=== PATIENT | female | born 1970 | race Caucasian/White ===

== ENCOUNTER 2017-01-10 15:36 | Inpatient (IN) ==
--- NOTE | 2017-01-10 18:48 | Internal Med History&Physical ---
Date of Encounter: 01/10/17 Time of Encounter: 18:46 Assessment and Plan (1) NSTEMI (non-ST elevated myocardial infarction) Current visit: Yes Status: Acute Her troponin was elevated. She had chest pain for 4 days. She has a history of CAD. Altogether pointing to a diagnosis of acute myocardial infarction. Will admit the patient to telemetry. Trend troponin. I will not start anticoagulation was heparin due to current therapy with Eliquis. I will hold Eliquis and reassess for need of parenteral anticoagulation based on troponin profile and further clinical picture. We will consult cardiology. We will obtain echocardiogram. I will continue on aspirin. Start Lipitor 80 mg. Continue with beta landon and lisinopril. Nothing by mouth after midnight for possible need for cardiac catheterization. (2) Tobacco abuse disorder Current visit: Yes Status: Acute I provided smoking cessation counseling. I will hold off on nicotine replacement therapy due to acute [place]. (3) Coronary artery disease Current visit: Yes Status: Acute Continue with aspirin and Coreg, nitroglycerin when necessary. Consult cardiology. Qualifiers: Coronary Disease-Associated Artery/Lesion type: bypass graft [place] vs. transplanted heart: [place] heart Associated angina: with unstable angina Qualified Code(s): I25.700 - Atherosclerosis of coronary artery bypass graft(s) , unspecified, with unstable angina pectoris (4) Paroxysmal atrial fibrillation Current visit: Yes Status: Acute Currently in sinus rhythm. Continue with beta landon. Hold Eliquis for now, consider starting heparin based on clinical picture. (5) Ischemic cardiomyopathy Current visit: Yes Status: Acute (6) Essential hypertension Current visit: Yes Status: Acute (7) Bronchial asthma Current visit: Yes Status: Acute Inhaled albuterol as needed. Qualifiers: Asthma severity: mild intermittent Asthma complication type: uncomplicated Qualified Code(s): J45.20 - Mild intermittent asthma, uncomplicated (8) DVT prophylaxis Current visit: Yes Status: Acute She is currently fully anticoagulated with eliquis. Internal Medicine - H&P: HPI Chief complaint: chest pain Admitted From: Intrahospital Transfer Plans for Post Hospital Care: Home History of present illness: Ms. Rivera is a 46 year old female with past medical history significant for coronary artery disease, ischemic cardiomyopathy and bronchial asthma who presented to the hospital for chest pain. She has been having chest pain for 4 days on and off located in the left side of her chest described as sharp stabbing severe in intensity. Denies any associated cough nausea or diaphoresis. Today it has been more persistent and therefore she went to the hospital. Her troponin was elevated and she was referred for transfer to our facility. She is currently chest pain-free. A 10 point review of systems was negative except per the history of present illness. Past Med Surg Social Fam HX - Past Medical History Medical history: asthma, COPD, coronary artery disease, hyperlipidemia, hypertension, syncope Psychiatric history: anxiety - Past Surgical History Surgical History: coronary bypass (CABG), heart valve replacement, pacemaker - Social History Smoking Status: Current every day smoker Packs per day: 0.5 Smokeless Tobacco Status: No Alcohol use: none Drug use: marijuana - Family History Mother Living Status: Still Living Hx Family Cardiac Disorders: Yes Hx Family Respiratory Disorders: Yes Hx Family Cancer: No Hx Family GI Disorders: Yes Hx Family Endocrine Disorder: Yes Hx Family Neuromuscular Disorders: No Hx Family Neurologic Disorders: No Hx Family HEENT Disorders: No Hx Family Autoimmune Disorders: No Internal Medicine - H&P: Meds Aspirin 81 mg PO DAILY 09/20/16 [History] Atorvastatin [Lipitor] 10 mg PO HS 09/20/16 [History] Carvedilol [Coreg] 6.25 mg PO BIDWM 09/20/16 [History] Furosemide [Lasix] 20 mg PO DAILY 09/20/16 [History] Lisinopril [Zestril] 20 mg PO DAILY 09/20/16 [History] Nitroglycerin [Nitrostat] 0.4 mg SL Q5M PRN 09/20/16 [History] Ondansetron [Zofran] 8 mg PO Q8HR PRN 09/20/16 [History] Acetaminophen [Tylenol] 650 mg PO Q4HR PRN #0 tablet 09/21/16 [Rx] OxyCODONE/APAP 5/325 [Percocet 5/325 MG] 1 each PO Q6HR PRN #10 tablet 09/21/16 [Rx] Allergies No Known Allergies Allergy (Verified 09/20/16 07:58) All Systems PM: A 10-system review of systems was performed and is negative for pertinent findings except as documented above in the HPI. - Constitutional Vitals: Temp Pulse Resp BP Pulse Ox 98.6 F 73 16 110/76 97 01/10/17 18:14 01/10/17 18:14 01/10/17 18:14 01/10/17 18:14 01/10/17 18:14 General appearance: Present: A&O X 3 - Eye Eye exam: Present: PERRL, conjuntiva pink, sclera anicteric Pupils: Present: PERRL - Neck Neck exam general surgery: Present: supple, trachea midline. Absent: lymphadenopathy - Respiratory Respiratory exam: Present: CTAB. Absent: accessory muscle use, rales, rhonchi, wheezes - Cardiovascular Cardiovascular exam: Present: RRR, +S1, +S2. Absent: diastolic murmur, gallop, rubs, systolic murmur - GI/Abdominal GI/Abdominal exam: Present: normal bowel sounds, soft, no peritoneal signs. Absent: distended, tenderness - Extremities Exam Extremities exam: Present: warm, radial pulses palpable and symetrical. Absent : calf tenderness, cyanotic, pedal edema - Neurological Exam Neurological exam: Present: CN II-XII intact, oriented X3, no focal deficits. Absent: pronater drift, facial droop, speech deficit - Skin Skin exam: Present: dry, intact Internal Med - H&P Results - Labs Labs: Laboratory review from [facility] from 01/10/2017 BNP was 569 white blood cell count 14.0 hemoglobin 15.3 CK-MB 8.8 troponin 0.28 sodium 136 potassium 3.8 BUN 20 creatinine 1.3 glucose 114 EKG from [facility] was personally reviewed. Shows normal sinus rhythm 93 bpm diffuse T-wave inversions in leads 1 and 2 aVF and V2 to V6. Poor R-wave progressions. - Impressions Chest x-ray at [facility] from 01/10/2017 shows no acute cardiopulmonary disease. Left-sided pacemaker
[2017-01-10] MEDS ORDERED: Naloxone 0.4 MG/ML INJ IVP PRN (21:30)
[2017-01-10] MEDS ORDERED: *HR* Morphine 2 MG/ML SYRINGE IVP PRN (21:30)
[2017-01-10] MEDS ORDERED: Acetaminophen 325 MG TABLET PO PRN (21:30)
[2017-01-10] MEDS ORDERED: Nitroglycerin 0.4 MG TAB.SUBL SL PRN (21:37)
[2017-01-10] MEDS ORDERED: *HR* Heparin 5,000 UNIT/ML VIAL IVP PRN ×2 (22:31)
[2017-01-10] MEDS ORDERED: *HR* Heparin 5,000 UNIT/ML VIAL IVP ONE (22:31)
[2017-01-10] MEDS ORDERED: Heparin 25,000 UNIT/500 ML D5W 25,000 UNIT/500 ML MLS IVC SCH (22:45)
[2017-01-10 23:05] LABS: Hematocrit 44.3 % (35.3-44.9); Hemoglobin 14.7 g/dL (11.5-15.4); Immature Platelets 5.2 % (1.1-6.1); Mean Corpuscular HGB Conc 33.2 g/dL (31.6-35.5); Mean Corpuscular Volume 96.5 fL (83.0-100.0); Mean Platelet Volume 10.6 fL (9.4-12.4); Red Blood Count 4.59 M/mcL (3.82-4.97); Red Cell Distribution Width 12.6 % (11.5-14.5)
[2017-01-10 23:13] LABS: INR 1.4; Prothrombin Time 15.2 Seconds (9.4-12.1)
[2017-01-10 23:15] LABS: Activated Partial Thrombo Time 33.5 Seconds (26.0-36.0)
[2017-01-10] MEDS: 0.9 % Sodium Chloride 1,000 ML IVC SCH (23:37)
[2017-01-10] MEDS: *HR* OxyCODONE/APAP 5/325 TABLET PO PRN (23:56)
[2017-01-11 04:49] LABS: Basophils # 0.1 K/mcL (0.0-0.2); Basophils % 0.6 %; Eosinophils # 0.2 K/mcL (0.0-0.6); Eosinophils % 2.3 %; Hematocrit 43.3 % (35.3-44.9); Hemoglobin 14.5 g/dL (11.5-15.4); Immature Granulocytes % 0.3 % (0-4); Lymphocytes # 4.4 K/mcL (0.6-4.6); Lymphocytes % 43.1 %; Mean Corpuscular HGB Conc 33.5 g/dL (31.6-35.5); Mean Corpuscular Hemoglobin 32.8 pg (28.0-33.3); Mean Platelet Volume 10.8 fL (9.4-12.4); Monocytes # 0.7 K/mcL (0.0-1.3); Monocytes % 7.2 %; Neutrophils # 4.8 K/mcL (1.6-8.9); Platelet Count 240 K/mcL (140-400); Red Blood Count 4.42 M/mcL (3.82-4.97); Red Cell Distribution Width 12.8 % (11.5-14.5); Segmented Neutrophils % 46.5 %
[2017-01-11 04:56] LABS: INR 1.4; Prothrombin Time 14.9 Seconds (9.4-12.1)
[2017-01-11 04:59] LABS: Activated Partial Thrombo Time 96.2 Seconds (26.0-36.0)
[2017-01-11 05:12] LABS: Magnesium 1.8 mg/dL (1.6-2.6); Potassium 3.6 mEq/L (3.5-4.5)
[2017-01-11] MEDS: 0.9 % Sodium Chloride 1,000 ML IVC SCH (07:46)
[2017-01-11] MEDS: Aspirin 81 MG TAB.CHEW PO SCH (08:49)
[2017-01-11] MEDS: Lisinopril 20 MG TABLET PO SCH (08:49)
--- NOTE | 2017-01-11 09:54 | Internal Med Progress Note ---
<Travis Amin - Last Filed: 01/11/17 11:04> Date of Encounter: 01/11/17 Time of Encounter: 09:49 - Assessment and plan (1) NSTEMI (non-ST elevated myocardial infarction) Current Visit: Yes Status: Acute Assessment and plan: Patient is a 46 year old female with history of CAD, paroxysmal afib on Eliquis , ischemic cardiomyopathy, and tobacco use disorder who was transferred from [facility] with complaint of severe chest pain for 4-5 days prior to arrival and was found to have EKG changes and elevated troponin. Troponin 0.28, 0.58, 0.55 EKG revealed normal sinus rhythm, rate 93, and t wave inversions in lead 1, 2, avF, V2-V6. CXR revealed no acute cardiopulm process, pacemaker on Left. Continue heparin drip, hold eliquis. Echo ordered NPO Continue lipitor, carvedilol, lisinopril, and aspirin. Cardio note reviewed. Plan for left heart cath. (2) Paroxysmal atrial fibrillation Current Visit: Yes Status: Chronic Assessment and plan: EKG revealed normal sinus rhythm. Exam revealed an irregular rhythm. Continue with beta landon and hold eliquis. (3) Coronary artery disease Current Visit: Yes Status: Chronic Assessment and plan: History of CAD Continue aspirin and carvedilol. Cardio on board. Qualifiers: Coronary Disease-Associated Artery/Lesion type: bypass graft [place] vs. transplanted heart: [place] heart Associated angina: with stable angina Qualified Code(s): I25.708 - Atherosclerosis of coronary artery bypass graft(s) , unspecified, with other forms of angina pectoris (4) Ischemic cardiomyopathy Current Visit: Yes Status: Chronic Assessment and plan: Last echo complete 08/30/16 revealed LVEF 55%, moderate LV diastolic dysfunction , normal RV, moderately dilate Left atrium, and normal bioprosthetic mitral valve without stenosis and trace mitral regurg. (5) COPD (chronic obstructive pulmonary disease) Current Visit: Yes Status: Chronic Assessment and plan: No exacerbation. Continue with duoneb prn. Qualifiers: COPD type: unspecified COPD Qualified Code(s): J44.9 - Chronic obstructive pulmonary disease, unspecified (6) Tobacco use disorder, mild, abuse Current Visit: Yes Status: Chronic Assessment and plan: Counseled patient regarding importance of tobacco cessation. Patient understands, not willing to quit at this time. (7) Essential hypertension Current Visit: Yes Status: Chronic Assessment and plan: Bp 107/58. Continue home medications for chronic disease management. (8) DVT prophylaxis Current Visit: Yes Status: Acute Assessment and plan: On heparin drip. - Subjective Interval history: Ms. Rivera is a 46 year old female with history of CAD, ischemic cardiomyopathy, prosthetic mitral valve, afib, asthma, COPD, htn, and hld who was transferred from [facility] to the ED with complaint of sharp severe left sided chest pain intermittent for the past 4 days prior to arrival that persisted on day of admission. EKG revealed normal sinus rhythm with rate 93 and t wvae inversions noted in lead 1, 2, avf, V2-V6. CXR revealed no acute cardiopulm processes and pacemaker on Left. Troponin was elevated at 0.28, Cr 1.3, and BNP of 569. Troponin on arrival was 0.58. Patient reports continued but lessened chest pain overnight and shortness of breath improving. Patient denies radiation of pain to arm or back. Patient denies nausea or vomiting. Patient denies fevers, chills, sweats, changes in vision or hearing, abdominal pain, changes in bowels or bladder, weakness, or loss of sensation. - Constitutional Vitals: Temp Pulse Resp BP Pulse Ox 97.5 F L 74 16 119/50 98 01/11/17 06:59 01/11/17 06:59 01/11/17 06:59 01/11/17 06:59 01/11/17 06:59 General appearance: Present: mild distress, A&O X 3, pleasant, answers questions appropriately - Head Head exam: Present: atraumatic, normal inspection, normocephalic - Eye Eye exam: Present: normal appearance - ENT ENT exam: Present: mucous membranes moist, normal exam, normal external ear exam , normal oropharynx - Neck Neck exam general surgery: Present: full ROM, normal inspection, supple, trachea midline - Respiratory Respiratory exam: Present: CTAB. Absent: rales, rhonchi, wheezes Additional comments: erythema noted over chest, reported to be chronic. - Cardiovascular Cardiovascular exam: Present: irregular rhythm, +S1, +S2. Absent: JVD, tachycardia - GI/Abdominal GI/Abdominal exam: Present: normal bowel sounds, soft. Absent: distended, guarding, tenderness - Extremities Exam Extremities exam: Present: normal inspection, warm. Absent: pedal edema, tenderness - Neurological Exam Neurological exam: Present: alert, oriented X3, no focal deficits, strengths equal and symetr throughout. Absent: facial droop, speech deficit - Psychiatric Psychiatric exam: Present: normal affect, normal mood - Skin Skin exam: Present: dry, erythema (over chest, reported as chronic), intact, normal color, warm. Absent: pallor, rash Internal Medicine: Result - Labs CBC & Chem 7: 01/11/17 04:15 01/11/17 04:15 Labs: Short CBC 01/10/17 01/11/17 Range/Units 22:45 04:15 WBC 11.7 H 10.3 (4.3-11.1) K/mcL Hgb 14.7 14.5 (11.5-15.4) g/dL Hct 44.3 43.3 (35.3-44.9) % Plt Count 264 240 (140-400) K/mcL Neutrophils # 4.8 (1.6-8.9) K/mcL BMP 01/11/17 04:15 Sodium 139 Potassium 3.6 Chloride 108 Carbon Dioxide 20 BUN 19 Creatinine 1.23 H Glucose 92 Calcium 9.0 Cardiac Enzymes 01/10/17 01/11/17 Range/Units 22:45 04:15 Troponin I 0.58 H* 0.55 H* (0-0.03) ng/mL - ABG Interpretation ABG results: PT/INR, D-dimer PT 14.9 Seconds (9.4-12.1) H 01/11/17 04:15 Consult Discharge Plan - Plan Referrals: Candace Gomez, [facility] LOCATION MANAGER [Primary Care Provider] - <Dilip Allen P - Last Filed: 01/11/17 17:49> Date of Encounter: 01/11/17 - Constitutional Vitals: Temp Pulse Resp BP Pulse Ox 97.8 F 60 16 127/61 96 01/11/17 15:37 01/11/17 16:19 01/11/17 16:19 01/11/17 16:19 01/11/17 16:19 Internal Medicine: Result - Labs CBC & Chem 7: 01/11/17 04:15 01/11/17 04:15 Labs: Short CBC 01/10/17 01/11/17 Range/Units 22:45 04:15 WBC 11.7 H 10.3 (4.3-11.1) K/mcL Hgb 14.7 14.5 (11.5-15.4) g/dL Hct 44.3 43.3 (35.3-44.9) % Plt Count 264 240 (140-400) K/mcL Neutrophils # 4.8 (1.6-8.9) K/mcL BMP 01/11/17 04:15 Sodium 139 Potassium 3.6 Chloride 108 Carbon Dioxide 20 BUN 19 Creatinine 1.23 H Glucose 92 Calcium 9.0 Cardiac Enzymes 01/10/17 01/11/17 01/11/17 Range/Units 22:45 04:15 10:10 Troponin I 0.58 H* 0.55 H* 0.51 H* (0-0.03) ng/mL - ABG Interpretation ABG results: PT/INR, D-dimer PT 14.9 Seconds (9.4-12.1) H 01/11/17 04:15 - Attending Attestation I examined this patient and my medical decision-making was reviewed with the SUBSTITUTE TEACHER/PA/Advanced Practice Nurse/Resident Physician. I agree with the documented findings, disposition and treatment plan as described except to the extent set forth below. Patient was evaluated by cardiology. We will follow the recommendations from cardiology.
--- NOTE | 2017-01-11 10:13 | Cardiology Consult Note ---
Date of Encounter: 01/11/17 Time of Encounter: 10:00 Assessment and Plan (1) NSTEMI (non-ST elevated myocardial infarction) Current Visit: Yes Status: Acute Patient came in with typical anginal chest pain that started four days ago in her left chest, left lower chest, and in her back. Pain got better with rest and nitroglycerin. CXR at [facility] showed no acute process. Troponins were .28, .32, .58, .55, .51 EKG showed diffuse T wave inversions that are changed from prior EKG on 09/20/16 Lipid panel was abnormal and showed elevated Triglycerides, LDL. last echo on 08/30/16 showed normal LV chamber size, wall thickness, and systolic function, LVEF 55%, moderate LV diastolic dysfunction, normal RV structure and function, moderately dilated left atrium, normal function of bioprosthetic mitral valave, no evidence of stenosis, trace mitral regurgitation , no evidence of pulmonary hypertension. Plan: Hold Eliquis Heparin gtt. Pain control- Morphine PRN. limited Echo pending. Continue ASA 81, Atorvastatin 80, Coreg 6.25 BID, Lisinopril 20 patient counseled on risk factor modifications. LHC later today (2) Paroxysmal atrial fibrillation Current Visit: Yes Status: Acute She has a history of Afib with sinus pause. s/p dual chamber pacemaker by Dr. Rene Martinez on 09/20/16. Her last device check was 12/27/16, and she continues to follow up. (3) Coronary artery disease Current Visit: Yes Status: Acute She had CABG in 2010 at [facility] (SVG to distal RCA). LHC 12/03/14 at [facility] showed normal LVEDP, mild to moderate non obstructive plaque in the left coronary, RCA was occluded in the proximal segment, SVG to distal RCA was widely patent at that time. Plan: continue ASA, atorvastatin Qualifiers: Coronary Disease-Associated Artery/Lesion type: bypass graft [place] vs. transplanted heart: [place] heart Associated angina: with stable angina Qualified Code(s): I25.708 - Atherosclerosis of coronary artery bypass graft(s) , unspecified, with other forms of angina pectoris (4) History of mitral valve replacement with bioprosthetic valve Current Visit: Yes Status: Acute She had a mitral valve replacement with bioprosthetic valve in 2010, same time as CABG. she had this done at [facility]. TTE at [facility] on 12/02/14 showe LVEDF 40-45%, bioprosthetic MV was well seated and functioning normally at that time. (5) Tobacco abuse disorder Current Visit: Yes Status: Acute Patient has a history of smoking for about 33 years, 1/2 PPD. She continues to smoke. She was counseled extensively on the benefits of quitting, and the cardiac risk factors if she continues to smoke. Discussion w patient/family: The assessment and plan as outlined above was discussed with the patient and/or family members who expressed understanding and agreement. All questions were answered. Thank you for involving us in the care of your patient. Please call with any questions. History of Present Illness Consult date: 01/11/17 Requesting physician: Gildardo Casanova Consult reason: NSTEMI Chief complaint: chest pain History of present illness: Ms. Rivera is a 46 year old female with significant cardiac PMHx. she had CABG in 2010 at [facility] (SVG to distal RCA) with bioprosthetic mitral valve replacement at the same time, Afib (recent placement of dual chamber pacemaker by Dr. Martinez on 09/20/16, last device check was 12/27), cardiomyopathy (last TTE at [facility] on 12/02/14 showed LVEF 40-45%, normal RV size with mildly RV dysfunciton, bioprosthetic MV was well seated, and functioning normally. LV function was improved compared to prior study). Patient also had LHC in 12/03/14 at [facility] that showed normal LVEDP, mild to moderate non obstructive plaque in the left coronary, RCA was occluded in proximal segment, SVG to Distal RCA was patent. She had carotid Ultrasound on 08/30/16 that showed LICA 60-79% stenosis, BUD had minimal plaque. Patient came in with CP x4 days, she said she finally came to the hospital after four days because her daughter told her to. She came as a transfer from [facility]. Her chest pain is located on the left side of her chest, and under her left breast. She describes the pain as sometimes sharp , stabbing, and sometimes it is a dull ache. Sometimes the pain radiates down her left arm. The pain also goes to her back in between her shoulder blades. When she received nitroglycerin, it made the pain better. She also feels better when she lies down to rest. mild activity makes the pain worse. Her pain is also associated with shortness of breath. She currently admits to mild chest pain. She is currently NPO and on a heparin drip. She denies nausea, vomiting, diarrhea, fever, chills, dizziness. Past Med Surg Social Fam HX - Past Medical History Medical history: asthma, COPD, coronary artery disease, hyperlipidemia, hypertension, syncope Psychiatric history: anxiety - Past Surgical History Surgical History: coronary bypass (CABG), heart valve replacement, pacemaker - Social History Smoking Status: Current every day smoker Packs per day: 0.5 Smokeless Tobacco Status: No Alcohol use: none Drug use: marijuana - Family History Mother Living Status: Still Living Hx Family Cardiac Disorders: Yes Hx Family Respiratory Disorders: Yes Hx Family Cancer: No Hx Family GI Disorders: Yes Hx Family Endocrine Disorder: Yes Hx Family Neuromuscular Disorders: No Hx Family Neurologic Disorders: No Hx Family HEENT Disorders: No Hx Family Autoimmune Disorders: No Medications and Allergies Atorvastatin [Lipitor] 10 mg PO HS 09/20/16 [History] Carvedilol [Coreg] 6.25 mg PO BIDWM 09/20/16 [History] Furosemide [Lasix] 20 mg PO DAILY 09/20/16 [History] Lisinopril [Zestril] 20 mg PO DAILY 09/20/16 [History] Nitroglycerin [Nitrostat] 0.4 mg SL Q5M PRN 09/20/16 [History] Ondansetron [Zofran] 4 mg PO Q8HR PRN 09/20/16 [History] Acetaminophen [Tylenol] 650 mg PO Q4HR PRN #0 tablet 09/21/16 [Rx] Albuterol Sulfate [Albuterol Inhaler] 2 puff IH Q4-6H PRN 01/11/17 [History] Apixaban [Eliquis] 5 mg PO BID 01/11/17 [History] Allergies No Known Allergies Allergy (Verified 01/11/17 07:37) All Systems Review: A 10-system review of systems was performed and is negative for pertinent findings except as documented above in the HPI. - Constitutional Constitutional: fatigue, no anorexia, no chills, no fever(s), no headache(s) - EENT Eyes: no blurred vision - Cardiovascular Cardiovascular: chest pain with exertion, dyspnea on exertion, radiating jaw, neck or arm pain, no chest pain at rest, no dyspnea at rest, no syncope - Gastrointestinal Gastrointestinal: no abdominal pain, no diarrhea - Neurological Neurological: no dizziness Physical Examination Vital Signs, Last 4 Hours Temp Pulse Resp BP Pulse Ox 01/11/17 06:59 97.5 F L 74 16 119/50 98 General: Conversant, No Apparent Distress HEENT: Atraumatic, Normocephaly Neck: No JVD Cardiac: Normal S1 and S2, No Murmur Lungs: Normal Breath Sounds, No Wheeze, Rales, Rhonchi Neuro: Alert and responsive, No focal deficits noted Abdomen: Soft, Non-Tender Skin: No rashes noted on visualized skin Musculoskeletal: No Chest Wall Tenderness Extremities: No Clubbing, No Cyanosis Results 01/11/17 04:15 01/11/17 04:15 Lab Results 01/10/17 01/10/17 01/10/17 22:45 22:45 22:45 WBC 11.7 H Hgb 14.7 Hct 44.3 Plt Count 264 INR 1.4 APTT 33.5 Sodium Potassium Chloride Carbon Dioxide BUN Creatinine Glucose Calcium Magnesium Troponin I 0.58 H* 01/11/17 01/11/17 01/11/17 04:15 04:15 04:15 WBC 10.3 Hgb 14.5 Hct 43.3 Plt Count 240 INR 1.4 APTT 96.2 H D Sodium Potassium Chloride Carbon Dioxide BUN Creatinine Glucose Calcium Magnesium Troponin I 0.55 H* 01/11/17 01/11/17 04:15 06:32 WBC Hgb Hct Plt Count INR APTT 93.9 H Sodium 139 Potassium 3.6 Chloride 108 Carbon Dioxide 20 BUN 19 Creatinine 1.23 H Glucose 92 Calcium 9.0 Magnesium 1.8 Troponin I Consult Discharge Plan - Plan Referrals: Candace Gomez, CASH APPLICATION CLERK [Primary Care Provider] -
[2017-01-11] MEDS ORDERED: Ipratropium/Albuterol Neb 3 ML IH PRN (10:54)
[2017-01-11] MEDS: *HR* OxyCODONE/APAP 5/325 TABLET PO PRN ×2 (11:11→17:51)
--- NOTE | 2017-01-11 13:31 | ECHO - Doppler Report ---
Limited Echocardiogram Name: Bethany Rivera Date of Study: 01/11/2017 Date: 1970 Ht: 60.0 in Medical Record#: [id number] Age: 46 Wt: 182.0 lb Gender: Female BSA: 1.79 Order #: [id number] Location: [facility] Room #: [id number] Reading Physician: Leon Valadez MD, [facility] Concrete Spreader: YUSEF HirschT, [facility] Ordering Physician: Rafael Alonso DO Primary Physician: Candace Gomez CNP Indications: Myocardial infarction, History of mitral valve replacement Impressions: Technically sub-optimal due to poor echocardiographic windows. LVEF 50-55%. There are regional wall motion abnormalities, see diagram below. Normal right ventricular size and function. A device lead was visualized in the right atrium and right ventricle. Moderately dilated left atrium. Valvular function was not assessed on this limited study. Left Ventricular Wall Motion: Rest Echo Findings The apex, apical septal, mid inferior septal and mid anterior septal barnett were hypokinetic. All other wall segments showed normal motion. Findings: Study Quality * Technically sub-optimal due to poor echocardiographic windows. ECG Findings * Normal sinus rhythm. Left Ventricle * LVEF 50-55%. There are regional wall motion abnormalities, see diagram below. * Normal LV chamber size and wall thickness. Right Ventricle * Normal right ventricular size and function. Device lead * A device lead was visualized in the right atrium and right ventricle. Left Atrium * Moderately dilated left atrium. Right Atrium * Normal right atrial size. Aorta * Aortic root was not well visualized. Pericardium * There is no pericardial effusion present. IVC * The IVC is not well evaluated. History Hypertension Hypercholesteremia Pacer/ICD Implant Valvular Disease 08-30-2016 a Previous Echo was performed. Measurements: BP: 107/ 58 2D Normal Values RVIDd: 3.30 cm IVSd: 1.00 cm 0.6 - 1.0 cm LVIDd: 5.10 cm 3.7 - 5.6 cm LVPWd: 1.00 cm 0.6 - 1.1 cm LVIDs: 3.80 cm 1.5 - 3.6 cm LA volume: 70 Updated by Leon Valadez MD, [facility] on 01/11/2017 1:26:26 PM electronically signed on 01/11/2017 1:26:54 PM with status of Final Wall Motion Valerio: 1=Normal, 2=Hypokinesis, 3=Akinesis, 4=Dyskinesis, 5=Aneurysmal, 6=Hyperkinetic, X=Not Visualized (Blank)=Missing
[2017-01-11] MEDS ORDERED: *HR* Heparin 10,000 UNIT/10 ML VIAL ONE (13:49)
[2017-01-11] MEDS ORDERED: Heparin 1,000 UNITS/500 mL NS 500 ML ONE (13:49)
[2017-01-11] MEDS ORDERED: *HR* Midazolam HCl 2 MG/2 ML VIAL ONE (13:49)
[2017-01-11] MEDS ORDERED: 0.9 % Sodium Chloride 1,000 ML ONE ×2 (13:49→14:33)
[2017-01-11] MEDS ORDERED: *HR* FentaNYL (PF) 100 MCG/2 ML VIAL ONE (13:49)
--- NOTE | 2017-01-11 13:52 | Pre-Sedation Evaluation ---
Pre-sedation evaluation - Pre-sedation checklist Date of procedure: 01/11/17 Procedure: Heart Cath Recent Vitals: Last Vital Signs Temp 97.6 F 01/11/17 10:43 Pulse 74 01/11/17 10:43 Resp 16 01/11/17 10:43 BP 107/58 01/11/17 10:43 Pulse Ox 97 01/11/17 10:43 H&P (including ROS) documented in medical record: Yes Previous reaction to sedatives/anesthetics: No Dietary Status: NPO after Midnight Airway Assessment: Patient can open mouth completely, TMJ function normal, Micrognathia (under-bite, receding chin) absent, Neck with adequate range of motion Dentition: poor dentition Possible difficult airway: No ASA Classification *see protocol: CLASS II-Mild systemic disease Plan of Care: Pt appropriate candidate for procedure/moderate/conscious sedation , Risks/benefits of procedure/sedation discussed w/ patient/family
[2017-01-11] MEDS ORDERED: Nitroglycerin 1,000 MCG/10 ML VIAL IV ONE (14:24)
--- NOTE | 2017-01-11 15:37 | Invasive Diagnostic Lab Proc ---
Name: Bethany Rivera Date of Study: 01/11/2017 Date: 1970 Ht: 59.8in Medical Record#: [id number] Age: 46 Wt: 182.98lb Gender: Female BSA: 1.79 Order #: [id number] BMI: 35.92 Physicians Procedure Physician: Mandy Martinez MD, [facility] Referring MD: Referring MD: Staff Name Position Time In Barbi Carrion RT (R) Scrub 02:30 PM Christofer Meehan RN Pen Tester 02:30 PM Latoya eLster RN Monitor 02:30 PM Indications Indication Non-Stemi Procedures Performed Procedure L HRT ART/GRFT ANGIO Pre-Procedure Checklist Informed consent is complete signed and on chart. H\\T\\P is on chart. ID band is on and ID verified with patient. Patient NPO for procedure The procedure was described for the patient and questions were answered. Blood Pressure: 119/50 ECG is on chart. Plan of Care Patient will tolerate the procedure without complications. Adequate level of comfort will be maintained. Hemodynamics will remain stable Patient will recover from procedure without complications. Respiratory function will be maintained. Cardiac rhythm will remain stable. Patient temperature will be maintained. Patient and/or family have verbalized understanding of the procedure. Patient Education Chief Complaint/Reason for Test: Cardiac Cath Developmental Category: Adult (18-64 years) Developmentally Appropriate for Age: Yes Learning Barriers: None Education Needs: Procedure Education Method: Verbal Information Taught: Cardiac Cath Educational Evaluation: Able to repeat information Intravenous Access Time IV Size Location DC'd Fluid/Drip Rate Units RN 20g 1 /" Patent On Arrival 0.9NaCl Allergies No Known Allergies Vital Signs Time BP (mmHg) HR (bpm) O2 Sat. RR (bpm) LOC 119 / 50 74 98 % 16 5 = Fully awake and oriented or at pre-proc level 02:44 PM / % 5 = Fully awake and oriented or at pre-proc level 02:44 PM / % 5 = Fully awake and oriented or at pre-proc level 03:00 PM / % 5 = Fully awake and oriented or at pre-proc level 02:33 PM 125 / 78 62 98 % 20 02:38 PM 131 / 68 59 100 % 14 02:42 PM 132 / 65 71 100 % 20 02:48 PM 143 / 72 64 100 % 17 02:52 PM 148 / 72 66 100 % 16 02:57 PM 135 / 68 77 100 % 13 03:02 PM 148 / 77 71 100 % 20 03:07 PM 143 / 52 71 100 % 21 Procedural Medications Time Medication Dose Units Method Given By 02:31 PM Oxygen 2 L/min nasal cannula Christofer Meehan RN 02:34 PM Versed 2 mg Intravenous Christofer Meehan RN 02:34 PM Fentanyl 50 mcg Intravenous Christofer Meehan RN 02:47 PM Lidocaine 2% 20 ml Subcutaneous Mandy Martinez MD, FACC 02:49 PM Benadryl 25 mg Intravenous Christofer Meehan RN ASA Classification: CLASS II- Mild systemic disease (i.e. well-controlled diabetes, hypertension, asthma, cigarette smoking) Aneta Score Preprocedure Postprocedure Activity 2- Moves 4 extremities sustained head lift Activity 2- Moves 4 extremities sustained head lift Circulation 2- SBP +/= 20 points of pre-anesthetic level Circulation 2- SBP +/= 20 points of pre-anesthetic level Consciousness 2- Awake and alert oriented x 3 Consciousness 2- Awake and alert oriented x 3 O2 Saturation 2- Able to maintain O2 satruation of 92% on room air O2 Saturation 2- Able to maintain O2 satruation of 92% on room air Respiratory 2- Able to deep breathe and cough well Respiratory 2- Able to deep breathe and cough well Total Score 10 Total Score 10 Contrast Agent: Isovue Diagnostic Contrast: 77 ml Total Contrast: 77 ml Fluoro Dose: 384 mGy Procedure Log Time Note Enter By 02:30 PM Pt arrived to greens laborer 2 at 14:30 ejohnson 02:30 PM Vitals capture started with the following parameters, Patient=Adult, Interval=5 min, Initial Nqqegjsc=297 mmHg, Deflation Rate=5 mmHg, Cuff placed on Left Arm 02:30 PM Barbi Carrion RT (R) Position: Scrub Time in: 14:30 ejohnson 02:30 PM Christofer Meehan RN Position: Pen Tester Time in: 14:30 ejohnson 02:31 PM Vitals capture stopped. 02:31 PM Latoya Lester RN Position: Monitor Time in: 14:30 ejohnson 02:31 PM Patient charges- Angio tray pack, Navilyst 3mm J, Pulse Oximetry and ACIST tubing and transducer ejohnson 02:31 PM Case Delayed No ejohnson 02: PM Physician arrived 14:31 ejohnson 02:31 PM ASA Class CLASS II- Mild systemic disease (i.e. well-controlled diabetes, hypertension, asthma, cigarette smoking) ejohnson 02:31 PM Meet and greet completed ejohnson 02: PM Sign in performed according to hospital policy. ejohnson 02:31 PM Procedure start 14:31 ejohnson : PM Time: 14:31 Oxygen on at 2 L/min per nasal cannula by Christofer Meehan RN ejohnson 02:32 PM Vitals capture started with the following parameters, Patient=Adult, Interval=5 min, Initial Wxplsvnh=734 mmHg, Deflation Rate=5 mmHg, Cuff placed on Left Arm 02:33 PM HR=62 bpm, KNPE=170/78 mmhg, SpO2=98 %, Resp=20 B/min 02:34 PM Time: 14:34 Versed 2 mg Intravenous Given by Christofer Meehan RN ejmonson 02:34 PM Time: 14:34 Fentanyl 50 mcg Intravenous Given by Christofer Meehan RN ejohnson 02:34 PM Recorded ECG: HR=61 Condition=Condition 1 02:38 PM HR=59 bpm, MMXV=083/68 mmhg, MbH4=590 %, Resp=14 B/min 02:38 PM Hair removed from procedure site in procedure lab using clippers. Bilateral groin prepped with Chloraprep by Barbi Carrion (R), safety strap applied then patient was draped. Skin intact. ejohnson 02:42 PM HR=71 bpm, IDCC=569/65 mmhg, QuO6=237 %, Resp=20 B/min 02:44 PM Time out performed according to hospital policy ejohnson :44 PM Time: 14:44 Patient comfortable and pain free: Yes ejohnson :44 PM Time: 14:44LOC: 5 = Fully awake and oriented or at pre-proc level ejohnson 02:47 PM Time: 14:47 20 ml Lidocaine 2% to right groin Subcutaneous Given by Mandy Martinez MD, [facility] ejohnson 02:48 PM HR=64 bpm, CHGU=674/72 mmhg, FjR4=076 %, Resp=17 B/min 02:49 PM Time: 14:49 Benadryl 25 mg Intravenous Given by Christofer Meehan RN ejohnson 02:49 PM Pressure channel 1 zeroed. 02:52 PM HR=66 bpm, HYCN=464/72 mmhg, YhT6=658.0 %, Resp=16 B/min, Comment=SR 02:53 PM Access obtained by percutaneous puncture. 5Fr 10cm [facility] sheath placed in right Femoral artery. [id number] ejohnson 02:53 PM 5Fr FL 4 catheter inserted over the wire DNC ejohnson 02:54 PM Recorded Pressure: Ao, HR=68, Condition=Condition 1 (Aorta) Ao 144/95/117 02:54 PM LCA angiography performed in multiple views. ejohnson 02:55 PM Catheter removed ejohnson 02:55 PM wire removed ejohnson 02:55 PM 5Fr FR 4 catheter inserted over the wire DNC ejohnson 02:55 PM wire removed ejohnson 02:56 PM Recorded Pressure: Ao, HR=73, Condition=Condition 1 (Aorta) Ao 141/99/119 02:57 PM RCA angiography performed in JORGE. ejohnson 02:57 PM SVG to the RPDA angio performed in multiple views. ejohnson 02:57 PM HR=77 bpm, YFST=183/68 mmhg, EcD7=373.0 %, Resp=13 B/min, Comment=SR 02:57 PM Catheter removed ejohnson 02:58 PM 5Fr Pigtail catheter inserted over the wire DN ejohnson 02:58 PM Catheter selectively placed in left ventricle ejohnson 02:58 PM Pressure channel 1 zeroed. 02:59 PM Recorded Pressure: LV, HR=82, Condition=Condition 1 (Left Ventricle) LV 145/43/49 02:59 PM Bolus angiogram of left Ventricle complete: 8 ml/sec for a total of 24 mls ejohnson 02:59 PM Recorded Pressure: LV, Ao, HR=63, Condition=Condition 1 (Left Ventricle) LV 145/52/78, (Aorta) Ao 139/74/103 03:00 PM Time: 14:44LOC: 5 = Fully awake and oriented or at pre-proc level ejohnson 03:00 PM Time: 14:44 Patient comfortable and pain free: Yes ejohnson 03:00 PM Catheter removed ejohnson 03:01 PM Bolus angiogram of right Femoral complete: 2 ml/sec for a total of 4 mls ejohnson 03:01 PM Procedure completed at 15:01 ejohnson 03:01 PM Time: 15:00LOC: 5 = Fully awake and oriented or at pre-proc level ejohnson 03:01 PM Time: 15:00 Patient comfortable and pain free: Yes ejohnson 03:01 PM Isovue 370 - 200ml,1 Bottle(s) used. ejohnson 03:02 PM Arterial sheath pulled, Mynx closure device used and was Successful S/N. ejohnson 03:02 PM Post ECG NSR ejohnson 03:02 PM Post Blood Pressure 135/68 ejohnson 03:02 PM 15:02 Post Pulses Bilateral DP \\T\\ PT 1+ ejohnson 03:02 PM Information taught Mynx ejohnson 03:02 PM HR=71 bpm, OJNU=445/77 mmhg, ZqI1=982.0 %, Resp=20 B/min, Comment=SR 03:02 PM Education needs Plan of Care and Responsibilities of Patient in Care ejohnson 03:03 PM Learning barriers :None ejohnson 03:03 PM Learning barriers :None ejohnson 03:03 PM Education Methods Verbal ejohnson 03:03 PM Education evaluation Able to repeat information ejohnson 03:04 PM Sign out completed: Radiation Dose 384.36 mGy Fluoro Time: 1.7 Isovue 370 - 200ml contrast 77 ml given by Mandy Martinez MD, FACC. Complications: NoneCardiac Rehab Consult needed: YesConfirmed administered medications: Yes ejohnson 03:05 PM Plavix, Effient or Brilinta given No ejohnson 03:06 PM Complications: None ejohnson 03:06 PM Fluoro Time: 1.7 ejohnson 03:07 PM HR=71 bpm, QECF=265/52 mmhg, AcA5=908.0 %, Resp=21 B/min, Comment=SR 03:11 PM Site status No bleeding/hematoma - Rt Groin as reported by Barbi Carrion RT (R) at 15:10 ejohnson 03:11 PM Opsite applied ejohnson 03:11 PM Plavix, Effient or Brilinta given No ejohnson 03:11 PM Family placed in none here at this time. ejohnson 03:12 PM Coronary Dominance: right ejohnson 03:12 PM Lesion found in Proximal RCA. Pre Stenosis: 100 Pre HUGO Flow: 0: No Flow/No perfusion ejohnson 03:12 PM Lesion found in Proximal LAD. Pre Stenosis: 40 Pre HUGO Flow: 3: Complete and Brisk Flow/Perfusion ejohnson 03:12 PM Lesion found in Mid LAD. Pre Stenosis: 40 Pre HUGO Flow: 3: Complete and Brisk Flow/Perfusion ejohnson 03:13 PM Lesion found in Proximal Circumflex. Pre Stenosis: 30 Pre HUGO Flow: 3: Complete and Brisk Flow/Perfusion ejohnson 03:13 PM Proximal Left Anterior Descending Coronary Artery with 40% stenosis. ejohnson 03:13 PM Mid/Distal Left Anterior Descending Coronary Artery and diagonal branches with 40% stenosis. ejohnson 03:14 PM Circumflex, Obtuse Marginal, Left Posterior Descending, and Left Posterolateral Coronary Arteries with 30 % stenosis. ejohnson 03:14 PM Right Coronary, Right Posterior Descending Arteries with Right Posterolateral and Acute Marginal branches with 100 % stenosis. ejohnson 03:31 PM Report given to Dasia GRIFFITH Pt taken to 2NE Room #26. 15:31 ejohnson 03:31 PM Delay to floor No ejohnson 03:31 PM Patient out of room: 15:31 ejohnson Complications Complication None Hemodynamics Pressures Site Systolic/A Wave Diastolic/V Wave Mean AO 144 95 117 AO 141 99 119 LV 145 43 49 LV 145 52 78 AO 139 74 103 Post Procedure Information Blood Pressure: 135/68 mmHg Rhythm: NSR Post procedural instructions were given Closure Device Time Device Success/Fail 01/11/2017 3:02:00 PM Mechanical Compression Successful Site Checks Time Location Status Staff Sheath In? Note 03:10 PM Rt Groin No bleeding/hematoma Barbi Carrion RT (R) Pulses Time Site Pre-Procedure Post-Procedure Note Bilateral PT 1+ Bilateral DP 2+ Bilateral radial 2+ 3:02:00 PM Bilateral DP \\T\\ PT 1+ Updated by Latoya Lester RN on 01/11/2017 3:32:05 PM Latoya Lester RN electronically signed on 01/11/2017 3:32:37 PM with status of Final
--- NOTE | 2017-01-11 16:21 | Invasive Diagnostic Lab ---
Name: Bethany Rivera Date of Study: 01/11/2017 Date: 1970 Ht: 152.0 cm /59.8 in Medical Record#: [id number] Age: 46 Wt: 83. kg / 182.98 lb Account/Order#: [id number] Gender: Female BSA: 1.79 Order #: [id number] Fluoro Dose: 384 mGy BMI: 35.92 Procedure Physician: Mandy Martinez MD, [facility] Referring MD: Referring MD: Procedures Performed: LEFT HEART CATH W/ GRAFTS Indications: Non-Stemi Impressions: Single vessel disease. 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 S/P CABG 1 of 1 patent bypass grafts. Moderate global/segmental LV dysfunction. Probable Takotsubo cardiomyopathy. Recommendations: Optimal medical therapy of patient's disease. Aggressive risk factor modification. History/Risk Factors: SYNCOPE CARDIOMYOPATHY CABG x 1 vessel CHEST PAIN Hypertension Dyslipidemia Previous Valvular Surgery Procedure Access obtained in the right Femoral artery by percutaneous puncture Complications: None Contrast: Isovue 77ml Hemodynamics: Pressures Site Systolic/ A Wave Diastolic/ V Wave End Diastolic/ Mean HR AO 144 95 117 68 AO 141 99 119 73 LV 145 43 49 82 LV 145 52 78 59 AO 139 74 103 68 LV Ventriculography Ejection Method: LV Gram Ejection Fraction: 40% Wall Motion: MIRELES Anterobasal Normal Anterolateral Severe Hypokinesis Apical: Severe Hypokinesis Inferoapical Severe Hypokinesis Inferobasal Normal Coronary Dominance: right Lesion Findings/Interventions * Left Main Coronary Artery The LMCA is angiographically free of disease. * Left Anterior Descending There is a 40% stenosis in the Proximal LAD. The lesion has a HUGO flow of 3. There is a 40% stenosis in the Mid LAD. The lesion has a HUGO flow of 3. * Circumflex There is a 30% stenosis in the Proximal Circumflex. The lesion has a HUGO flow of 3. * Right Coronary Artery There is a 100% stenosis in the Proximal RCA, CARBURIZING FURNACE OPERATOR. The lesion has a HUGO flow of 0. Additional Findings: Grafts * The saphenous vein graft to the Distal RCA is patent. HUGO flow is 3. Updated by Latoya Lester RN on 01/11/2017 3:30:03 PM Mandy Martinez MD, FACC electronically signed on 01/11/2017 4:15:42 PM with status of Final
--- NOTE | 2017-01-11 17:36 | Electrocardiograph Report ---
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
[2017-01-12] MEDS: *HR* OxyCODONE/APAP 5/325 TABLET PO PRN ×2 (04:08→12:38)
[2017-01-12 06:13] LABS: INR 1.2; Prothrombin Time 13.3 Seconds (9.4-12.1)
[2017-01-12 06:15] LABS: Basophils # 0.1 K/mcL (0.0-0.2); Basophils % 0.7 %; Eosinophils # 0.1 K/mcL (0.0-0.6); Eosinophils % 1.6 %; Hematocrit 40.4 % (35.3-44.9); Immature Granulocytes % 0.2 % (0-4); Lymphocytes # 2.5 K/mcL (0.6-4.6); Lymphocytes % 29.1 %; Mean Corpuscular HGB Conc 31.9 g/dL (31.6-35.5); Mean Corpuscular Hemoglobin 31.6 pg (28.0-33.3); Monocytes # 0.8 K/mcL (0.0-1.3); Monocytes % 8.7 %; Neutrophils # 5.2 K/mcL (1.6-8.9); Platelet Count 212 K/mcL (140-400); Red Blood Count 4.08 M/mcL (3.82-4.97); Red Cell Distribution Width 12.7 % (11.5-14.5); Segmented Neutrophils % 59.7 %
[2017-01-12 06:17] LABS: Activated Partial Thrombo Time 28.4 Seconds (26.0-36.0)
[2017-01-12 06:34] LABS: Calcium 8.7 mg/dL (8.6-10.8); Potassium 3.8 mEq/L (3.5-4.5)
[2017-01-12 06:37] LABS: Hemoglobin 12.9 g/dL (11.5-15.4)
[2017-01-12 07:26] VITALS: BP 103/67
--- NOTE | 2017-01-12 07:55 | Internal Med Progress Note ---
<Travis Amin - Last Filed: 01/12/17 09:45> Date of Encounter: 01/12/17 Time of Encounter: 07:55 - Assessment and plan (1) NSTEMI (non-ST elevated myocardial infarction) Status: Acute Assessment and plan: Patient is a 46 year old female with history of CAD, paroxysmal afib on Eliquis , ischemic cardiomyopathy, and tobacco use disorder who was transferred from [facility] with complaint of severe chest pain for 4-5 days prior to arrival and was found to have EKG changes and elevated troponin. Troponin 0.28, 0.58, 0.55 EKG revealed normal sinus rhythm, rate 93, and t wave inversions in lead 1, 2, avF, V2-V6. CXR revealed no acute cardiopulm process, pacemaker on Left. LHC revealed 100% stenosis of proximal RCA, 40% stenosis in proximal LAD, 40% stenosis in mid LAD, 30% stenosis in proximal circumflex, saphenous vein grap to distal RCA patent, and Left main coronary artery free of disease. Echo revealed LVEF 50-55% with some regional wall motion abnormalities, normal RV, lead in the RA and RV, moderately dilated left atrium. Heparin drip discontinued. Cardiac diet Continue lipitor, carvedilol, lisinopril, and aspirin. Restart Eliquis, home medication Possible discharge. Pending Cardio recommendations. (3) Paroxysmal atrial fibrillation Status: Chronic Assessment and plan: EKG revealed normal sinus rhythm. Rate controlled, in normal sinus on exam. Continue with beta landon and eliquis (4) Coronary artery disease Status: Chronic Assessment and plan: History of CAD Continue aspirin and carvedilol. Cardio on board. Qualifiers: Coronary Disease-Associated Artery/Lesion type: bypass graft [place] vs. transplanted heart: [place] heart Associated angina: with stable angina Qualified Code(s): I25.708 - Atherosclerosis of coronary artery bypass graft(s) , unspecified, with other forms of angina pectoris (5) Ischemic cardiomyopathy Status: Chronic Assessment and plan: Last echo complete 08/30/16 revealed LVEF 55%, moderate LV diastolic dysfunction , normal RV, moderately dilate Left atrium, and normal bioprosthetic mitral valve without stenosis and trace mitral regurg. Echo 01/11/17 revealed LVEF 50-55% with some regional wall motion abnormalities , normal RV, lead in the RA and RV, moderately dilated left atrium. (6) COPD (chronic obstructive pulmonary disease) Status: Chronic Assessment and plan: No exacerbation. Continue with duoneb prn. Qualifiers: COPD type: unspecified COPD Qualified Code(s): J44.9 - Chronic obstructive pulmonary disease, unspecified (7) Tobacco use disorder, mild, abuse Status: Chronic Assessment and plan: Counseled patient regarding importance of tobacco cessation. Patient understands, not willing to quit at this time. (8) Essential hypertension Status: Chronic Assessment and plan: Bp 103/67. Continue home medications for chronic disease management. (11) DVT prophylaxis Status: Acute Assessment and plan: On Eliquis. - Subjective Interval history: Patient denies chest pain or shorntness of breath overnight after LHC. Patient denies radiation of pain to arm or back. Patient denies nausea or vomiting. Patient tolerated diet without troubles. Patient denies fevers, chills, sweats , changes in vision or hearing, abdominal pain, changes in bowels or bladder, weakness, or loss of sensation. - Constitutional Vitals: Temp Pulse Resp BP Pulse Ox 97.6 F 72 16 103/67 97 01/12/17 07:25 01/12/17 07:25 01/12/17 07:25 01/12/17 07:25 01/12/17 07:25 General appearance: Present: A&O X 3, pleasant, no acute distress, answers questions appropriately - Head Head exam: Present: atraumatic, normal inspection, normocephalic - Eye Eye exam: Present: normal appearance - ENT ENT exam: Present: mucous membranes moist, normal exam, normal external ear exam , normal oropharynx - Neck Neck exam general surgery: Present: full ROM, normal inspection, supple, trachea midline. Absent: tenderness - Respiratory Respiratory exam: Present: CTAB. Absent: rales, rhonchi, wheezes - Cardiovascular Cardiovascular exam: Present: RRR, +S1, +S2. Absent: JVD - GI/Abdominal GI/Abdominal exam: Present: normal bowel sounds, soft. Absent: distended, guarding, tenderness - Extremities Exam Extremities exam: Present: full ROM, normal inspection, warm. Absent: pedal edema, tenderness - Neurological Exam Neurological exam: Present: alert, normal gait, oriented X3, no focal deficits, strengths equal and symetr throughout. Absent: facial droop, speech deficit - Psychiatric Psychiatric exam: Present: normal affect, normal mood - Skin Skin exam: Present: dry, intact, normal color, warm. Absent: diaphoretic, erythema, pallor Internal Medicine: Result - Labs CBC & Chem 7: 01/12/17 05:15 01/12/17 05:15 Labs: Short CBC 01/12/17 Range/Units 05:15 WBC 8.7 (4.3-11.1) K/mcL Hgb 12.9 D (11.5-15.4) g/dL Hct 40.4 (35.3-44.9) % Plt Count 212 (140-400) K/mcL Neutrophils # 5.2 (1.6-8.9) K/mcL BMP 01/12/17 05:15 Sodium 139 Potassium 3.8 Chloride 110 H Carbon Dioxide 20 BUN 18 Creatinine 1.17 H Glucose 88 Calcium 8.7 Cardiac Enzymes 01/11/17 Range/Units 10:10 Troponin I 0.51 H* (0-0.03) ng/mL - ABG Interpretation ABG results: PT/INR, D-dimer PT 13.3 Seconds (9.4-12.1) H 01/12/17 05:15 Consult Discharge Plan - Plan Instructions: Oxycodone/Acetaminophen (By mouth), Atorvastatin (By mouth) Additional Instructions: Follow up with your primary care physician within 7 days regarding this hospital stay. Follow up with Cardiology in the next 7-10 days. Continue taking your home dose of carvedilol, lisinopril, and eliquis. You have been sent home with scripts for a higher dose of lipitor. You have also been sent home with a script for Hydrocodone. Take only as needed. Do not drink or drive with this medication. Take medications as directed. Limit stressors for a minimum of two weeks following discharge. Seek medical attention if pain or site of intervention on right lower extremity appears to get worse, red, draining, swollen, or lower extremity becomes pale or cold. Referrals: Candace Gomez CNP [Primary Care Provider] - 01/19/17 11:00 am Leon Valadez MD [Partnered Physician] - (office will call you at home with appoinment) Prescriptions: OxyCODONE/APAP 5/325 [Percocet 5/325 MG] 1 each PO Q6HR PRN #12 tablet PRN Reason: Moderate Pain Atorvastatin [Lipitor] 80 mg PO HS #30 tablet <Talon Allenit Syl - Last Filed: 01/12/17 19:15> Date of Encounter: 01/12/17 - Constitutional Vitals: Temp Pulse Resp BP Pulse Ox 97.6 F 72 16 103/67 97 01/12/17 07:25 01/12/17 07:25 01/12/17 07:25 01/12/17 07:25 01/12/17 07:25 Internal Medicine: Result - Labs CBC & Chem 7: 01/12/17 05:15 01/12/17 05:15 Labs: Short CBC 01/12/17 Range/Units 05:15 WBC 8.7 (4.3-11.1) K/mcL Hgb 12.9 D (11.5-15.4) g/dL Hct 40.4 (35.3-44.9) % Plt Count 212 (140-400) K/mcL Neutrophils # 5.2 (1.6-8.9) K/mcL BMP 01/12/17 05:15 Sodium 139 Potassium 3.8 Chloride 110 H Carbon Dioxide 20 BUN 18 Creatinine 1.17 H Glucose 88 Calcium 8.7 - ABG Interpretation ABG results: PT/INR, D-dimer PT 13.3 Seconds (9.4-12.1) H 01/12/17 05:15 - Attending Attestation I examined this patient and my medical decision-making was reviewed with the CHARGE ATTENDANT/PA/Advanced Practice Nurse/Resident Physician. I agree with the documented findings, disposition and treatment plan as described except to the extent set forth below.
[2017-01-12] MEDS: Lisinopril 20 MG TABLET PO SCH (08:47)
[2017-01-12] MEDS: Aspirin 81 MG TAB.CHEW PO SCH (08:47)
[2017-01-12] MEDS ORDERED: APIXABAN 5 MG TABLET PO SCH (09:00)
--- NOTE | 2017-01-12 13:04 | Cardiology Progress Note ---
Date of Encounter: 01/12/17 Time of Encounter: 13:02 Assessment and Plan (1) Takotsubo cardiomyopathy Current Visit: Yes Status: Acute Catheterization findings, mild troponin elevation, abnormal ECG consistent with stress cardiomyopathy. Patient reports she is under a lot of stress at home. Risk factor modification discussed. Recommend continue aspirin, statin, CAROLYN inhibitor, and beta landon therapy. Blood pressure marginal, unable to titrate medications. No further inpatient cardiology recommendations. Outpatient cardiology follow-up with Dr. Valadez. (2) Hx of CABG Current Visit: Yes Status: Acute (3) Coronary artery disease Current Visit: Yes Status: Chronic [place] CAD, prior CABG. Cardiac catheterization performed yesterday - SVG to RCA patent.. Qualifiers: Coronary Disease-Associated Artery/Lesion type: bypass graft [place] vs. transplanted heart: [place] heart Associated angina: with stable angina Qualified Code(s): I25.708 - Atherosclerosis of coronary artery bypass graft(s) , unspecified, with other forms of angina pectoris (4) History of mitral valve replacement with bioprosthetic valve Current Visit: Yes Status: Acute Normal function. SBE prophylaxis recommended prior to any surgical or dental procedures. (5) Paroxysmal atrial fibrillation Current Visit: Yes Status: Chronic Reported history of atrial fibrillation, prior dual-chamber pacemaker. Continue anticoagulation. (6) Claudication Current Visit: Yes Status: Acute Patient describes claudication type symptoms. Recommend outpatient DELBERT with exercise. Discussion w patient/family: The assessment and plan as outlined above was discussed with the patient and/or family members who expressed understanding and agreement. All questions were answered. Thank you for involving us in the care of your patient. Please call with any questions. Subjective Principal diagnosis: Chest pain Interval history: Seen and examined. Patient described fatigue this morning. No chest pain. Objective General: Conversant, No Apparent Distress HEENT: Atraumatic, Normocephaly, Mucus Membranes Moist Neck: No JVD, Normal carotid pulses Cardiac: Reg Rate and Rhythm, Normal S1 and S2, No Murmur Lungs: Normal Breath Sounds, No Wheeze, Rales, Rhonchi Neuro: Alert and responsive, No focal deficits noted Abdomen: Soft, Non-Tender Skin: No rashes noted on visualized skin Musculoskeletal: No Chest Wall Tenderness Extremities: No Clubbing, No Cyanosis, No Edema Results 01/12/17 05:15 04/05/17 05:15 Lab Results 01/11/17 01/12/17 01/12/17 12:57 05:15 05:15 WBC 8.7 Hgb 12.9 D Hct 40.4 Plt Count 212 INR 1.2 APTT 67.8 H 28.4 D Sodium Potassium Chloride Carbon Dioxide BUN Creatinine Glucose Calcium 01/12/17 05:15 WBC Hgb Hct Plt Count INR APTT Sodium 139 Potassium 3.8 Chloride 110 H Carbon Dioxide 20 BUN 18 Creatinine 1.17 H Glucose 88 Calcium 8.7 - Imaging and Cardiology Echo: report reviewed Cardiac cath: report reviewed - EKG Interpretation EKG results cardiology: personally reviewed Consult Discharge Plan - Plan Referrals: Candace Gomez, [facility] [Primary Care Provider] -
--- NOTE | 2017-01-12 14:35 | Discharge Summary ---
<Travis Amin - Last Filed: 01/12/17 14:57> Date of Encounter: 01/12/17 Time of Encounter: 14:33 - Discharge Diagnosis (1) NSTEMI (non-ST elevated myocardial infarction) Priority: Primary Status: Acute Comments: Patient is a 46 year old female with history of CAD, paroxysmal afib on Eliquis , ischemic cardiomyopathy, and tobacco use disorder who was transferred from [facility] with complaint of severe chest pain for 4-5 days prior to arrival and was found to have EKG changes and elevated troponin. Troponin 0.28, 0.58, 0.55 EKG revealed normal sinus rhythm, rate 93, and t wave inversions in lead 1, 2, avF, V2-V6. CXR revealed no acute cardiopulm process, pacemaker on Left. LHC revealed 100% stenosis of proximal RCA, 40% stenosis in proximal LAD, 40% stenosis in mid LAD, 30% stenosis in proximal circumflex, saphenous vein grap to distal RCA patent, and Left main coronary artery free of disease. Echo revealed LVEF 50-55% with some regional wall motion abnormalities, normal RV, lead in the RA and RV, moderately dilated left atrium. Heparin drip discontinued. Cardiac diet Continue lipitor, carvedilol, lisinopril Restart Eliquis, home medication (2) Takotsubo cardiomyopathy Priority: Primary Status: Acute Comments: Cardio recommends statin, ACEi, beta landon, eliquis Outpatient follow up with Dr. Valadez (3) Paroxysmal atrial fibrillation Priority: Secondary Status: Chronic Comments: EKG revealed normal sinus rhythm. Rate controlled, in normal sinus on exam. Continue with beta landon and eliquis Dual chamber pacemaker in place. (4) Coronary artery disease Priority: Secondary Status: Chronic Comments: History of CAD Continue eliquis and carvedilol. Cardio on board. Qualifiers: Coronary Disease-Associated Artery/Lesion type: bypass graft [place] vs. transplanted heart: [place] heart Associated angina: with stable angina Qualified Code(s): I25.708 - Atherosclerosis of coronary artery bypass graft(s) , unspecified, with other forms of angina pectoris (5) Ischemic cardiomyopathy Priority: Secondary Status: Chronic Comments: Last echo complete 08/30/16 revealed LVEF 55%, moderate LV diastolic dysfunction , normal RV, moderately dilate Left atrium, and normal bioprosthetic mitral valve without stenosis and trace mitral regurg. Echo 01/11/17 revealed LVEF 50-55% with some regional wall motion abnormalities , normal RV, lead in the RA and RV, moderately dilated left atrium. (6) COPD (chronic obstructive pulmonary disease) Priority: Secondary Status: Chronic Comments: No exacerbation. Continue with duoneb prn. Qualifiers: COPD type: unspecified COPD Qualified Code(s): J44.9 - Chronic obstructive pulmonary disease, unspecified (7) Tobacco use disorder, mild, abuse Priority: Secondary Status: Chronic Comments: Counseled patient regarding importance of tobacco cessation. Patient understands, not willing to quit at this time. (8) Essential hypertension Priority: Secondary Status: Chronic Comments: Bp 103/67. Continue home medications for chronic disease management. (9) Hx of CABG Priority: Secondary Status: Acute (10) History of mitral valve replacement with bioprosthetic valve Priority: Secondary Status: Acute - Discharge Medications Prescriptions: OxyCODONE/APAP 5/325 [Percocet 5/325 MG] 1 each PO Q6HR PRN #12 tablet PRN Reason: Moderate Pain Atorvastatin [Lipitor] 80 mg PO HS #30 tablet Home Medications: Carvedilol [Coreg] 6.25 mg PO BIDWM 09/20/16 [History] Furosemide [Lasix] 20 mg PO DAILY 09/20/16 [History] Lisinopril [Zestril] 20 mg PO DAILY 09/20/16 [History] Nitroglycerin [Nitrostat] 0.4 mg SL Q5M PRN 09/20/16 [History] Ondansetron [Zofran] 4 mg PO Q8HR PRN 09/20/16 [History] Acetaminophen [Tylenol] 650 mg PO Q4HR PRN #0 tablet 09/21/16 [Rx] Albuterol Sulfate [Albuterol Inhaler] 2 puff IH Q4-6H PRN 01/11/17 [History] Apixaban [Eliquis] 5 mg PO BID 01/11/17 [History] Atorvastatin [Lipitor] 80 mg PO HS #30 tablet 01/12/17 [Rx] OxyCODONE/APAP 5/325 [Percocet 5/325 MG] 1 each PO Q6HR PRN #12 tablet 01/12/17 [Rx] Allergies/Adverse Reactions: Allergies No Known Allergies Allergy (Verified 01/11/17 07:37) Procedures/tests Complete & Pending: Procedures Performed prior 72 hours Category Date Time Status CL Cardiac Catheterization [CL] Routine Brake Coupler Dinkey 01/11/17 11:05 Completed ECG 12 lead ECG [ECG] Routine Y 01/10/17 19:04 Completed EV limited echocardiogram Routine Y 01/11/17 10:25 Completed Date of admission: 01/10/17 22:52 Primary care physician: Ralph Acosta Consults: 01/10/17 21:33 Consult to Physician [CONS] Routine Consulting Provider: Leon Valadez Reason for Consult: AMI Call Completed: Yes 01/11/17 11:00 Consult to Cardiac Rehabilitation-Phase1 [CONS] Routine Comment: Reason for Consult: NSTEMI, LHC today Call Completed: No Discharging clinician: Dilip Allen (Travis Amin) Anticipated date of discharge: 01/12/17 - Patient Status Disposition: Home, Self-Care Condition: Fair Functional capacity at discharge: independent ambulation Overall status at discharge: patient is progressing back to baseline - Discharge Instructions Instructions: Oxycodone/Acetaminophen (By mouth), Atorvastatin (By mouth) Follow Up With: Candace Gomez CNP [Primary Care Provider] - 01/19/17 11:00 am Leon Valadez MD [Partnered Physician] - (office will call you at home with appoinment) Additional Instructions: Follow up with your primary care physician within 7 days regarding this hospital stay. Follow up with Cardiology in the next 7-10 days. Continue taking your home dose of carvedilol, lisinopril, and eliquis. You have been sent home with scripts for a higher dose of lipitor. You have also been sent home with a script for Hydrocodone. Take only as needed. Do not drink or drive with this medication. Take medications as directed. Limit stressors for a minimum of two weeks following discharge. Seek medical attention if pain or site of intervention on right lower extremity appears to get worse, red, draining, swollen, or lower extremity becomes pale or cold. - Diet and Activity Activity: increase activity as tolerated Diet: low fat, low cholesterol, low salt diet Interval History: Patient denies chest pain or shorntness of breath overnight after LHC. Patient reports moderate pain of site of intervention, examined and appears clean dry intact without drainage, no swelling or erythema noted. Patient denies nausea or vomiting. Patient tolerated diet without troubles. Patient denies fevers, chills, sweats, changes in vision or hearing, abdominal pain, changes in bowels or bladder, weakness, or loss of sensation. Hospital course: Ms. Rivera is a 46 year old female with history of CAD, ischemic cardiomyopathy, prosthetic mitral valve, afib, asthma, COPD, htn, and hld who was transferred from [facility] to the ED with complaint of sharp severe left sided chest pain intermittent for the past 4 days prior to arrival that persisted on day of admission. EKG revealed normal sinus rhythm with rate 93 and t wave inversions noted in lead 1, 2, avf, V2-V6. CXR revealed no acute cardiopulm processes and pacemaker on Left. Troponin was elevated at 0.28, Cr 1.3, and BNP of 569. Troponin on arrival was 0.58. Cardio was consulted for NSTEMI. Patient was also started on heparin drip, held eliquis, and continued carvedilol, Lipitor, Lisinopril, and aspirin. Patient underwent LHC revealed 100% stenosis of proximal RCA, 40% stenosis in proximal LAD, 40% stenosis in mid LAD, 30% stenosis in proximal circumflex, saphenous vein grap to distal RCA patent, and Left main coronary artery free of disease. Echo revealed LVEF 50-55 % with some regional wall motion abnormalities, normal RV, lead in the RA and RV , moderately dilated left atrium. Patient did well overnight without chest pain or shortness of breath, Eliquis was restarted. Cardio recommends follow up as outpatient, continue with lisinopril, carvedilol, aspirin, and lipitor. Patient to follow up with PCP within 7 days regarding this hospital stay. Follow up with cardiology Dr. Valadez within 7-10 days of discharge. Time spent discussing smoking cessation with patient: 3 to 10 minutes - Time Spent with Patient Total time spent providing and/or coordinating discharge services: Less than 30 minutes - Constitutional Vitals: Temp Pulse Resp BP Pulse Ox 97.6 F 72 16 103/67 97 01/12/17 07:25 01/12/17 07:25 01/12/17 07:25 01/12/17 07:25 01/12/17 07:25 General appearance: Present: A&O X 3, pleasant, no acute distress, answers questions appropriately - Head Head exam: Present: atraumatic, normal inspection, normocephalic - Eye Eye exam: Present: normal appearance - ENT ENT exam: Present: mucous membranes moist, normal exam, normal external ear exam , normal oropharynx - Neck Neck exam general surgery: Present: normal inspection, supple, trachea midline. Absent: tenderness - Respiratory Respiratory exam: Present: CTAB. Absent: rales, rhonchi, wheezes - Cardiovascular Cardiovascular exam: Present: RRR, +S1, +S2 - GI/Abdominal GI/Abdominal exam: Present: normal bowel sounds, soft. Absent: distended, guarding, tenderness - Extremities Exam Extremities exam: Present: full ROM, normal inspection, warm. Absent: pedal edema, tenderness - Incison Incision: Present: clean and dry, intact. Absent: draining, swollen, inflamed, purulent - Neurological Exam Neurological exam: Present: alert, normal gait, oriented X3, no focal deficits, strengths equal and symetr throughout. Absent: facial droop, speech deficit - Psychiatric Psychiatric exam: Present: normal affect, normal mood - Skin Skin exam: Present: dry, intact, normal color, warm. Absent: diaphoretic, erythema, pallor <Tiffany,Dilip P - Last Filed: 01/12/17 19:19> Date of Encounter: 01/12/17 Procedures/tests Complete & Pending: Procedures Performed prior 72 hours Category Date Time Status CL Cardiac Catheterization [CL] Routine Brake Coupler Dinkey 01/11/17 11:05 Completed ECG 12 lead ECG [ECG] Routine Y 01/10/17 19:04 Completed EV arterial imaging LE RT Stat Y 01/12/17 15:48 Completed EV limited echocardiogram Routine Y 01/11/17 10:25 Completed Date of admission: 01/10/17 22:52 Primary care physician: Ralph Acosta Consults: 01/10/17 21:33 Consult to Physician [CONS] Routine Consulting Provider: Leon Valadez Reason for Consult: AMI Call Completed: Yes 01/11/17 11:00 Consult to Cardiac Rehabilitation-Phase1 [CONS] Routine Comment: Reason for Consult: NSTEMI, LHC today Call Completed: No Hospital course: Ms. Rivera is a 46 year old female - Time Spent with Patient Total time spent providing and/or coordinating discharge services: - Constitutional Vitals: Temp Pulse Resp BP Pulse Ox 97.6 F 72 16 103/67 97 01/12/17 07:25 01/12/17 07:25 01/12/17 07:25 01/12/17 07:25 01/12/17 07:25 - Attending Attestation I examined this patient and my medical decision-making was reviewed with the GUIDE PLANT/PA/Advanced Practice Nurse/Resident Physician. I agree with the documented findings, disposition and treatment plan as described except to the extent set forth below. patient was complaining of pain at incision site ( LHC) palpable pulses + Urgent US ordered. Discussed with Dr Quinones ( vascular Surgeon) small less than 1 cm pseudoaneurysm noted with neck less than [address] Quinones recommended safe to go home and follow up with cardiology in 1 week for repeat US. cardiology updated about all above. informed patient to remind cardiology to get US of right groin. patient verbalized understanding. all questions answered.
--- NOTE | 2017-01-13 11:51 | Arterial Study Report ---
LE Arterial Duplex Patient Name:Bethany Rivera Order Number:[id number] Procedure Date:01/12/2017 Date:1970Age:46 yrs Gender:Female Location:[facility] Room #: 2NE26 [employer] Education Consultant:Tmai Chong Referring MD:Dilip Allen MD assembler corncob pipes:Candace Gomez, PROCUREMENT PROFESSIONAL Reading MD:Lance Ramirez MD , FACS Primary Indications:r/o pseudo Impressions: Pseudoaneurym: present. It is very mall with a neck of.1-.2 cm wide. + hematoma in right groin Recommendations: Suggest clinical correlation Follow up exam 1 week. Test completed on 01/12/2017 at 4:30:00 pm. Critical findings reported to Dr. Ramirez and in person at 4:40:00 pm on 01/12/2017 by Tami Chong. Findings Prior Study: No prior study available for comparison. LE Duplex Side Vessel PSV EDV Assessment Right Distal External Iliac 177 13 Updated by Lance Ramirez MD, FACS on 01/13/2017 11:44:37 AM Lance Ramirez MD electronically signed on 01/13/2017 11:46:35 AM with status of Final
== END 2017-01-12 17:28 | disposition home or self-care (01) | DRG 190 ==
LOC: 2NENU
PROVIDERS: ADMIT Internal Medicine; ATTEND Internal Medicine

== ENCOUNTER 2018-01-26 11:11 | Observation (INO) ==
[2018-01-26] MEDS ORDERED: 0.9 % Sodium Chloride 500 ML IVC ONE (11:20)
[2018-01-26] MEDS ORDERED: Aspirin 81 MG TAB.CHEW PO ONE (11:20)
--- NOTE | 2018-01-26 11:21 | Emergency Department Note ---
Disposition Clinical Impression: Chest pain Disposition: Home, Self-Care Condition: Good General Adult HPI - General Stated complaint: CP Time Seen by Provider: 01/26/18 11:13 - Related Data Home Medications Medication Instructions Recorded Confirmed Furosemide [Lasix] 20 mg PO DAILY 09/20/16 01/26/18 Lisinopril [Zestril] 20 mg PO DAILY 09/20/16 01/26/18 Nitroglycerin [Nitrostat] 0.4 mg SL Q5M PRN 09/20/16 01/26/18 Ondansetron [Zofran] 4 mg PO Q8HR PRN 09/20/16 01/26/18 Albuterol Sulfate [Albuterol 2 puff IH Q4-6H PRN 01/11/17 01/26/18 Inhaler] Apixaban [Eliquis] 5 mg PO BID 01/11/17 01/26/18 Cilostazol [Pletal] 100 mg PO BID 10/04/17 01/26/18 Isosorbide MONOnitrate (24 HR) 60 mg PO DAILY 10/04/17 01/26/18 [Imdur] Carvedilol [Coreg] 6.25 mg PO BID 01/26/18 Gabapentin [Neurontin] 300 mg PO TID 01/26/18 01/26/18 Varenicline Tartrate [Chantix 1 tab PO BID 01/26/18 01/26/18 Starting Month ADENIKE] Allergies Allergy/AdvReac Type Severity Reaction Status Date / Time No Known Allergies Allergy Verified 01/11/17 07:37 Past Medical History - Past Medical History Medical history: Reports: asthma, atrial fibrillation, cardiomyopathy, COPD, coronary artery disease, hyperlipidemia, hypertension, syncope Surgical history: Reports: appendectomy, coronary bypass (CABG), heart valve replacement, pacemaker Psychiatric history: Reports: anxiety - Social History Smoking Status: Current every day smoker Smokeless Tobacco Status: No Alcohol use: Reports: none Drug use: Reports: marijuana Course Vital Signs Temperature 97.8 F 01/26/18 11:14 Pulse Rate 82 01/26/18 11:14 Respiratory Rate 18 01/26/18 11:14 Blood Pressure 105/71 01/26/18 11:14 O2 Sat by Pulse Oximetry 97 01/26/18 11:14 Temperature 98.0 F 01/26/18 15:39 Pulse Rate 85 01/26/18 15:39 Respiratory Rate 16 01/26/18 15:39 Blood Pressure 128/80 01/26/18 15:39 O2 Sat by Pulse Oximetry 96 01/26/18 15:39 Oxygen Delivery Oxygen Delivery Room Air Medical Decision Making - Lab Data Result diagrams: 01/26/18 11:17 01/26/18 11:17 Lab Results 01/26/18 01/26/18 01/26/18 Range/Units 11:17 11:17 11:17 WBC 12.2 H (4.3-11.1) K/mcL RBC 4.32 (3.82-4.97) M/mcL Hgb 13.9 (11.5-15.4) g/dL Hct 41.4 (35.3-44.9) % MCV 95.8 (83.0-100.0) fL MCH 32.2 (28.0-33.3) pg MCHC 33.6 (31.6-35.5) g/dL RDW 12.5 (11.5-14.5) % Plt Count 252 (140-400) K/mcL MPV 10.0 (9.4-12.4) fL Immature Gran % 0.2 (0-4) % Seg Neutrophils % 69.1 % Lymphocytes % 22.2 % Monocytes % 6.0 % Eosinophils % 1.8 % Basophils % 0.7 % Neutrophils # 8.4 (1.6-8.9) K/mcL Lymphocytes # 2.7 (0.6-4.6) K/mcL Monocytes # 0.7 (0.0-1.3) K/mcL Eosinophils # 0.2 (0.0-0.6) K/mcL Basophils # 0.1 (0.0-0.2) K/mcL PT 16.4 H (9.4-12.1) Seconds INR 1.5 APTT 28.0 (26.0-36.0) Seconds Sodium 137 (136-145) mEq/L Potassium 3.6 (3.5-5.1) mEq/L Chloride 104 (98-107) mEq/L Carbon Dioxide 25 (23-29) mEq/L BUN 10 (6-20) mg/dL Creatinine 1.00 (0.60-1.20) mg/dL Est GFR ( Amer) > 60 (> 60) Est GFR (Non-Af Amer) 59 L (> 60) BUN/Creatinine Ratio 10 (6-26) Glucose 145 H (70-105) mg/dL Calculated Osmolality 286 (280-300) Calcium 9.2 (8.6-10.3) mg/dL Troponin I < 0.03 (< 0.04) ng/mL B-Natriuretic Peptide (Less than 100) pg/mL 01/26/18 Range/Units 11:17 WBC (4.3-11.1) K/mcL RBC (3.82-4.97) M/mcL Hgb (11.5-15.4) g/dL Hct (35.3-44.9) % MCV (83.0-100.0) fL MCH (28.0-33.3) pg MCHC (31.6-35.5) g/dL RDW (11.5-14.5) % Plt Count (140-400) K/mcL MPV (9.4-12.4) fL Immature Gran % (0-4) % Seg Neutrophils % % Lymphocytes % % Monocytes % % Eosinophils % % Basophils % % Neutrophils # (1.6-8.9) K/mcL Lymphocytes # (0.6-4.6) K/mcL Monocytes # (0.0-1.3) K/mcL Eosinophils # (0.0-0.6) K/mcL Basophils # (0.0-0.2) K/mcL PT (9.4-12.1) Seconds INR APTT (26.0-36.0) Seconds Sodium (136-145) mEq/L Potassium (3.5-5.1) mEq/L Chloride (98-107) mEq/L Carbon Dioxide (23-29) mEq/L BUN (6-20) mg/dL Creatinine (0.60-1.20) mg/dL Est GFR ( Amer) (> 60) Est GFR (Non-Af Amer) (> 60) BUN/Creatinine Ratio (6-26) Glucose (70-105) mg/dL Calculated Osmolality (280-300) Calcium (8.6-10.3) mg/dL Troponin I (< 0.04) ng/mL B-Natriuretic Peptide 91 (Less than 100) pg/mL Attestation Statement - Attestation Attestation: I examined this patient and my medical decision-making was reviewed with the Resident Physician. I agree with the documented findings, disposition and treatment plan as described except to the extent set forth below. [id number] time provided Patient presents complaining of chest discomfort. She has a history of mitral valve prolapse status post mitral valve replacement. She also has a history of [place], CAD. Uncomfortable appearing on exam but stable. ECG reviewed by me showing ST segment depression inferiorly and laterally consistent with previous ECG
--- NOTE | 2018-01-26 11:24 | Emergency Department Note ---
Disposition Clinical Impression: Chest pain Qualifiers: Chest pain type: unspecified Qualified Code(s): R07.9 - Chest pain, unspecified Disposition: Home, Self-Care Condition: Good Referrals: Candace Gomez CNP [Primary Care Provider] - Time of Disposition: 13:22 Chest Pain HPI - General Stated Complaint: CP Time Seen by Provider: 01/26/18 11:13 Source: patient Mode of arrival: ambulatory Limitations: no limitations Vital Signs Reviewed: Yes Nursing Notes Reviewed: Yes - History of Present Illness HPI Narrative: 47-year-old female with a history of mitral valve replacement, anticoagulated, hypertension CAD presents for evaluation of chest pain. Patient states symptom onset was a half hour prior to ED arrival. States that she took 3 nitroglycerin which did improve her pain. Patient notes retrosternal nonexertional chest pain with radiation to her left shoulder and back. Patient reported some nausea but no vomiting. Patient also reports some diaphoresis. Patient also reports some shortness of breath. No aggravating aggravating symptoms. Chest pain appears to be non-positional. Patient reports a remote history of drug use but no recent drug use. Patient denies any abdominal pain. Denies any fevers or cough. Patient denies any history of pulmonary embolism. No active cancers. No recent travel. No periods of immobilization. No oral contraceptive pills. Severity scale (1-10): 5 - Related Data Home Medications Medication Instructions Recorded Confirmed Furosemide [Lasix] 20 mg PO DAILY 09/20/16 01/26/18 Lisinopril [Zestril] 20 mg PO DAILY 09/20/16 01/26/18 Nitroglycerin [Nitrostat] 0.4 mg SL Q5M PRN 09/20/16 01/26/18 Ondansetron [Zofran] 4 mg PO Q8HR PRN 09/20/16 01/26/18 Albuterol Sulfate [Albuterol 2 puff IH Q4-6H PRN 01/11/17 01/26/18 Inhaler] Apixaban [Eliquis] 5 mg PO BID 01/11/17 01/26/18 Cilostazol [Pletal] 100 mg PO BID 10/04/17 01/26/18 Isosorbide MONOnitrate (24 HR) 60 mg PO DAILY 12/26/17 04/19/18 [Imdur] Carvedilol [Coreg] 6.25 mg PO BID 01/26/18 Gabapentin [Neurontin] 300 mg PO TID 01/26/18 01/26/18 Varenicline Tartrate [Chantix 1 tab PO BID 01/26/18 01/26/18 Starting Month ADENIKE] Allergies Allergy/AdvReac Type Severity Reaction Status Date / Time No Known Allergies Allergy Verified 01/11/17 07:37 All systems ED: reviewed and negative except as stated. Constitutional: Denies: fever Cardiovascular: Reports: chest pain. Denies: palpitations Respiratory: Reports: dyspnea. Denies: cough Gastrointestinal: Reports: nausea. Denies: abdominal pain, vomiting Chest Pain PMH - Past Medical History Medical history: Reports: asthma, atrial fibrillation, cardiomyopathy, COPD, coronary artery disease, hyperlipidemia, hypertension, syncope Surgical history: Reports: appendectomy, coronary bypass (CABG), heart valve replacement, pacemaker Psychiatric history: Reports: anxiety - Social History Smoking Status: Current every day smoker Alcohol use: Reports: none Drug use: Reports: marijuana Physical Exam - General Limitations: no limitations General appearance: alert, in no apparent distress - Head Head exam: atraumatic, normocephalic, normal inspection - Eye Eye exam: Present: normal appearance, PERRL, EOMI - ENT ENT exam: normal exam, mucous membranes moist - Neck Neck exam: Present: normal inspection - Chest Chest inspection: Present: normal inspection, symmetric chest wall rise, other ( Well-healed midline incision). Absent: tenderness, rash - Respiratory Respiratory exam: Present: normal lung sounds bilaterally, respiratory distress - Cardiovascular Cardiovascular exam: Present: regular rate, normal rhythm. Absent: systolic murmur - Abdominal Exam Abdominal exam: Present: soft, Non-Tender - Extremities Exam Extremities exam: Present: normal inspection. Absent: pedal edema - Back Exam Back exam: Present: normal inspection - Neurological Exam Neurological exam: Present: alert, oriented X3, CN II-XII intact - Skin Skin exam: Present: warm, dry, intact, normal color Course Course Narrative: Patient seen and examined. Patient does have a history of ACS with mitral valve replacement. Patient will get cardiopulmonary evaluation with EKG, chest x-ray troponin. Patient is low risk Wells and his pulmonary embolism rule out criteria negative. - Reevaluation(s) Reevaluation #1: Patient states that her pain has improved with the nitroglycerin. Time: 12:03 Reevaluation #2: Patient's been resting comfortably. Awaiting hospitalist. Time: 12:49 Vital Signs Temperature 97.8 F 01/26/18 11:14 Pulse Rate 82 01/26/18 11:14 Respiratory Rate 18 01/26/18 11:14 Blood Pressure 105/71 01/26/18 11:14 O2 Sat by Pulse Oximetry 97 01/26/18 11:14 Temperature 97.8 F 01/26/18 11:14 Pulse Rate 74 01/26/18 12:33 Respiratory Rate 18 01/26/18 12:33 Blood Pressure 110/58 01/26/18 12:33 O2 Sat by Pulse Oximetry 96 01/26/18 12:33 Oxygen Delivery Oxygen Delivery Room Air Chest Pain - MDM Narrative Medical decision making narrative: Patient presents with complaint of chest pain. Patient does have a cardiac history with bypass in the past. Patient came in with acute onset of chest pain. Patient does have no acute changes on his EKG appears similar to prior EKGs. Patient's pain did really with nitroglycerin. Patient's history reviewed nausea that she has a heart catheter in the past which showed a bypass with single vessel disease. Recommend optimal medical management. Patient is currently anticoagulated on [place] and heparin was not started in the emergency department. Patient heart score is deemed moderate risk. Patient would benefit from further evaluation with serial troponins as well as stress test. Patient symptoms are less likely aortic dissection. Patient's pulmonary embolism rule out criteria negative as deemed low risk. Patient's pain was relieved after 3 nitroglycerin. - Medical Records Medical records reviewed: Yes I reviewed the patient's medical records. 01/2017 Indications: Non-Stemi Impressions: Single vessel disease. 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 S/P CABG 1 of 1 patent bypass grafts. Moderate global/segmental LV dysfunction. Probable Takotsubo cardiomyopathy. Recommendations: Optimal medical therapy of patient's disease. Aggressive risk factor modification. - Lab Data Lab results reviewed: Yes I reviewed the patient's lab results. Result diagrams: 01/26/18 11:17 01/26/18 11:17 Lab Results 01/26/18 01/26/18 01/26/18 Range/Units 11:17 11:17 11:17 WBC 12.2 H (4.3-11.1) K/mcL RBC 4.32 (3.82-4.97) M/mcL Hgb 13.9 (11.5-15.4) g/dL Hct 41.4 (35.3-44.9) % MCV 95.8 (83.0-100.0) fL MCH 32.2 (28.0-33.3) pg MCHC 33.6 (31.6-35.5) g/dL RDW 12.5 (11.5-14.5) % Plt Count 252 (140-400) K/mcL MPV 10.0 (9.4-12.4) fL Immature Gran % 0.2 (0-4) % Seg Neutrophils % 69.1 % Lymphocytes % 22.2 % Monocytes % 6.0 % Eosinophils % 1.8 % Basophils % 0.7 % Neutrophils # 8.4 (1.6-8.9) K/mcL Lymphocytes # 2.7 (0.6-4.6) K/mcL Monocytes # 0.7 (0.0-1.3) K/mcL Eosinophils # 0.2 (0.0-0.6) K/mcL Basophils # 0.1 (0.0-0.2) K/mcL PT 16.4 H (9.4-12.1) Seconds INR 1.5 APTT 28.0 (26.0-36.0) Seconds Sodium 137 (136-145) mEq/L Potassium 3.6 (3.5-5.1) mEq/L Chloride 104 (98-107) mEq/L Carbon Dioxide 25 (23-29) mEq/L BUN 10 (6-20) mg/dL Creatinine 1.00 (0.60-1.20) mg/dL Est GFR ( Amer) > 60 (> 60) Est GFR (Non-Af Amer) 59 L (> 60) BUN/Creatinine Ratio 10 (6-26) Glucose 145 H (70-105) mg/dL Calculated Osmolality 286 (280-300) Calcium 9.2 (8.6-10.3) mg/dL Troponin I < 0.03 (< 0.04) ng/mL B-Natriuretic Peptide (Less than 100) pg/mL 01/26/18 Range/Units 11:17 WBC (4.3-11.1) K/mcL RBC (3.82-4.97) M/mcL Hgb (11.5-15.4) g/dL Hct (35.3-44.9) % MCV (83.0-100.0) fL MCH (28.0-33.3) pg MCHC (31.6-35.5) g/dL RDW (11.5-14.5) % Plt Count (140-400) K/mcL MPV (9.4-12.4) fL Immature Gran % (0-4) % Seg Neutrophils % % Lymphocytes % % Monocytes % % Eosinophils % % Basophils % % Neutrophils # (1.6-8.9) K/mcL Lymphocytes # (0.6-4.6) K/mcL Monocytes # (0.0-1.3) K/mcL Eosinophils # (0.0-0.6) K/mcL Basophils # (0.0-0.2) K/mcL PT (9.4-12.1) Seconds INR APTT (26.0-36.0) Seconds Sodium (136-145) mEq/L Potassium (3.5-5.1) mEq/L Chloride (98-107) mEq/L Carbon Dioxide (23-29) mEq/L BUN (6-20) mg/dL Creatinine (0.60-1.20) mg/dL Est GFR ( Amer) (> 60) Est GFR (Non-Af Amer) (> 60) BUN/Creatinine Ratio (6-26) Glucose (70-105) mg/dL Calculated Osmolality (280-300) Calcium (8.6-10.3) mg/dL Troponin I (< 0.04) ng/mL B-Natriuretic Peptide 91 (Less than 100) pg/mL - Radiology Data Radiology results reviewed: Yes I reviewed the patient's radiology results. Chest X-Ray 01/26/18 11:20 IMPRESSION: No acute process. D/ / Leon Tripathi MD / Leon Tripathi MD Interpreting Provider: Leon Tripathi MD - EKG Data EKG attestation: Yes I reviewed and interpreted this EKG. EKG shows normal: sinus rhythm Rate: normal Rhythm: NSR Alta/QRS: normal ST segment depression in: II, III, aVF Interpretation: no acute changes, unchanged when compared to prior tracing (date ) (2016), nonspecific ST-T wave changes Heart Score - Score History: Moderately Suspicious EKG: Non Specific repolarisation Disturbance Age: 45-65 Risk Factors: Equal/Greater than 3 risk factor or history of atherosclerotic disease Troponin: Less than normal limit HEART Score Total: 5 S.B.AIssac - Willis Situation: Demographics Background: Presenting Complaint Assessment: Vital Signs, Course and respsone to treatment, Patient/Family Expectation Recommendation: Barrier(s) to disposition, Recommendation based on pending studies, treatments, or consults S.B.A.Burton Report Given to: Dr. Lyn Pedro Repor Time: 13:21
[2018-01-26 11:27] LABS: Basophils # 0.1 K/mcL (0.0-0.2); Basophils % 0.7 %; Eosinophils # 0.2 K/mcL (0.0-0.6); Eosinophils % 1.8 %; Hematocrit 41.4 % (35.3-44.9); Hemoglobin 13.9 g/dL (11.5-15.4); Immature Granulocytes % 0.2 % (0-4); Lymphocytes # 2.7 K/mcL (0.6-4.6); Lymphocytes % 22.2 %; Mean Corpuscular HGB Conc 33.6 g/dL (31.6-35.5); Mean Corpuscular Hemoglobin 32.2 pg (28.0-33.3); Mean Corpuscular Volume 95.8 fL (83.0-100.0); Monocytes # 0.7 K/mcL (0.0-1.3); Neutrophils # 8.4 K/mcL (1.6-8.9); Platelet Count 252 K/mcL (140-400); Red Blood Count 4.32 M/mcL (3.82-4.97); Red Cell Distribution Width 12.5 % (11.5-14.5); Segmented Neutrophils % 69.1 %
[2018-01-26] MEDS: Nitroglycerin 0.4 MG TAB.SUBL SL ONE ×3 (11:27→11:36)
[2018-01-26 11:32] LABS: INR 1.5; Prothrombin Time 16.4 Seconds (9.4-12.1)
[2018-01-26 11:52] LABS: Troponin I < 0.03 ng/mL (< 0.04)
[2018-01-26 12:13] LABS: BUN/Creatinine Ratio 10 (6-26); Blood Urea Nitrogen 10 mg/dL (6-20); Calcium 9.2 mg/dL (8.6-10.3); Carbon Dioxide 25 mEq/L (23-29); Chloride 104 mEq/L (98-107); Glucose 145 mg/dL (70-105); Osmolality,Calculated 286 (280-300); Potassium 3.6 mEq/L (3.5-5.1); Sodium 137 mEq/L (136-145); eGFR For African Americans > 60 (> 60); eGFR For Non-African Americans 59 (> 60)
[2018-01-26] MEDS ORDERED: Naloxone 0.4 MG/ML INJ IVP PRN (13:55)
--- NOTE | 2018-01-26 14:00 | Internal Med History&Physical ---
<Jose Reyes - Last Filed: 01/26/18 14:10> Date of Encounter: 01/26/18 Time of Encounter: 13:58 Internal Medicine - H&P: HPI Chief complaint: chest pain Admitted From: Home Plans for Post Hospital Care: Home History of present illness: Ms. Rivera is a 47 year old female with a PMH of asthma, prior GA, A. fib, cardio myopathy, COPD, CAD, HLD, mitral valve replacement for which she is taking eliquis and HTN. She presents today with retrosternal nonradiating chest pain described as dull and 4/10 which began this morning. Associated symptoms include shortness of breath, nausea, and diaphoresis. Pain is aggravated with movement of her LUE and is reproducible almost as if it is musculoskeletal in origin. She reports that the pain improved with nitro while at home but never completely ceased. She was given a total of 3 nitro and 325 ASA in the ED. She is currently chest pain free. Her initial troponin is negative and her CXR is negative. Due to hx of prior GA and symptoms she is being admitted to r/o ACS. Past Med Surg Social Fam HX - Past Medical History Medical history: asthma, atrial fibrillation, cardiomyopathy, COPD, coronary artery disease, hyperlipidemia, hypertension, syncope Psychiatric history: anxiety - Past Surgical History Surgical History: appendectomy, coronary bypass (CABG), heart valve replacement , pacemaker - Social History Smoking Status: Current every day smoker Smokeless Tobacco Status: No Alcohol use: none Drug use: marijuana - Family History Mother Living Status: Still Living Hx Family Cardiac Disorders: Yes Hx Family Respiratory Disorders: Yes Hx Family Cancer: No Hx Family GI Disorders: Yes Hx Family Endocrine Disorder: Yes Hx Family Neuromuscular Disorders: No Hx Family Neurologic Disorders: No Hx Family HEENT Disorders: No Hx Family Autoimmune Disorders: No Internal Medicine - H&P: Meds Furosemide [Lasix] 20 mg PO DAILY 09/20/16 [History] Lisinopril [Zestril] 20 mg PO DAILY 09/20/16 [History] Nitroglycerin [Nitrostat] 0.4 mg SL Q5M PRN 09/20/16 [History] Ondansetron [Zofran] 4 mg PO Q8HR PRN 09/20/16 [History] Albuterol Sulfate [Albuterol Inhaler] 2 puff IH Q4-6H PRN 04/04/17 [History] Apixaban [Eliquis] 5 mg PO BID 01/11/17 [History] Cilostazol [Pletal] 100 mg PO BID 10/04/17 [History] Isosorbide MONOnitrate (24 HR) [Imdur] 60 mg PO DAILY 10/04/17 [History] Carvedilol [Coreg] 6.25 mg PO BID 01/26/18 [History] Gabapentin [Neurontin] 300 mg PO TID 01/26/18 [History] Varenicline Tartrate [Chantix Starting Month ADENIKE] 1 tab PO BID 01/26/18 [History ] 3 Allergy/AdvReac Type Severity Reaction Status Date / Time No Known Allergies Allergy Verified 01/11/17 07:37 All Systems PM: A 10-system review of systems was performed and is negative for pertinent findings except as documented above in the HPI. Review of systems: ROS CARDIAC: Positive for retrosternal chest pain without radiation, diaphoresis. Negative for palpitations, tachycardia, dizziness, edema PULMONARY: , positive for mild shortness of breath. Negative for wheezing, cough All other systems negative - Constitutional Vitals: Temp Pulse Resp BP Pulse Ox 97.8 F 74 18 110/58 96 01/26/18 11:14 01/26/18 12:33 01/26/18 12:33 01/26/18 12:33 01/26/18 12:33 General appearance: Present: cooperative, A&O X 3, no acute distress, answers questions appropriately Exam: PHYSICAL EXAMINATION: GENERAL: The patient is a well-developed, well-nourished male in no apparent distress. He is alert and oriented x3. HEENT: Head is normocephalic and atraumatic. Extraocular muscles are intact. Pupils are equal, round, and reactive to light and accommodation. NECK: Supple. No carotid bruits. No lymphadenopathy or thyromegaly. LUNGS: Clear to auscultation B/L AP and L. HEART: Regular rate and rhythm without murmur, S1, S2. ABDOMEN: Soft, nontender, and nondistended. Positive bowel sounds. No hepatosplenomegaly was noted. EXTREMITIES: No extremity edema, radial pulses 2+ bilaterally, DP/PT pulses 2+ bilaterally PSYCHIATRIC: Appropriate affect SKIN: No ulceration, lesions or rashes Internal Med - H&P Results - Labs CBC & Chem 7: 01/26/18 11:17 01/26/18 11:17 - EKG Data -: EKG Interpreted by Myself EKG shows normal: sinus rhythm - EKG Data Prior EKG available for review: yes When compared to previous EKG: there is no significant change EKG comments: 01/26/18 14:01 My review of EKG show NSR without any changes when compared to prior. Old ST depressions in inferior/lateral leads - Impressions Impressions Chest X-Ray 01/26/18 11:20 IMPRESSION: No acute process. D/ / Leon Tripathi MD / Leon Tripathi MD Interpreting Provider: Leon Tripathi MD - Assessment and plan (1) Chest pain Current Visit: Yes Status: Acute Assessment and plan: ASSESSMENT: -Presents with nonradiating, dull retrosternal chest pain. The pain is reproducible on examination, tenderness to palpation and she notes that the pain is worse with use of left upper extremity. This appears to be musculoskeletal, initial troponin is negative, and there are no changes noted on EKG. However, due to history of prior GA, CABG, HLD, HTN and smoking she is being admitted for observation to rule out ACS. Echo 01/11/17 with an EF of 50-55%, moderately dilated left atrium PLAN: - cardiac enzymes x 2 q hr - EKG now and in AM - ASA - Simvastatin now then daily at bedtime - O2 by NC to keep SpO2 greater than 92% - CBCD, BMP in AM - Fasting lipids - Resume eliquis - 2D Echo - Stress test in the morning if troponins remain adynamic - Nothing by mouth after midnight, no caffeine and nicotine - Continuous telemetry Qualifiers: Chest pain type: unspecified Qualified Code(s): R07.9 - Chest pain, unspecified (2) History of mitral valve replacement with bioprosthetic valve Current Visit: Yes Status: Acute (3) COPD (chronic obstructive pulmonary disease) Current Visit: Yes Status: Chronic Assessment and plan: Stable, not in acute exacerbation. Continue bronchodilators Qualifiers: COPD type: unspecified COPD Qualified Code(s): J44.9 - Chronic obstructive pulmonary disease, unspecified (4) Coronary artery disease Current Visit: Yes Status: Chronic Assessment and plan: Continue CAROLYN, Imdur, ASA, Lipitor and Eliquis Qualifiers: Coronary Disease-Associated Artery/Lesion type: bypass graft [place] vs. transplanted heart: [place] heart Associated angina: with stable angina Qualified Code(s): I25.708 - Atherosclerosis of coronary artery bypass graft(s) , unspecified, with other forms of angina pectoris (5) Essential hypertension Current Visit: Yes Status: Chronic Assessment and plan: Continue CAROLYN (6) DVT prophylaxis Current Visit: Yes Status: Acute Assessment and plan: Continue Eliquis (7) A-fib Current Visit: Yes Status: Acute Assessment and plan: NSR per EKG Qualifiers: Atrial fibrillation type: unspecified Qualified Code(s): I48.91 - Unspecified atrial fibrillation - Time Spent With Patient Total time spent is greater than 50% in coordination of care (as documented) at patient's floor/unit and/or counseling patient: 25 - 35 minutes <Ahmet Nicholson P - Last Filed: 01/26/18 20:24> Date of Encounter: 01/26/18 Internal Medicine - H&P: HPI History of present illness: Ms. Rivera is a 47 year old female All Systems PM: A 10-system review of systems was performed and is negative for pertinent findings except as documented above in the HPI. - Constitutional Vitals: Temp Pulse Resp BP Pulse Ox 97.5 F L 87 18 92/54 93 01/26/18 19:21 01/26/18 19:21 01/26/18 19:21 01/26/18 19:21 01/26/18 19:21 Internal Med - H&P Results - Labs CBC & Chem 7: 01/26/18 11:17 01/26/18 11:17 Labs: Cardiac Enzymes 01/26/18 Range/Units 15:46 Troponin I < 0.03 (< 0.04) ng/mL - Attending Attestation I performed a history and physical examination of the patient and discussed her management with the AIR CONDITIONING ENGINEER. I reviewed the AIR CONDITIONING ENGINEER's note and agree with the documented findings and plan of care. Briefly, patient is a 47 y/o white female admitted for chest pain and ACS ruleout. Pain is also present in left shoulder and reproducible with palpation. Pain did improve with nitro, however. Pain-free during my interview and exam. PE: Gen - Awake, alert, NAD HEENT - NCAT, PERRLA, EOMI, hearing grossly intact, oropharynx benign CV - RRR, no M/R/G, no BLE edema Resp - CTAB, no W/R/R, normal WOB GI - Soft, NT/ND, no masses, normal bowel sounds, no HSP Skin - Warm, dry, no rashes/lesions/ulcers Psych - Normal mood and affect, no depression or anxiety Ahmet Nicholson MD - Assessment and plan (1) Coronary artery disease Current Visit: Yes Status: Chronic Qualifiers: Coronary Disease-Associated Artery/Lesion type: bypass graft [place] vs. transplanted heart: [place] heart Associated angina: with stable angina Qualified Code(s): I25.708 - Atherosclerosis of coronary artery bypass graft(s) , unspecified, with other forms of angina pectoris (2) Essential hypertension Current Visit: Yes Status: Chronic (3) DVT prophylaxis Current Visit: Yes Status: Acute (4) COPD (chronic obstructive pulmonary disease) Current Visit: Yes Status: Chronic Qualifiers: COPD type: unspecified COPD Qualified Code(s): J44.9 - Chronic obstructive pulmonary disease, unspecified (5) History of mitral valve replacement with bioprosthetic valve Current Visit: Yes Status: Acute (6) Chest pain Current Visit: Yes Status: Acute Qualifiers: Chest pain type: unspecified Qualified Code(s): R07.9 - Chest pain, unspecified (7) A-fib Current Visit: Yes Status: Acute Qualifiers: Atrial fibrillation type: unspecified Qualified Code(s): I48.91 - Unspecified atrial fibrillation - Time Spent With Patient Total time spent is greater than 50% in coordination of care (as documented) at patient's floor/unit and/or counseling patient:
[2018-01-26] MEDS: Gabapentin 300 MG CAPSULE PO SCH ×2 (15:39→20:51)
[2018-01-26] MEDS: *HR* HYDROcodone/Acet 5/325 mg TABLET PO PRN (16:38)
[2018-01-26] MEDS: Apixaban 5 MG TABLET PO SCH (20:50)
[2018-01-27 07:06] LABS: Basophils # 0.1 K/mcL (0.0-0.2); Basophils % 0.9 %; Eosinophils # 0.2 K/mcL (0.0-0.6); Eosinophils % 2.4 %; Hematocrit 40.7 % (35.3-44.9); Hemoglobin 13.1 g/dL (11.5-15.4); Immature Granulocytes % 0.3 % (0-4); Lymphocytes % 33.2 %; Mean Corpuscular HGB Conc 32.2 g/dL (31.6-35.5); Mean Corpuscular Hemoglobin 31.4 pg (28.0-33.3); Mean Corpuscular Volume 97.6 fL (83.0-100.0); Mean Platelet Volume 10.6 fL (9.4-12.4); Monocytes # 0.9 K/mcL (0.0-1.3); Monocytes % 9.5 %; Neutrophils # 4.9 K/mcL (1.6-8.9); Platelet Count 213 K/mcL (140-400); Red Blood Count 4.17 M/mcL (3.82-4.97); Red Cell Distribution Width 12.8 % (11.5-14.5); Segmented Neutrophils % 53.7 %
[2018-01-27 07:24] LABS: BUN/Creatinine Ratio 11 (6-26); Blood Urea Nitrogen 12 mg/dL (6-20); Calcium 8.9 mg/dL (8.6-10.3); Carbon Dioxide 28 mEq/L (23-29); Chloride 108 mEq/L (98-107); Chol/HDL Ratio 4.9 (0-4.9); Cholesterol 148 mg/dL (< 200); Glucose 117 mg/dL (70-105); HDL Cholesterol 30 mg/dL (40-59); LDL Cholesterol,Calculated 100 mg/dL (0-99); Osmolality,Calculated 293 (280-300); Potassium 4.1 mEq/L (3.5-5.1); Sodium 141 mEq/L (136-145); Triglycerides 89 mg/dL (< 150); eGFR For African Americans > 60 (> 60); eGFR For Non-African Americans 54 (> 60)
[2018-01-27] MEDS ORDERED: Regadenoson 0.4 MG/5 ML SYRINGE IVP ONE (07:56)
[2018-01-27] MEDS: *HR* HYDROcodone/Acet 5/325 mg TABLET PO PRN ×2 (09:47→18:56)
[2018-01-27] MEDS: Lisinopril 20 MG TABLET PO SCH (09:48)
[2018-01-27] MEDS: Apixaban 5 MG TABLET PO SCH ×2 (09:48→20:02)
[2018-01-27] MEDS: Furosemide 20 MG TABLET PO SCH (09:48)
[2018-01-27] MEDS: Aspirin 81 MG TAB.CHEW PO SCH (09:48)
[2018-01-27] MEDS: Gabapentin 300 MG CAPSULE PO SCH ×3 (09:48→20:02)
[2018-01-27] MEDS: Isosorbide MONOnitrate (24 HR) 60 MG TAB.ER.24H PO SCH (09:48)
--- NOTE | 2018-01-27 12:40 | Internal Med Progress Note ---
Date of Encounter: 01/27/18 Time of Encounter: 12:38 - Assessment and plan (1) Chest pain Current Visit: Yes Status: Acute Assessment and plan: ASSESSMENT: -Presented yesterday with nonradiating, dull retrosternal chest pain. The pain continues to be reproducible on examination, with tenderness to palpation the left chest and increased pain with use of left upper extremity. Troponins remained negative overnight. This does not appear to be typical chest pain, but appears to muscular skeletal pain. Nonexercise nuclear stress started this morning. Will need to undergo stress again tomorrow. PLAN: - Continue ASA - Continue Simvastatin now then daily at bedtime, may benefit from simvastatin to discharge. LDL 100, HDL 30 per labs this morning. - O2 by NC to keep SpO2 greater than 92% - Continue eliquis - 2D Echo completed 01/26/18 shows an EF of 60-65% with indeterminate diastolic function and a severely dilated left atrium. Her bioprosthetic valve was shown to be well seated without complications, and a device lead was visualized in the right atrium and right ventricle - Cardiac diet, nothing by mouth after midnight - Continuous telemetry - Consult cardiology based on the results of stress test tomorrow - She has hydrocodone for pain management Qualifiers: Chest pain type: unspecified Qualified Code(s): R07.9 - Chest pain, unspecified (2) History of mitral valve replacement with bioprosthetic valve Current Visit: Yes Status: Acute Assessment and plan: Bioprosthetic valve shows that is well seated with normal function per TTE on Continue eliquis (3) COPD (chronic obstructive pulmonary disease) Current Visit: Yes Status: Chronic Assessment and plan: Stable, not in acute exacerbation, no events or difficulty breathing noted overnight. Continued to have intermittent shortness of breath butthat it is self-limiting. Continue bronchodilators Qualifiers: COPD type: unspecified COPD Qualified Code(s): J44.9 - Chronic obstructive pulmonary disease, unspecified (4) Coronary artery disease Current Visit: Yes Status: Chronic Assessment and plan: Continue CAROLYN, Imdur, ASA, Lipitor and Eliquis Qualifiers: Coronary Disease-Associated Artery/Lesion type: bypass graft [place] vs. transplanted heart: [place] heart Associated angina: with stable angina Qualified Code(s): I25.708 - Atherosclerosis of coronary artery bypass graft(s) , unspecified, with other forms of angina pectoris (5) Essential hypertension Current Visit: Yes Status: Chronic Assessment and plan: BP remained stable overnight, continue current antihypertensive regimen (6) A-fib Current Visit: Yes Status: Acute Assessment and plan: No changes in rhythm overnight, patient on eliquis Qualifiers: Atrial fibrillation type: unspecified Qualified Code(s): I48.91 - Unspecified atrial fibrillation (7) DVT prophylaxis Current Visit: Yes Status: Acute Assessment and plan: Continue Eliquis (8) Pain of right shoulder joint on movement Current Visit: Yes Status: Acute Assessment and plan: No crepitus, decreased strength, decreased ROM or join laxity upon examination. Likely a muscle strain. NSAIDS for pain and inflammation - Time Spent With Patient Total time spent is greater than 50% in coordination of care (as documented) at patient's floor/unit and/or counseling patient: Greater than 35 minutes - Subjective Interval history: Ms. Rivera is a 47 year old female with a PMH of asthma, prior [place], A. fib, cardio myopathy, COPD, CAD, HLD, mitral valve replacement for which she is taking eliquis and HTN. She presents yesterday afternoon with retrosternal nonradiating chest pain described as dull and 4/10 which began yesterday morning. Denies any events or concerns overnight. She reports that the chest pain has eased up immensely but is still present in the left chest. She states that the pain is now a dull ache. She is continuing to complain of intermittent shortness of breath. Additionally, she is noting some right shoulder pain with range of motion. She reports shoulder pain began yesterday after using grab real in the bathroom to assist herself with standing. She states "I think I may have pulled something "and "it feels like there is a catching my shoulder" - Constitutional Vitals: Temp Pulse Resp BP Pulse Ox 98.1 F 78 16 134/84 100 01/27/18 10:54 01/27/18 10:54 01/27/18 10:54 01/27/18 10:54 01/27/18 10:54 General appearance: Present: cooperative, A&O X 3, no acute distress, answers questions appropriately - Eye Eye exam: Present: EOMI, PERRL - Neck Neck exam general surgery: Present: supple, trachea midline. Absent: lymphadenopathy - Respiratory Respiratory exam: Present: CTAB. Absent: accessory muscle use, rales, rhonchi, wheezes - Cardiovascular Cardiovascular exam: Present: RRR, +S1, +S2. Absent: diastolic murmur, gallop, rubs, systolic murmur - GI/Abdominal GI/Abdominal exam: Present: normal bowel sounds, soft, no peritoneal signs. Absent: distended, tenderness - Expanded Upper Extremities Exam Shoulder exam: Present: full ROM, normal inspection, tenderness (Tenderness over the acromion and subacromial bursa). Absent: crepitus, deformity, dislocation, ecchymosis, erythema, swelling - Back Exam Back exam: Present: full ROM, normal inspection. Absent: paraspinal tenderness , vertebral tenderness - Neurological Exam Neurological exam: Present: alert, oriented X3, reflexes normal, strengths equal and symetr throughout. Absent: pronater drift, facial droop, speech deficit - Skin Skin exam: Present: dry, intact Internal Medicine: Result - Labs CBC & Chem 7: 01/27/18 06:28 01/27/18 06:28 Labs: Short CBC 01/27/18 Range/Units 06:28 WBC 9.1 (4.3-11.1) K/mcL Hgb 13.1 (11.5-15.4) g/dL Hct 40.7 (35.3-44.9) % Plt Count 213 (140-400) K/mcL Neutrophils # 4.9 (1.6-8.9) K/mcL BMP 01/27/18 06:28 Sodium 141 Potassium 4.1 Chloride 108 H Carbon Dioxide 28 BUN 12 Creatinine 1.08 Glucose 117 H Calcium 8.9 Cardiac Enzymes 01/26/18 01/26/18 Range/Units 15:46 21:02 Troponin I < 0.03 < 0.03 (< 0.04) ng/mL - ABG Interpretation ABG results: PT/INR, D-dimer PT 16.4 Seconds (9.4-12.1) H 01/26/18 11:17 - Impressions Impressions Echocardiogram 01/26/18 13:54 Impressions: LVEF 60-65%. Indeterminate diastolic function. RV is dilated with normal function. Severely dilated left atrium. Well seated mechanical mitral valve prosthesis with normal function. Mild-moderate tricuspid regurgitation. Mild pulmonary hypertension. A device lead was visualized in the right atrium and right ventricle. Left Ventricular Wall Motion: Rest Echo Findings All wall segments showed normal motion. Findings: Study Quality * Technically adequate exam. ECG Findings * Normal sinus rhythm. Left Ventricle * LVEF 60-65%. * Indeterminate diastolic function. * Normal LV chamber size and wall thickness. Right Ventricle * RV is dilated with normal function. Left Atrium * Severely dilated left atrium. Right Atrium * Normal right atrial size. Aortic Valve * No aortic regurgitation. * Trileaflet aortic valve. * No aortic stenosis. Mitral Valve * No prosthetic mitral regurgitation. * No prosthetic mitral stenosis. * Well seated mechanical mitral valve prosthesis. Tricuspid Valve * Tricuspid valve not well visualized. * Mild-moderate tricuspid regurgitation. * Estimated RA pressure is 3 mmHg. * Estimated RVSP is 37 mmHg. * Mild pulmonary hypertension. Pulmonic Valve * Pulmonic valve is not well visualized. * No pulmonic stenosis. * No pulmonic regurgitation. Pulmonary Artery * Pulmonary artery not well visualized. Aorta * Normally sized aortic root. Pericardium * There is no pericardial effusion present. Interatrial Septum * Interatrial septum not well evaluated. IVC * Normal IVC dimensions and inspiratory collapse. Consult Discharge Plan - Plan Referrals: Candace Gomez, CONTENT STRATEGY LEAD [Primary Care Provider] -
[2018-01-27] MEDS: Ibuprofen 600 MG TABLET PO PRN (15:03)
--- NOTE | 2018-01-27 15:27 | Electrocardiograph Report ---
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
[2018-01-27] MEDS: Ondansetron 4 MG/2 ML VIAL IVP PRN (23:47)
[2018-01-28] MEDS ORDERED: Metoclopramide 10 MG/2 ML VIAL IVP ONE (04:35)
[2018-01-28] MEDS: Ondansetron 4 MG/2 ML VIAL IVP PRN ×2 (07:39→20:42)
[2018-01-28] MEDS: Isosorbide MONOnitrate (24 HR) 60 MG TAB.ER.24H PO SCH (12:10)
[2018-01-28] MEDS: Furosemide 20 MG TABLET PO SCH (12:10)
[2018-01-28] MEDS: Ibuprofen 600 MG TABLET PO PRN (12:10)
[2018-01-28] MEDS: Aspirin 81 MG TAB.CHEW PO SCH (12:11)
[2018-01-28] MEDS: Gabapentin 300 MG CAPSULE PO SCH ×3 (12:11→20:28)
[2018-01-28] MEDS: Apixaban 5 MG TABLET PO SCH ×2 (12:11→20:28)
[2018-01-28] MEDS: Lisinopril 20 MG TABLET PO SCH (12:11)
--- NOTE | 2018-01-28 15:36 | Internal Med Progress Note ---
Date of Encounter: 01/28/18 Time of Encounter: 15:33 - Assessment and plan (1) Coronary artery disease Current Visit: Yes Status: Chronic Assessment and plan: Continue CAROLYN, Imdur, ASA, Lipitor and Eliquis Qualifiers: Coronary Disease-Associated Artery/Lesion type: bypass graft [place] vs. transplanted heart: [place] heart Associated angina: with stable angina Qualified Code(s): I25.708 - Atherosclerosis of coronary artery bypass graft(s) , unspecified, with other forms of angina pectoris (2) Essential hypertension Current Visit: Yes Status: Chronic Assessment and plan: per hx. BP controlled. Cont home BP medications. Monitor BP and titrate PRN (3) COPD (chronic obstructive pulmonary disease) Current Visit: Yes Status: Chronic Assessment and plan: per hx. no evidence of exacerbation. Continue home inhaler, PRN bronchodilators. Qualifiers: COPD type: unspecified COPD Qualified Code(s): J44.9 - Chronic obstructive pulmonary disease, unspecified (4) History of mitral valve replacement with bioprosthetic valve Current Visit: Yes Status: Acute Assessment and plan: Bioprosthetic valve shows that is well seated with normal function per TTE on . Cont ASA (5) Chest pain Current Visit: Yes Status: Acute Assessment and plan: presented with nonradiating, dull retrosternal chest pain. The pain continues to be reproducible on examination, with tenderness to palpation the left chest and increased pain with use of left upper extremity. Serial troponins negative , EKG without acute ST changes. 01/26/18 TTE with EF of 60-65% with indeterminate diastolic function and a severely dilated left atrium. 01/28/2018 stress test with evidence of small size, mild intensity fixed defect consistent with artifact. Perfusion imaging was negative for ischemia or infarct. 01/2017 LHC revealed 100% stenosis of proximal RCA, 40% stenosis in proximal LAD, 40% stenosis in mid LAD, 30% stenosis in proximal circumflex, saphenous vein grap to distal RCA patent, and Left main coronary artery free of disease. Would like to increase isosorbide however BP borderline/soft. Add Ranexa. Continue to monitor on telemetry. Qualifiers: Chest pain type: unspecified Qualified Code(s): R07.9 - Chest pain, unspecified (6) A-fib Current Visit: Yes Status: Acute Assessment and plan: No changes in rhythm overnight, patient on eliquis Qualifiers: Atrial fibrillation type: unspecified Qualified Code(s): I48.91 - Unspecified atrial fibrillation (7) Pain of right shoulder joint on movement Current Visit: Yes Status: Acute Assessment and plan: No crepitus, decreased strength, decreased ROM or join laxity upon examination. Likely a muscle strain. NSAIDS for pain and inflammation (8) Abdominal pain Current Visit: Yes Status: Acute Assessment and plan: With associated nausea and vomiting on 01/28 exam. Possible viral etiology however will obtain abdominal/pelvis CT as abdomen is tender on exam Qualifiers: Abdominal location: generalized Qualified Code(s): R10.84 - Generalized abdominal pain (9) DVT prophylaxis Current Visit: Yes Status: Acute Assessment and plan: Continue Eliquis - Time Spent With Patient Total time spent is greater than 50% in coordination of care (as documented) at patient's floor/unit and/or counseling patient: - Subjective Interval history: Seen and examined at bedside. Patient is new to me, information obtained from chart review and patient report. She still complaining of left-sided chest pain , tenderness noted with palpation. She also complains of abdominal upset; apparently has been nauseated with some emesis since last night. She appears uncomfortable on exam. No shortness of breath. Abdominal pain, no constipation or diarrhea. - Constitutional Vitals: Temp Pulse Resp BP Pulse Ox 97.8 F 88 14 111/75 97 01/28/18 12:02 01/28/18 12:02 01/28/18 12:02 01/28/18 12:02 01/28/18 12:02 General appearance: Present: cooperative, A&O X 3, no acute distress, answers questions appropriately - Head Head exam: Present: atraumatic, normocephalic - Eye Eye exam: Present: PERRL, conjuntiva pink, sclera anicteric Pupils: Present: PERRL - Neck Neck exam general surgery: Present: supple, trachea midline. Absent: lymphadenopathy - Respiratory Respiratory exam: Present: chest wall tenderness, CTAB. Absent: accessory muscle use, rales, rhonchi, wheezes - Cardiovascular Cardiovascular exam: Present: RRR, +S1, +S2. Absent: diastolic murmur, gallop, rubs, systolic murmur - GI/Abdominal GI/Abdominal exam: Present: normal bowel sounds, soft, no peritoneal signs. Absent: distended, tenderness - Extremities Exam Extremities exam: Present: warm, radial pulses palpable and symmetrical. Absent : calf tenderness, cyanotic, pedal edema - Neurological Exam Neurological exam: Present: CN II-XII intact, oriented X3, no focal deficits. Absent: pronater drift, facial droop, speech deficit - Skin Skin exam: Present: dry, intact Internal Medicine: Result - Labs CBC & Chem 7: 01/27/18 06:28 01/27/18 06:28 - ABG Interpretation ABG results: PT/INR, D-dimer PT 16.4 Seconds (9.4-12.1) H 01/26/18 11:17 Consult Discharge Plan - Plan Referrals: Candace Gomez, BUILDING CARPENTER HELPER [Primary Care Provider] -
[2018-01-28] MEDS: *HR* HYDROcodone/Acet 5/325 mg TABLET PO PRN (20:41)
[2018-01-29] MEDS: Ibuprofen 600 MG TABLET PO PRN (02:40)
[2018-01-29] MEDS: Gabapentin 300 MG CAPSULE PO SCH ×3 (08:22→20:21)
[2018-01-29] MEDS: Lisinopril 20 MG TABLET PO SCH (08:22)
[2018-01-29] MEDS: Isosorbide MONOnitrate (24 HR) 60 MG TAB.ER.24H PO SCH (08:22)
[2018-01-29] MEDS: Apixaban 5 MG TABLET PO SCH ×2 (08:22→20:21)
[2018-01-29] MEDS: Furosemide 20 MG TABLET PO SCH (08:22)
[2018-01-29] MEDS: Aspirin 81 MG TAB.CHEW PO SCH (08:22)
[2018-01-29] MEDS: *HR* HYDROcodone/Acet 5/325 mg TABLET PO PRN ×3 (08:29→21:13)
[2018-01-29] MEDS: Ranolazine 500 MG TAB.ER.12H PO SCH ×2 (08:34→20:21)
[2018-01-29] MEDS: Ondansetron 4 MG/2 ML VIAL IVP PRN ×3 (10:33→20:09)
--- NOTE | 2018-01-29 15:24 | Internal Med Progress Note ---
Date of Encounter: 01/29/18 Time of Encounter: 15:22 - Assessment and plan (1) Chest pain Current Visit: Yes Status: Acute Assessment and plan: presented with nonradiating, dull retrosternal chest pain. The pain continues to be reproducible on examination, with tenderness to palpation the left chest and increased pain with use of left upper extremity. Serial troponins negative , EKG without acute ST changes. 01/26/18 TTE with EF of 60-65% with indeterminate diastolic function and a severely dilated left atrium. 01/28/2018 stress test with evidence of small size, mild intensity fixed defect consistent with artifact. Perfusion imaging was negative for ischemia or infarct. 01/2017 LHC revealed 100% stenosis of proximal RCA, 40% stenosis in proximal LAD, 40% stenosis in mid LAD, 30% stenosis in proximal circumflex, saphenous vein grap to distal RCA patent, and Left main coronary artery free of disease. Would like to increase isosorbide however BP borderline/soft. Add Ranexa. Continue to monitor on telemetry. Qualifiers: Chest pain type: unspecified Qualified Code(s): R07.9 - Chest pain, unspecified (2) Coronary artery disease Current Visit: Yes Status: Chronic Assessment and plan: Continue CAROLYN, Imdur, ASA, Lipitor and Eliquis Qualifiers: Coronary Disease-Associated Artery/Lesion type: bypass graft [place] vs. transplanted heart: [place] heart Associated angina: with stable angina Qualified Code(s): I25.708 - Atherosclerosis of coronary artery bypass graft(s) , unspecified, with other forms of angina pectoris (3) Abdominal pain Current Visit: Yes Status: Acute Assessment and plan: With associated nausea and vomiting. ABD CT non-acute. Possible viral. Clear liquid diet only as long as she is nauseated. Advance diet as tolerated. Continue IV PRN antiemetics. Qualifiers: Abdominal location: generalized Qualified Code(s): R10.84 - Generalized abdominal pain (4) Essential hypertension Current Visit: Yes Status: Chronic Assessment and plan: per hx. BP controlled. Cont home BP medications. Monitor BP and titrate PRN (5) COPD (chronic obstructive pulmonary disease) Current Visit: Yes Status: Chronic Assessment and plan: per hx. no evidence of exacerbation. Continue home inhaler, PRN bronchodilators. Qualifiers: COPD type: unspecified COPD Qualified Code(s): J44.9 - Chronic obstructive pulmonary disease, unspecified (6) History of mitral valve replacement with bioprosthetic valve Current Visit: Yes Status: Acute Assessment and plan: Bioprosthetic valve shows that is well seated with normal function per TTE on . Cont ASA (7) A-fib Current Visit: Yes Status: Acute Assessment and plan: No changes in rhythm overnight, patient on eliquis Qualifiers: Atrial fibrillation type: unspecified Qualified Code(s): I48.91 - Unspecified atrial fibrillation (8) Pain of right shoulder joint on movement Current Visit: Yes Status: Acute Assessment and plan: No crepitus, decreased strength, decreased ROM or join laxity upon examination. Likely a muscle strain. NSAIDS for pain and inflammation (9) DVT prophylaxis Current Visit: Yes Status: Acute Assessment and plan: Continue Eliquis - Time Spent With Patient Total time spent is greater than 50% in coordination of care (as documented) at patient's floor/unit and/or counseling patient: - Subjective Interval history: Seen and examined at bedside; laying in bed, appears uncomfortable. Still with nausea. No emesis since last night. Advised her to stick with clear liquids for now as long as she is nauseated. Still having some left-sided chest pain that is reproducible. Ranexa started this morning. She does not feel she is ready to go home today. - Constitutional Vitals: Temp Pulse Resp BP Pulse Ox 99 F 99 16 93/55 94 01/29/18 10:24 01/29/18 10:24 01/29/18 10:24 01/29/18 10:24 01/29/18 10:24 General appearance: Present: cooperative, A&O X 3, no acute distress, answers questions appropriately - Head Head exam: Present: atraumatic, normocephalic - Eye Eye exam: Present: PERRL, conjuntiva pink, sclera anicteric Pupils: Present: PERRL - Neck Neck exam general surgery: Present: supple, trachea midline. Absent: lymphadenopathy - Respiratory Respiratory exam: Present: chest wall tenderness, CTAB. Absent: accessory muscle use, rales, rhonchi, wheezes - Cardiovascular Cardiovascular exam: Present: RRR, +S1, +S2. Absent: diastolic murmur, gallop, rubs, systolic murmur - GI/Abdominal GI/Abdominal exam: Present: normal bowel sounds, soft, no peritoneal signs. Absent: distended, tenderness - Extremities Exam Extremities exam: Present: warm, radial pulses palpable and symmetrical. Absent : calf tenderness, cyanotic, pedal edema - Neurological Exam Neurological exam: Present: CN II-XII intact, oriented X3, no focal deficits. Absent: pronater drift, facial droop, speech deficit - Skin Skin exam: Present: dry, intact Internal Medicine: Result - Labs CBC & Chem 7: 01/27/18 06:28 01/27/18 06:28 - ABG Interpretation ABG results: PT/INR, D-dimer PT 16.4 Seconds (9.4-12.1) H 01/26/18 11:17 - Impressions Impressions Abdomen/Pelvis CT 01/28/18 15:36 IMPRESSION: 1. No acute findings in the abdomen or pelvis. 2. Incidental findings as above. D/ / Leon Acosta MD / Leon Acosta MD Interpreting Provider: Leon Acosta MD Consult Discharge Plan - Plan Referrals: Candace Gomez, DIRECTOR OF PRODUCT DEVELOPMENT [Primary Care Provider] -
[2018-01-30 05:16] LABS: Hematocrit 32.9 % (35.3-44.9); Mean Corpuscular HGB Conc 32.8 g/dL (31.6-35.5); Mean Corpuscular Hemoglobin 32.1 pg (28.0-33.3); Mean Corpuscular Volume 97.9 fL (83.0-100.0); Mean Platelet Volume 10.8 fL (9.4-12.4); Platelet Count 198 K/mcL (140-400); Red Blood Count 3.36 M/mcL (3.82-4.97)
[2018-01-30 05:19] LABS: Hemoglobin 10.8 g/dL (11.5-15.4)
[2018-01-30 05:34] LABS: BUN/Creatinine Ratio 18 (6-26); Blood Urea Nitrogen 19 mg/dL (6-20); Calcium 8.6 mg/dL (8.6-10.3); Carbon Dioxide 27 mEq/L (23-29); Chloride 103 mEq/L (98-107); Glucose 97 mg/dL (70-105); Lipase 12 Units/L (11-82); Osmolality,Calculated 288 (280-300); Potassium 3.9 mEq/L (3.5-5.1); Sodium 138 mEq/L (136-145); eGFR For African Americans > 60 (> 60); eGFR For Non-African Americans 55 (> 60)
[2018-01-30] MEDS ORDERED: 0.9 % Sodium Chloride 1,000 ML IVC SCH (08:00)
[2018-01-30] MEDS: Aspirin 81 MG TAB.CHEW PO SCH (08:37)
[2018-01-30] MEDS: Gabapentin 300 MG CAPSULE PO SCH (08:38)
[2018-01-30] MEDS: Apixaban 5 MG TABLET PO SCH (08:39)
[2018-01-30] MEDS: Furosemide 20 MG TABLET PO SCH (08:55)
[2018-01-30] MEDS: Lisinopril 20 MG TABLET PO SCH (08:55)
[2018-01-30] MEDS: Ranolazine 500 MG TAB.ER.12H PO SCH (08:55)
[2018-01-30] MEDS: Ondansetron 4 MG/2 ML VIAL IVP PRN (08:58)
[2018-01-30] MEDS ORDERED: Isosorbide MONOnitrate (24 HR) 30 MG TAB.ER.24H PO SCH (09:00)
[2018-01-30] MEDS ORDERED: Acetaminophen 325 MG TABLET PO PRN (09:24)
[2018-01-30 14:50] VITALS: BP 127/77
--- NOTE | 2018-01-30 15:09 | Discharge Summary ---
Orders not resulted at time of discharge: Pending orders 01/27/18 08:21 NM kelly perf SPECT multi [NM] Routine 01/31/18 04:00 BMP [Basic Metabolic Panel] AM 0400 Complete Blood Count w/o Diff [HEME] AM 0400 02/01/18 04:00 BMP [Basic Metabolic Panel] AM 0400 Complete Blood Count w/o Diff [HEME] AM 0400 02/02/18 04:00 BMP [Basic Metabolic Panel] AM 0400 Complete Blood Count w/o Diff [HEME] AM 0400 02/03/18 04:00 BMP [Basic Metabolic Panel] AM 0400 Complete Blood Count w/o Diff [HEME] AM 0400 Date of Encounter: 01/30/18 Time of Encounter: 19:00 - Discharge Diagnosis (1) Chest pain Priority: Primary Status: Resolved Assessment and Plan: presented with nonradiating, dull retrosternal chest pain. Serial troponins negative, EKG without acute ST changes. 01/26/18 TTE with EF of 60-65% with indeterminate diastolic function and a severely dilated left atrium. 01/28/2018 stress test with evidence of small size, mild intensity fixed defect consistent with artifact. Perfusion imaging was negative for ischemia or infarct. 01/2017 LHC revealed 100% stenosis of proximal RCA, 40% stenosis in proximal LAD, 40% stenosis in mid LAD, 30% stenosis in proximal circumflex, saphenous vein grap to distal RCA patent, and Left main coronary artery free of disease. Would like to increase isosorbide however BP borderline/soft. Ranexa added. Suspect chest pain musculoskeletal as chest pain reproducible on examination, with tenderness to palpation the left chest and increased pain with use of left upper extremity. Follow-up with outpatient [facility] [employer] Qualifiers: Chest pain type: unspecified Qualified Code(s): R07.9 - Chest pain, unspecified (2) Coronary artery disease Priority: Primary Status: Acute Assessment and Plan: Plan as noted above. Continue CAROLYN, Imdur, ASA, Lipitor, Eliquis, ranexa Qualifiers: Coronary Disease-Associated Artery/Lesion type: [place] artery [place] vs. transplanted heart: [place] heart Associated angina: with unspecified angina Qualified Code(s): I25.119 - Atherosclerotic heart disease of [place] coronary artery with unspecified angina pectoris (3) Abdominal pain Priority: Primary Status: Acute Assessment and Plan: With associated nausea and vomiting. ABD CT non-acute. Possible viral. Symptoms improved with conservative management (clear liquid diet, IV fluids and IV anti-emetics). No abdominal pain at time of discharge and tolerating regular diet. Qualifiers: Abdominal location: generalized Qualified Code(s): R10.84 - Generalized abdominal pain (4) Essential hypertension Priority: Primary Status: Chronic Assessment and Plan: per hx. BP controlled. Cont home BP medications. (5) COPD (chronic obstructive pulmonary disease) Priority: Secondary Status: Chronic Assessment and Plan: per hx. no evidence of exacerbation. Continue home inhalers Qualifiers: COPD type: unspecified COPD Qualified Code(s): J44.9 - Chronic obstructive pulmonary disease, unspecified (6) History of mitral valve replacement with bioprosthetic valve Priority: Primary Status: Acute Assessment and Plan: Bioprosthetic valve shows that is well seated with normal function per TTE on . Cont ASA (7) A-fib Priority: Secondary Status: Chronic Assessment and Plan: per hx. Rate controlled. Cont BB, eliquis Qualifiers: Atrial fibrillation type: unspecified Qualified Code(s): I48.91 - Unspecified atrial fibrillation (8) Pain of right shoulder joint on movement Priority: Primary Status: Acute Assessment and Plan: No crepitus, decreased strength, decreased ROM or join laxity upon examination. Likely a muscle strain. Improved with NSAIDS Hospital course: See assessment and plan for Hospital course Discharge discussed with: patient (Seen and examined at bedside. Still complaining of some left shoulder pain however improved from yesterday. Denies chest pain. No shortness of breath. No abdominal pain overnight and tolerating regular diet.) - Time Spent with Patient Total time spent providing and/or coordinating discharge services: - Discharge Medications Prescriptions: Ranolazine [Ranexa] 500 mg PO BID #60 tab.er.12h Home Medications: Furosemide [Lasix] 20 mg PO DAILY 09/20/16 [History] Nitroglycerin [Nitrostat] 0.4 mg SL Q5M PRN 09/20/16 [History] Albuterol Sulfate [Albuterol Inhaler] 2 puff IH Q4-6H PRN 01/11/17 [History] Apixaban [Eliquis] 5 mg PO BID 01/11/17 [History] Isosorbide MONOnitrate (24 HR) [Imdur] 60 mg PO DAILY 10/04/17 [History] Carvedilol [Coreg] 6.25 mg PO BID 01/26/18 [History] Gabapentin [Neurontin] 300 mg PO TID 01/26/18 [History] Ranolazine [Ranexa] 500 mg PO BID #60 tab.er.12h 01/30/18 [Rx] Atorvastatin Calcium [Lipitor] 20 mg PO HS 02/04/18 [History] Aspirin Enteric Coated [Aspirin EC] 81 mg PO DAILY #30 tablet.dr 02/09/18 [Rx] Clopidogrel [Plavix] 75 mg PO DAILY #30 tablet 02/09/18 [Rx] HYDROcodone/Acet 5/325 mg [[place] 5-325 mg] 1 tab PO Q6HR PRN 5 Days #14 tablet 02/09/18 [Rx] Lisinopril [Zestril] 5 mg PO DAILY #30 tablet 02/09/18 [Rx] Allergies/Adverse Reactions: 3 Allergy/AdvReac Type Severity Reaction Status Date / Time No Known Allergies Allergy Verified 02/04/18 13:16 Date of admission: 01/26/18 13:43 Primary care physician: Ralph Acosta Discharging clinician: Zoila Bran Anticipated date of discharge: 01/30/18 - Constitutional Vitals: Temp Pulse Resp BP Pulse Ox 98.9 F 99 14 127/77 94 01/30/18 14:46 01/30/18 14:46 01/30/18 14:46 01/30/18 14:46 01/30/18 14:46 General appearance: Present: cooperative, A&O X 3, no acute distress, answers questions appropriately - Head Head exam: Present: atraumatic, normocephalic - Eye Eye exam: Present: PERRL, conjuntiva pink, sclera anicteric Pupils: Present: PERRL - Neck Neck exam general surgery: Present: supple, trachea midline. Absent: lymphadenopathy - Respiratory Respiratory exam: Present: CTAB. Absent: accessory muscle use, rales, rhonchi, wheezes - Cardiovascular Cardiovascular exam: Present: RRR, +S1, +S2. Absent: diastolic murmur, gallop, rubs, systolic murmur - GI/Abdominal GI/Abdominal exam: Present: normal bowel sounds, soft, no peritoneal signs. Absent: distended, tenderness - Extremities Exam Extremities exam: Present: warm, radial pulses palpable and symmetrical. Absent : calf tenderness, cyanotic, pedal edema - Neurological Exam Neurological exam: Present: CN II-XII intact, oriented X3, no focal deficits. Absent: pronater drift, facial droop, speech deficit - Skin Skin exam: Present: dry, intact - Patient Status Disposition: Home, Self-Care Condition: Good Overall status at discharge: patient is back to baseline - Discharge Instructions Instructions: Ranolazine (By mouth), Chest Pain (DC), Acute Nausea and Vomiting (DC) Follow Up With: Candcae Gomez, DIRECTOR SCRIPT [Primary Care Provider] - Forms: ED Satisfaction Letter - Diet and Activity Activity: increase activity as tolerated Diet: low fat, low cholesterol
== END 2018-01-30 16:15 | disposition home or self-care (01) ==
LOC: 3BNU 11:11 → EMEROO 11:11 → 3BNU 14:09
PROVIDERS: ADMIT Family Medicine; ATTEND Family Medicine

== ENCOUNTER 2018-02-04 12:02 | Inpatient (IN) ==
[2018-02-04] MEDS ORDERED: 0.9 % Sodium Chloride 500 ML IVC ONE ×2 (12:07→13:03)
[2018-02-04] MEDS ORDERED: Nitroglycerin 0.4 MG TAB.SUBL SL ONE (12:07)
[2018-02-04] MEDS ORDERED: Ondansetron 4 MG/2 ML VIAL IVP ONE (12:07)
[2018-02-04] MEDS ORDERED: Aspirin 81 MG TAB.CHEW PO ONE (12:07)
--- NOTE | 2018-02-04 12:08 | Emergency Department Note ---
Disposition Clinical Impression: Chest pain Disposition: Admitted As Inpatient Condition: Serious Referrals: Candace Gomez HOUSE MANAGER [Primary Care Provider] - Forms: ED Satisfaction Letter General Adult HPI - General Chief complaint: ED Chest Pain Stated complaint: chest pain Time Seen by Provider: 02/04/18 12:05 - Related Data Home Medications Medication Instructions Recorded Confirmed Furosemide [Lasix] 20 mg PO DAILY 09/20/16 02/04/18 Lisinopril [Zestril] 20 mg PO DAILY 09/20/16 02/04/18 Nitroglycerin [Nitrostat] 0.4 mg SL Q5M PRN 09/20/16 02/04/18 Albuterol Sulfate [Albuterol 2 puff IH Q4-6H PRN 01/11/17 02/04/18 Inhaler] Apixaban [Eliquis] 5 mg PO BID 01/11/17 02/04/18 Cilostazol [Pletal] 100 mg PO BID 10/04/17 02/04/18 Isosorbide MONOnitrate (24 HR) 60 mg PO DAILY 10/04/17 02/04/18 [Imdur] Carvedilol [Coreg] 6.25 mg PO BID 01/26/18 02/04/18 Gabapentin [Neurontin] 300 mg PO TID 01/26/18 02/04/18 Atorvastatin Calcium [Lipitor] 20 mg PO HS 02/04/18 02/04/18 Previous Rx's Medication Instructions Recorded Ranolazine [Ranexa] 500 mg PO BID #60 tab.er.12h 01/30/18 Allergies Allergy/AdvReac Type Severity Reaction Status Date / Time No Known Allergies Allergy Verified 02/04/18 13:16 Past Medical History - Past Medical History Medical history: Reports: asthma, atrial fibrillation, cardiomyopathy, COPD, coronary artery disease, hyperlipidemia, hypertension, syncope Surgical history: Reports: appendectomy, coronary bypass (CABG), heart valve replacement, pacemaker Psychiatric history: Reports: anxiety - Social History Smoking Status: Current every day smoker Smokeless Tobacco Status: No Alcohol use: Reports: none Drug use: Reports: marijuana Course Vital Signs Temperature 97.7 F 02/04/18 12:04 Pulse Rate 76 02/04/18 12:04 Respiratory Rate 22 02/04/18 12:04 Blood Pressure 85/53 02/04/18 12:04 O2 Sat by Pulse Oximetry 95 02/04/18 12:04 Temperature 97.7 F 02/04/18 12:04 Pulse Rate 68 02/04/18 13:10 Respiratory Rate 14 02/04/18 13:10 Blood Pressure 137/75 02/04/18 13:10 O2 Sat by Pulse Oximetry 98 02/04/18 13:10 Oxygen Delivery Oxygen Delivery Room Air Medical Decision Making - Lab Data Result diagrams: 02/04/18 12:27 02/04/18 12:27 Lab Results 02/04/18 02/04/18 02/04/18 Range/Units 12:27 12:27 12:27 WBC 9.6 (4.3-11.1) K/mcL RBC 3.64 L (3.82-4.97) M/mcL Hgb 11.8 (11.5-15.4) g/dL Hct 36.1 (35.3-44.9) % MCV 99.2 (83.0-100.0) fL MCH 32.4 (28.0-33.3) pg MCHC 32.7 (31.6-35.5) g/dL RDW 13.9 (11.5-14.5) % Plt Count 237 (140-400) K/mcL MPV 10.4 (9.4-12.4) fL Immature Gran % 0.2 (0-4) % Seg Neutrophils % 65.2 % Lymphocytes % 22.7 % Monocytes % 8.5 % Eosinophils % 2.7 % Basophils % 0.7 % Neutrophils # 6.3 (1.6-8.9) K/mcL Lymphocytes # 2.2 (0.6-4.6) K/mcL Monocytes # 0.8 (0.0-1.3) K/mcL Eosinophils # 0.3 (0.0-0.6) K/mcL Basophils # 0.1 (0.0-0.2) K/mcL PT (9.4-12.1) Seconds INR APTT (26.0-36.0) Seconds Sodium 134 L (136-145) mEq/L Potassium 4.0 (3.5-5.1) mEq/L Chloride 102 (98-107) mEq/L Carbon Dioxide 26 (23-29) mEq/L BUN 17 (6-20) mg/dL Creatinine 1.30 H (0.60-1.20) mg/dL Est GFR ( Amer) 53 L (> 60) Est GFR (Non-Af Amer) 44 L (> 60) BUN/Creatinine Ratio 13 (6-26) Glucose 121 H (70-105) mg/dL Calculated Osmolality 281 (280-300) Calcium 9.3 (8.6-10.3) mg/dL Troponin I 0.28 H* (< 0.04) ng/mL Urine Color (Yellow) Urine Clarity (Clear) Urine pH (5.0-8.0) pH Units Ur Specific [place] (1.010-1.025) Urine Protein (Neg-Trace) mg/dL Urine Glucose (UA) (Normal) mg/dL Urine Ketones (Negative) mg/dL Urine Blood (Negative) Urine Nitrite (Negative) Urine Bilirubin (Negative) Urine Urobilinogen (Normal) mg/dL Ur Leukocyte Esterase (Negative) Urine Microscopic RBC (0-3) per hpf Urine Microscopic WBC (0-3) per hpf Ur Squamous Epith Cells (None-Few) per lpf Urine Bacteria (None-Few) per hpf Ur Culture Indicated? (NO) Specimen Rejected Volume 02/04/18 02/04/18 Range/Units 12:32 13:09 WBC (4.3-11.1) K/mcL RBC (3.82-4.97) M/mcL Hgb (11.5-15.4) g/dL Hct (35.3-44.9) % MCV (83.0-100.0) fL MCH (28.0-33.3) pg MCHC (31.6-35.5) g/dL RDW (11.5-14.5) % Plt Count (140-400) K/mcL MPV (9.4-12.4) fL Immature Gran % (0-4) % Seg Neutrophils % % Lymphocytes % % Monocytes % % Eosinophils % % Basophils % % Neutrophils # (1.6-8.9) K/mcL Lymphocytes # (0.6-4.6) K/mcL Monocytes # (0.0-1.3) K/mcL Eosinophils # (0.0-0.6) K/mcL Basophils # (0.0-0.2) K/mcL PT 20.3 H (9.4-12.1) Seconds INR 1.9 APTT 32.7 (26.0-36.0) Seconds Sodium (136-145) mEq/L Potassium (3.5-5.1) mEq/L Chloride (98-107) mEq/L Carbon Dioxide (23-29) mEq/L BUN (6-20) mg/dL Creatinine (0.60-1.20) mg/dL Est GFR ( Amer) (> 60) Est GFR (Non-Af Amer) (> 60) BUN/Creatinine Ratio (6-26) Glucose (70-105) mg/dL Calculated Osmolality (280-300) Calcium (8.6-10.3) mg/dL Troponin I (< 0.04) ng/mL Urine Color Yellow (Yellow) Urine Clarity Cloudy A (Clear) Urine pH 7.0 (5.0-8.0) pH Units Ur Specific [place] 1.017 (1.010-1.025) Urine Protein Negative (Neg-Trace) mg/dL Urine Glucose (UA) Normal (Normal) mg/dL Urine Ketones Negative (Negative) mg/dL Urine Blood Negative (Negative) Urine Nitrite Negative (Negative) Urine Bilirubin Negative (Negative) Urine Urobilinogen Normal (Normal) mg/dL Ur Leukocyte Esterase Small H (Negative) Urine Microscopic RBC 5-15 H (0-3) per hpf Urine Microscopic WBC 15-30 H (0-3) per hpf Ur Squamous Epith Cells Many H (None-Few) per lpf Urine Bacteria Moderate H (None-Few) per hpf Ur Culture Indicated? NO. A (NO) Specimen Rejected Critical Care Time Critical Care Time: Yes Total Critical Care Time: 30 Attestation: The high probability of a clinically significant, sudden or life threatening deterioration of the [] system(s) required my full and direct attention, intervention and personal management. The aggregate critical care time was [] minutes. This time is in addition to time spent performing reported procedures but includes the following: [] Data Review and interpretation [] Patient assessment and monitoring of vital signs [] Documentation [] Medication orders and management Attestation Statement - Attestation Attestation: I examined this patient and my medical decision-making was reviewed with the Resident Physician. I agree with the documented findings, disposition and treatment plan as described except to the extent set forth below. Vfro-by-eolh time provided Patient presents by EMS complaining of chest discomfort. History of pacemaker, AVR and CABG. The patient is a poor historian regarding her cardiac history but per my review of medical records she had a stress test 8 days ago, a cardiac echo 9 days ago and a cardiac catheterization approximately 12 months ago. I have reviewed the transcribed reports from these studies. The patient is mildly anxious appearing on exam. 13:05: The patient's blood pressure is responding to IV fluids. Her troponin is elevated. We will admit. We have discussed the possibility of the patient having a pulmonary embolism although we are electing not to CT her chest at this time given her renal dysfunction. She is already anticoagulated with Eliquis
--- NOTE | 2018-02-04 12:13 | Emergency Department Note ---
Disposition Clinical Impression: Elevated troponin I level Chest pain Qualifiers: Chest pain type: unspecified Qualified Code(s): R07.9 - Chest pain, unspecified Disposition: Admitted As Inpatient Condition: Serious Time of Disposition: 13:29 Chest Pain HPI - General Chief Complaint: ED Chest Pain Stated Complaint: chest pain Time Seen by Provider: 02/04/18 12:05 Vital Signs Reviewed: Yes Nursing Notes Reviewed: Yes - History of Present Illness HPI Narrative: 47-year-old female complains of substernal chest pain that started 20 minutes ago. Patient states she was sitting at rest when her pain symptoms began. Patient states her pain is 6/10 constant without radiation there is nothing makes it better, activity makes it worse. Patient states she tried to stand and she started having exertional lightheadedness. Patient states she has a history of prior SC with one-vessel CABG in 2006 and this is her anginal equivalent. Review of systems reveals associated symptoms of nausea, diaphoresis. Patient is on Eloquis. - Related Data Home Medications Medication Instructions Recorded Confirmed Furosemide [Lasix] 20 mg PO DAILY 09/20/16 02/04/18 Lisinopril [Zestril] 20 mg PO DAILY 09/20/16 02/04/18 Nitroglycerin [Nitrostat] 0.4 mg SL Q5M PRN 09/20/16 02/04/18 Albuterol Sulfate [Albuterol 2 puff IH Q4-6H PRN 01/11/17 02/04/18 Inhaler] Apixaban [Eliquis] 5 mg PO BID 01/11/17 02/04/18 Cilostazol [Pletal] 100 mg PO BID 10/04/17 02/04/18 Isosorbide MONOnitrate (24 HR) 60 mg PO DAILY 10/04/17 02/04/18 [Imdur] Carvedilol [Coreg] 6.25 mg PO BID 01/26/18 02/04/18 Gabapentin [Neurontin] 300 mg PO TID 01/26/18 02/04/18 Atorvastatin Calcium [Lipitor] 20 mg PO HS 02/04/18 02/04/18 Previous Rx's Medication Instructions Recorded Ranolazine [Ranexa] 500 mg PO BID #60 tab.er.12h 01/30/18 Allergies Allergy/AdvReac Type Severity Reaction Status Date / Time No Known Allergies Allergy Verified 02/04/18 13:16 All systems ED: reviewed and negative except as stated. Review of Systems: As Per HPI Constitutional: Denies: fever, chills, weakness ENT ED: Denies: congestion Cardiovascular: Reports: chest pain. Denies: palpitations Respiratory: Reports: dyspnea. Denies: cough Gastrointestinal: Reports: nausea. Denies: abdominal pain, vomiting, diarrhea Genitourinary: Denies: urgency, dysuria, frequency Musculoskeletal: Reports: back pain Chest Pain PMH - Past Medical History Medical history: Reports: asthma, atrial fibrillation, cardiomyopathy, COPD, coronary artery disease, hyperlipidemia, hypertension, syncope Surgical history: Reports: appendectomy, coronary bypass (CABG), heart valve replacement, pacemaker Psychiatric history: Reports: anxiety - Social History Smoking Status: Current every day smoker Alcohol use: Reports: none Drug use: Reports: marijuana Physical Exam Vital Signs Temperature 97.7 F 02/04/18 12:04 Pulse Rate 76 02/04/18 12:04 Respiratory Rate 22 02/04/18 12:04 Blood Pressure 85/53 02/04/18 12:04 O2 Sat by Pulse Oximetry 95 02/04/18 12:04 Temperature 97.7 F 02/04/18 12:04 Pulse Rate 76 02/04/18 12:04 Respiratory Rate 22 02/04/18 12:04 Blood Pressure 85/53 02/04/18 12:04 O2 Sat by Pulse Oximetry 95 02/04/18 12:04 Oxygen Delivery Oxygen Delivery Room Air CONSTITUTIONAL: Unwell-appearing but well-nourished female who is alert and oriented 3 and appears much older than stated age and is in acute moderate distress. Patient appears very fatigued. Patient has Downey sign when asked to show me where the pain is. Patient is afebrile, heart rate 76 bpm, respiratory rate 22 and increased work of breathing but mild conversational dyspnea. Blood pressure 85/53 and 95% O2 sat on room air. HEAD: Normocephalic; atraumatic EYES: PERRL, no scleral icterus NOSE: The nose is normal in appearance without rhinorrhea NECK: No JVD or distended neck veins RESP: Normal chest excursion with respiration; breath sounds clear and equal bilaterally; no wheezes, rhonchi, or rales CARD: Regular rhythm, without murmurs, rub or gallop ABD: Non-distended; non-tender, soft, without rigidity, rebound or guarding,no pulsatile mass CHEST: Chest wall tenderness to palpation parasternally as well as posterior chest wall, midline well-healed scar from CABG SKIN: Normal for age and race; warm and dry without diaphoresis ; no apparent lesions EXTREMITIES: Pulses are 2 plus and equal times 4 extremities, no peripheral edema or calf muscle pain Course - Reevaluation(s) Reevaluation #1: Elevated troponin 0.28 blood pressure now 96/69 after 500 mL bolus of IV fluid adding another 500 mL bolus Time: 13:03 Reevaluation #2: Pressure currently 137/75 after just over a 500 mL of IV normal saline. 50 g of fentanyl will be given for pain. If patient does well without any drop in her blood pressure and is still in pain we will administer another 50 of fentanyl Time: 13:27 - Consultations Consultation #1: Dr. Cedeño the hospitalist has accepted patient for admission to Time: 13:18 Consultation #2: Mandy Dwyer of cardiology was consult it and updated on patient's condition and progress. Patient is admitted to medicine and she will see the patient in consult Time: 14:18 Vital Signs Temperature 97.7 F 02/04/18 12:04 Pulse Rate 76 02/04/18 12:04 Respiratory Rate 22 02/04/18 12:04 Blood Pressure 85/53 02/04/18 12:04 O2 Sat by Pulse Oximetry 95 02/04/18 12:04 Temperature 97.8 F 02/04/18 16:28 Pulse Rate 77 02/04/18 16:28 Respiratory Rate 17 02/04/18 16:28 Blood Pressure 100/78 02/04/18 16:28 O2 Sat by Pulse Oximetry 95 02/04/18 16:28 Oxygen Delivery Oxygen Delivery Room Air Chest Pain - MDM Narrative Medical decision making narrative: Patient presents with concerns for ACS/SC with patient's history of CABG as well as heart failure given patient's hypotension. Fluid bolus ordered, second IV line ordered. Aspirin was already given by EMS. Currently holding all nitrates because of patient's low blood pressure. After just over 500 cc of IV fluid bolus patient's blood pressure increased to 137/75. Patient's does chest pain. We will continue to restrict nitrates and treat patient's pain with fentanyl to prevent any further hypotension. Patient understands and agrees to treatment plan for admission. Consult to cardiology Patient's EKG has an ischemic picture. ST depressions in lateral leads but this is improved from her previous EKG which showed more pronounced ST depressions. The troponin level is newly elevated at 0.28, this places the patient's heart score at 8. She is already anticoagulated on eloquis. Current plan is for admission to the hospital for further evaluation and care. Cardiology as a ready been consult it and updated on patient's condition and they will see the patient once she is admitted. Patient understands treatment plan for admission. Dr. Cedeño the hospitalist has accepted patient for admission to - Medical Records Medical records reviewed: Yes I reviewed the patient's medical records. Prior Echo taken one month ago reviewed which shows patient has a EF of 60-65% with a dilated right ventricle but with normal wall motion. - Lab Data Lab results reviewed: Yes I reviewed the patient's lab results. Lab results narrative: Short CBC 02/04/18 Range/Units 12:27 WBC 9.6 (4.3-11.1) K/mcL Hgb 11.8 (11.5-15.4) g/dL Hct 36.1 (35.3-44.9) % Plt Count 237 (140-400) K/mcL Neutrophils # 6.3 (1.6-8.9) K/mcL BMP 02/04/18 Range/Units 12:27 Sodium 134 L (136-145) mEq/L Potassium 4.0 (3.5-5.1) mEq/L Chloride 102 (98-107) mEq/L Carbon Dioxide 26 (23-29) mEq/L BUN 17 (6-20) mg/dL Creatinine 1.30 H (0.60-1.20) mg/dL Glucose 121 H (70-105) mg/dL Calcium 9.3 (8.6-10.3) mg/dL Cardiac Enzymes 02/04/18 Range/Units 12:27 Troponin I 0.28 H* (< 0.04) ng/mL Urine 02/04/18 Range/Units 12:32 Urine Color Yellow (Yellow) Urine Clarity Cloudy A (Clear) Urine pH 7.0 (5.0-8.0) pH Units Ur Specific [place] 1.017 (1.010-1.025) Urine Protein Negative (Neg-Trace) mg/dL Urine Glucose (UA) Normal (Normal) mg/dL Result diagrams: 02/04/18 17:17 02/04/18 12:27 Lab Results 02/04/18 02/04/18 02/04/18 Range/Units 12:24 12:27 12:27 WBC 9.6 (4.3-11.1) K/mcL RBC 3.64 L (3.82-4.97) M/mcL Hgb 11.8 (11.5-15.4) g/dL Hct 36.1 (35.3-44.9) % MCV 99.2 (83.0-100.0) fL MCH 32.4 (28.0-33.3) pg MCHC 32.7 (31.6-35.5) g/dL RDW 13.9 (11.5-14.5) % Plt Count 237 (140-400) K/mcL MPV 10.4 (9.4-12.4) fL Immature Gran % 0.2 (0-4) % Seg Neutrophils % 65.2 % Lymphocytes % 22.7 % Monocytes % 8.5 % Eosinophils % 2.7 % Basophils % 0.7 % Neutrophils # 6.3 (1.6-8.9) K/mcL Lymphocytes # 2.2 (0.6-4.6) K/mcL Monocytes # 0.8 (0.0-1.3) K/mcL Eosinophils # 0.3 (0.0-0.6) K/mcL Basophils # 0.1 (0.0-0.2) K/mcL PT (9.4-12.1) Seconds INR APTT (26.0-36.0) Seconds Sodium 134 L (136-145) mEq/L Potassium 4.0 (3.5-5.1) mEq/L Chloride 102 (98-107) mEq/L Carbon Dioxide 26 (23-29) mEq/L BUN 17 (6-20) mg/dL Creatinine 1.30 H (0.60-1.20) mg/dL Est GFR ( Amer) 53 L (> 60) Est GFR (Non-Af Amer) 44 L (> 60) BUN/Creatinine Ratio 13 (6-26) Glucose 121 H (70-105) mg/dL Calculated Osmolality 281 (280-300) Calcium 9.3 (8.6-10.3) mg/dL Troponin I 0.28 H* (< 0.04) ng/mL Urine Color (Yellow) Urine Clarity (Clear) Urine pH (5.0-8.0) pH Units Ur Specific [place] (1.010-1.025) Urine Protein (Neg-Trace) mg/dL Urine Glucose (UA) (Normal) mg/dL Urine Ketones (Negative) mg/dL Urine Blood (Negative) Urine Nitrite (Negative) Urine Bilirubin (Negative) Urine Urobilinogen (Normal) mg/dL Ur Leukocyte Esterase (Negative) Urine Microscopic RBC (0-3) per hpf Urine Microscopic WBC (0-3) per hpf Ur Squamous Epith Cells (None-Few) per lpf Urine Bacteria (None-Few) per hpf Ur Culture Indicated? (NO) Urine Opiates Screen Negative (Sgcaoa=148) ng/mL Ur Barbiturates Screen Negative (Rjyqmc=825) ng/mL Ur Phencyclidine Scrn Negative (Cutoff=25) ng/mL Ur Amphetamines Screen Negative (Dbvhvz=8886) ng/mL U Benzodiazepines Scrn Negative (Iaupff=150) ng/mL Urine Cocaine Screen Negative (Cutoff= 300) ng/mL U Marijuana (THC) Screen Negative (Cutoff = 50) ng/mL Specimen Rejected 02/04/18 02/04/18 02/04/18 Range/Units 12:27 12:32 13:09 WBC (4.3-11.1) K/mcL RBC (3.82-4.97) M/mcL Hgb (11.5-15.4) g/dL Hct (35.3-44.9) % MCV (83.0-100.0) fL MCH (28.0-33.3) pg MCHC (31.6-35.5) g/dL RDW (11.5-14.5) % Plt Count (140-400) K/mcL MPV (9.4-12.4) fL Immature Gran % (0-4) % Seg Neutrophils % % Lymphocytes % % Monocytes % % Eosinophils % % Basophils % % Neutrophils # (1.6-8.9) K/mcL Lymphocytes # (0.6-4.6) K/mcL Monocytes # (0.0-1.3) K/mcL Eosinophils # (0.0-0.6) K/mcL Basophils # (0.0-0.2) K/mcL PT 20.3 H (9.4-12.1) Seconds INR 1.9 APTT 32.7 (26.0-36.0) Seconds Sodium (136-145) mEq/L Potassium (3.5-5.1) mEq/L Chloride (98-107) mEq/L Carbon Dioxide (23-29) mEq/L BUN (6-20) mg/dL Creatinine (0.60-1.20) mg/dL Est GFR ( Amer) (> 60) Est GFR (Non-Af Amer) (> 60) BUN/Creatinine Ratio (6-26) Glucose (70-105) mg/dL Calculated Osmolality (280-300) Calcium (8.6-10.3) mg/dL Troponin I (< 0.04) ng/mL Urine Color Yellow (Yellow) Urine Clarity Cloudy A (Clear) Urine pH 7.0 (5.0-8.0) pH Units Ur Specific [place] 1.017 (1.010-1.025) Urine Protein Negative (Neg-Trace) mg/dL Urine Glucose (UA) Normal (Normal) mg/dL Urine Ketones Negative (Negative) mg/dL Urine Blood Negative (Negative) Urine Nitrite Negative (Negative) Urine Bilirubin Negative (Negative) Urine Urobilinogen Normal (Normal) mg/dL Ur Leukocyte Esterase Small H (Negative) Urine Microscopic RBC 5-15 H (0-3) per hpf Urine Microscopic WBC 15-30 H (0-3) per hpf Ur Squamous Epith Cells Many H (None-Few) per lpf Urine Bacteria Moderate H (None-Few) per hpf Ur Culture Indicated? NO. A (NO) Urine Opiates Screen (Tvhkni=278) ng/mL Ur Barbiturates Screen (Ggwgyy=102) ng/mL Ur Phencyclidine Scrn (Cutoff=25) ng/mL Ur Amphetamines Screen (Mdkhlw=0929) ng/mL U Benzodiazepines Scrn (Dxijul=717) ng/mL Urine Cocaine Screen (Cutoff= 300) ng/mL U Marijuana (THC) Screen (Cutoff = 50) ng/mL Specimen Rejected Volume - Radiology Data Radiology results reviewed: Yes I reviewed the patient's radiology results. Chest X-Ray 02/04/18 12:07 IMPRESSION: Trace left base atelectasis D/ / Darion Cooper MD / Darion Cooper MD Interpreting Provider: Darion Cooper MD - EKG Data EKG attestation: Yes I reviewed and interpreted this EKG. EKG results narrative: EKG taken 02/04/2018 at 1204 hrs. shows a sinus rhythm at a rate of 77 bpm with no acute ST relations in any leads but has ST depressions across leads 2 V4, V5 , V6. However, this EKG looks improved from previous EKG taken 01/26/[address] depressions in leads previously identified. Heart Score - Score History: Highly Suspicious EKG: Non Specific repolarisation Disturbance Age: 45-65 Risk Factors: Equal/Greater than 3 risk factor or history of atherosclerotic disease Troponin: Greater than 3x normal limit HEART Score Total: 8
[2018-02-04 12:37] LABS: Basophils # 0.1 K/mcL (0.0-0.2); Basophils % 0.7 %; Eosinophils # 0.3 K/mcL (0.0-0.6); Eosinophils % 2.7 %; Hematocrit 36.1 % (35.3-44.9); Hemoglobin 11.8 g/dL (11.5-15.4); Immature Granulocytes % 0.2 % (0-4); Lymphocytes # 2.2 K/mcL (0.6-4.6); Lymphocytes % 22.7 %; Mean Corpuscular HGB Conc 32.7 g/dL (31.6-35.5); Mean Corpuscular Hemoglobin 32.4 pg (28.0-33.3); Mean Corpuscular Volume 99.2 fL (83.0-100.0); Mean Platelet Volume 10.4 fL (9.4-12.4); Monocytes # 0.8 K/mcL (0.0-1.3); Monocytes % 8.5 %; Neutrophils # 6.3 K/mcL (1.6-8.9); Platelet Count 237 K/mcL (140-400); Red Blood Count 3.64 M/mcL (3.82-4.97); Red Cell Distribution Width 13.9 % (11.5-14.5); Segmented Neutrophils % 65.2 %
[2018-02-04 12:42] LABS: Bilirubin,Urine Negative (Negative); Blood,Urine Negative (Negative); Clarity,Urine Cloudy (Clear); Color,Urine Yellow (Yellow); Glucose,Urine (UA) Normal (Normal); Ketones,Urine Negative (Negative); Leukocyte Esterase,Urine Small (Negative); Nitrite,Urine Negative (Negative); Protein,Urine Negative (Neg-Trace); Specific Gravity,Urine 1.017 (1.010-1.025); Urobilinogen,Urine Normal (Normal)
[2018-02-04 12:45] LABS: Bacteria,Urine Moderate per hpf (None-Few); Squamous Epithelial Cell,Urine Many per lpf (None-Few); WBC,Urine 15-30 per hpf (0-3)
[2018-02-04 13:02] LABS: Calcium 9.3 mg/dL (8.6-10.3); Troponin I 0.28 ng/mL (< 0.04)
[2018-02-04] MEDS ORDERED: Isovue-370 500 ML INFUS..BTL IV ONE (13:03)
[2018-02-04] MEDS ORDERED: *HR* FentaNYL (PF) 100 MCG/2 ML VIAL IVP ONE (13:20)
[2018-02-04] MEDS ORDERED: *HR* Heparin 5,000 UNIT/ML VIAL IVP PRN ×2 (13:21)
[2018-02-04] MEDS ORDERED: *HR* Heparin 5,000 UNIT/ML VIAL IVP ONE (13:21)
[2018-02-04] MEDS ORDERED: Nitroglycerin 0.4 MG TAB.SUBL SL PRN (13:24)
[2018-02-04 13:27] LABS: INR 1.9; Prothrombin Time 20.3 Seconds (9.4-12.1)
[2018-02-04 13:29] LABS: Activated Partial Thrombo Time 32.7 Seconds (26.0-36.0)
[2018-02-04] MEDS ORDERED: Naloxone 0.4 MG/ML INJ IVP PRN (13:55)
[2018-02-04] MEDS ORDERED: Acetaminophen 325 MG TABLET PO PRN (13:55)
[2018-02-04] MEDS ORDERED: *HR* HYDROcodone/Acet 5/325 mg TABLET PO PRN (13:55)
--- NOTE | 2018-02-04 14:14 | Internal Med History&Physical ---
<AnpaytonvickLuis dominguez - Last Filed: 02/04/18 15:07> Date of Encounter: 02/04/18 Time of Encounter: 13:00 Internal Medicine - H&P: HPI Chief complaint: CP Admitted From: Emergency Dept Plans for Post Hospital Care: Home History of present illness: Ms. Rivera is a 47 year old female w/PMH of asthma, atrial fibrillation, cardiomyopathy, COPD, CAD, HLD, HTN, and syncope presents from the ED with chief complaint of chest pain began last night and continued this morning. Patient describes pain as severe pressure in the center of her chest with intermittent sharp/stabbing pain above and below the left breast with radiation to left neck. Chest pain began at rest. No alleviating or aggravating factors. Patient also reports exertional dizziness, SOB, nausea, and diaphoresis. History of CABG in 2006. On [facility]. Was admitted one week ago w/ similar sx. Echocardiogram on 01/26/18 showed LVEF 60-65%, indeterminate diastolic function, RV is dilated with normal function, severely dilated left atrium, well-seated mechanical mitral valve prosthesis with normal function, mild/moderate tricuspid regurgitation, mild pulmonary hypertension, and device lead was visualized in right atrium and right ventricle. Nuclear stress test dated 01/27/18 showed gated EF equals 69%; small sized, mild intensity, fixed apical anterior defect. Wall motion appears normal. Findings consistent with artifact. Perfusion imaging negative for ischemia or infarct. Patient reports dark stool for past 4 days but denies recent illness, fever, chills, vomiting, headache, changes in vision, palpitations, abdominal pain or cramping, unusual bleeding, numbness, tingling, pre-syncope, or recent syncope. Past Med Surg Social Fam HX - Past Medical History Source: patient, old records reviewed, obtained from family Medical history: asthma, atrial fibrillation, cardiomyopathy, COPD, coronary artery disease, hyperlipidemia, hypertension, syncope Psychiatric history: anxiety - Past Surgical History Surgical History: appendectomy, coronary bypass (CABG), heart valve replacement , pacemaker - Social History Smoking Status: Current every day smoker Packs per day: 1/2 PPD - Reports quitting 1 month ago Smokeless Tobacco Status: No Alcohol use: none Drug use: marijuana Current living situation: Home, With Family Activity Level: Independent ambulation Recent Out of Country Travel Within the Last 8 Weeks: No Exposure or Possible Exposure to Illness During Travel: No - Family History Mother Race: Family Member Ethnicity: Non- Living Status: Still Living Hx Family Cardiac Disorders: Yes (Open heart surgery, multiple MIs w/stents, HTN , HLD) Hx Family Endocrine Disorder: Yes (DM) Father History Unknown: Yes Race: Family Member Ethnicity: Non- Internal Medicine - H&P: Meds Furosemide [Lasix] 20 mg PO DAILY 09/20/16 [History] Lisinopril [Zestril] 20 mg PO DAILY 09/20/16 [History] Nitroglycerin [Nitrostat] 0.4 mg SL Q5M PRN 09/20/16 [History] Albuterol Sulfate [Albuterol Inhaler] 2 puff IH Q4-6H PRN 01/11/17 [History] Apixaban [Eliquis] 5 mg PO BID 01/11/17 [History] Cilostazol [Pletal] 100 mg PO BID 10/04/17 [History] Isosorbide MONOnitrate (24 HR) [Imdur] 60 mg PO DAILY 10/04/17 [History] Carvedilol [Coreg] 6.25 mg PO BID 01/26/18 [History] Gabapentin [Neurontin] 300 mg PO TID 01/26/18 [History] Ranolazine [Ranexa] 500 mg PO BID #60 tab.er.12h 01/30/18 [Rx] Atorvastatin Calcium [Lipitor] 20 mg PO HS 02/04/18 [History] 3 Allergy/AdvReac Type Severity Reaction Status Date / Time No Known Allergies Allergy Verified 02/04/18 13:16 All Systems PM: A 10-system review of systems was performed and is negative for pertinent findings except as documented above in the HPI. - Constitutional Constitutional: as per HPI, weakness, no chills, no fever(s), no night sweats - EENT Eyes: no change in vision, no discharge, no pain, no photophobia Ears: no ear discharge, no ear pain, no tinnitus Nose, mouth and throat: no dysphagia, no nasal discharge, no neck pain, no sore throat - Breasts Breasts: as per HPI - Cardiovascular Cardiovascular ROS IM: as per HPI, chest pain, diaphoresis, dyspnea, dyspnea on exertion, lightheadedness, no palpitations, no syncope - Respiratory Respiratory: as per HPI, cough, dyspnea, dyspnea on exertion, wheezing, no excessive phlegm production - Gastrointestinal Gastrointestinal: other (Dark stool for past 4 days), no abdominal pain, no diarrhea, no hematemesis, no hematochezia, no melena, no nausea, no vomiting - Genitourinary Genitourinary: no change in urinary stream, no dysuria, no flank pain, no hematuria Menstruation: as per HPI - Musculoskeletal Musculoskeletal ROS IM: no numbness, no tingling - Integumentary Integumentary IM: no rash, no unusual bruising - Neurological Neurological ROS: no confusion, no convulsions, no focal weakness, no numbness, no tingling, no tremor(s) - Psychiatric Psychiatric: as per HPI, anxiety - Endocrine Endocrine IM: as per HPI - Hematologic/Lymphatic Hematologic/Lymphatic: no easy bruising - Allergic/Immunologic Allergic/Immunologic: as per HPI - Constitutional Vitals: Temp Pulse Resp BP Pulse Ox 97.7 F 68 14 137/75 98 02/04/18 12:04 02/04/18 13:10 02/04/18 13:10 02/04/18 13:10 02/04/18 13:10 General appearance: Present: cooperative, mild distress, A&O X 3, obese, answers questions appropriately - Head Head exam: Present: atraumatic, normocephalic - Eye Eye exam: Present: PERRL, conjuntiva pink, sclera anicteric Pupils: Present: PERRL - ENT ENT exam: Present: normal exam - Neck Neck exam general surgery: Present: normal inspection, supple, trachea midline. Absent: lymphadenopathy - Respiratory Respiratory exam: Present: accessory muscle use, decreased breath sounds, wheezes - Cardiovascular Cardiovascular exam: Present: RRR, +S1, +S2. Absent: diastolic murmur, gallop, rubs, systolic murmur - GI/Abdominal GI/Abdominal exam: Present: normal bowel sounds, soft, no peritoneal signs. Absent: distended, tenderness - Rectal Rectal exam: Present: deferred - Additional comments: exam deferred. - Extremities Exam Extremities exam: Present: warm, radial pulses palpable and symmetrical. Absent : calf tenderness, cyanotic, pedal edema - Back Exam Back exam: Present: normal inspection - Neurological Exam Neurological exam: Present: CN II-XII intact, oriented X3, no focal deficits. Absent: pronater drift, facial droop, speech deficit - Psychiatric Psychiatric exam: Present: anxious - Skin Skin exam: Present: dry, intact Internal Med - H&P Results - Labs CBC & Chem 7: 02/04/18 12:27 02/04/18 12:27 - EKG Data EKG shows normal: sinus rhythm - EKG Data Prior EKG available for review: yes EKG comments: 02/04/18 14:20 EKG dated 01/26/18 shows sinus rhythm with ST deviation and moderate T-wave abnormality. Consider lateral ischemia. EKG dated 02/04/18 shows sinus rhythm with nonspecific T-wave abnormality. - Diagnostic Studies Chest x-ray Additional comments: Impressions Chest X-Ray 02/04/18 12:07 IMPRESSION: Trace left base atelectasis D/ / Darion Cooper MD / Darion Cooper MD Interpreting Provider: Darion Cooper MD - Assessment and plan (1) Chest pain Current Visit: Yes Status: Acute Assessment and plan: Acute CP that pt. reports began last night waking her from sleep. Continued in a.m. as centralized pressure w/intermittent sharp/stabbing pains above and below left breast w/radiation to left neck. Pt. has hx of carotid occlusions/ stenosis per Doppler exam of 08/26. Admitted less than two weeks ago w/similar sx. Echocardiogram on 01/26/18 showed LVEF 60-65%, indeterminate diastolic function, RV is dilated with normal function, severely dilated left atrium, well -seated mechanical mitral valve prosthesis with normal function, mild/moderate tricuspid regurgitation, mild pulmonary hypertension, and device lead was visualized in right atrium and right ventricle. Nuclear stress test dated 01/27 showed gated EF equals 69%; small sized, mild intensity, fixed apical anterior defect. Wall motion appears normal. Findings consistent with artifact. Perfusion imaging negative for ischemia or infarct. 324 mg aspirin in ED w/SL nitro w/minimal relief. 80 mg PO Lipitor now ordered. Will hold Eliquis and start low-dose heparin drip. Continuous cardiac telemetry. Repeat bilateral carotid Doppler imaging. Cardiology consult placed in ED. No hx of PE/DVT but concern still present for PE d/t sx and hx of Afib. Consider VQ scan to r/o PE d /t current CKD. Pt. discussed w/Dr. Cedeño who agrees w/plan of care. Pt. is high risk for further morbidity and cardiac event based on current and re-current CP sx, hx of CABG and need for valve replacement, familial hx of cardiac disease ( mother), hx of tobacco abuse, and risk factors. Inpatient. Qualifiers: Chest pain type: unspecified Qualified Code(s): R07.9 - Chest pain, unspecified (2) Elevated troponin I level Current Visit: Yes Status: Acute Assessment and plan: Acutely elevated initial troponin of 0.28 on admission. Will trend x2. Troponin ranged from 0.51-0.58 on 01/10-01/11/18 during admission and <0.03 on admission on 01/26-01/27/18. Pt. reports continued CP w/minimal relief post-aspirin and nitro. Low-dose heparin drip ordered. Cardiology consult ordered in ED. (3) Unstable angina Current Visit: Yes Status: Acute Assessment and plan: Acute unstable angina. Pt. admitted within past two weeks for similar sx. CP intermittent as severe chest pressure w/sharp and stabbing pain. Pain at rest w/ minimal relief post-aspirin and SL nitro. Initial troponin 0.28 on admission. Will trend. Pt. on Eliquis for hx of atrial fibrillation. Hold Eliquis and begin low-dose heparin drip per ACS protocol. Continuous cardiac telemetry. Echo and stress testing done on 01/26 and 01/27/18. Cardiology consult ordered in ED. (4) Dark stools Current Visit: Yes Status: Acute Assessment and plan: Report of acute dark stools over past four days. Pt. denies abdominal pain, cramping, or unusual bleeding. Pt. on Eliquis for chronic Afib. Holding Eliquis and starting heparin drip d/t CP, elevated troponin, and unstable angina. Hgb and Hct currently WNL. Fecal hemoccult ordered. Will monitor H/H in f/u labs. Monitor I&O. (5) Tobacco abuse Current Visit: Yes Status: Chronic Assessment and plan: Hx of chronic tobacco abuse. Pt. reports smoking 1/2 PPD but quitting one month ago. Declined nicotine patch on exam. (6) HLD (hyperlipidemia) Current Visit: Yes Status: Chronic Assessment and plan: Hx of chronic HLD. Lipid panel in a.m. labs. 80 mg PO Lipitor now d/t CP. Resume 20 mg PO home dosing tomorrow. Qualifiers: Hyperlipidemia type: pure hypercholesterolemia Qualified Code(s): E78.00 - Pure hypercholesterolemia, unspecified; E78.0 - Pure hypercholesterolemia (7) HTN (hypertension) Current Visit: Yes Status: Chronic Assessment and plan: Hx of chronic HTN. Pt. hypotensive on admission w/BP of 85/53. Improved to 137/ 75 after two 500 mL fluid boluses. Will hold pts. HTN meds and monitor BP/VS and resume if warranted. Qualifiers: Hypertension type: essential hypertension Qualified Code(s): I10 - Essential (primary) hypertension (8) Hx of syncope Current Visit: Yes Status: Chronic Assessment and plan: Hx of syncope. No recent episodes, but exertional dizziness/lightheadedness today. Carotid Dopplers in 08/26 showed right CCA totally occluded, right ICA abnormal nut antegrade flow, right ECA had retrograde flow, and left proximal ICA had moderate 40-59% stenosis. Bilateral carotid Dopplers ordered. Falls/ safety precautions, up with assist, bed rest w/bathroom privileges w/assist only. (9) A-fib Current Visit: Yes Status: Chronic Assessment and plan: Hx of chronic paroxysmal atrial fibrillation. Currently SR on admission. Pt. on Eliquis and will hold for now d/t heparin drip for CP, initial troponin, and unstable angina. Continuous cardiac telemetry. Qualifiers: Atrial fibrillation type: unspecified Qualified Code(s): I48.91 - Unspecified atrial fibrillation (10) COPD (chronic obstructive pulmonary disease) Current Visit: Yes Status: Chronic Assessment and plan: Hx of chronic COPD most likely r/t chronic tobacco abuse. Stable. Xopenex 1.25 Q6HR. Supplemental O2 w/titration and SpO2 monitoring. Qualifiers: COPD type: unspecified COPD Qualified Code(s): J44.9 - Chronic obstructive pulmonary disease, unspecified (11) Coronary artery disease Current Visit: Yes Status: Chronic Assessment and plan: Hx of chronic CAD w/CABG in 2006. Pt. hypotensive on admission w/BP of 85/53 which improved to 137/75 after two 500 mL fluid boluses. Will hold HTN meds for now and monitor pts. BP/VS. Continuous cardiac telemetry. Aspirin given in ED. 80 mg Lipitor PO now ordered. Cardiology consult ordered in ED. Qualifiers: Coronary Disease-Associated Artery/Lesion type: bypass graft [place] vs. transplanted heart: [place] heart Associated angina: with stable angina Qualified Code(s): I25.708 - Atherosclerosis of coronary artery bypass graft(s) , unspecified, with other forms of angina pectoris (12) CKD (chronic kidney disease) stage 3, GFR 30-59 ml/min Current Visit: Yes Status: Chronic Assessment and plan: Hx of chronic CKD. Currently stage 3 w/GFR of 44 and creatinine of 1.30. Will use IV fluids judiciously and avoid nephrotoxins. Monitor I&O and f/u labs. (13) DVT prophylaxis Current Visit: Yes Status: Acute Assessment and plan: Patient placed on heparin drip d/t elevated troponin and unstable angina. Monitor for signs of bleeding. Pt. reports hx of dark stool over past four days. Fecal hemoccult ordered. H/H currently WNL. Monitoring H/H in f/u labs. - Time Spent With Patient Total time spent is greater than 50% in coordination of care (as documented) at patient's floor/unit and/or counseling patient: 25 - 35 minutes <Lg Cedeño - Last Filed: 02/04/18 16:00> Date of Encounter: 02/04/18 Internal Medicine - H&P: HPI History of present illness: Ms. Rivera is a 47 year old female All Systems PM: A 10-system review of systems was performed and is negative for pertinent findings except as documented above in the HPI. - Constitutional Vitals: Temp Pulse Resp BP Pulse Ox 97.5 F L 67 18 120/67 97 02/04/18 14:36 02/04/18 14:36 02/04/18 14:36 02/04/18 14:36 02/04/18 14:36 Internal Med - H&P Results - Labs CBC & Chem 7: 02/04/18 12:27 02/04/18 12:27 - Attending Attestation I saw and examined this patient independently, and my medical decision making was reviewed with the resident physician on 2017. I agree with the documented findings, assessment and treatment plan as described in the progress note. - Time Spent With Patient Total time spent is greater than 50% in coordination of care (as documented) at patient's floor/unit and/or counseling patient:
[2018-02-04 15:24] LABS: Amphetamine Screen,Urine Negative ng/mL (Cutoff=1000); Barbiturate Screen,Urine Negative ng/mL (Cutoff=200); Benzodiazepines Screen,Urine Negative ng/mL (Cutoff=200); Cannabinoid Screen,Urine Negative ng/mL (Cutoff = 50); Cocaine Screen,Urine Negative ng/mL (Cutoff= 300); Opiate Screen,Urine Negative ng/mL (Cutoff=300); Phencyclidine Screen,Urine Negative ng/mL (Cutoff=25)
[2018-02-04] MEDS: 0.9 % Sodium Chloride 1,000 ML IVC SCH ×2 (15:57→17:16)
[2018-02-04] MEDS: Heparin 25,000 UNIT/500 ML D5W 25,000 UNIT/500 ML BAG IVC SCH (15:58)
[2018-02-04] MEDS: Levalbuterol Neb 1.25 MG/3 ML IH SCH ×2 (16:18→22:34)
[2018-02-04 17:38] LABS: Hematocrit 33.7 % (35.3-44.9); Hemoglobin 11.1 g/dL (11.5-15.4)
[2018-02-04] MEDS: Ranolazine 500 MG TAB.ER.12H PO SCH (21:57)
[2018-02-05 00:42] LABS: Basophils # 0.1 K/mcL (0.0-0.2); Basophils % 0.7 %; Eosinophils # 0.3 K/mcL (0.0-0.6); Eosinophils % 3.3 %; Hematocrit 32.7 % (35.3-44.9); Hemoglobin 10.9 g/dL (11.5-15.4); Immature Granulocytes % 0.2 % (0-4); Lymphocytes # 3.3 K/mcL (0.6-4.6); Lymphocytes % 35.5 %; Mean Corpuscular HGB Conc 33.3 g/dL (31.6-35.5); Mean Corpuscular Hemoglobin 33.1 pg (28.0-33.3); Mean Corpuscular Volume 99.4 fL (83.0-100.0); Mean Platelet Volume 10.7 fL (9.4-12.4); Monocytes # 0.9 K/mcL (0.0-1.3); Monocytes % 9.8 %; Neutrophils # 4.7 K/mcL (1.6-8.9); Platelet Count 216 K/mcL (140-400); Red Blood Count 3.29 M/mcL (3.82-4.97); Red Cell Distribution Width 13.9 % (11.5-14.5); Segmented Neutrophils % 50.5 %
[2018-02-05 01:03] LABS: Albumin 3.3 g/dL (3.5-5.7); Albumin/Globulin Ratio 1.3 (1.1-2.2); Bilirubin,Total 0.4 mg/dL (0.3-1.0); Calcium 8.4 mg/dL (8.6-10.3); Chol/HDL Ratio 4.6 (0-4.9); Globulin 2.5 g/dL (2.4-3.5); Potassium 3.9 mEq/L (3.5-5.1); Total Protein 5.8 g/dL (6.4-8.9)
[2018-02-05] MEDS: 0.9 % Sodium Chloride 1,000 ML IVC SCH ×5 (01:29→18:18)
[2018-02-05] MEDS: Levalbuterol Neb 1.25 MG/3 ML IH SCH ×4 (04:24→22:03)
[2018-02-05 07:27] LABS: Estimated Average Glucose 128 mg/dl; Hemoglobin A1C 6.1 %
[2018-02-05] MEDS: Ranolazine 500 MG TAB.ER.12H PO SCH ×2 (09:57→20:29)
--- NOTE | 2018-02-05 14:04 | Internal Med Progress Note ---
Date of Encounter: 02/05/18 Time of Encounter: 14:02 - Assessment and plan (1) Coronary artery disease Current Visit: Yes Status: Chronic Assessment and plan: Chest pain, consider possible non-STEMI Hx of chronic CAD w/CABG in 2006. Pt. hypotensive on admission w/BP of 85/53 which improved Heparin drip Hold HTN meds for now and monitor pts, telemetry. Aspirin , Lipitor PO now ordered. Cardiology consult ordered in ED. Qualifiers: Coronary Disease-Associated Artery/Lesion type: bypass graft [place] vs. transplanted heart: [place] heart Associated angina: with stable angina Qualified Code(s): I25.708 - Atherosclerosis of coronary artery bypass graft(s) , unspecified, with other forms of angina pectoris (2) COPD (chronic obstructive pulmonary disease) Current Visit: Yes Status: Chronic Assessment and plan: Hx of chronic COPD most likely r/t chronic tobacco abuse. Stable. Xopenex 1.25 Q6HR. Supplemental O2 w/titration and SpO2 monitoring. Qualifiers: COPD type: unspecified COPD Qualified Code(s): J44.9 - Chronic obstructive pulmonary disease, unspecified (3) Chest pain Current Visit: Yes Status: Acute Assessment and plan: has hx of carotid occlusions/stenosis per Doppler exam of 08/26. Echocardiogram on 01/26/18 showed LVEF 60-65%, indeterminate diastolic function , RV is dilated with normal function, severely dilated left atrium, well-seated mechanical mitral valve prosthesis with normal function, mild/moderate tricuspid regurgitation, mild pulmonary hypertension, and device lead was visualized in right atrium and right ventricle. Nuclear stress test dated 01/27/18 showed gated EF equals 69%; small sized, mild intensity, fixed apical anterior defect. Findings consistent with artifact. Perfusion imaging negative for ischemia or infarct. Hold Eliquis Hx of CABG and need for valve replacement, familial hx of cardiac disease ( mother), hx of tobacco abuse, . Qualifiers: Chest pain type: unspecified Qualified Code(s): R07.9 - Chest pain, unspecified (4) A-fib Current Visit: Yes Status: Chronic Assessment and plan: Hx of chronic paroxysmal atrial fibrillation. Continue carvedilol Qualifiers: Atrial fibrillation type: unspecified Qualified Code(s): I48.91 - Unspecified atrial fibrillation (5) Elevated troponin I level Current Visit: Yes Status: Acute Assessment and plan: Acutely elevated initial troponin of 0.28 on admission, adynamic (6) Tobacco abuse Current Visit: Yes Status: Chronic Assessment and plan: Hx of chronic tobacco abuse. Pt. reports smoking 1/2 PPD but quitting one month ago. Declined nicotine patch on exam. (7) Unstable angina Current Visit: Yes Status: Acute Assessment and plan: Acute unstable angina. Pt. admitted within past two weeks for similar sx. . (8) HLD (hyperlipidemia) Current Visit: Yes Status: Chronic Assessment and plan: Hx of chronic HLD. Lipid panel in a.m. labs. 80 mg PO Lipitor now d/t CP. Qualifiers: Hyperlipidemia type: pure hypercholesterolemia Qualified Code(s): E78.00 - Pure hypercholesterolemia, unspecified; E78.0 - Pure hypercholesterolemia (9) HTN (hypertension) Current Visit: Yes Status: Chronic Assessment and plan: Hx of chronic HTN. Was hypotensive upon admission Hold lisinopril Qualifiers: Hypertension type: essential hypertension Qualified Code(s): I10 - Essential (primary) hypertension (10) Hx of syncope Current Visit: Yes Status: Chronic Assessment and plan: Hx of syncope. No recent episodes, but exertional dizziness/lightheadedness today. Carotid Dopplers in 08/26 showed right CCA totally occluded, right ICA abnormal nut antegrade flow, right ECA had retrograde flow, and left proximal ICA had moderate 40-59% stenosis. Bilateral carotid Dopplers ordered. Falls/ safety precautions, up with assist, bed rest w/bathroom privileges w/assist only. (11) Dark stools Current Visit: Yes Status: Acute Assessment and plan: Fecal hemoccult ordered. Start PPI. (12) CKD (chronic kidney disease) stage 3, GFR 30-59 ml/min Current Visit: Yes Status: Chronic Assessment and plan: Hx of chronic CKD. Currently stage 3 - Time Spent With Patient Total time spent is greater than 50% in coordination of care (as documented) at patient's floor/unit and/or counseling patient: - Subjective Interval history: still complaining of CP , mild SOB, abdominal pain, no fevers or chills, no dysuria or diarrhea - Constitutional Vitals: Temp Pulse Resp BP Pulse Ox 97.8 F 78 15 117/66 98 02/05/18 11:44 02/05/18 11:44 02/05/18 11:44 02/05/18 11:44 02/05/18 11:44 General appearance: Present: cooperative, mild distress, A&O X 3, obese, answers questions appropriately - Head Head exam: Present: atraumatic, normocephalic - Eye Eye exam: Present: PERRL, conjuntiva pink, sclera anicteric Pupils: Present: PERRL - Neck Neck exam general surgery: Present: supple, trachea midline. Absent: lymphadenopathy - Respiratory Respiratory exam: Present: decreased breath sounds (Very diminished breath sounds), CTAB. Absent: accessory muscle use, rales, rhonchi, wheezes - Cardiovascular Cardiovascular exam: Present: RRR, +S1, +S2. Absent: diastolic murmur, gallop, rubs, systolic murmur - GI/Abdominal GI/Abdominal exam: Present: normal bowel sounds, soft, no peritoneal signs. Absent: distended, tenderness - Extremities Exam Extremities exam: Present: warm, radial pulses palpable and symmetrical. Absent : calf tenderness, cyanotic, pedal edema - Neurological Exam Neurological exam: Present: CN II-XII intact, oriented X3, no focal deficits. Absent: pronater drift, facial droop, speech deficit - Skin Skin exam: Present: dry, intact Internal Medicine: Result - Labs CBC & Chem 7: 02/05/18 00:30 02/05/18 00:30 Labs: Short CBC 02/04/18 02/05/18 Range/Units 17:17 00:30 WBC 9.2 (4.3-11.1) K/mcL Hgb 11.1 L 10.9 L (11.5-15.4) g/dL Hct 33.7 L 32.7 L (35.3-44.9) % Plt Count 216 (140-400) K/mcL Neutrophils # 4.7 (1.6-8.9) K/mcL BMP 02/05/18 00:30 Sodium 136 Potassium 3.9 Chloride 105 Carbon Dioxide 26 BUN 21 H Creatinine 1.40 H Glucose 143 H Calcium 8.4 L Cardiac Enzymes 02/04/18 02/05/18 Range/Units 18:12 00:30 Troponin I 0.24 H* 0.21 H* (< 0.04) ng/mL Liver Function 02/05/18 Range/Units 00:30 Total Bilirubin 0.4 (0.3-1.0) mg/dL AST 12 L (13-39) Units/L ALT 11 (7-52) Units/L Alkaline Phosphatase 82 (34-104) Units/L Albumin 3.3 L (3.5-5.7) g/dL - ABG Interpretation ABG results: PT/INR, D-dimer PT 20.3 Seconds (9.4-12.1) H 02/04/18 13:09 - VTE Documentation of Mechanical Device: Intermittent pneumatic compression device Consult Discharge Plan - Plan Referrals: Candace Gomez, [employer] [employer] [Primary Care Provider] -
[2018-02-05] MEDS: Heparin 25,000 UNIT/500 ML D5W 25,000 UNIT/500 ML BAG IVC SCH ×2 (14:09→18:31)
[2018-02-05] MEDS ORDERED: Isosorbide MONOnitrate (24 HR) 60 MG TAB.ER.24H PO SCH (14:15)
[2018-02-05] MEDS: Aspirin Enteric Coated 81 MG Tablet PO SCH (14:37)
[2018-02-05] MEDS: Gabapentin 300 MG CAPSULE PO SCH ×2 (14:37→20:29)
[2018-02-05] MEDS: Furosemide 20 MG TABLET PO SCH (14:37)
--- NOTE | 2018-02-05 15:46 | Cardiology Consult Note ---
Date of Encounter: 02/05/18 Time of Encounter: 14:00 Assessment and Plan (1) Chest pain Current Visit: Yes Status: Acute Per cardiology: -Chest pain at rest, states has been constant since yesterday. -Troponins flat and adynamic. -No acute ischemic ECG changes. -Chest pain reproduceable with palpiation. -Will check limited TTE. Qualifiers: Chest pain type: unspecified Qualified Code(s): R07.9 - Chest pain, unspecified (2) Elevated troponin I level Current Visit: Yes Status: Acute Per cardiology: -Troponins 0.28, 0.24, 0.21. -Per review of notes, troponins elvated 01/2017 when patient was diagnosed with takatsubos cardiomyopathy. -TTE 01/2018 wuth LVEf 60-65%, RV dialted with normal function, severely dilated LA, bioprosthetic MV with normal function, mild-moderate TR, mild PH, no segmental wall motion abnormaliies. -01/2018 stress negative for ischemia or infarct -C 01/2017 with 40% proximal LAD, 40% mid LAD, 30% proximal circumflex, 100% RCA, SVG to RCA patent. -On heparin drip. -Will check limited TTE. Further recommendations pending TTE. (3) Coronary artery disease Current Visit: Yes Status: Chronic Per cardiology: -Known CAD with CABG x1. -ON asa, statin, beta landon, ranexa, imdur. Qualifiers: Coronary Disease-Associated Artery/Lesion type: [place] artery [place] vs. transplanted heart: [place] heart Associated angina: with unspecified angina Qualified Code(s): I25.119 - Atherosclerotic heart disease of [place] coronary artery with unspecified angina pectoris (4) History of mitral valve replacement with bioprosthetic valve Current Visit: No Status: Acute Per cardiology: -Known bioprosthetic valve. -01/25 TTE with normal function valve. (5) Paroxysmal atrial fibrillation Current Visit: No Status: Chronic Per cardiology: -Known history of PAF. -ON beta landon, HR conrolled. -Device check with multiple atrial high rates, last one 01/28/18. -On eliquis for anticoagulation. -Will continue to monitor. Discussion w patient/family: The assessment and plan as outlined above was discussed with the patient who expressed understanding and agreement. All questions were answered. Thank you for involving us in the care of your patient. Please call with any questions. Discussed and reviewed with Dr.Jennifer Martinez. History of Present Illness Consult date: 02/04/18 Requesting physician: Prashanth Herrera Consult reason: chest pain, elevated troponin Chief complaint: chest pain History of present illness: Ms. Rivera is a 47 year old female with a relevant past medical history of CAD s/ p CABG, PAF, bioprosthetic mitral valve, HTN, tachybrady syndrome s/p pacemaker , PAD s/p peripheral stenting, takatsubos cardiomyopathy. Patient presented to [facility] after chest heaviness at home. Patient reports she was sitting watching TV when chest heaviness started. Denies aggravating or alleviating symptoms. Denies increased shortness of breath. Reports fatigue, however says is about baseline. Past Med Surg Social Fam HX - Past Medical History Attestation: Yes The following information was validated with the patient. Source: patient, old records reviewed Medical history: asthma, atrial fibrillation, cardiomyopathy, COPD, coronary artery disease, hyperlipidemia, hypertension, syncope Psychiatric history: anxiety - Past Surgical History Surgical History: appendectomy, coronary bypass (CABG), heart valve replacement , pacemaker - Social History Smoking Status: Current every day smoker Packs per day: 1/2 PPD - Reports quitting 1 month ago Smokeless Tobacco Status: No Alcohol use: none Drug use: marijuana - Family History Mother Race: Family Member Ethnicity: Non- Living Status: Still Living Hx Family Cardiac Disorders: Yes (Open heart surgery, multiple MIs w/stents, HTN , HLD) Hx Family Respiratory Disorders: Yes Hx Family Cancer: No Hx Family GI Disorders: Yes Hx Family Endocrine Disorder: Yes (DM) Hx Family Neuromuscular Disorders: No Hx Family Neurologic Disorders: No Hx Family HEENT Disorders: No Hx Family Autoimmune Disorders: No Father History Unknown: Yes Race: Family Member Ethnicity: Non- Medications and Allergies Furosemide [Lasix] 20 mg PO DAILY 09/20/16 [History] Lisinopril [Zestril] 20 mg PO DAILY 09/20/16 [History] Nitroglycerin [Nitrostat] 0.4 mg SL Q5M PRN 09/20/16 [History] Albuterol Sulfate [Albuterol Inhaler] 2 puff IH Q4-6H PRN 01/11/17 [History] Apixaban [Eliquis] 5 mg PO BID 01/11/17 [History] Cilostazol [Pletal] 100 mg PO BID 10/04/17 [History] Isosorbide MONOnitrate (24 HR) [Imdur] 60 mg PO DAILY 10/04/17 [History] Carvedilol [Coreg] 6.25 mg PO BID 01/26/18 [History] Gabapentin [Neurontin] 300 mg PO TID 01/26/18 [History] Ranolazine [Ranexa] 500 mg PO BID #60 tab.er.12h 01/30/18 [Rx] Atorvastatin Calcium [Lipitor] 20 mg PO HS 02/04/18 [History] 3 Allergy/AdvReac Type Severity Reaction Status Date / Time No Known Allergies Allergy Verified 02/04/18 13:16 All Systems Review: The remainder of the systems were reviewed and are negative - Constitutional Constitutional: fatigue - Cardiovascular Cardiovascular: as per HPI, chest pain at rest Physical Examination Vital Signs, Last 4 Hours Temp Pulse Resp BP Pulse Ox 02/05/18 15:22 97.8 F 87 15 127/95 96 02/05/18 11:44 97.8 F 78 15 117/66 98 General: Conversant, No Apparent Distress HEENT: Atraumatic, Normocephaly, Mucus Membranes Moist Neck: No JVD, Normal carotid pulses Cardiac: Reg Rate and Rhythm, Normal S1 and S2, No Murmur Lungs: Normal Breath Sounds, No Wheeze, Rales, Rhonchi Neuro: Alert and responsive, No focal deficits noted Abdomen: Soft, Non-Tender Skin: No rashes noted on visualized skin Musculoskeletal: Other (Chest pain reproduceable with palpation. ) Extremities: No Clubbing, No Cyanosis, No Edema, Normal Pulses Results 02/05/18 00:30 02/05/18 00:30 Lab Results Active Medications Acetaminophen (Tylenol) 650 mg PO Q6HR PRN PRN Reason: Mild Pain/Fever Stop: 08/06/18 13:56 Hydrocodone Bitart/Acetaminophen ([place] 5-325 Mg) 1 tab PO Q6HR PRN PRN Reason: Moderate Pain Stop: 08/06/18 13:56 Albuterol Sulfate (Albuterol Inhaler) 2 puff IH Q4H PRN PRN Reason: Shortness Of Breath Stop: 08/06/18 14:01 Aspirin (Aspirin Ec) 81 mg PO DAILY YARIEL Stop: 08/07/18 14:16 Last Admin: 02/05/18 14:37 Dose: 81 mg Atorvastatin Calcium (Lipitor) 20 mg PO HS YARIEL Stop: 08/07/18 21:01 Carvedilol (Coreg) 6.25 mg PO BID YARIEL PRN Reason: Protocol Stop: 08/07/18 14:16 Last Admin: 02/05/18 14:37 Dose: 6.25 mg Furosemide (Lasix) 20 mg PO DAILY YARIEL Stop: 08/07/18 14:16 Last Admin: 02/05/18 14:37 Dose: 20 mg Gabapentin (Neurontin) 300 mg PO TID YARIEL Stop: 08/07/18 15:01 Last Admin: 02/05/18 14:37 Dose: 300 mg Heparin Sodium (Porcine) (Heparin Lock) 500 unit IV ONCE PRN PRN Reason: [place] while in RADIOLOGY Stop: 02/06/18 13:04 Heparin Sodium (Porcine) (Heparin) 4,000 unit IVP Q6HR PRN PRN Reason: SEE COMMENTS Stop: 08/06/18 13:22 Heparin Sodium (Porcine) (Heparin) 2,000 unit IVP Q6H PRN PRN Reason: SEE COMMENTS Stop: 08/06/18 13:22 Heparin Sodium/Dextrose (Heparin 25,000 Unit/500 Ml D5w) 25,000 unit in 500 mls @ 19.994 mls/hr IVC .Q24H YARIEL; 11.6 UNIT/KG/HR PRN Reason: Protocol Stop: 08/06/18 13:31 Last Admin: 02/05/18 14:09 Dose: Not Given Sodium Chloride (0.9 % Sodium Chloride) 1,000 mls @ 125 mls/hr IVC .Q8H YARIEL Stop: 08/06/18 16:46 Last Admin: 02/05/18 15:06 Dose: Not Given Isosorbide Mononitrate (Imdur) 60 mg PO DAILY YARIEL Stop: 08/07/18 14:16 Last Admin: 02/05/18 14:37 Dose: 60 mg Levalbuterol HCl (Xopenex) 1.25 mg IH [id number] YARIEL Stop: 08/06/18 16:01 Last Admin: 02/05/18 10:38 Dose: 1.25 mg Naloxone HCl (Narcan) 0.4 mg IVP Q2MIN PRN PRN Reason: SEE COMMENTS Stop: 08/06/18 13:56 Nitroglycerin (Nitroglycerin) 0.4 mg SL Q5MIN PRN PRN Reason: Chest Pain Stop: 08/06/18 13:25 Omeprazole (Prilosec) 40 mg PO DAILY@0730 YARIEL PRN Reason: Protocol Stop: 08/07/18 14:16 Last Admin: 02/05/18 14:37 Dose: 40 mg Ranolazine (Ranexa) 500 mg PO BID [facility] Stop: 08/06/18 21:01 Last Admin: 02/05/18 09:57 Dose: 500 mg Laboratory Tests 01/30/18 02/04/18 02/04/18 04:20 12:27 18:12 Hgb Creatinine 1.06 Troponin I 0.28 H* 0.24 H* 02/05/18 02/05/18 02/05/18 00:30 00:30 00:30 Hgb 10.9 L Creatinine 1.40 H Troponin I 0.21 H* - Imaging and Cardiology Chest Xray: report reviewed Stress Test: report reviewed Echo: report reviewed Cardiac cath: report reviewed - EKG Interpretation EKG results cardiology: personally reviewed (ECG with SR, HR 77. Non-specific T wave abnormalities.), other (Telemetry reviewed with average HR previous 12 hours noted ot be 81, SR.) Consult Discharge Plan - Plan Referrals: Candace Gomez, [employer] [Primary Care Provider] -
[2018-02-05] MEDS ORDERED: Ibuprofen 800 MG TABLET PO ONE (16:03)
[2018-02-05] MEDS ORDERED: OXYCODONE Oral CONC 10 MG/0.5 ML ORAL.SYG SL ONE (17:46)
[2018-02-05] MEDS: Isosorbide MONOnitrate (24 HR) 60 MG TAB.ER.24H PO SCH (20:29)
[2018-02-06] MEDS: 0.9 % Sodium Chloride 1,000 ML IVC SCH ×2 (02:53→12:39)
[2018-02-06] MEDS: Levalbuterol Neb 1.25 MG/3 ML IH SCH ×2 (03:33→10:46)
[2018-02-06 05:40] LABS: Basophils # 0.1 K/mcL (0.0-0.2); Basophils % 0.7 %; Eosinophils # 0.3 K/mcL (0.0-0.6); Eosinophils % 3.3 %; Hematocrit 33.3 % (35.3-44.9); Hemoglobin 10.9 g/dL (11.5-15.4); Immature Granulocytes % 0.2 % (0-4); Lymphocytes # 3.1 K/mcL (0.6-4.6); Lymphocytes % 37.2 %; Mean Corpuscular HGB Conc 32.7 g/dL (31.6-35.5); Mean Corpuscular Hemoglobin 32.4 pg (28.0-33.3); Mean Corpuscular Volume 99.1 fL (83.0-100.0); Mean Platelet Volume 10.8 fL (9.4-12.4); Monocytes # 0.8 K/mcL (0.0-1.3); Monocytes % 9.4 %; Platelet Count 217 K/mcL (140-400); Red Blood Count 3.36 M/mcL (3.82-4.97); Red Cell Distribution Width 13.7 % (11.5-14.5); Segmented Neutrophils % 49.2 %
[2018-02-06 05:54] LABS: Alanine Aminotransferase 10 Units/L (7-52); Albumin 3.3 g/dL (3.5-5.7); Albumin/Globulin Ratio 1.3 (1.1-2.2); Alkaline Phosphatase 76 Units/L (34-104); Aspartate Amino Transferase 13 Units/L (13-39); BUN/Creatinine Ratio 13 (6-26); Bilirubin,Total 0.4 mg/dL (0.3-1.0); Blood Urea Nitrogen 14 mg/dL (6-20); Calcium 8.5 mg/dL (8.6-10.3); Carbon Dioxide 25 mEq/L (23-29); Chloride 108 mEq/L (98-107); Globulin 2.5 g/dL (2.4-3.5); Glucose 89 mg/dL (70-105); Osmolality,Calculated 288 (280-300); Potassium 4.1 mEq/L (3.5-5.1); Sodium 139 mEq/L (136-145); Total Protein 5.8 g/dL (6.4-8.9); eGFR For African Americans > 60 (> 60); eGFR For Non-African Americans 52 (> 60)
[2018-02-06] MEDS ORDERED: Adenosine 90 MG/30 ML MLS IV ONE (07:49)
[2018-02-06] MEDS: Gabapentin 300 MG CAPSULE PO SCH ×3 (08:16→22:37)
[2018-02-06] MEDS: Isosorbide MONOnitrate (24 HR) 60 MG TAB.ER.24H PO SCH ×2 (08:16→22:37)
[2018-02-06] MEDS: Ranolazine 500 MG TAB.ER.12H PO SCH ×2 (08:16→22:37)
[2018-02-06] MEDS: Aspirin Enteric Coated 81 MG Tablet PO SCH (08:16)
[2018-02-06] MEDS: Furosemide 20 MG TABLET PO SCH (08:16)
--- NOTE | 2018-02-06 09:37 | Internal Med Progress Note ---
<Khurram Cedeño - Last Filed: 02/06/18 09:33> Date of Encounter: 02/06/18 Time of Encounter: 09:30 - Assessment and plan (1) Coronary artery disease Current Visit: Yes Status: Chronic Assessment and plan: Patient continues to have complaints of chest pain. Hx of chronic CAD w/CABG in 2006. Echo 01/26/18 demonstrates LVEF 60-65%, indeterminate diastolic function, RV is dilated with normal function, severely dilated left atrium, well-seated mechanical mitral valve prosthesis with normal function, mild/moderate tricuspid regurgitation, mild pulmonary hypertension, and device lead was visualized in right atrium and right ventricle. Cardiology on board. Pending limited Echo. LHC depending on echo results. VSS Continue Heparin drip Continue ASA, Statin, Coreg, nitroglycerin as needed. monitor pts, telemetry. Qualifiers: Coronary Disease-Associated Artery/Lesion type: [place] artery [place] vs. transplanted heart: [place] heart Associated angina: with unspecified angina Qualified Code(s): I25.119 - Atherosclerotic heart disease of [place] coronary artery with unspecified angina pectoris (2) COPD (chronic obstructive pulmonary disease) Current Visit: No Status: Chronic Assessment and plan: Hx of chronic COPD most likely r/t chronic tobacco abuse. Stable. Xopenex 1.25 Q6HR. Supplemental O2 w/titration and SpO2 monitoring. Qualifiers: COPD type: unspecified COPD Qualified Code(s): J44.9 - Chronic obstructive pulmonary disease, unspecified (3) Chest pain Current Visit: Yes Status: Acute Assessment and plan: has hx of carotid occlusions/stenosis per Doppler exam of 08/26. Hx of CABG and need for valve replacement, pacemaker in place. familial hx of cardiac disease ( mother), hx of tobacco abuse. Echocardiogram on 01/26/18 showed LVEF 60-65%, indeterminate diastolic function, RV is dilated with normal function, severely dilated left atrium, well-seated mechanical mitral valve prosthesis with normal function, mild/moderate tricuspid regurgitation, mild pulmonary hypertension, and device lead was visualized in right atrium and right ventricle. Nuclear stress test dated 01/27/18 showed gated EF equals 69%; small sized, mild intensity, fixed apical anterior defect. Findings consistent with artifact. Perfusion imaging negative for ischemia or infarct. Continue to hold Eliquis, pending limited echo. Possible LHC pending results. Qualifiers: Chest pain type: unspecified Qualified Code(s): R07.9 - Chest pain, unspecified (4) A-fib Current Visit: No Status: Chronic Assessment and plan: Hx of chronic paroxysmal atrial fibrillation. Continue carvedilol Qualifiers: Atrial fibrillation type: unspecified Qualified Code(s): I48.91 - Unspecified atrial fibrillation (5) Elevated troponin I level Current Visit: No Status: Acute Assessment and plan: Acutely elevated initial troponin of 0.28 on admission, adynamic. (6) Tobacco abuse Current Visit: Yes Status: Chronic Assessment and plan: Hx of chronic tobacco abuse. Pt. reports smoking 1/2 PPD but quitting one month ago. Declined nicotine patch on exam. (7) Unstable angina Current Visit: Yes Status: Acute Assessment and plan: Acute unstable angina. Pt. admitted within past two weeks for similar sx. (8) HLD (hyperlipidemia) Current Visit: No Status: Chronic Assessment and plan: Hx of chronic HLD. Lipid panel in a.m. labs. 80 mg PO Lipitor now d/t CP. Qualifiers: Hyperlipidemia type: pure hypercholesterolemia Qualified Code(s): E78.00 - Pure hypercholesterolemia, unspecified; E78.0 - Pure hypercholesterolemia (9) HTN (hypertension) Current Visit: No Status: Chronic Assessment and plan: Hx of chronic HTN. Stable. Continue currently meds. Qualifiers: Hypertension type: essential hypertension Qualified Code(s): I10 - Essential (primary) hypertension (10) Hx of syncope Current Visit: Yes Status: Chronic Assessment and plan: hx of syncope. No recent episodes, but exertional dizziness/lightheadedness today. Carotid Dopplers in 08/26 showed right CCA totally occluded, right ICA abnormal nut antegrade flow, right ECA had retrograde flow, and left proximal ICA had moderate 40-59% stenosis. Bilateral carotid Dopplers demonstrates worsening Left proximal ICA 60-79% stenosis now. Patient is asymptomatic. Falls/ safety precautions, up with assist, bed rest w/bathroom privileges w/assist only. (11) Dark stools Current Visit: Yes Status: Acute Assessment and plan: FOBT negative. Continue PPI. (12) CKD (chronic kidney disease) stage 3, GFR 30-59 ml/min Current Visit: Yes Status: Chronic Assessment and plan: Improved. Hx of chronic CKD. Currently stage 3. GFR 52/40/44 Continue IVF and avoid nephrotoxic agents. - Time Spent With Patient Total time spent is greater than 50% in coordination of care (as documented) at patient's floor/unit and/or counseling patient: Greater than 35 minutes - Subjective Interval history: Patient continues to have chest pain. Worse with exertion and reproducible. Believes that she was supposed to get LHC today. I explained to her that LHC depends on limited echo. Reports that she was seen by computer systems technology instructor a few minutes ago and shows frustration at lack of communication and confusion on treatment plan. Son at bedside, considering transferring out. Denies f/c/n/v. Denies weakness or vision changes recently. No further acute complaints. - Constitutional Vitals: Temp Pulse Resp BP Pulse Ox 97.8 F 75 16 119/75 98 02/06/18 07:40 02/06/18 07:40 02/06/18 07:40 02/06/18 07:40 02/06/18 07:40 General appearance: Present: cooperative, mild distress, A&O X 3, obese, answers questions appropriately - Head Head exam: Present: atraumatic, normocephalic - Eye Eye exam: Present: PERRL, conjuntiva pink, sclera anicteric Pupils: Present: PERRL - Neck Neck exam general surgery: Present: supple, trachea midline. Absent: lymphadenopathy - Respiratory Respiratory exam: Present: CTAB. Absent: accessory muscle use, rales, rhonchi, wheezes - Cardiovascular Cardiovascular exam: Present: RRR, +S1, +S2. Absent: diastolic murmur, gallop, rubs, systolic murmur - GI/Abdominal GI/Abdominal exam: Present: normal bowel sounds, soft, no peritoneal signs. Absent: distended, tenderness - Extremities Exam Extremities exam: Present: warm, radial pulses palpable and symmetrical. Absent : calf tenderness, cyanotic, pedal edema - Neurological Exam Neurological exam: Present: CN II-XII intact, oriented X3, no focal deficits. Absent: pronater drift, facial droop, speech deficit - Skin Skin exam: Present: dry, intact Internal Medicine: Result - Labs CBC & Chem 7: 02/06/18 04:53 02/06/18 04:53 Labs: Short CBC 02/06/18 Range/Units 04:53 WBC 8.2 (4.3-11.1) K/mcL Hgb 10.9 L (11.5-15.4) g/dL Hct 33.3 L (35.3-44.9) % Plt Count 217 (140-400) K/mcL Neutrophils # 4.0 (1.6-8.9) K/mcL BMP 02/06/18 04:53 Sodium 139 Potassium 4.1 Chloride 108 H Carbon Dioxide 25 BUN 14 Creatinine 1.12 Glucose 89 Calcium 8.5 L Liver Function 02/06/18 Range/Units 04:53 Total Bilirubin 0.4 (0.3-1.0) mg/dL AST 13 (13-39) Units/L ALT 10 (7-52) Units/L Alkaline Phosphatase 76 (34-104) Units/L Albumin 3.3 L (3.5-5.7) g/dL - ABG Interpretation ABG results: PT/INR, D-dimer PT 20.3 Seconds (9.4-12.1) H 02/04/18 13:09 - VTE Documentation of Mechanical Device: Intermittent pneumatic compression device Consult Discharge Plan - Plan Referrals: Candace Gomez REVERSE UNIT OPERATOR [Primary Care Provider] - <Jae Hernanedz H - Last Filed: 02/06/18 11:15> Date of Encounter: 02/06/18 - Assessment and plan (1) Coronary artery disease Current Visit: Yes Status: Chronic Qualifiers: Coronary Disease-Associated Artery/Lesion type: [place] artery [place] vs. transplanted heart: [place] heart Associated angina: with unspecified angina Qualified Code(s): I25.119 - Atherosclerotic heart disease of [place] coronary artery with unspecified angina pectoris (2) COPD (chronic obstructive pulmonary disease) Current Visit: Yes Status: Chronic Qualifiers: COPD type: unspecified COPD Qualified Code(s): J44.9 - Chronic obstructive pulmonary disease, unspecified (3) Chest pain Current Visit: Yes Status: Acute Qualifiers: Chest pain type: unspecified Qualified Code(s): R07.9 - Chest pain, unspecified (4) A-fib Current Visit: Yes Status: Chronic Qualifiers: Atrial fibrillation type: unspecified Qualified Code(s): I48.91 - Unspecified atrial fibrillation (5) Elevated troponin I level Current Visit: Yes Status: Acute (6) Tobacco abuse Current Visit: Yes Status: Chronic (7) Unstable angina Current Visit: Yes Status: Acute (8) HLD (hyperlipidemia) Current Visit: Yes Status: Chronic Qualifiers: Hyperlipidemia type: pure hypercholesterolemia Qualified Code(s): E78.00 - Pure hypercholesterolemia, unspecified; E78.0 - Pure hypercholesterolemia (9) HTN (hypertension) Current Visit: Yes Status: Chronic Qualifiers: Hypertension type: essential hypertension Qualified Code(s): I10 - Essential (primary) hypertension (10) Hx of syncope Current Visit: Yes Status: Chronic (11) Dark stools Current Visit: Yes Status: Acute (12) CKD (chronic kidney disease) stage 3, GFR 30-59 ml/min Current Visit: Yes Status: Chronic - Time Spent With Patient Total time spent is greater than 50% in coordination of care (as documented) at patient's floor/unit and/or counseling patient: - Constitutional Vitals: Temp Pulse Resp BP Pulse Ox 97.8 F 75 16 119/75 98 02/06/18 07:40 02/06/18 07:40 02/06/18 07:40 02/06/18 07:40 02/06/18 07:40 Internal Medicine: Result - Labs CBC & Chem 7: 02/06/18 04:53 02/06/18 04:53 Labs: Short CBC 02/06/18 Range/Units 04:53 WBC 8.2 (4.3-11.1) K/mcL Hgb 10.9 L (11.5-15.4) g/dL Hct 33.3 L (35.3-44.9) % Plt Count 217 (140-400) K/mcL Neutrophils # 4.0 (1.6-8.9) K/mcL BMP 02/06/18 04:53 Sodium 139 Potassium 4.1 Chloride 108 H Carbon Dioxide 25 BUN 14 Creatinine 1.12 Glucose 89 Calcium 8.5 L Liver Function 02/06/18 Range/Units 04:53 Total Bilirubin 0.4 (0.3-1.0) mg/dL AST 13 (13-39) Units/L ALT 10 (7-52) Units/L Alkaline Phosphatase 76 (34-104) Units/L Albumin 3.3 L (3.5-5.7) g/dL - ABG Interpretation ABG results: PT/INR, D-dimer PT 20.3 Seconds (9.4-12.1) H 02/04/18 13:09 - Attending Attestation (1) Coronary artery disease Current Visit: Yes Status: Chronic Assessment and plan: Chest pain, consider possible non-STEMI Hx of chronic CAD w/CABG in 2006. Pt. hypotensive on admission w/BP of 85/53 which improved Heparin drip Hold HTN meds for now and monitor pts, telemetry. Aspirin , Lipitor PO now ordered. Cardiology consult ordered in ED. Echocardiogram pending. Cardiology recommendations appreciated. Patient considering possible transfer asking for a possible second opinion. Qualifiers: Coronary Disease-Associated Artery/Lesion type: bypass graft [place] vs. transplanted heart: [place] heart Associated angina: with stable angina Qualified Code(s): I25.708 - Atherosclerosis of coronary artery bypass graft(s) , unspecified, with other forms of angina pectoris (2) COPD (chronic obstructive pulmonary disease) Current Visit: Yes Status: Chronic Assessment and plan: Hx of chronic COPD most likely r/t chronic tobacco abuse. Stable. Xopenex 1.25 Q6HR. Supplemental O2 w/titration and SpO2 monitoring. Qualifiers: COPD type: unspecified COPD Qualified Code(s): J44.9 - Chronic obstructive pulmonary disease, unspecified (3) Chest pain Current Visit: Yes Status: Acute Assessment and plan: has hx of carotid occlusions/stenosis per Doppler exam of 08/26. Echocardiogram on 01/26/18 showed LVEF 60-65%, indeterminate diastolic function , RV is dilated with normal function, severely dilated left atrium, well-seated mechanical mitral valve prosthesis with normal function, mild/moderate tricuspid regurgitation, mild pulmonary hypertension, and device lead was visualized in right atrium and right ventricle. Nuclear stress test dated 01/27/18 showed gated EF equals 69%; small sized, mild intensity, fixed apical anterior defect. Findings consistent with artifact. Perfusion imaging negative for ischemia or infarct. Hold Eliquis Hx of CABG and need for valve replacement, familial hx of cardiac disease ( mother), hx of tobacco abuse, . Qualifiers: Chest pain type: unspecified Qualified Code(s): R07.9 - Chest pain, unspecified (4) A-fib Current Visit: Yes Status: Chronic Assessment and plan: Hx of chronic paroxysmal atrial fibrillation. Continue carvedilol Qualifiers: Atrial fibrillation type: unspecified Qualified Code(s): I48.91 - Unspecified atrial fibrillation (5) Elevated troponin I level Current Visit: Yes Status: Acute Assessment and plan: Acutely elevated initial troponin of 0.28 on admission, adynamic (6) Tobacco abuse Current Visit: Yes Status: Chronic Assessment and plan: Hx of chronic tobacco abuse. Pt. reports smoking 1/2 PPD but quitting one month ago. Declined nicotine patch on exam. (7) Unstable angina Current Visit: Yes Status: Acute Assessment and plan: Acute unstable angina. Pt. admitted within past two weeks for similar sx. . (8) HLD (hyperlipidemia) Current Visit: Yes Status: Chronic Assessment and plan: Hx of chronic HLD. Lipid panel in a.m. labs. 80 mg PO Lipitor now d/t CP. Qualifiers: Hyperlipidemia type: pure hypercholesterolemia Qualified Code(s): E78.00 - Pure hypercholesterolemia, unspecified; E78.0 - Pure hypercholesterolemia (9) HTN (hypertension) Current Visit: Yes Status: Chronic Assessment and plan: Hx of chronic HTN. Was hypotensive upon admission Hold lisinopril Qualifiers: Hypertension type: essential hypertension Qualified Code(s): I10 - Essential (primary) hypertension (10) Hx of syncope Current Visit: Yes Status: Chronic Assessment and plan: Hx of syncope. No recent episodes, but exertional dizziness/lightheadedness today. Carotid Dopplers in 08/26 showed right CCA totally occluded, right ICA abnormal nut antegrade flow, right ECA had retrograde flow, and left proximal ICA had moderate 40-59% stenosis. Bilateral carotid Dopplers ordered. Falls/ safety precautions, up with assist, bed rest w/bathroom privileges w/assist only. (11) Dark stools Current Visit: Yes Status: Acute Assessment and plan: Fecal hemoccult ordered. Start PPI. (12) CKD (chronic kidney disease) stage 3, GFR 30-59 ml/min Current Visit: Yes Status: Chronic Assessment and plan: Hx of chronic CKD. Currently stage 3 I examined this patient and my medical decision-making was reviewed with the Resident Physician. I agree with the documented findings, disposition and treatment plan as described except to the extent set forth below.
--- NOTE | 2018-02-06 12:12 | Event Note ---
Date of Encounter: 02/06/18 Time of Encounter: 12:11 - Cardiology Event Note Plan for LHC today for recurrent chest pain, despite medical therapy. Recent negative stress. Risks versus benefits of LHC explained to patient and family. Patient states understanding and agrees with plan. Further recommendations pending LHC.
[2018-02-06 13:25] LABS: INR 1.2; Prothrombin Time 13.5 Seconds (9.4-12.1)
[2018-02-06] MEDS ORDERED: 0.9 % Sodium Chloride 1,000 ML IVC SCH (13:59)
[2018-02-06] MEDS ORDERED: *HR* Heparin 10,000 UNIT/10 ML VIAL ONE (14:09)
[2018-02-06] MEDS ORDERED: Heparin 1,000 UNITS/500 mL 500 ML ONE (14:09)
[2018-02-06] MEDS ORDERED: ISOVUE-370 200 ML INFUS..BTL IV ONE ×2 (14:09→15:31)
[2018-02-06] MEDS ORDERED: Nitroglycerin 1,000 MCG/10 ML VIAL IV ONE (14:10)
[2018-02-06] MEDS ORDERED: Isovue-370 500 ML INFUS..BTL IV ONE (14:29)
--- NOTE | 2018-02-06 14:39 | Pre-Sedation Evaluation ---
Pre-sedation evaluation - Pre-sedation checklist Date of procedure: 02/06/18 Procedure: C Recent Vitals: Last Vital Signs Temp 97.8 F 02/06/18 11:51 Pulse 71 02/06/18 11:51 Resp 16 02/06/18 11:51 BP 100/69 02/06/18 11:51 Pulse Ox 98 02/06/18 11:51 H&P (including ROS) documented in medical record: Yes Previous reaction to sedatives/anesthetics: No Dietary Status: NPO after Midnight Dentition: No loose teeth or bridges ASA Classification *see protocol: CLASS II-Mild systemic disease
[2018-02-06] MEDS ORDERED: *HR* Midazolam HCl 2 MG/2 ML VIAL ONE (14:42)
[2018-02-06] MEDS ORDERED: *HR* FentaNYL (PF) 100 MCG/2 ML VIAL ONE (14:42)
[2018-02-06] MEDS ORDERED: Tirofiban 12.5 MG/250ML 12.5 MG/250 ML BAG ONE (15:25)
--- NOTE | 2018-02-06 16:05 | Invasive Diagnostic Lab Proc ---
Name: Bethany Rivera Date of Study: 02/06/2018 Date: 1970 Ht: 59.8in Medical Record#: [id number] Age: 47 Wt: 194.01lb Gender: Female BSA: 1.84 Order #: [id number] BMI: 38.09 Physicians Procedure Physician: Stephie Patel MD Referring MD: Referring MD: Staff Name Position Time In Aidan Carrion RT (R) Monitor 02:30 PM Barbi Shin RT (R) Scrub 02:30 PM Broderick Leyva RN Retail Sales Consultant 02:30 PM Indications Indication Non-Stemi Procedures Performed Procedure L HRT ART/GRFT ANGIO IV Doppler BLD Flow 1st Vessel PRQ CARD BRUNO STENT W/ANGIO 1 VSL Pre-Procedure Checklist Informed consent is complete signed and on chart. H&P is on chart. ID band is on and ID verified with patient. Patient NPO for procedure The procedure was described for the patient and questions were answered. Blood Pressure: 141/82 ECG is on chart. Rhythm: NSR Plan of Care Patient will tolerate the procedure without complications. Adequate level of comfort will be maintained. Hemodynamics will remain stable Patient will recover from procedure without complications. Respiratory function will be maintained. Cardiac rhythm will remain stable. Patient temperature will be maintained. Patient and/or family have verbalized understanding of the procedure. Patient Education Chief Complaint/Reason for Test: Cardiac Cath Developmental Category: Adult (18-64 years) Developmentally Appropriate for Age: Yes Learning Barriers: None Education Needs: Procedure Education Method: Verbal Information Taught: Cardiac Cath Educational Evaluation: Able to repeat information Intravenous Access Time IV Size Location DC'd Fluid/Drip Rate Units RN 02:35 PM 18g 1 1/4" Patent On Arrival Lt Antecubital 0.9NaCl 25 ml/hr Broderick Leyva RN Allergies No Known Allergies Vital Signs Time BP (mmHg) HR (bpm) O2 Sat. RR (bpm) LOC 02:35 PM 141 / 82 75 97 % 18 5 = Fully awake and oriented or at pre-proc level 02:35 PM / % 4 = Oriented but drowsy 02:50 PM / % 4 = Oriented but drowsy 03:06 PM / % 4 = Oriented but drowsy 03:21 PM / % 4 = Oriented but drowsy 03:36 PM / % 5 = Fully awake and oriented or at pre-proc level 02:40 PM 141 / 82 71 97 % 02:45 PM 140 / 90 73 100 % 02:50 PM 98 / 55 75 98 % 02:55 PM 109 / 73 80 98 % 03:01 PM 141 / 90 82 97 % 03:05 PM 134 / 91 87 93 % 03:10 PM 102 / 76 85 94 % 03:16 PM 138 / 82 83 98 % 03:20 PM 128 / 74 81 99 % 03:25 PM 106 / 64 82 100 % 03:31 PM 144 / 94 83 99 % 03:35 PM 147 / 93 79 99 % 03:41 PM 165 / 92 78 99 % 03:45 PM 168 / 95 75 100 % Procedural Medications Time Medication Dose Units Method Given By 02:43 PM Oxygen 2 L/min nasal cannula Broderick Leyva RN 02:46 PM Versed 1 mg Intravenous Broderick Leyva RN 02:46 PM Fentanyl 50 mcg Intravenous Broderick Leyva RN 02:53 PM Lidocaine 2% 10 ml Subcutaneous Stephie Patel MD 03:02 PM Lidocaine 2% 10 ml Subcutaneous Stephie Patel MD 03:02 PM Versed 0.5 mg Intravenous Broderick Leyva RN 03:02 PM Fentanyl 25 mcg Intravenous Broderick Leyva RN 03:06 PM Lidocaine 2% 9 ml Subcutaneous Stephie Patel MD 03:20 PM Heparin 4000 units Intravenous Broderick Leyva RN 03:23 PM Adenosine 739.2 ml/hr Intravenous JANIYA Leyva RN 03:28 PM Aggrastat Bolus: 46 ml Intravenous Broderick Leyva RN 03:28 PM Aggrastat 12.5mg/250ml 16.5 ml Intravenous Broderick Leyva RN 03:35 PM Nitroglycerin 100 mcg Intracoronary Harvey Patel MD ASA Classification: CLASS III- Severe systemic disease (i.e. prior AMI, diabetes with vascular complications, morbid obesity) Aneta Score Preprocedure Postprocedure Activity 2- Moves 4 extremities sustained head lift Activity 2- Moves 4 extremities sustained head lift Circulation 2- SBP +/= 20 points of pre-anesthetic level Circulation 2- SBP +/= 20 points of pre-anesthetic level Consciousness 2- Awake and alert oriented x 3 Consciousness 2- Awake and alert oriented x 3 O2 Saturation 2- Able to maintain O2 satruation of 92% on room air O2 Saturation 2- Able to maintain O2 satruation of 92% on room air Respiratory 2- Able to deep breathe and cough well Respiratory 2- Able to deep breathe and cough well Total Score 10 Total Score 10 Contrast Agent: Isovue Diagnostic Contrast: 169 ml Total Contrast: 169 ml Fluoro Dose: 1381 mGy Activated Clotting Time Time Seconds to Clot 03:19 PM 184 03:49 PM 250 Procedure Log Time Note Enter By 02:30 PM Aidan Carrion RT (R) Position: Monitor Time in: 14:30 [email or web address] 02:30 PM Barbi Shin RT (R) Position: Scrub Time in: 14:30 [email or web address] 02:31 PM Broderick Leyva RN Position: Retail Sales Consultant Time in: 14:30 [email or web address] 02:31 PM Patient charges- Angio tray pack, Navilyst 3mm J, Pulse Oximetry and ACIST tubing and transducer [email or web address] 02:35 PM Pt arrived to laboratory machinist 2 at 14:35 [email or web address] 02:35 PM Case Delayed No [email or web address] 02:35 PM CathStat 02:35 PM Time: 14:35 Patient comfortable and pain free: Yes [email or web address] 02:35 PM Time: 14:35LOC: 5 = Fully awake and oriented or at pre-proc level [email or web address] 02:37 PM Physician arrived 14:37 [email or web address] 02:37 PM ASA Class CLASS III- Severe systemic disease (i.e. prior AMI, diabetes with vascular complications, morbid obesity) [email or web address] 02:37 PM Meet and greet completed [email or web address] 02:37 PM Sign in performed according to hospital policy. [email or web address] 02:37 PM Procedure start 14:37 [email or web address] 02:37 PM Clinical Presentation: Non-STEMI [email or web address] 02:38 PM Hair removed from procedure site in procedure lab using clippers. Bilateral groin prepped with Chloraprep by Kip, Barbi RT (R), then patient was draped. Skin intact. [email or web address] 02:39 PM Vitals capture started with the following parameters, Patient=Adult, Interval=5 min, Initial Eoommjyh=616 mmHg, Deflation Rate=5 mmHg, Cuff placed on Right Arm 02:40 PM Recorded ECG: HR=71 Condition=Condition 1 02:40 PM HR=71 bpm, ZIZA=575/82 mmhg, SpO2=97.0 % 02:43 PM Time: 14:43 Oxygen on at 2 L/min per nasal cannula by Broderick Leyva RN [email or web address] 02:45 PM HR=73 bpm, OTMZ=056/90 mmhg, UdQ1=956.0 % 02:46 PM Time: 14:46 Versed 1 mg Intravenous Given by Broderick Leyva RN [email or web address] 02:46 PM Time: 14:46 Fentanyl 50 mcg Intravenous Given by Broderick Leyva RN [email or web address] 02:50 PM HR=75 bpm, NIBP=98/55 mmhg, SpO2=98.0 % 02:50 PM Pressure channel 1 zeroed. 02:50 PM Time: 14:35LOC: 4 = Oriented but drowsy ilson 02:50 PM Time: 14:35 Patient comfortable and pain free: Yes 02:52 PM Time out performed according to hospital policy [email or web address] 02:54 PM Vitals capture stopped. 02:54 PM Vitals capture started with the following parameters, Patient=Adult, Interval=5 min, Initial Zprfmtsx=193 mmHg, Deflation Rate=5 mmHg, Cuff placed on Right Arm 02:55 PM Time: 14:53 10 ml Lidocaine 2% to right groin Subcutaneous Given by Stephie Patel MD 02:55 PM Micro-Introducer Kit utilized for sheath placement [email or web address] 02:55 PM HR=80 bpm, EQLH=991/73 mmhg, SpO2=98.0 % 02:56 PM Unsuccessful access attempt # 1 into the right Femoral artery. Manual pressure applied to achieve hemostasis.. [email or web address] 03:01 PM HR=82 bpm, OPCV=471/90 mmhg, SpO2=97.0 % 03:02 PM Time: 15:02 10 ml Lidocaine 2% to right groin Subcutaneous Given by Stephie Patel MD 03:02 PM Time: 15:02 Versed 0.5 mg Intravenous Given by Broderick Leyva RN ilson 03:03 PM Time: 15:02 Fentanyl 25 mcg Intravenous Given by Broderick Leyva RN [email or web address] 03:05 PM Unsuccessful access attempt # 2 into the right Femoral artery. 03:05 PM HR=87 bpm, UNHH=944/91 mmhg, SpO2=93.0 % 03:06 PM Time: 14:50 Patient comfortable and pain free: Yes ilson 03:06 PM Time: 14:50LOC: 4 = Oriented but drowsy [email or web address] 03:06 PM Time: 15:06 9 ml Lidocaine 2% to right groin Subcutaneous Given by Stephie Patel MD 2 03:07 PM hand injected right femoral angiogram 3cc contrast [email or web address] 03:08 PM Access obtained by percutaneous puncture. 6Fr 10cm Terumo [place] sheath placed in right Femoral artery. [id number] [email or web address] 03:08 PM 0.035 145cm Navilyst 3mmJ wire [id number] [email or web address] 03:08 PM 5Fr FL 4 catheter inserted over the wire [facility] [email or web address] 03:10 PM LCA angiography performed in multiple views. [email or web address] 03:10 PM Recorded Pressure: Ao, HR=84, Condition=Condition 1 (Aorta) Ao 141/58/98 03:10 PM HR=85 bpm, AVNV=278/76 mmhg, SpO2=94.0 % 03:11 PM Catheter removed [email or web address] 03:12 PM 5Fr FR 4 catheter inserted over the wire [facility] [email or web address] 03:13 PM RCA angiography performed in multiple views. [email or web address] 03:13 PM SVG to the RPDA angio performed in multiple views. [email or web address] 03:14 PM Lesion found in Proximal RCA. Pre Stenosis: 100 Pre HUGO Flow: [email or web address] 03:14 PM Right Coronary, Right Posterior Descending Arteries with Right Posterolateral and Acute Marginal branches with 100 % stenosis. If graft is supplying this area, 0 % stenosis [email or web address] 03:15 PM Coronary Dominance: right [email or web address] 03:15 PM Lesion found in Proximal LAD. Pre Stenosis: 65 Pre HUGO Flow: [email or web address] 03:15 PM Proximal Left Anterior Descending Coronary Artery with 65% stenosis. If graft is supplying this territory, 0 % stenosis. [email or web address] 03:16 PM HR=83 bpm, NFAU=101/82 mmhg, SpO2=98.0 % 03:16 PM Inflation device was opened. [email or web address] 03:16 PM 6Fr XB LAD 3.5 [place] Bright-Tip guide catheter was used to cannulate the PCI vessel successfully. reused? No [email or web address] 03:17 PM Recorded Pressure: Ao, HR=84, Condition=Condition 1 (Aorta) Ao 133/81/101 03:18 PM .014 [employer] [place] cm guide wire across target lesion- successful. reused? No [email or web address] 03:19 PM At 15:19 the ACT was 184 seconds. [email or web address] 03:20 PM Time: 15:20 Heparin 4000 units Intravenous Given by Broderick Leyva RN 03:20 PM HR=81 bpm, KLRT=957/74 mmhg, SpO2=99.0 % 03:21 PM Time: 15:06 Patient comfortable and pain free: Yes 03:21 PM Time: 15:06LOC: 4 = Oriented but drowsy bw 03:22 PM Asist FFR Catheter advanced to target lesion. 03:24 PM Time: 15:23 Adenosine 739.2 ml/hr administered Intravenous by JANIYA Leyva RN 03:25 PM FFR Measurement: 0.78 03:25 PM Adenosine off. 03:25 PM Flow Wire/Catheter removed intact 03:25 PM HR=82 bpm, DRTI=811/64 mmhg, ZbL4=501.0 % 03:26 PM Lesion found in Mid LAD. Pre Stenosis: 60 Pre HUGO Flow: 03:26 PM Mid/Distal Left Anterior Descending Coronary Artery and diagonal branches with 60% stenosis. If graft is supplying this area, 0 % stenosis bw 03:27 PM 2.0 mm x 20 mm Emerge Monorail balloon across target lesion- successful. reused? No 03:28 PM Time: 15:28 Aggrastat Bolus: 46 ml Intravenous Given by Broderick Leyva RN Cameron pump 03:28 PM Time: 15:28 Aggrastat 12.5mg/250ml 16.5 ml Intravenous Given by Broderick Leyva RN Cameron pump 03:28 PM Balloon inflated @ 6 bisi for 10 seconds [email or web address] 03:29 PM Balloon catheter removed intact. 2 03:30 PM Recorded Pressure: Ao, HR=83, Condition=Condition 1 (Aorta) Ao 151/90/116 03:30 PM 3.5mm x 24mm Synergy drug-eluting stent across target lesion- successful Lot #[id number] 03:31 PM HR=83 bpm, BDTB=050/94 mmhg, SpO2=99.0 % 03:32 PM Stent deployed @ 11 bisi for 10 seconds bw 03:32 PM Stent balloon reinflated @ 16 bisi for 10 seconds [email or web address] 03:33 PM Stent delivery system removed intact. [email or web address] 03:35 PM 3.5 mm x 20mm NC Emerge balloon across target lesion- successful. reused? No [email or web address] 03:35 PM Time: 15:35 Nitroglycerin 100 mcg Intracoronary Given by Harvey Patel MD 2 03:35 PM HR=79 bpm, OYJQ=243/93 mmhg, SpO2=99.0 % 03:36 PM Time: 15:21LOC: 4 = Oriented but drowsy [email or web address] 03:36 PM Time: 15:21 Patient comfortable and pain free: Yes [email or web address] 03:39 PM Balloon inflated @ 20 bisi for 12 seconds [email or web address] 03:40 PM Balloon catheter removed intact. [email or web address] 03:40 PM Guide wire removed intact. [email or web address] 03:41 PM Guide catheter removed intact. [email or web address] 03:41 PM HR=78 bpm, WWZC=742/92 mmhg, SpO2=99.0 % 03:41 PM 5Fr Pigtail catheter inserted over the wire DNC [email or web address] 03:42 PM Catheter selectively placed in left ventricle [email or web address] 03:42 PM Recorded Pressure: LV, YF=120, Condition=Condition 1 (Left Ventricle) LV 150/21/41 03:42 PM Recorded Pressure: LV, Ao, HR=78, Condition=Condition 1 (Left Ventricle) LV 163/5/8, (Aorta) Ao 152/33/90 03:43 PM LV pressures only no LV Gram. [email or web address] 03:43 PM Catheter removed [email or web address] 03:45 PM Procedure completed at 15:45 [email or web address] 03:45 PM Sign out completed: Radiation Dose 1380.81 mGy Fluoro Time: 13.0 Isovue 370 - 200ml contrast 169 ml given by Stephie Patel MD. Complications: NoneCardiac Rehab Consult needed: YesConfirmed administered medications: Yes [email or web address] 03:45 PM Isovue 370 - 200ml,1 Bottle(s) used. [email or web address] 03:45 PM HR=75 bpm, JEXE=339/95 mmhg, RzX7=800.0 % 03:45 PM Sheath left in place to be pulled on floor/holding areaV+Pad [email or web address] 03:46 PM Estimated Blood Loss: less than 20cc [email or web address] 03:46 PM Post ECG NSR [email or web address] 03:46 PM Post Blood Pressure 168/95 [email or web address] 03:46 PM 15:46 Post Pulses Bilateral DP & PT 2+ [email or web address] 03:47 PM Information taught Cardiac Cath and PCI [email or web address] 03:47 PM Education needs Procedure, Plan of Care, and Disease Process [email or web address] 03:47 PM Learning barriers :Sedated [email or web address] 03:47 PM Education Methods Verbal [email or web address] 03:47 PM Education evaluation Needs further instruction [email or web address] 03:47 PM Site status No bleeding/hematoma - Rt Groin as reported by Sites, Barbi RT (R) at 15:47 [email or web address] 03:48 PM Opsite applied [email or web address] 03:48 PM Delay to floor No [email or web address] 03:48 PM Complications: None [email or web address] 03:48 PM Fluoro Time: 13 [email or web address] 03:48 PM Isovue 370 - 200ml contrast 169 ml given by . [email or web address] 03:48 PM Radiation Dose 1380.81 mGy [email or web address] 03:49 PM At 15:49 the ACT was 250 seconds. [email or web address] 03:50 PM Vitals capture stopped. 03:51 PM Time: 15:36 Patient comfortable and pain free: Yes [email or web address] 03:51 PM Time: 15:36LOC: 5 = Fully awake and oriented or at pre-proc level [email or web address] 03:52 PM Family placed in consult room. [email or web address] 03:57 PM Report given to roe GRIFFITH Pt taken to 2N Room #13. 15:57 [email or web address] Complications Complication None None Hemodynamics Pressures Site Systolic/A Wave Diastolic/V Wave Mean AO 141 58 98 AO 133 81 101 AO 151 90 116 LV 150 21 41 LV 163 5 8 AO 152 33 90 Post Procedure Information Blood Pressure: 168/95 mmHg Rhythm: NSR Post procedural instructions were given Site Checks Time Location Status Staff Sheath In? Note 03:47 PM Rt Groin No bleeding/hematoma Sites, Barbi RT (R) Pulses Time Site Pre-Procedure Post-Procedure Note 02/06/2018 2:36:00 PM Bilateral DP & PT 2+ 3:46:00 PM Bilateral DP & PT 2+ Updated by Aidan Carrion RT (R) on 02/06/2018 3:58:46 PM Aidan Carrion, RT electronically signed on 02/06/2018 3:59:16 PM with status of Final
--- NOTE | 2018-02-06 16:45 | Electrocardiograph Report ---
[address] [address] Test Date: 2018-02-04 Pat Name: Bethany Rivera Department: 103 Room: 2N13 Gender: F Certified Alcohol And Drug Counselor: BETINA : 1970 Requested By: Prashanth Herrera Order Number: [id number] Reading MD: Crystal Ren Measurements Intervals [place] Rate: 77 P: 62 [place]: 154 QRS: 42 QRSD: 97 T: 88 QT: 404 QTc: 436 Interpretive Statements SINUS RHYTHM NONSPECIFIC T-WAVE ABNORMALITY Electronically Signed On 02-06-2018 16:43:17 EDT by Crystal Ren
[2018-02-06] MEDS ORDERED: OXYCODONE Oral CONC 10 MG/0.5 ML ORAL.SYG SL ONE (20:44)
[2018-02-06] MEDS ORDERED: *HR* Atropine Sulfate 1 MG/10 ML SYRINGE ONE (21:46)
[2018-02-06 22:38] LABS: Basophils % 0.4 %; Eosinophils # 0.3 K/mcL (0.0-0.6); Eosinophils % 2.7 %; Hematocrit 32.1 % (35.3-44.9); Hemoglobin 10.8 g/dL (11.5-15.4); Immature Granulocytes % 0.2 % (0-4); Lymphocytes # 2.3 K/mcL (0.6-4.6); Lymphocytes % 24.8 %; Mean Corpuscular HGB Conc 33.6 g/dL (31.6-35.5); Mean Corpuscular Hemoglobin 32.8 pg (28.0-33.3); Mean Corpuscular Volume 97.6 fL (83.0-100.0); Mean Platelet Volume 10.9 fL (9.4-12.4); Monocytes # 0.7 K/mcL (0.0-1.3); Monocytes % 7.3 %; Platelet Count 235 K/mcL (140-400); Red Blood Count 3.29 M/mcL (3.82-4.97); Red Cell Distribution Width 13.9 % (11.5-14.5); Segmented Neutrophils % 64.6 %
[2018-02-07] MEDS ORDERED: *HR* HYDROcodone/Acet 5/325 mg TABLET PO ONE (00:55)
[2018-02-07 04:36] LABS: Basophils # 0.1 K/mcL (0.0-0.2); Basophils % 0.5 %; Eosinophils # 0.3 K/mcL (0.0-0.6); Hematocrit 31.5 % (35.3-44.9); Hemoglobin 10.3 g/dL (11.5-15.4); Immature Granulocytes % 0.2 % (0-4); Lymphocytes # 1.3 K/mcL (0.6-4.6); Lymphocytes % 13.9 %; Mean Corpuscular HGB Conc 32.7 g/dL (31.6-35.5); Mean Corpuscular Hemoglobin 32.2 pg (28.0-33.3); Mean Corpuscular Volume 98.4 fL (83.0-100.0); Mean Platelet Volume 10.6 fL (9.4-12.4); Monocytes # 0.8 K/mcL (0.0-1.3); Monocytes % 8.4 %; Neutrophils # 7.2 K/mcL (1.6-8.9); Platelet Count 224 K/mcL (140-400)
[2018-02-07 04:57] LABS: Alanine Aminotransferase 10 Units/L (7-52); Albumin 3.6 g/dL (3.5-5.7); Albumin/Globulin Ratio 1.4 (1.1-2.2); Alkaline Phosphatase 74 Units/L (34-104); Aspartate Amino Transferase 15 Units/L (13-39); BUN/Creatinine Ratio 13 (6-26); Bilirubin,Total 0.7 mg/dL (0.3-1.0); Blood Urea Nitrogen 13 mg/dL (6-20); Calcium 8.8 mg/dL (8.6-10.3); Carbon Dioxide 24 mEq/L (23-29); Chloride 105 mEq/L (98-107); Globulin 2.5 g/dL (2.4-3.5); Glucose 115 mg/dL (70-105); Osmolality,Calculated 283 (280-300); Potassium 4.2 mEq/L (3.5-5.1); Sodium 136 mEq/L (136-145); Total Protein 6.1 g/dL (6.4-8.9); eGFR For African Americans > 60 (> 60); eGFR For Non-African Americans 57 (> 60)
[2018-02-07] MEDS: Isosorbide MONOnitrate (24 HR) 60 MG TAB.ER.24H PO SCH ×2 (09:07→21:54)
[2018-02-07] MEDS: Aspirin Enteric Coated 81 MG Tablet PO SCH (09:07)
[2018-02-07] MEDS: Ranolazine 500 MG TAB.ER.12H PO SCH ×2 (09:07→21:54)
[2018-02-07] MEDS: Gabapentin 300 MG CAPSULE PO SCH ×3 (09:08→21:54)
--- NOTE | 2018-02-07 11:31 | Cardiology Progress Note ---
Date of Encounter: 02/07/18 Time of Encounter: 10:00 Assessment and Plan (1) Chest pain Current Visit: Yes Status: Acute Per cardiology: -S/p LHC yesterday with BRUNO placed to LAD. -Denies current chest pain. -TTE iwth LVEF preserved, no segmental wall motion abnormalities. -On asa, plavix, statin, beta blokcer. Educated on dual anti-platelet therapy uninterrupted for at least one year, unless otherwise directed by cardiology. Pateint states understanding. -Reports right groin pain. No hematoma, mild ecchymosis. Hgb and BP stable. -Will check right groin site ultrasound to rule out pseudoaneurysm. -If US negative, cardiology will sign off. FOllow up set. -Of note, donnell will be on triple therapy. Educated to monitor for any signs of bleeding closely. Qualifiers: Chest pain type: unspecified Qualified Code(s): R07.9 - Chest pain, unspecified (2) Elevated troponin I level Current Visit: Yes Status: Acute Per cardiology: -S/p LHC yesterday with BRUNO placed to LAD. -Deneis current chest pain. (3) Coronary artery disease Current Visit: Yes Status: Chronic Per cardiology: -Known CAD with CABG x1. -ON asa, statin, beta landon, ranexa, imdur, plavix. Qualifiers: Coronary Disease-Associated Artery/Lesion type: [place] artery [place] vs. transplanted heart: [place] heart Associated angina: with unspecified angina Qualified Code(s): I25.119 - Atherosclerotic heart disease of [place] coronary artery with unspecified angina pectoris (4) History of mitral valve replacement with bioprosthetic valve Current Visit: No Status: Acute Per cardiology: -Known bioprosthetic valve. -01/25 TTE with normal function valve. (5) Paroxysmal atrial fibrillation Current Visit: No Status: Chronic Per cardiology: -Known history of PAF. -ON beta landon, HR conrolled. -On eliquis for anticoagulation. -With valvular a.fib, recommend coumadin for anticoagulation. Patient wishes to discuss anticoagulation with prior to starting coumadin, wishes to resume eliquis. Discussion w patient/family: The assessment and plan as outlined above was discussed with the patient who expressed understanding and agreement. All questions were answered. Thank you for involving us in the care of your patient. Please call with any questions. Discussed and reviewed with . Subjective Principal diagnosis: chest pain Interval history: Patient asleep, snoring. Tactile stimulation to arouse pateint. Upon arousal, patient reports severe right lower extermity pain. Denies chest pain. Objective Vital Signs, Last 4 Hours Temp Pulse Resp BP 02/07/18 07:32 98.2 F 76 20 120/86 General: Conversant, No Apparent Distress HEENT: Atraumatic, Normocephaly, Mucus Membranes Moist Neck: No JVD, Normal carotid pulses Cardiac: Reg Rate and Rhythm, Normal S1 and S2, No Murmur Lungs: Normal Breath Sounds, No Wheeze, Rales, Rhonchi Neuro: Alert and responsive, No focal deficits noted Abdomen: Soft, Non-Tender Skin: No rashes noted on visualized skin, Other (Right groin access site without hematoma, small area of ecchymosis. ) Musculoskeletal: No Chest Wall Tenderness Extremities: No Clubbing, No Cyanosis, No Edema, Normal Pulses Results 02/07/18 04:09 02/07/18 04:09 Lab Results Active Medications Acetaminophen (Tylenol) 650 mg PO Q6HR PRN PRN Reason: Mild Pain/Fever Stop: 08/06/18 13:56 Last Admin: 02/06/18 10:59 Dose: 650 mg Albuterol Sulfate (Albuterol Inhaler) 2 puff IH Q4H PRN PRN Reason: Shortness Of Breath Stop: 08/06/18 14:01 Aspirin (Aspirin Ec) 81 mg PO DAILY [facility] Stop: 08/07/18 14:16 Last Admin: 02/07/18 09:07 Dose: 81 mg Atorvastatin Calcium (Lipitor) 20 mg PO HS [facility] Stop: 08/07/18 21:01 Last Admin: 02/06/18 22:37 Dose: 20 mg Carvedilol (Coreg) 6.25 mg PO BIDWM YARIEL PRN Reason: Protocol Stop: 08/07/18 14:16 Last Admin: 02/07/18 07:48 Dose: 6.25 mg Clopidogrel Bisulfate (Plavix) 75 mg PO DAILY [facility] Stop: 08/09/18 09:01 Last Admin: 02/07/18 09:08 Dose: 75 mg Gabapentin (Neurontin) 300 mg PO TID [facility] Stop: 08/07/18 15:01 Last Admin: 02/07/18 09:08 Dose: 300 mg Sodium Chloride (0.9 % Sodium Chloride) 1,000 mls @ 60 mls/hr IVC .[id number] [facility] Stop: 08/08/18 14:00 Last Admin: 02/06/18 14:00 Dose: 60 mls/hr Isosorbide Mononitrate (Imdur) 60 mg PO BID [facility] Stop: 08/07/18 21:01 Last Admin: 02/07/18 09:07 Dose: 60 mg Lidocaine HCl (Lidoderm 5% Patch) 1 each TP DAILY [facility] Stop: 08/08/18 22:46 Last Admin: 02/06/18 22:51 Dose: 1 each Naloxone HCl (Narcan) 0.4 mg IVP Q2MIN PRN PRN Reason: SEE COMMENTS Stop: 08/06/18 13:56 Nitroglycerin (Nitroglycerin) 0.4 mg SL Q5MIN PRN PRN Reason: Chest Pain Stop: 08/06/18 13:25 Omeprazole (Prilosec) 40 mg PO DAILY@0730 [facility] PRN Reason: Protocol Stop: 08/07/18 14:16 Last Admin: 02/07/18 07:48 Dose: 40 mg Ranolazine (Ranexa) 500 mg PO BID [facility] Stop: 08/06/18 21:01 Last Admin: 02/07/18 09:07 Dose: 500 mg Laboratory Tests 02/07/18 02/07/18 04:09 04:09 Hgb 10.3 L Creatinine 1.03 - Imaging and Cardiology Chest Xray: report reviewed Stress Test: report reviewed Echo: report reviewed Cardiac cath: report reviewed - EKG Interpretation EKG results cardiology: other (Telemetry reveiwed with average HR previous 12 hours noted to be 81, SR. PACs and PVCs ntoed.) - VTE Documentation of Mechanical Device: Intermittent pneumatic compression device Consult Discharge Plan - Plan Referrals: Candace Gomez CNP [Primary Care Provider] - (Office will call patient at home with follow up appointment) Stephie Patel [Partnered Physician] - (OFFICE WILL CALL PATIENT AT HOME WITH FOLLOW UP APPOINTMENT)
[2018-02-07] MEDS: *HR* HYDROcodone/Acet 5/325 mg TABLET PO PRN ×2 (12:24→18:16)
--- NOTE | 2018-02-07 13:45 | Event Note ---
Date of Encounter: 02/07/18 Time of Encounter: 13:42 - Cardiology Event Note Ultrasound with partially thrombosed right psuedoaneurysm. Discussed with with recommendations to consult vascular surgery. Paged and spoke with OR nurse for consult with . requests patient to be NPO now and for clinical research technician to call him with size of pseudoaneurysm. Spoke with steven Mancuso and asked her to call and speak with regarding size of pseuodoaneurysm.
--- NOTE | 2018-02-07 15:28 | Internal Med Progress Note ---
Date of Encounter: 02/07/18 Time of Encounter: 15:26 - Assessment and plan (1) Coronary artery disease Current Visit: Yes Status: Chronic Assessment and plan: Status post left heart catheterization and drug-eluting stent placement to proximal LAD. Patient also had 100% stenosis in the proximal RCA. Concern for pseudoaneurysm in the right groin. Arterial Doppler ordered. Cardiology will follow up with results. Qualifiers: Coronary Disease-Associated Artery/Lesion type: [place] artery [place] vs. transplanted heart: [place] heart Associated angina: with unspecified angina Qualified Code(s): I25.119 - Atherosclerotic heart disease of [place] coronary artery with unspecified angina pectoris (2) COPD (chronic obstructive pulmonary disease) Current Visit: Yes Status: Chronic Assessment and plan: Not in acute exacerbation. Continue albuterol inhaler as needed. Qualifiers: COPD type: unspecified COPD Qualified Code(s): J44.9 - Chronic obstructive pulmonary disease, unspecified (3) Chest pain Current Visit: Yes Status: Resolved Assessment and plan: Resolved now. Qualifiers: Chest pain type: unspecified Qualified Code(s): R07.9 - Chest pain, unspecified (4) A-fib Current Visit: Yes Status: Chronic Assessment and plan: Rate controlled. On the liquids for anticoagulation. Cardiology discussed about starting Coumadin instead as patient has bioprosthetic valve. She however wishes to remain on a liquid stool she discusses this further with her primary military pay technician Dr. Tracy. Qualifiers: Atrial fibrillation type: unspecified Qualified Code(s): I48.91 - Unspecified atrial fibrillation (5) Elevated troponin I level Current Visit: Yes Status: Acute Assessment and plan: Underwent drug-eluting stent placement to proximal LAD. (6) Tobacco abuse Current Visit: Yes Status: Chronic (7) Unstable angina Current Visit: Yes Status: Acute Assessment and plan: Completed treatment with subcutaneous heparin. [facility] yesterday with placement of drug-eluting stent (8) HLD (hyperlipidemia) Current Visit: Yes Status: Chronic Assessment and plan: Continue Lipitor Qualifiers: Hyperlipidemia type: pure hypercholesterolemia Qualified Code(s): E78.00 - Pure hypercholesterolemia, unspecified; E78.0 - Pure hypercholesterolemia (9) HTN (hypertension) Current Visit: Yes Status: Chronic Assessment and plan: Blood pressure is well controlled Qualifiers: Hypertension type: essential hypertension Qualified Code(s): I10 - Essential (primary) hypertension (10) Hx of syncope Current Visit: Yes Status: Chronic (11) Dark stools Current Visit: Yes Status: Acute Assessment and plan: FOBT negative (12) CKD (chronic kidney disease) stage 3, GFR 30-59 ml/min Current Visit: Yes Status: Chronic Assessment and plan: Creatinine normal. - Time Spent With Patient Total time spent is greater than 50% in coordination of care (as documented) at patient's floor/unit and/or counseling patient: - Subjective Interval history: Patient complaining of severe pain in right groin at site of femoral access for left heart catheterization. Denies any fever or chills. No nausea or vomiting. Underwent left heart catheterization yesterday and had a drug- eluting stent placed into proximal LAD. No chest pain at this time. - Constitutional Vitals: Temp Pulse Resp BP Pulse Ox 98.2 F 87 18 123/91 99 02/07/18 11:32 02/07/18 11:32 02/07/18 11:32 02/07/18 11:32 02/07/18 11:32 General appearance: Present: cooperative, A&O X 3, obese, answers questions appropriately Exam: Moderate distress - Neck Neck exam general surgery: Present: supple, trachea midline. Absent: lymphadenopathy - Respiratory Respiratory exam: Present: CTAB. Absent: accessory muscle use, rales, rhonchi, wheezes - Cardiovascular Cardiovascular exam: Present: RRR, +S1, +S2. Absent: diastolic murmur, gallop, rubs, systolic murmur - GI/Abdominal GI/Abdominal exam: Present: normal bowel sounds, soft, no peritoneal signs. Absent: distended, tenderness - Extremities Exam Extremities exam: Present: tenderness (Right groin), warm, radial pulses palpable and symmetrical. Absent: calf tenderness, cyanotic, pedal edema - Neurological Exam Neurological exam: Present: alert, oriented X3, no focal deficits. Absent: facial droop, speech deficit - Skin Skin exam: Present: dry, intact Internal Medicine: Result - Labs CBC & Chem 7: 02/07/18 04:09 02/07/18 04:09 Labs: Short CBC 02/06/18 02/07/18 Range/Units 22:33 04:09 WBC 9.2 9.7 (4.3-11.1) K/mcL Hgb 10.8 L 10.3 L (11.5-15.4) g/dL Hct 32.1 L 31.5 L (35.3-44.9) % Plt Count 235 224 (140-400) K/mcL Neutrophils # 6.0 7.2 (1.6-8.9) K/mcL BMP 02/07/18 04:09 Sodium 136 Potassium 4.2 Chloride 105 Carbon Dioxide 24 BUN 13 Creatinine 1.03 Glucose 115 H Calcium 8.8 Liver Function 02/07/18 Range/Units 04:09 Total Bilirubin 0.7 (0.3-1.0) mg/dL AST 15 (13-39) Units/L ALT 10 (7-52) Units/L Alkaline Phosphatase 74 (34-104) Units/L Albumin 3.6 (3.5-5.7) g/dL - ABG Interpretation ABG results: PT/INR, D-dimer PT 13.5 Seconds (9.4-12.1) H 02/06/18 12:59 - VTE Documentation of Mechanical Device: Intermittent pneumatic compression device Consult Discharge Plan - Plan Referrals: Candace Gomez CNP [Primary Care Provider] - (Office will call patient at home with follow up appointment) Stephie Patel [Partnered Physician] - (OFFICE WILL CALL PATIENT AT HOME WITH FOLLOW UP APPOINTMENT)
[2018-02-07] MEDS ORDERED: Isovue-370 500 ML INFUS..BTL IV ONE (16:21)
[2018-02-07] MEDS ORDERED: 0.9 % Sodium Chloride 1,000 ML IVC SCH (16:30)
[2018-02-07] MEDS ORDERED: Apixaban 5 MG TABLET PO SCH (21:00)
--- NOTE | 2018-02-07 23:11 | Vascular/Endovasc Consult Note ---
Date of Encounter: 02/07/18 Time of Encounter: 16:15 Assessment and Plan (1) Pseudoaneurysm of right femoral artery Current Visit: Yes Status: Acute Patient has a small approximate 1 x 1 cm right femoral pseudoaneurysm. I reviewed the duplex scan. The neck of the pseudoaneurysm is very small and the majority of the pseudoaneurysm has already thrombosed. The patient appears to have pain out of proportion to the pseudoaneurysm. The only potential explanation is if the pseudoaneurysm extends and compresses onto the femoral nerve. However she does not have radiating pain into the leg on my visit this afternoon. In addition despite being on double antiplatelet therapy and anticoagulation therapy she has already thrombosed over half of her right femoral pseudoaneurysm. The anatomy on duplex scan suggests a very small and irregular neck and this would be a very difficult pseudoaneurysm to inject with thrombin. Therefore I would recommend that we obtain a CT angiogram of the abdomen and pelvis because of the patient's persistent pain but lack of any significant physical findings. Also because of the patient's concomitant history and antiplatelet and anticoagulation therapy the resolution of the pseudoaneurysm remains an open question. However I would submit that as half of the pseudoaneurysm is already thrombosed I would embark upon a conservative course initially. If this is not successful or the patient has signs of expansion of the pseudoaneurysm or worsening symptoms that I would recommend an open surgical approach. Clearly the anticoagulation would need to be stopped and the antiplatelets however could continue as the LAD stent is recent. But due to the multiple ongoing issues I would argue for a conservative approach for her initially and await the findings of the CT angiogram to be sure that she does not have either a retroperitoneal hematoma or findings of other points of bleeding. (2) Carotid artery occlusion Current Visit: Yes Status: Chronic Patient has duplex ultrasound documented occlusion of the right carotid system. The left carotid system has a 6079% stenosis. This is an increase in the degree of stenosis as compared to a previous study late last year when the stenosis was estimated at 40-59%. Patient has no active symptoms from this issue and she is on antiplatelet and antilipid therapy. Qualifiers: Laterality: right Qualified Code(s): I65.21 - Occlusion and stenosis of right carotid artery (3) Coronary artery disease Current Visit: Yes Status: Acute Patient was found to have significant coronary artery disease and underwent successful drug-eluting stent placement of the LAD yesterday. This was performed via the right groin. Qualifiers: Coronary Disease-Associated Artery/Lesion type: [place] artery [place] vs. transplanted heart: [place] heart Associated angina: with unspecified angina Qualified Code(s): I25.119 - Atherosclerotic heart disease of [place] coronary artery with unspecified angina pectoris (4) Ischemic cardiomyopathy Current Visit: Yes Status: Chronic Patient has history of cardiomyopathy. (5) Claudication of both lower extremities Current Visit: No Status: Chronic Patient has history of significant lower extremity vascular disease. However at this point intervention is inappropriate and attention needs to be directed to her cardiovascular system. - History of Present Illness Consult date: 02/07/18 Consult reason: Right femoral pseudoaneurysm Chief complaint: Right femoral pain History of present illness: Ms. Rivera is a 47 year old female Bethany Rivera is a 47-year-old white female with a very complicated history of cardiovascular disease. She was recently admitted through the emergency room because of recurrent chest pain. The patient had elevated troponins and she was taken to the cardiac catheter lab yesterday and had a cardiac catheterization performed and placement of a drug-eluting stent into the LAD. The patient states that upon return to her room she had significant and persistent right groin pain. She states this pain has been consistent and is not getting worse but is not significantly improved as well. This is been ongoing ever since she completed the procedure. She denies any other associated pain at this time. The patient underwent a duplex scan earlier today which demonstrated a small right femoral pseudoaneurysm. I have reviewed these images personally as well as spoken with the technologist. This demonstrates a right femoral pseudoaneurysm that measures approximately 1 x 1.2 cm with liquid blood. There is a surrounding area that measures approximate 2 x 2.2 cm with a significant amount of thrombus and minimal flow. The flow on the duplex scan is relatively limited and the neck of the pseudoaneurysm is very small. The patient's hemodynamic status has remained stable and there is no significant issues with ongoing bleeding. Of note the patient has a history of previous coronary artery disease. She is status post open heart bypass grafting and a mitral valve replacement in 2010 at [facility] in [facility]. The patient is unsure as to why she needed her mitral valve replaced. She denies a history of rheumatic fever. Apparently the patient has a tissue valve replacement. The patient also has a history of cardiomyopathy and atrial fibrillation. She is status post a pacemaker placement as well. Due to her recent coronary intervention she is now on double antiplatelet therapy with aspirin and Plavix. Due to her chronic atrial fibrillation issue she is on Apixiban 5 mg twice a day. Also important to note that the patient has both PAD and severe carotid disease. Her right carotid artery system is occluded by duplex scan performed 2 days ago. Past Med Surg Social Fam HX - Past Medical History Medical history: asthma, atrial fibrillation, cardiomyopathy, COPD, coronary artery disease, hyperlipidemia, hypertension, syncope Psychiatric history: anxiety - Past Surgical History Surgical History: appendectomy, coronary bypass (CABG) (2010), heart valve replacement (Tissue mitral valve 2010), pacemaker - Social History Smoking Status: Current every day smoker Packs per day: 1/2 PPD - Reports quitting 1 month ago Smokeless Tobacco Status: No Alcohol use: none Drug use: marijuana - Family History Mother Race: Family Member Ethnicity: Non- Living Status: Still Living Hx Family Cardiac Disorders: Yes (Open heart surgery, multiple MIs w/stents, HTN , HLD) Hx Family Respiratory Disorders: Yes Hx Family Cancer: No Hx Family GI Disorders: Yes Hx Family Endocrine Disorder: Yes (DM) Hx Family Neuromuscular Disorders: No Hx Family Neurologic Disorders: No Hx Family HEENT Disorders: No Hx Family Autoimmune Disorders: No Father History Unknown: Yes Race: Family Member Ethnicity: Non- Medications and Allergies Furosemide [Lasix] 20 mg PO DAILY 09/20/16 [History] Lisinopril [Zestril] 20 mg PO DAILY 09/20/16 [History] Nitroglycerin [Nitrostat] 0.4 mg SL Q5M PRN 09/20/16 [History] Albuterol Sulfate [Albuterol Inhaler] 2 puff IH Q4-6H PRN 01/11/17 [History] Apixaban [Eliquis] 5 mg PO BID 01/11/17 [History] Cilostazol [Pletal] 100 mg PO BID 10/04/17 [History] Isosorbide MONOnitrate (24 HR) [Imdur] 60 mg PO DAILY 10/04/17 [History] Carvedilol [Coreg] 6.25 mg PO BID 01/26/18 [History] Gabapentin [Neurontin] 300 mg PO TID 01/26/18 [History] Ranolazine [Ranexa] 500 mg PO BID #60 tab.er.[id number] 01/30/18 [Rx] Atorvastatin Calcium [Lipitor] 20 mg PO HS 02/04/18 [History] 3 Allergy/AdvReac Type Severity Reaction Status Date / Time No Known Allergies Allergy Verified 02/04/18 13:16 All Systems Review: The remainder of the systems were reviewed and are negative Exam Vital Signs, Last 4 Hours Temp Pulse Resp BP Pulse Ox 02/07/18 21:52 76 123/80 02/07/18 20:35 82 02/07/18 20:10 98.0 F 80 20 97/68 98 General: Present: Conversant, Well developed, Well nourished, Other (Obese) HEENT: Present: Atraumatic, Normocephaly, Trachea midline Neck: Absent: JVD Cardiac: Present: Reg Rate and Rhythm Neuro: Present: Alert and responsive, No focal deficits noted, Cranial nerves grossly intact Abdomen: Present: Soft, Non-tender. Absent: Masses Vascular: Present: Normal capillary refill, Pulse, normal, Color/Temperature ( Normal color and temperature of lower extremities at the level of the feet and toes.), Other (Patient has approximate 2.5 x 2 cm indurated area in the right groin corresponding to the puncture site from the recent cardiac catheterization. This area is not pulsatile and there is no palpable thrill or bruit over this region. It is tender to touch. It is not hot. There is no drainage or erythema. There are no signs of skin blebs, crepitus, or superficial edema of the skin or surrounding tissue.). Absent: Clubbing, Cyanosis, Edema Skin: Present: No rashes noted on visualized skin Consult Discharge Plan - Plan Referrals: Candace Gomez CNP [Primary Care Provider] - (Office will call patient at home with follow up appointment) Stephie Patel [Partnered Physician] - (OFFICE WILL CALL PATIENT AT HOME WITH FOLLOW UP APPOINTMENT)
[2018-02-08] MEDS: *HR* HYDROcodone/Acet 5/325 mg TABLET PO PRN ×4 (04:03→23:23)
[2018-02-08 04:34] LABS: Basophils # 0.1 K/mcL (0.0-0.2); Basophils % 0.7 %; Eosinophils # 0.3 K/mcL (0.0-0.6); Eosinophils % 3.6 %; Hematocrit 29.5 % (35.3-44.9); Hemoglobin 9.7 g/dL (11.5-15.4); Immature Granulocytes % 0.1 % (0-4); Lymphocytes # 2.1 K/mcL (0.6-4.6); Lymphocytes % 27.8 %; Mean Corpuscular HGB Conc 32.9 g/dL (31.6-35.5); Mean Corpuscular Hemoglobin 32.8 pg (28.0-33.3); Mean Corpuscular Volume 99.7 fL (83.0-100.0); Mean Platelet Volume 10.4 fL (9.4-12.4); Monocytes # 0.8 K/mcL (0.0-1.3); Neutrophils # 4.3 K/mcL (1.6-8.9); Platelet Count 221 K/mcL (140-400); Red Blood Count 2.96 M/mcL (3.82-4.97); Red Cell Distribution Width 14.2 % (11.5-14.5); Segmented Neutrophils % 57.8 %
[2018-02-08 04:56] LABS: Alanine Aminotransferase 15 Units/L (7-52); Albumin 3.3 g/dL (3.5-5.7); Albumin/Globulin Ratio 1.2 (1.1-2.2); Alkaline Phosphatase 68 Units/L (34-104); Aspartate Amino Transferase 21 Units/L (13-39); BUN/Creatinine Ratio 14 (6-26); Bilirubin,Total 0.5 mg/dL (0.3-1.0); Blood Urea Nitrogen 15 mg/dL (6-20); Calcium 8.6 mg/dL (8.6-10.3); Carbon Dioxide 24 mEq/L (23-29); Chloride 109 mEq/L (98-107); Globulin 2.7 g/dL (2.4-3.5); Glucose 97 mg/dL (70-105); Osmolality,Calculated 289 (280-300); Potassium 4.2 mEq/L (3.5-5.1); Sodium 139 mEq/L (136-145); eGFR For African Americans > 60 (> 60); eGFR For Non-African Americans 53 (> 60)
[2018-02-08] MEDS: Aspirin Enteric Coated 81 MG Tablet PO SCH (08:07)
[2018-02-08] MEDS: Isosorbide MONOnitrate (24 HR) 60 MG TAB.ER.24H PO SCH ×2 (08:07→20:53)
[2018-02-08] MEDS: Gabapentin 300 MG CAPSULE PO SCH ×3 (08:07→20:53)
[2018-02-08] MEDS: Ranolazine 500 MG TAB.ER.12H PO SCH ×2 (08:07→20:53)
--- NOTE | 2018-02-08 10:54 | Vascular/Endovas Progress Note ---
Date of Encounter: 02/08/18 Time of Encounter: 08:15 - Assessment and plan (1) Pseudoaneurysm of right femoral artery Current Visit: Yes Status: Acute Patient is stable overnight. Patient has decreased symptoms though it is routing equipment tender. My initial recommendation for conservative approach in this patient remains the same. I would recommend that the patient have a follow-up duplex scan in approximately 1 week. Patient may be up out of bed. Patient may be discharged per medical service. (2) Carotid artery occlusion Current Visit: Yes Status: Chronic Patient has duplex ultrasound documented occlusion of the right carotid system. The left carotid system has a 6079% stenosis. This is an increase in the degree of stenosis as compared to a previous study late last year when the stenosis was estimated at 40-59%. Patient has no active symptoms from this issue and she is on antiplatelet and antilipid therapy. Qualifiers: Laterality: right Qualified Code(s): I65.21 - Occlusion and stenosis of right carotid artery (3) Coronary artery disease Current Visit: Yes Status: Acute Patient was found to have significant coronary artery disease and underwent successful drug-eluting stent placement of the LAD yesterday. This was performed via the right groin. Qualifiers: Coronary Disease-Associated Artery/Lesion type: [place] artery [place] vs. transplanted heart: [place] heart Associated angina: with unspecified angina Qualified Code(s): I25.119 - Atherosclerotic heart disease of [place] coronary artery with unspecified angina pectoris (4) Ischemic cardiomyopathy Current Visit: Yes Status: Chronic Patient has history of cardiomyopathy. (5) Claudication of both lower extremities Current Visit: No Status: Chronic Patient has history of significant lower extremity vascular disease. However at this point intervention is inappropriate and attention needs to be directed to her cardiovascular system. - Subjective Interval history: Patient is sitting up in bed eating breakfast. She is in no obvious distress. Patient states that the pain is less today than yesterday. She did note that with movement she has some radiation of the pain down into the proximal anterior thigh. Patient denies any difficulty sleeping because of the right groin pain. Vital Signs, Last 4 Hours Temp Pulse Resp BP Pulse Ox 02/08/18 07:47 97.9 F 76 16 142/72 99 - Physical Examination General: Present: Conversant, No Apparent Distress Neuro: Present: Alert and responsive, No focal deficits noted Vascular: Present: Other (The right groin examination is unchanged from yesterday. She still has the isolated indurated area in the mid groin region. There is no thrill or bruit over this area. There is no drainage. There are no signs of infection. The area remains mildly tender to touch. There is no edema of the right lower extremity. There are no signs of underlying hematoma or spreading of the ecchymosis.) - VTE Documentation of Mechanical Device: Intermittent pneumatic compression device Results 02/08/18 04:11 02/08/18 04:11 Lab Results, Last 24 hours 02/08/18 02/08/18 04:11 04:11 WBC 7.5 Hgb 9.7 L Hct 29.5 L Plt Count 221 Sodium 139 Potassium 4.2 Chloride 109 H Carbon Dioxide 24 BUN 15 Creatinine 1.10 Glucose 97 Calcium 8.6 Total Bilirubin 0.5 AST 21 ALT 15 Alkaline Phosphatase 68 - Imaging / Other Tests CT/CTA: report reviewed, image reviewed (I reviewed the images. Patient has a right femoral pseudoaneurysm measuring approximately 1 cm x 1 cm with liquid blood. There is a larger area of thrombosed pseudoaneurysm and hematoma measuring approximately 3 x 3 cm.) Consult Discharge Plan - Plan Referrals: Candace Gomez CNP [Primary Care Provider] - 02/16/18 10:15 am (Please show up at 10:00 AM to sign in. Thanks) Stephie Patel [Partnered Physician] - (OFFICE WILL CALL PATIENT AT HOME WITH FOLLOW UP APPOINTMENT)
--- NOTE | 2018-02-08 11:27 | Cardiology Progress Note ---
Date of Encounter: 02/08/18 Time of Encounter: 09:00 Assessment and Plan (1) Chest pain Current Visit: Yes Status: Resolved Per cardiology: -S/p [facility] yesterday with BRUNO placed to LAD. -Denies current chest pain. -TTE iwth LVEF preserved, no segmental wall motion abnormalities. -On asa, plavix, statin, beta blokcer. Educated on dual anti-platelet therapy uninterrupted for at least one year, unless otherwise directed by cardiology. Pateint states understanding. -Reports right groin pain. No hematoma, mild ecchymosis. Hgb and BP stable. -Psuedoaneurysm noted to right groin access site, appreciate vascular surgeries recommendations -Cardiology will sign off and will follow in outpatient setting. Follow up set. -Of note, pateitn will be on triple therapy. Educated to monitor for any signs of bleeding closely. Qualifiers: Chest pain type: unspecified Qualified Code(s): R07.9 - Chest pain, unspecified (2) Elevated troponin I level Current Visit: Yes Status: Acute Per cardiology: -S/p [facility] 02/06 with BRUNO placed to LAD. -Deneis current chest pain. (3) Coronary artery disease Current Visit: Yes Status: Acute Per cardiology: -Known CAD with CABG x1. -ON asa, statin, beta landon, ranexa, imdur, plavix. Qualifiers: Coronary Disease-Associated Artery/Lesion type: [place] artery [place] vs. transplanted heart: [place] heart Associated angina: with unspecified angina Qualified Code(s): I25.119 - Atherosclerotic heart disease of [place] coronary artery with unspecified angina pectoris (4) History of mitral valve replacement with bioprosthetic valve Current Visit: No Status: Acute Per cardiology: -Known bioprosthetic valve. -01/25 TTE with normal function valve. (5) Paroxysmal atrial fibrillation Current Visit: No Status: Chronic Per cardiology: -Known history of PAF. -ON beta landon, HR conrolled. -On eliquis for anticoagulation. -With valvular a.fib, recommend coumadin for anticoagulation. Patient wishes to discuss anticoagulation with prior to starting coumadin, wishes to resume eliquis. Discussion w patient/family: The assessment and plan as outlined above was discussed with the patient who expressed understanding and agreement. All questions were answered. Thank you for involving us in the care of your patient. Please call with any questions. Discussed and reviewed with . Subjective Principal diagnosis: chest pain Interval history: Patient denies chest pain, reports right lower extremity pain. Objective Vital Signs, Last 4 Hours Temp Pulse Resp BP Pulse Ox 02/08/18 11:09 98.3 F 76 19 101/70 99 02/08/18 07:47 97.9 F 76 16 142/72 99 General: Conversant, No Apparent Distress HEENT: Atraumatic, Normocephaly, Mucus Membranes Moist Neck: No JVD, Normal carotid pulses Cardiac: Reg Rate and Rhythm, Normal S1 and S2, No Murmur Lungs: Normal Breath Sounds, No Wheeze, Rales, Rhonchi Neuro: Alert and responsive, No focal deficits noted Abdomen: Soft, Non-Tender Skin: No rashes noted on visualized skin, Other (Right groin access site with mild ecchymosis, psuedoaneurysm. ) Musculoskeletal: No Chest Wall Tenderness Extremities: No Clubbing, No Cyanosis, No Edema, Normal Pulses Results 02/08/18 04:11 02/08/18 04:11 Lab Results Impressions Abdomen/Pelvis CTA 02/07/18 16:21 IMPRESSION: 1. Right groin pseudoaneurysm and hemorrhage into an adjacent muscle. This is likely post catheterization. 2. Cholelithiasis but no evidence of acute cholecystitis. 3. Atherosclerotic disease of the aorta and iliac circulation, which is moderate in severity in the region of the iliacs. Bilateral external iliac stents appear to be patent. No evidence of hemorrhage inside the abdomen or pelvic cavity. Findings discussed with Dr. Car on 02/07/2018 at 6 p.m. D/ / 02/07/2018 17:59:53 Tona Peres MD / earcalista Interpreting Provider: Tona Peres MD Active Medications Acetaminophen (Tylenol) 650 mg PO Q6HR PRN PRN Reason: Mild Pain/Fever Stop: 08/06/18 13:56 Last Admin: 02/06/18 10:59 Dose: 650 mg Hydrocodone Bitart/Acetaminophen ([place] 5-325 Mg) 1 tab PO Q6HR PRN PRN Reason: Pain Stop: 08/09/18 11:45 Last Admin: 02/08/18 10:30 Dose: 1 tab Albuterol Sulfate (Albuterol Inhaler) 2 puff IH Q4H PRN PRN Reason: Shortness Of Breath Stop: 08/06/18 14:01 Apixaban (Eliquis) 5 mg PO BID [facility] Stop: 08/10/18 11:31 Aspirin (Aspirin Ec) 81 mg PO DAILY [facility] Stop: 08/07/18 14:16 Last Admin: 02/08/18 08:07 Dose: 81 mg Atorvastatin Calcium (Lipitor) 20 mg PO HS [facility] Stop: 08/07/18 21:01 Last Admin: 02/07/18 21:54 Dose: 20 mg Carvedilol (Coreg) 6.25 mg PO BIDWM YARIEL PRN Reason: Protocol Stop: 08/07/18 14:16 Last Admin: 02/08/18 08:07 Dose: 6.25 mg Clopidogrel Bisulfate (Plavix) 75 mg PO DAILY [facility] Stop: 08/09/18 09:01 Last Admin: 02/08/18 08:07 Dose: 75 mg Gabapentin (Neurontin) 300 mg PO TID [facility] Stop: 08/07/18 15:01 Last Admin: 02/08/18 08:07 Dose: 300 mg Heparin Sodium (Porcine) (Heparin Lock) 500 unit IV ONCE PRN PRN Reason: [place] while in RADIOLOGY Stop: 02/09/18 16:22 Isosorbide Mononitrate (Imdur) 60 mg PO BID [facility] Stop: 08/07/18 21:01 Last Admin: 02/08/18 08:07 Dose: 60 mg Naloxone HCl (Narcan) 0.4 mg IVP Q2MIN PRN PRN Reason: SEE COMMENTS Stop: 08/06/18 13:56 Nitroglycerin (Nitroglycerin) 0.4 mg SL Q5MIN PRN PRN Reason: Chest Pain Stop: 08/06/18 13:25 Omeprazole (Prilosec) 40 mg PO DAILY@0730 YARIEL PRN Reason: Protocol Stop: 08/07/18 14:16 Last Admin: 02/08/18 08:07 Dose: 40 mg Ranolazine (Ranexa) 500 mg PO BID [facility] Stop: 08/06/18 21:01 Last Admin: 02/08/18 08:07 Dose: 500 mg Laboratory Tests 02/08/18 02/08/18 04:11 04:11 Hgb 9.7 L Creatinine 1.10 - Imaging and Cardiology Chest Xray: report reviewed Stress Test: report reviewed Echo: report reviewed Cardiac cath: report reviewed - EKG Interpretation EKG results cardiology: other (Telemetry reviewed with average HR previous 12 hours noted to be 81, SR. PVCs and PACS noted. One brief episode of PAF noted.) - VTE Documentation of Mechanical Device: Intermittent pneumatic compression device Consult Discharge Plan - Plan Referrals: Candace Gomez CNP [Primary Care Provider] - 02/16/18 10:15 am (Please show up at 10:00 AM to sign in. Thanks) Stephie Patel [Partnered Physician] - (OFFICE WILL CALL PATIENT AT HOME WITH FOLLOW UP APPOINTMENT)
[2018-02-08] MEDS: Apixaban 5 MG TABLET PO SCH ×2 (11:37→20:53)
--- NOTE | 2018-02-08 15:35 | Internal Med Progress Note ---
Date of Encounter: 02/08/18 Time of Encounter: 11:20 - Assessment and plan (1) Pseudoaneurysm of right femoral artery Current Visit: Yes Status: Acute Assessment and plan: Partially thrombosed right femoral artery pseudoaneurysm. Diagnosed with right lower extremity aarterial Doppler. Confirmed on CT. No retroperitoneal hematoma but patient does have perianeurysmal hematoma in right groin. Vascular surgery recommends conservative management as patient is on dual antiplatelet therapy and Eliquis. Pain controlled with oral [place]. Will monitor overnight. If patient is stable, plan for discharge tomorrow. Patient will need outpatient follow-up with vascular surgery for further management. (2) Coronary artery disease Current Visit: Yes Status: Acute Assessment and plan: Status post drug-eluting stent to proximal LAD. On dual antiplatelet therapy. Follow up with cardiology after discharge. Qualifiers: Coronary Disease-Associated Artery/Lesion type: [place] artery [place] vs. transplanted heart: [place] heart Associated angina: with unspecified angina Qualified Code(s): I25.119 - Atherosclerotic heart disease of [place] coronary artery with unspecified angina pectoris (3) COPD (chronic obstructive pulmonary disease) Current Visit: Yes Status: Chronic Assessment and plan: Not in acute exacerbation. Continue bronchodilators as needed Qualifiers: COPD type: unspecified COPD Qualified Code(s): J44.9 - Chronic obstructive pulmonary disease, unspecified (4) Chest pain Current Visit: Yes Status: Resolved Qualifiers: Chest pain type: unspecified Qualified Code(s): R07.9 - Chest pain, unspecified (5) A-fib Current Visit: Yes Status: Chronic Assessment and plan: Rate controlled. On anticoagulation with Eliquis. Qualifiers: Atrial fibrillation type: unspecified Qualified Code(s): I48.91 - Unspecified atrial fibrillation (6) Elevated troponin I level Current Visit: Yes Status: Acute Assessment and plan: Improved. S/p BRUNO placement to proxmial LAD (7) Tobacco abuse Current Visit: Yes Status: Chronic (8) Unstable angina Current Visit: Yes Status: Acute Assessment and plan: s/p [facility] with drug-eluting stent placed in the proximal LAD. (9) HLD (hyperlipidemia) Current Visit: Yes Status: Chronic Assessment and plan: Continue Lipitor Qualifiers: Hyperlipidemia type: pure hypercholesterolemia Qualified Code(s): E78.00 - Pure hypercholesterolemia, unspecified; E78.0 - Pure hypercholesterolemia (10) HTN (hypertension) Current Visit: Yes Status: Chronic Assessment and plan: Blood pressure is well controlled Qualifiers: Hypertension type: essential hypertension Qualified Code(s): I10 - Essential (primary) hypertension (11) Hx of syncope Current Visit: Yes Status: Chronic (12) Dark stools Current Visit: Yes Status: Acute Assessment and plan: FOBT negative (13) CKD (chronic kidney disease) stage 3, GFR 30-59 ml/min Current Visit: Yes Status: Chronic Assessment and plan: Stable renal function - Time Spent With Patient Total time spent is greater than 50% in coordination of care (as documented) at patient's floor/unit and/or counseling patient: - Subjective Interval history: Patient continues to have right groin pain although it seems to be slightly improved. Being controlled with oral [place]. No dizziness or lightheadedness. No fever or chills. No palpitations. - Constitutional Vitals: Temp Pulse Resp BP Pulse Ox 98.3 F 76 19 101/70 99 02/08/18 11:02/08/18 11:02/08/18 11:09 02/08/18 11:02/08/18 11:09 General appearance: Present: cooperative, A&O X 3, obese, answers questions appropriately - Neck Neck exam general surgery: Present: supple, trachea midline. Absent: lymphadenopathy - Respiratory Respiratory exam: Present: CTAB. Absent: accessory muscle use, rales, rhonchi, wheezes - Cardiovascular Cardiovascular exam: Present: RRR, +S1, +S2, systolic murmur. Absent: diastolic murmur, gallop, rubs - GI/Abdominal GI/Abdominal exam: Present: normal bowel sounds, soft, no peritoneal signs. Absent: distended, tenderness - Extremities Exam Extremities exam: Present: warm, radial pulses palpable and symmetrical. Absent : calf tenderness, cyanotic, pedal edema Additional comments: Tenderness and pain in right groin region. - Neurological Exam Neurological exam: Present: CN II-XII intact, oriented X3, no focal deficits, strengths equal and symetr throughout. Absent: facial droop, speech deficit Internal Medicine: Result - Labs CBC & Chem 7: 02/08/18 04:11 02/08/18 04:11 Labs: Short CBC 02/08/18 Range/Units 04:11 WBC 7.5 (4.3-11.1) K/mcL Hgb 9.7 L (11.5-15.4) g/dL Hct 29.5 L (35.3-44.9) % Plt Count 221 (140-400) K/mcL Neutrophils # 4.3 (1.6-8.9) K/mcL BMP 02/08/18 04:11 Sodium 139 Potassium 4.2 Chloride 109 H Carbon Dioxide 24 BUN 15 Creatinine 1.10 Glucose 97 Calcium 8.6 Liver Function 02/08/18 Range/Units 04:11 Total Bilirubin 0.5 (0.3-1.0) mg/dL AST 21 (13-39) Units/L ALT 15 (7-52) Units/L Alkaline Phosphatase 68 (34-104) Units/L Albumin 3.3 L (3.5-5.7) g/dL - ABG Interpretation ABG results: PT/INR, D-dimer PT 13.5 Seconds (9.4-12.1) H 02/06/18 12:59 - Impressions Impressions Abdomen/Pelvis CTA 02/07/18 16:21 IMPRESSION: 1. Right groin pseudoaneurysm and hemorrhage into an adjacent muscle. This is likely post catheterization. 2. Cholelithiasis but no evidence of acute cholecystitis. 3. Atherosclerotic disease of the aorta and iliac circulation, which is moderate in severity in the region of the iliacs. Bilateral external iliac stents appear to be patent. No evidence of hemorrhage inside the abdomen or pelvic cavity. Findings discussed with Dr. Car on 02/07/2018 at 6 p.m. D/ / 02/07/2018 17:59:53 Tona Peres MD / leena Interpreting Provider: Tona Peres MD - VTE Documentation of Mechanical Device: Intermittent pneumatic compression device Consult Discharge Plan - Plan Referrals: Candace Gomez, [employer] [Primary Care Provider] - 02/16/18 10:15 am (Please show up at 10:00 AM to sign in. Thanks) Stephie Patel [Partnered Physician] - (OFFICE WILL CALL PATIENT AT HOME WITH FOLLOW UP APPOINTMENT)
[2018-02-09 05:42] LABS: Basophils # 0.1 K/mcL (0.0-0.2); Basophils % 0.6 %; Eosinophils # 0.3 K/mcL (0.0-0.6); Eosinophils % 3.6 %; Hematocrit 29.7 % (35.3-44.9); Hemoglobin 9.4 g/dL (11.5-15.4); Immature Granulocytes % 0.1 % (0-4); Lymphocytes # 2.2 K/mcL (0.6-4.6); Lymphocytes % 28.3 %; Mean Corpuscular HGB Conc 31.6 g/dL (31.6-35.5); Mean Corpuscular Hemoglobin 31.5 pg (28.0-33.3); Mean Corpuscular Volume 99.7 fL (83.0-100.0); Mean Platelet Volume 10.8 fL (9.4-12.4); Monocytes # 0.7 K/mcL (0.0-1.3); Monocytes % 9.4 %; Neutrophils # 4.5 K/mcL (1.6-8.9); Platelet Count 219 K/mcL (140-400); Red Blood Count 2.98 M/mcL (3.82-4.97); Red Cell Distribution Width 14.2 % (11.5-14.5)
[2018-02-09] MEDS: *HR* HYDROcodone/Acet 5/325 mg TABLET PO PRN ×2 (05:54→12:35)
[2018-02-09 05:58] LABS: Alanine Aminotransferase 23 Units/L (7-52); Albumin 3.3 g/dL (3.5-5.7); Albumin/Globulin Ratio 1.2 (1.1-2.2); Alkaline Phosphatase 72 Units/L (34-104); Aspartate Amino Transferase 30 Units/L (13-39); BUN/Creatinine Ratio 14 (6-26); Bilirubin,Total 0.4 mg/dL (0.3-1.0); Blood Urea Nitrogen 14 mg/dL (6-20); Calcium 8.7 mg/dL (8.6-10.3); Carbon Dioxide 24 mEq/L (23-29); Chloride 107 mEq/L (98-107); Globulin 2.7 g/dL (2.4-3.5); Glucose 105 mg/dL (70-105); Osmolality,Calculated 287 (280-300); Potassium 4.1 mEq/L (3.5-5.1); Sodium 138 mEq/L (136-145); eGFR For African Americans > 60 (> 60); eGFR For Non-African Americans 58 (> 60)
--- NOTE | 2018-02-09 08:36 | Vascular/[facility] Progress Note ---
Date of Encounter: 02/09/18 Time of Encounter: 08:34 - Assessment and plan (1) Pseudoaneurysm of right femoral artery Current Visit: Yes Status: Acute Patient is stable overnight. Patient has decreased symptoms though right groin is tender. Conservative approach in this patient remains the same. I would recommend that the patient have a follow-up duplex scan in approximately 1 week. Patient may be up out of bed and ambulate. Patient may be discharged per medical service. (2) Carotid artery occlusion Current Visit: Yes Status: Chronic Patient has duplex ultrasound documented occlusion of the right carotid system. The left carotid system has a 6079% stenosis. This is an increase in the degree of stenosis as compared to a previous study late last year when the stenosis was estimated at 40-59%. Patient has no active symptoms from this issue and she is on antiplatelet and antilipid therapy. Qualifiers: Laterality: right Qualified Code(s): I65.21 - Occlusion and stenosis of right carotid artery (3) Coronary artery disease Current Visit: Yes Status: Acute Patient was found to have significant coronary artery disease and underwent successful drug-eluting stent placement of the LAD yesterday. This was performed via the right groin. Qualifiers: Coronary Disease-Associated Artery/Lesion type: [place] artery [place] vs. transplanted heart: [place] heart Associated angina: with unspecified angina Qualified Code(s): I25.119 - Atherosclerotic heart disease of [place] coronary artery with unspecified angina pectoris (4) Ischemic cardiomyopathy Current Visit: Yes Status: Chronic Patient has history of cardiomyopathy. (5) Claudication of both lower extremities Current Visit: No Status: Chronic Patient has history of significant lower extremity vascular disease. However at this point intervention is inappropriate and attention needs to be directed to her cardiovascular system. - Subjective Interval history: Pt complains of overall "not feeling good" but no specific localization outside of right leg pain. Slept thru the night. Feels about the same as yesterday. Using heating pad on right groin. Vital Signs, Last 4 Hours Temp Pulse Resp BP Pulse Ox 02/09/18 07:45 98.1 F 78 20 92/47 97 02/09/18 04:35 78 - Physical Examination General: Present: Conversant, Well developed, Well nourished HEENT: Present: Atraumatic Neck: Absent: JVD Cardiac: Present: Reg Rate and Rhythm Neuro: Present: No focal deficits noted Vascular: Present: Normal capillary refill, Pulse, normal, Color/Temperature ( normal right foot findings), Other (right groin softer than yesterday. No signs of infection.) Abdomen: Present: Soft. Absent: Masses Skin: Present: No rashes noted on visualized skin - VTE Documentation of Mechanical Device: Intermittent pneumatic compression device Results 02/09/18 04:56 02/09/18 04:56 Lab Results, Last 24 hours 02/09/18 02/09/18 04:56 04:56 WBC 7.7 Hgb 9.4 L Hct 29.7 L Plt Count 219 Sodium 138 Potassium 4.1 Chloride 107 Carbon Dioxide 24 BUN 14 Creatinine 1.01 Glucose 105 Calcium 8.7 Total Bilirubin 0.4 AST 30 ALT 23 Alkaline Phosphatase 72 Consult Discharge Plan - Plan Referrals: Candace Gomez CNP [Primary Care Provider] - 02/16/18 10:15 am (Please show up at 10:00 AM to sign in. Thanks) Stephie Patel [Partnered Physician] - (OFFICE WILL CALL PATIENT AT HOME WITH FOLLOW UP APPOINTMENT)
[2018-02-09] MEDS: Aspirin Enteric Coated 81 MG Tablet PO SCH (10:20)
[2018-02-09] MEDS: Gabapentin 300 MG CAPSULE PO SCH (10:20)
[2018-02-09] MEDS: Apixaban 5 MG TABLET PO SCH (10:20)
[2018-02-09] MEDS: Ranolazine 500 MG TAB.ER.12H PO SCH (10:20)
[2018-02-09] MEDS: Isosorbide MONOnitrate (24 HR) 60 MG TAB.ER.24H PO SCH (10:20)
[2018-02-09 11:35] VITALS: BP 132/71
--- NOTE | 2018-02-09 13:15 | Discharge Summary ---
- NOTES TO OUTPATIENT PROVIDER Notes to Outpatient Provider: Patient admitted with chest pain. Mild elevation in troponin initially. Then underwent left heart catheterization and had drug- eluting stent placed to proximal LAD. Developed a right femoral pseudoaneurysm post procedure. Patient is on dual antiplatelet therapy and Eliquis due to presence of bioprosthetic valve and A. fib. As such vascular surgery recommended monitoring patient with repeat arterial Doppler in 1 week and outpatient follow-up with vascular surgery. Patient has been stable since then. She has had significant pain in right groin that has slowly improved. She is now tolerating pain with oral pain medications. She will be discharged today on short course of oral pain medications and will follow up with vascular surgery. Date of Encounter: 02/09/18 Time of Encounter: 13:13 - Discharge Diagnosis (1) Unstable angina Priority: Primary Status: Acute (2) Chest pain Priority: Secondary Status: Resolved Qualifiers: Chest pain type: unspecified Qualified Code(s): R07.9 - Chest pain, unspecified (3) Pseudoaneurysm of right femoral artery Priority: Secondary Status: Acute (4) Coronary artery disease Priority: Secondary Status: Acute Qualifiers: Coronary Disease-Associated Artery/Lesion type: [place] artery [place] vs. transplanted heart: [place] heart Associated angina: with unspecified angina Qualified Code(s): I25.119 - Atherosclerotic heart disease of [place] coronary artery with unspecified angina pectoris (5) COPD (chronic obstructive pulmonary disease) Priority: Secondary Status: Chronic Qualifiers: COPD type: unspecified COPD Qualified Code(s): J44.9 - Chronic obstructive pulmonary disease, unspecified (6) A-fib Priority: Secondary Status: Chronic Qualifiers: Atrial fibrillation type: unspecified Qualified Code(s): I48.91 - Unspecified atrial fibrillation (7) Elevated troponin I level Priority: Secondary Status: Acute (8) Tobacco abuse Priority: Secondary Status: Chronic (9) HLD (hyperlipidemia) Priority: Secondary Status: Chronic Qualifiers: Hyperlipidemia type: pure hypercholesterolemia Qualified Code(s): E78.00 - Pure hypercholesterolemia, unspecified; E78.0 - Pure hypercholesterolemia (10) HTN (hypertension) Priority: Secondary Status: Chronic Qualifiers: Hypertension type: essential hypertension Qualified Code(s): I10 - Essential (primary) hypertension (11) Hx of syncope Priority: Secondary Status: Chronic (12) Dark stools Priority: Secondary Status: Acute Assessment and Plan: Stool for occult blood negative (13) CKD (chronic kidney disease) stage 3, GFR 30-59 ml/min Priority: Secondary Status: Chronic Hospital course: Ms. Rivera is a 47 year old female patient with history of asthma, atrial fibrillation, cardiomyopathy, COPD, coronary artery disease, hyperlipidemia, hypertension was hospitalized here with chest pain. She had a mild elevation in troponin initially with a peak of 0.28. She was started on IV heparin and cardiology was consulted. She then underwent left heart catheterization and had drug-eluting stent placed to proximal LAD. She then developed a right femoral pseudoaneurysm post procedure which was partially thrombosed. Vascular surgery was consulted. Patient is on dual antiplatelet therapy and Eliquis due to presence of bioprosthetic valve and A. fib. As such vascular surgery recommended conservative management with monitoring patient with repeat arterial Doppler in 1 week and outpatient follow-up with vascular surgery. Patient has had severe pain in her right groin which has slowly improved. She is now tolerating pain with oral pain medications. She will be discharged today on short course of oral pain medications and will follow up with vascular surgery. Discharge discussed with: patient, nurse - Time Spent with Patient Total time spent providing and/or coordinating discharge services: Greater than 30 minutes (35 min) - Discharge Medications Prescriptions: HYDROcodone/Acet 5/325 mg [[place] 5-325 mg] 1 tab PO Q6HR PRN 5 Days #14 tablet PRN Reason: Pain Aspirin Enteric Coated [Aspirin EC] 81 mg PO DAILY #30 tablet. Clopidogrel [Plavix] 75 mg PO DAILY #30 tablet Lisinopril [Zestril] 5 mg PO DAILY #30 tablet Home Medications: Furosemide [Lasix] 20 mg PO DAILY 09/20/16 [History] Nitroglycerin [Nitrostat] 0.4 mg SL Q5M PRN 09/20/16 [History] Albuterol Sulfate [Albuterol Inhaler] 2 puff IH Q4-6H PRN 01/11/17 [History] Apixaban [Eliquis] 5 mg PO BID 01/11/17 [History] Isosorbide MONOnitrate (24 HR) [Imdur] 60 mg PO DAILY 10/04/17 [History] Carvedilol [Coreg] 6.25 mg PO BID 01/26/18 [History] Gabapentin [Neurontin] 300 mg PO TID 01/26/18 [History] Ranolazine [Ranexa] 500 mg PO BID #60 tab.er.12h 01/30/18 [Rx] Atorvastatin Calcium [Lipitor] 20 mg PO HS 02/04/18 [History] Aspirin Enteric Coated [Aspirin EC] 81 mg PO DAILY #30 tablet. 02/09/18 [Rx] Clopidogrel [Plavix] 75 mg PO DAILY #30 tablet 02/09/18 [Rx] HYDROcodone/Acet 5/325 mg [[place] 5-325 mg] 1 tab PO Q6HR PRN 5 Days #14 tablet 02/09/18 [Rx] Lisinopril [Zestril] 5 mg PO DAILY #30 tablet 02/09/18 [Rx] Allergies/Adverse Reactions: 3 Allergy/AdvReac Type Severity Reaction Status Date / Time No Known Allergies Allergy Verified 02/04/18 13:16 Date of admission: 02/04/18 13:55 Primary care physician: Ralph Acosta Consults: 02/04/18 14:05 Consult to Cardiology [CONS] Stat Comment: Consulting Provider: Cardiology Jessie Reason for Consult: Chest pain, elevated troponin 0.28 and hypotension Time Notified: 14:05 Call Completed: Yes 02/07/18 11:38 Consult to Cardiac Rehabilitation-Phase1 [CONS] Routine Comment: Reason for Consult: s/p PCI Call Completed: No 02/07/18 13:33 Consult to Vascular Surgery [CONS] Routine Consulting Provider: Vascular Surgery Jessie Reason for Consult: pseudoaneurysm Call Completed: Yes Discharging clinician: Kike Abarca Anticipated date of discharge: 02/09/18 - Constitutional Vitals: Temp Pulse Resp BP Pulse Ox 97.8 F 76 16 132/71 95 02/09/18 11:33 02/09/18 11:33 02/09/18 11:33 02/09/18 11:33 02/09/18 11:33 General appearance: Present: cooperative, A&O X 3, obese, answers questions appropriately - Neck Neck exam general surgery: Present: supple, trachea midline. Absent: lymphadenopathy - Respiratory Respiratory exam: Present: CTAB. Absent: accessory muscle use, rales, rhonchi, wheezes - Cardiovascular Cardiovascular exam: Present: RRR, +S1, +S2. Absent: diastolic murmur, gallop, rubs, systolic murmur - GI/Abdominal GI/Abdominal exam: Present: normal bowel sounds, soft, no peritoneal signs. Absent: distended, tenderness - Extremities Exam Extremities exam: Present: tenderness (mild in right groin region. Good pedal pulses), warm, radial pulses palpable and symmetrical. Absent: calf tenderness , cyanotic, pedal edema - Neurological Exam Neurological exam: Present: alert, oriented X3, no focal deficits. Absent: facial droop, speech deficit - Skin Skin exam: Present: dry, intact - Patient Status Disposition: Transfer Other Condition: Good Functional capacity at discharge: independent ambulation Overall status at discharge: patient is progressing back to baseline - Ambulatory Orders Ambulatory Orders: EV arterial imaging LE RT Time Frame: 1 Week, Facility: [facility], Location: Radiology - Discharge Instructions Instructions: Left Heart Catheterization (DC) Follow Up With: Candace oGmez CNP [Primary Care Provider] - 02/16/18 10:15 am (Please show up at 10:00 AM to sign in. Thanks) Lance Ramirez MD [Partnered Physician] - 02/22/18 2:45 pm (in 1 week after arterial doppler done) Stephie Patel [Partnered Physician] - (OFFICE WILL CALL PATIENT AT HOME WITH FOLLOW UP APPOINTMENT) - Diet and Activity Activity: increase activity as tolerated Diet: low fat, low cholesterol, low salt diet - VTE Documentation of Mechanical Device: Intermittent pneumatic compression device
== END 2018-02-09 15:09 | disposition other institution (70) | DRG 175 ==
LOC: EMEROO 12:02 → 2NENU 12:02 → SUATTDRO 13:55 → 2NENU 14:19 → 2NNU 02-06 15:47
PROVIDERS: ADMIT Internal Medicine; ATTEND Internal Medicine

== ENCOUNTER 2018-02-12 03:13 | Inpatient (IN) ==
[2018-02-12] MEDS ORDERED: Isovue-370 500 ML INFUS..BTL IV ONE ×2 (03:23→16:46)
[2018-02-12] MEDS ORDERED: 0.9 % Sodium Chloride 1,000 ML IVC ONE (03:28)
[2018-02-12] MEDS ORDERED: *HR* FentaNYL (PF) 100 MCG/2 ML VIAL IVP ONE (03:28)
[2018-02-12 03:40] LABS: Basophils % 0.4 %; Eosinophils # 0.4 K/mcL (0.0-0.6); Eosinophils % 4.6 %; Hematocrit 30.7 % (35.3-44.9); Hemoglobin 10.1 g/dL (11.5-15.4); Immature Granulocytes % 0.2 % (0-4); Lymphocytes # 2.8 K/mcL (0.6-4.6); Lymphocytes % 30.2 %; Mean Corpuscular HGB Conc 32.9 g/dL (31.6-35.5); Mean Corpuscular Hemoglobin 32.4 pg (28.0-33.3); Mean Corpuscular Volume 98.4 fL (83.0-100.0); Mean Platelet Volume 10.6 fL (9.4-12.4); Monocytes # 0.8 K/mcL (0.0-1.3); Monocytes % 8.6 %; Neutrophils # 5.1 K/mcL (1.6-8.9); Platelet Count 273 K/mcL (140-400); Red Blood Count 3.12 M/mcL (3.82-4.97); Red Cell Distribution Width 14.6 % (11.5-14.5)
--- NOTE | 2018-02-12 03:50 | Emergency Department Note ---
Disposition Clinical Impression: Pseudoaneurysm of right femoral artery Disposition: Admitted As Inpatient Condition: Fair Time of Disposition: 05:50 Extremity Problem HPI - General Chief complaint: ED Extremity Problem,Nontraumatic Stated complaint: R Leg Pain Time Seen by Provider: 02/12/18 03:22 Source: EMS Mode of arrival: EMS Limitations: no limitations Nursing Notes Reviewed: Yes Vital Signs Reviewed: Yes - History of Present Illness HPI Narrative: Patient is a 47-year-old female who presents to [facility] ED with a chief complaint of right lower quadrant abdominal pain as well as right upper leg pain. 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 States she is supposed to have a follow-up ultrasound done tomorrow for this. However states the pain was initially getting better but then today when she got up in the middle the night, the pain acutely worsened and she is having pain in the right lower quadrant of her abdomen as well. Denies any nausea, vomiting, fever or chills. No chest pain, difficulty breathing, problems with urination or bowel movements. Pt Subjective Complaint: extremity pain Onset (ago): Just [employer] Consistency: Worsening Injury Location: right, lower extremity Pain Scale: 10 Radiation: none Improves with: nothing Worsens with: nothing Associated symptoms: Denies: chest pain, shortness of breath, abdominal pain, back pain, bowel/bladder symptoms, fever, rash, change in appearance, swelling, redness - Related Data Home Medications Medication Instructions Recorded Confirmed Furosemide [Lasix] 20 mg PO DAILY 09/20/16 02/04/18 Nitroglycerin [Nitrostat] 0.4 mg SL Q5M PRN 09/20/16 02/04/18 Albuterol Sulfate [Albuterol 2 puff IH Q4-6H PRN 01/11/17 02/04/18 Inhaler] Apixaban [Eliquis] 5 mg PO BID 01/11/17 02/04/18 Isosorbide MONOnitrate (24 HR) 60 mg PO DAILY 10/04/17 02/04/18 [Imdur] Carvedilol [Coreg] 6.25 mg PO BID 01/26/18 02/04/18 Gabapentin [Neurontin] 300 mg PO TID 01/26/18 02/04/18 Atorvastatin Calcium [Lipitor] 20 mg PO HS 02/04/18 02/04/18 Previous Rx's Medication Instructions Recorded Ranolazine [Ranexa] 500 mg PO BID #60 tab.er.12h 01/30/18 Aspirin Enteric Coated [Aspirin EC] 81 mg PO DAILY #30 tablet. 02/09/18 Clopidogrel [Plavix] 75 mg PO DAILY #30 tablet 02/09/18 HYDROcodone/Acet 5/325 mg [[place] 1 tab PO Q6HR PRN 5 Days #14 tablet 02/09/18 5-325 mg] Lisinopril [Zestril] 5 mg PO DAILY #30 tablet 02/09/18 Allergies Allergy/AdvReac Type Severity Reaction Status Date / Time No Known Allergies Allergy Verified 02/04/18 13:16 All systems ED: reviewed and negative except as stated. Past Medical History - Past Medical History Attestation: Yes The following information was validated with the patient. Source: patient Medical history: Reports: asthma, atrial fibrillation, cardiomyopathy, COPD, coronary artery disease, hyperlipidemia, hypertension, syncope Surgical history: Reports: appendectomy, coronary bypass (CABG) (2010), heart valve replacement (Tissue mitral valve 2010), pacemaker Psychiatric history: Reports: anxiety - Social History Smoking Status: Former smoker Smokeless Tobacco Status: No Alcohol use: Reports: none Drug use: Reports: marijuana Physical Exam - General Limitations: no limitations General appearance: alert - Head Head exam: atraumatic, normocephalic, normal inspection - Eye Eye exam: Present: normal appearance, EOMI - ENT ENT exam: normal exam, normal oropharynx, mucous membranes moist - Neck Neck exam: Present: normal inspection, full ROM, trachea midline - Chest Chest inspection: Present: normal inspection, symmetric chest wall rise - Respiratory Respiratory exam: Present: normal lung sounds bilaterally - Cardiovascular Cardiovascular exam: Present: regular rate, normal rhythm, normal heart sounds - Abdominal Exam Abdominal exam: Present: soft, tenderness, normal bowel sounds. Absent: distention, guarding, rebound, rigidity Abdominal tenderness: Present: RLQ, moderate - Expanded Lower Extremity Exam Hip/Pelvis exam: Present: tenderness, ecchymosis (R groin) Neurovascular/Tendon exam: Present: normal capillary refill. Absent: pulse deficit, motor deficit, sensory deficit - Back Exam Back exam: Present: normal inspection, full ROM. Absent: tenderness - Neurological Exam Neurological exam: Present: alert, oriented X3 - Psychiatric Psychiatric exam: Present: normal affect, normal mood - Skin Skin exam: Present: warm, dry, intact, normal color Course Course Narrative: Patient seen and examined. Right groin pain and right lower quadrant abdominal pain. Recent diagnosis of a pseudoaneurysm. She has gradual to get ultrasound imaging of this tomorrow. However since she has abdominal pain, we will go ahead and do a CTA of the abd/pelvis and have them image pass the groin as well as a we can evaluate the pseudoaneurysm. Basic lab work ordered to establish renal function. We will give a liter of fluids and she has had a lot of contrast recently. 50mcg fentanyl ordered for pain. - Reevaluation(s) Reevaluation #1: Patient does have some signs of a TIA with her creatinine at 1.2. However we are fluid hydrating her and decided to go ahead and proceed with the imaging. I received a call back from the radiologist with concern for enlarged pseudoaneurysm from previously 5 mm to now 9 mm and more active extravasation with enlarging hematoma within the sartorius muscle. Patient states is still taking Eliquis as well as this may be contributing to this not clotting. I discussed with the vascular surgeon Dr. Garcia who recommends keeping the patient nothing by mouth and admitting to the hospitalist. They will consult on the patient this morning. I discussed with the hospitalist Dr. Sigala who has accepted patient for admission. Patient still having a lot of pain. We will give a sub-dissociative dose of ketamine to see if this helps the pain. Time: 05:49 Vital Signs Temperature 98.0 F 02/12/18 03:20 Pulse Rate 75 02/12/18 03:20 Respiratory Rate 25 02/12/18 03:20 Blood Pressure 129/80 02/12/18 03:20 O2 Sat by Pulse Oximetry 99 02/12/18 03:20 Temperature 98.0 F 02/12/18 03:20 Pulse Rate 76 02/12/18 05:38 Respiratory Rate 18 02/12/18 05:38 Blood Pressure 115/78 02/12/18 05:38 O2 Sat by Pulse Oximetry 100 02/12/18 05:38 Oxygen Delivery Oxygen Delivery Room Air Extremity Problem, Nontraumati - Medical Records Medical records reviewed: Yes I reviewed the patient's medical records. - Lab Data Lab results reviewed: Yes I reviewed the patient's lab results. Result diagrams: 02/12/18 03:30 02/12/18 03:30 Lab Results 02/12/18 02/12/18 Range/Units 03:30 03:30 WBC 9.2 (4.3-11.1) K/mcL RBC 3.12 L (3.82-4.97) M/mcL Hgb 10.1 L (11.5-15.4) g/dL Hct 30.7 L (35.3-44.9) % MCV 98.4 (83.0-100.0) fL MCH 32.4 (28.0-33.3) pg MCHC 32.9 (31.6-35.5) g/dL RDW 14.6 H (11.5-14.5) % Plt Count 273 (140-400) K/mcL MPV 10.6 (9.4-12.4) fL Immature Gran % 0.2 (0-4) % Seg Neutrophils % 56.0 % Lymphocytes % 30.2 % Monocytes % 8.6 % Eosinophils % 4.6 % Basophils % 0.4 % Neutrophils # 5.1 (1.6-8.9) K/mcL Lymphocytes # 2.8 (0.6-4.6) K/mcL Monocytes # 0.8 (0.0-1.3) K/mcL Eosinophils # 0.4 (0.0-0.6) K/mcL Basophils # 0.0 (0.0-0.2) K/mcL Sodium 135 L (136-145) mEq/L Potassium 4.1 (3.5-5.1) mEq/L Chloride 105 (98-107) mEq/L Carbon Dioxide 22 L (23-29) mEq/L BUN 23 H (6-20) mg/dL Creatinine 1.29 H (0.60-1.20) mg/dL Est GFR ( Amer) 53 L (> 60) Est GFR (Non-Af Amer) 44 L (> 60) BUN/Creatinine Ratio 18 (6-26) Glucose 152 H (70-105) mg/dL Calculated Osmolality 287 (280-300) Calcium 9.2 (8.6-10.3) mg/dL - Radiology Data Radiology results reviewed: Yes I reviewed the patient's radiology results. Abdomen/Pelvis CTA 02/12/18 04:27 IMPRESSION: Interval increase in size of pseudoaneurysm adjacent to the distal right common femoral artery with active extravasation and intramuscular hematoma formation involving the adjacent sartorius muscle (measurements provided above). Critical results were called by Dr. Pedro Garcia to Dr. Meredith Owen on 02/12/2018 at 05:14. D/ / Pedro Garcia / Pedro Garcia Interpreting Provider: Pedro Garcia
--- NOTE | 2018-02-12 03:59 | Emergency Department Note ---
Disposition Clinical Impression: Pseudoaneurysm of right femoral artery Disposition: Admitted As Inpatient Condition: Fair Referrals: Candace Gomez CNP [Primary Care Provider] - Time of Disposition: 06:12 General Adult HPI - General Chief complaint: ED Extremity Problem,Nontraumatic Stated complaint: R Leg Pain Time Seen by Provider: 02/12/18 03:22 Source: EMS Mode of arrival: EMS Limitations: no limitations - History of Present Illness Pain Scale: 10 - Related Data Home Medications Medication Instructions Recorded Confirmed Furosemide [Lasix] 20 mg PO DAILY 09/20/16 02/04/18 Nitroglycerin [Nitrostat] 0.4 mg SL Q5M PRN 09/20/16 02/04/18 Albuterol Sulfate [Albuterol 2 puff IH Q4-6H PRN 01/11/17 02/04/18 Inhaler] Apixaban [Eliquis] 5 mg PO BID 01/11/17 02/04/18 Isosorbide MONOnitrate (24 HR) 60 mg PO DAILY 10/04/17 02/04/18 [Imdur] Carvedilol [Coreg] 6.25 mg PO BID 01/26/18 02/04/18 Gabapentin [Neurontin] 300 mg PO TID 01/26/18 02/04/18 Atorvastatin Calcium [Lipitor] 20 mg PO HS 02/04/18 02/04/18 Previous Rx's Medication Instructions Recorded Ranolazine [Ranexa] 500 mg PO BID #60 tab.er.12h 01/30/18 Aspirin Enteric Coated [Aspirin EC] 81 mg PO DAILY #30 tablet. 02/09/18 Clopidogrel [Plavix] 75 mg PO DAILY #30 tablet 02/09/18 HYDROcodone/Acet 5/325 mg [[place] 1 tab PO Q6HR PRN 5 Days #14 tablet 02/09/18 5-325 mg] Lisinopril [Zestril] 5 mg PO DAILY #30 tablet 02/09/18 Allergies Allergy/AdvReac Type Severity Reaction Status Date / Time No Known Allergies Allergy Verified 02/04/18 13:16 Past Medical History - Past Medical History Medical history: Reports: asthma, atrial fibrillation, cardiomyopathy, COPD, coronary artery disease, hyperlipidemia, hypertension, syncope Surgical history: Reports: appendectomy, coronary bypass (CABG) (2010), heart valve replacement (Tissue mitral valve 2010), pacemaker Psychiatric history: Reports: anxiety - Social History Smoking Status: Former smoker Smokeless Tobacco Status: No Alcohol use: Reports: none Drug use: Reports: marijuana Physical Exam - General Limitations: no limitations General appearance: alert Course Vital Signs Temperature 98.0 F 02/12/18 03:20 Pulse Rate 75 02/12/18 03:20 Respiratory Rate 25 02/12/18 03:20 Blood Pressure 129/80 02/12/18 03:20 O2 Sat by Pulse Oximetry 99 02/12/18 03:20 Temperature 98.0 F 02/12/18 03:20 Pulse Rate 76 02/12/18 05:38 Respiratory Rate 18 02/12/18 05:38 Blood Pressure 115/78 02/12/18 05:38 O2 Sat by Pulse Oximetry 100 02/12/18 05:38 Oxygen Delivery Oxygen Delivery Room Air Medical Decision Making - Lab Data Result diagrams: 02/12/18 03:30 02/12/18 03:30 Lab Results 02/12/18 02/12/18 Range/Units 03:30 03:30 WBC 9.2 (4.3-11.1) K/mcL RBC 3.12 L (3.82-4.97) M/mcL Hgb 10.1 L (11.5-15.4) g/dL Hct 30.7 L (35.3-44.9) % MCV 98.4 (83.0-100.0) fL MCH 32.4 (28.0-33.3) pg MCHC 32.9 (31.6-35.5) g/dL RDW 14.6 H (11.5-14.5) % Plt Count 273 (140-400) K/mcL MPV 10.6 (9.4-12.4) fL Immature Gran % 0.2 (0-4) % Seg Neutrophils % 56.0 % Lymphocytes % 30.2 % Monocytes % 8.6 % Eosinophils % 4.6 % Basophils % 0.4 % Neutrophils # 5.1 (1.6-8.9) K/mcL Lymphocytes # 2.8 (0.6-4.6) K/mcL Monocytes # 0.8 (0.0-1.3) K/mcL Eosinophils # 0.4 (0.0-0.6) K/mcL Basophils # 0.0 (0.0-0.2) K/mcL Sodium 135 L (136-145) mEq/L Potassium 4.1 (3.5-5.1) mEq/L Chloride 105 (98-107) mEq/L Carbon Dioxide 22 L (23-29) mEq/L BUN 23 H (6-20) mg/dL Creatinine 1.29 H (0.60-1.20) mg/dL Est GFR ( Amer) 53 L (> 60) Est GFR (Non-Af Amer) 44 L (> 60) BUN/Creatinine Ratio 18 (6-26) Glucose 152 H (70-105) mg/dL Calculated Osmolality 287 (280-300) Calcium 9.2 (8.6-10.3) mg/dL Attestation Statement - Attestation Attestation: I examined this patient and my medical decision-making was reviewed with the Resident Physician. I agree with the documented findings, disposition and treatment plan as described except to the extent set forth below. \ Patient to the ED complaining of right leg pain. Patient is status post heart Recently. She has been diagnosed with a pseudoaneurysm and said she was told to take it easy. She states it woke her up and she felt like there were a bunch of bees stinging or so she called 911. On my evaluation patient was laying in bed sleeping. Easily aroused. She does have some ecchymosis that is very minor to the thigh and lower abdomen. Plan. CT abdomen for abdominal pain. CT shows worsening pseudoaneurysm. Discussed with vascular. Admitted to medicine.
[2018-02-12 04:00] LABS: Calcium 9.2 mg/dL (8.6-10.3); Potassium 4.1 mEq/L (3.5-5.1)
[2018-02-12] MEDS ORDERED: SODIUM CHLORIDE 0.9% IVPB ONE (05:41)
[2018-02-12] MEDS ORDERED: KETAMINE IVPB ONE (05:41)
--- NOTE | 2018-02-12 05:43 | Internal Med History&Physical ---
Date of Encounter: 02/12/18 Time of Encounter: 05:35 Internal Medicine - H&P: HPI Chief complaint: leg pain Admitted From: Emergency Dept Plans for Post Hospital Care: Home History of present illness: Ms. Rivera is a 47 year old female w/PMH of asthma, CKD 3, atrial fibrillation, cardiomyopathy, COPD, CAD s/p CABG, HLD, HTN, bioprosthetic valve on eliquis, who was just discharged on 02/09 after a stay in which she had a drug-eluting stent placed to proximal LAD. She then developed a right femoral pseudoaneurysm post procedure which was partially thrombosed. Vascular surgery was consulted and recommended conservative measures and follow up with them where a duplex was planned in a week in a follow up. She came back early this morning with right lower quadrant pain and right groin and upper leg pain. The pain woke her up and has worsened since discharge after a brief period of initial improvement. She was stable hemodynamically and labs were mostly unremarkable. She had a CTA abd/pelvis showing a increase in size of pseudoaneurysm with active extravasation and intramuscular hematoma formation involving the adjacent sartorius muscle. Vascular were contacted over the phone by the ED and reportedly recommended admission and NPO and they will see her this morning. The patient has been on dual antiplatelet therapy as well as Eliquis. Denies fever, chills, nausea, vomiting, chest pain, shortness of breath, diarrhea, constipation, urinary symptoms, or neurological symptoms. Past Med Surg Social Fam HX - Past Medical History Medical history: asthma, atrial fibrillation, cardiomyopathy, COPD, coronary artery disease, hyperlipidemia, hypertension, syncope Psychiatric history: anxiety - Past Surgical History Surgical History: appendectomy, coronary bypass (CABG) (2010), heart valve replacement (Tissue mitral valve 2010), pacemaker - Social History Smoking Status: Former smoker Smokeless Tobacco Status: No Alcohol use: none Drug use: marijuana - Family History Mother Family Member Ethnicity: Non- Living Status: Still Living Hx Family Cardiac Disorders: Yes (Open heart surgery, multiple MIs w/stents, HTN , HLD) Hx Family Respiratory Disorders: Yes Hx Family Cancer: No Hx Family GI Disorders: Yes Hx Family Endocrine Disorder: Yes (DM) Hx Family Neuromuscular Disorders: No Hx Family Neurologic Disorders: No Hx Family HEENT Disorders: No Hx Family Autoimmune Disorders: No Father Family Member Ethnicity: Non- Internal Medicine - H&P: Meds Furosemide [Lasix] 20 mg PO DAILY 09/20/16 [History] Nitroglycerin [Nitrostat] 0.4 mg SL Q5M PRN 09/20/16 [History] Albuterol Sulfate [Albuterol Inhaler] 2 puff IH Q4-6H PRN 01/11/17 [History] Apixaban [Eliquis] 5 mg PO BID 01/11/17 [History] Isosorbide MONOnitrate (24 HR) [Imdur] 60 mg PO DAILY 10/04/17 [History] Carvedilol [Coreg] 6.25 mg PO BID 01/26/18 [History] Gabapentin [Neurontin] 300 mg PO TID 01/26/18 [History] Ranolazine [Ranexa] 500 mg PO BID #60 tab.er.12h 01/30/18 [Rx] Atorvastatin Calcium [Lipitor] 20 mg PO HS 02/04/18 [History] Aspirin Enteric Coated [Aspirin EC] 81 mg PO DAILY #30 tablet.dr 02/09/18 [Rx] Clopidogrel [Plavix] 75 mg PO DAILY #30 tablet 02/09/18 [Rx] HYDROcodone/Acet 5/325 mg [[place] 5-325 mg] 1 tab PO Q6HR PRN 5 Days #14 tablet 02/09/18 [Rx] Lisinopril [Zestril] 5 mg PO DAILY #30 tablet 02/09/18 [Rx] 3 Allergy/AdvReac Type Severity Reaction Status Date / Time No Known Allergies Allergy Verified 02/04/18 13:16 All Systems PM: A 10-system review of systems was performed and is negative for pertinent findings except as documented above in the HPI. Review of systems: GEN: NAD HEENT: AT, NC, No cyanosis, oral mucosa is moist, No JVD Lymphatics: No lymphadenoapthy Eyes: Extrocular muscles intact, anicteric CVS:RRR. S1, S2, No m/r/g RESP: CTAB ABD: Soft, right lower quadrant tenderness with right groin ecchymosis noted., ND, +BS EXT: No edema, No rashes, 2+ DP NEURO: Nonfocal, CN II-XII intact, No focal motor or sensory deficits Psych: Cooperative, Not anxious or depressed - Constitutional Vitals: Temp Pulse Resp BP Pulse Ox 98.0 F 74 18 101/57 100 02/12/18 03:20 02/12/18 04:53 02/12/18 04:53 02/12/18 04:53 02/12/18 04:53 Internal Med - H&P Results - Labs CBC & Chem 7: 02/12/18 03:30 02/12/18 03:30 Labs: Short CBC 02/12/18 Range/Units 03:30 WBC 9.2 (4.3-11.1) K/mcL Hgb 10.1 L (11.5-15.4) g/dL Hct 30.7 L (35.3-44.9) % Plt Count 273 (140-400) K/mcL Neutrophils # 5.1 (1.6-8.9) K/mcL BMP 02/12/18 03:30 Sodium 135 L Potassium 4.1 Chloride 105 Carbon Dioxide 22 L BUN 23 H Creatinine 1.29 H Glucose 152 H Calcium 9.2 - Impressions ITS Impressions Abdomen/Pelvis CTA 02/12/18 04:27 IMPRESSION: Interval increase in size of pseudoaneurysm adjacent to the distal right common femoral artery with active extravasation and intramuscular hematoma formation involving the adjacent sartorius muscle (measurements provided above). Critical results were called by Dr. Pedro Garcia to Dr. Meredith Owen on 02/12/2018 at 05:14. D/ / Pedro Garcia / Pedro Garcia Interpreting Provider: Pedro Garcia - Assessment and plan (1) Pseudoaneurysm of right femoral artery Current Visit: No Status: Acute Assessment and plan: Admit with a consult to vascular. Nothing by mouth. Pain control. Hold aspirin, Plavix, Eliquis for now. She has taken those medications for yesterday 's dosages. The patient is status post drug-eluting stent placement earlier this week. Not sure exactly what vascular is plans are for this. A discussion will need to be had with cardiology about dual antiplatelets therapy for now and the setting of the expanding pseudoaneurysm and hematoma. (2) Coronary artery disease Current Visit: No Status: Acute Assessment and plan: Status post CABG and recent drug-eluting stent. The patient has pseudoaneurysm in the right groin that is expanding. Continue cardiac meds for now. We will hold aspirin and Plavix and Eliquis for now. The patient had her dosages of those medications yesterday. A discussion with vascular and cardiology needs to be had if any surgical intervention as planned. Qualifiers: Coronary Disease-Associated Artery/Lesion type: [place] artery [place] vs. transplanted heart: [place] heart Associated angina: with unspecified angina Qualified Code(s): I25.119 - Atherosclerotic heart disease of [place] coronary artery with unspecified angina pectoris (3) A-fib Current Visit: No Status: Chronic Assessment and plan: Continue Coreg. Hold Eliquis due to the above. Qualifiers: Atrial fibrillation type: unspecified Qualified Code(s): I48.91 - Unspecified atrial fibrillation (4) CKD (chronic kidney disease) stage 3, GFR 30-59 ml/min Current Visit: No Status: Chronic Assessment and plan: Stable. We will monitor. (5) HLD (hyperlipidemia) Current Visit: No Status: Chronic Assessment and plan: Continue statin Qualifiers: Hyperlipidemia type: pure hypercholesterolemia Qualified Code(s): E78.00 - Pure hypercholesterolemia, unspecified; E78.0 - Pure hypercholesterolemia (6) HTN (hypertension) Current Visit: No Status: Chronic Assessment and plan: Resume home antihypertensives Qualifiers: Hypertension type: essential hypertension Qualified Code(s): I10 - Essential (primary) hypertension (7) DVT prophylaxis Current Visit: No Status: Acute Assessment and plan: SCDs for now. - Time Spent With Patient Total time spent is greater than 50% in coordination of care (as documented) at patient's floor/unit and/or counseling patient:
[2018-02-12] MEDS ORDERED: *HR* HYDROcodone/Acet 5/325 mg TABLET PO PRN (05:51)
[2018-02-12] MEDS ORDERED: Naloxone 0.4 MG/ML INJ IVP PRN ×2 (05:51→16:46)
[2018-02-12] MEDS ORDERED: Acetaminophen 325 MG TABLET PO PRN ×2 (05:51→16:46)
[2018-02-12] MEDS: *HR* FentaNYL (PF) 100 MCG/2 ML VIAL IVP PRN ×2 (06:47→11:05)
[2018-02-12] MEDS ORDERED: Gabapentin 300 MG CAPSULE PO SCH (09:00)
[2018-02-12] MEDS ORDERED: Isosorbide MONOnitrate (24 HR) 60 MG TAB.ER.24H PO SCH (09:00)
--- NOTE | 2018-02-12 10:25 | Vascular/Endovasc Consult Note ---
Date of Encounter: 02/12/18 Time of Encounter: 10:20 Assessment and Plan (1) Pseudoaneurysm of right femoral artery Current Visit: Yes Status: Acute I have recommended open surgical repair of Ms. Rivera's right common femoral artery pseudoaneurysm. I have discussed all risks, benefits and other alternatives with her in detail. I have discussed that she will likely have a postoperative surgical drain that will be managed postoperatively. While her pain should initially improve, she may have some long-standing neuropathic discomfort that will only get better over time. Discussed in detail. - History of Present Illness Consult date: 02/12/18 Consult reason: Right femoral pseudoaneurysm Chief complaint: Right groin pain History of present illness: Ms. Rivera is a 47 year old female well known to the vascular service. She was recently seen and evaluated for a right femoral artery pseudoaneurysm. Conservative management was recommended. She has had progressive increasing pain in her right groin, now radiating down into her thigh and up into her abdominal wall. She has had no systemic symptoms of fevers, chills or other signs of infection. She has undergone a recent repeat CT angiogram, which has revealed in increasing size of her right femoral pseudoaneurysm. The neck and the aneurysm remains quite complex and somewhat shortened. Past Med Surg Social Fam HX - Past Medical History Medical history: asthma, atrial fibrillation, cardiomyopathy, COPD, coronary artery disease, hyperlipidemia, hypertension, syncope Psychiatric history: anxiety - Past Surgical History Surgical History: appendectomy, coronary bypass (CABG), heart valve replacement , pacemaker - Social History Smoking Status: Former smoker Smokeless Tobacco Status: No Alcohol use: none Drug use: marijuana - Family History Mother Family Member Ethnicity: Non- Living Status: Still Living Hx Family Cardiac Disorders: Yes (Open heart surgery, multiple MIs w/stents, HTN , HLD) Hx Family Respiratory Disorders: Yes Hx Family Cancer: No Hx Family GI Disorders: Yes Hx Family Endocrine Disorder: Yes (DM) Hx Family Neuromuscular Disorders: No Hx Family Neurologic Disorders: No Hx Family HEENT Disorders: No Hx Family Autoimmune Disorders: No Father Family Member Ethnicity: Non- Medications and Allergies Furosemide [Lasix] 20 mg PO DAILY 09/20/16 [History] Nitroglycerin [Nitrostat] 0.4 mg SL Q5M PRN 09/20/16 [History] Albuterol Sulfate [Albuterol Inhaler] 2 puff IH Q4-6H PRN 01/11/17 [History] Apixaban [Eliquis] 5 mg PO BID 01/11/17 [History] Isosorbide MONOnitrate (24 HR) [Imdur] 60 mg PO DAILY 10/04/17 [History] Carvedilol [Coreg] 6.25 mg PO BID 01/26/18 [History] Gabapentin [Neurontin] 300 mg PO TID 01/26/18 [History] Ranolazine [Ranexa] 500 mg PO BID #60 tab.er.12h 01/30/18 [Rx] Atorvastatin Calcium [Lipitor] 20 mg PO HS 02/04/18 [History] Aspirin Enteric Coated [Aspirin EC] 81 mg PO DAILY #30 tablet.dr 02/09/18 [Rx] Clopidogrel [Plavix] 75 mg PO DAILY #30 tablet 02/09/18 [Rx] HYDROcodone/Acet 5/325 mg [[place] 5-325 mg] 1 tab PO Q6HR PRN 5 Days #14 tablet 02/09/18 [Rx] Lisinopril [Zestril] 5 mg PO DAILY #30 tablet 02/09/18 [Rx] 3 Allergy/AdvReac Type Severity Reaction Status Date / Time No Known Allergies Allergy Verified 02/04/18 13:16 All Systems Review: The remainder of the systems were reviewed and are negative Exam Vital Signs, Last 4 Hours Temp Pulse Resp BP Pulse Ox 02/12/18 06:40 97.9 F 71 21 142/81 97 General: Present: No Apparent Distress HEENT: Present: Trachea midline, Pupils equal Cardiac: Present: Reg Rate and Rhythm, Normal S1 and S2, No Murmur Lungs: Present: Normal Breath Sounds, No Wheeze, Rales, Rhonchi Neuro: Present: Alert and responsive, No focal deficits noted Abdomen: Present: Soft, Non-tender Vascular: Present: Normal capillary refill, Pulse, normal, Other (There is a large bruise in the right groin. There is a tender mass measuring about 3 cm in overall greatest diameter.) Skin: Present: No rashes noted on visualized skin Musculoskeletal: Present: No Chest Wall Tenderness Consult Discharge Plan - Plan Referrals: Candace Gomez, SUPERVISOR LEAD REFINERY [Primary Care Provider] -
[2018-02-12] MEDS ORDERED: 0.9 % Sodium Chloride 1,000 ML IVC SCH ×2 (10:45→16:46)
--- NOTE | 2018-02-12 13:10 | Anesthesia Evaluation PreOp ---
Date of Encounter: 02/12/18 Time of Encounter: 13:41 - Past History Planned Operation: Repair right femoral artery pseudoaneurysm Cardiac History: Angina, HTN, Hyperlipidemia, Arrhythmia (Paroxismal AFib), Cardiac Surgery (2010 CABG MVR Bioprosthetic), Cardiac Stent (1 week ago), Pacemaker/ICD ([employer] pacemaker 2016) Pulmonary History: Asthma, COPD DISPLAY DEPARTMENT MANAGER History: Syncope Other Medical History: Renal (CKD), Other (Anemia) Anesthesia History: No Prior Anesthetic Complications, Past Anesthesia Alcohol Use: none Drug use: marijuana Medications and Allergies Furosemide [Lasix] 20 mg PO DAILY 09/20/16 [History] Nitroglycerin [Nitrostat] 0.4 mg SL Q5M PRN 09/20/16 [History] Albuterol Sulfate [Albuterol Inhaler] 2 puff IH Q4-6H PRN 01/11/17 [History] Apixaban [Eliquis] 5 mg PO BID 01/11/17 [History] Isosorbide MONOnitrate (24 HR) [Imdur] 60 mg PO DAILY 10/04/17 [History] Carvedilol [Coreg] 6.25 mg PO BID 01/26/18 [History] Gabapentin [Neurontin] 300 mg PO TID 01/26/18 [History] Ranolazine [Ranexa] 500 mg PO BID #60 tab.er.12h 01/30/18 [Rx] Atorvastatin Calcium [Lipitor] 20 mg PO HS 02/04/18 [History] Aspirin Enteric Coated [Aspirin EC] 81 mg PO DAILY #30 tablet. 02/09/18 [Rx] Clopidogrel [Plavix] 75 mg PO DAILY #30 tablet 02/09/18 [Rx] HYDROcodone/Acet 5/325 mg [[place] 5-325 mg] 1 tab PO Q6HR PRN 5 Days #14 tablet 02/09/18 [Rx] Lisinopril [Zestril] 5 mg PO DAILY #30 tablet 02/09/18 [Rx] 3 Allergy/AdvReac Type Severity Reaction Status Date / Time No Known Allergies Allergy Verified 02/04/18 13:16 - Meds/Allergy Pre-op Review Medications Reviewed: Yes Allergies Reviewed: Yes Anesthesia Results - Labs 02/12/18 03:30 02/12/18 03:30 - Imaging Additional studies: Stress test 01/27/2018: Pharmacologic stress ECG is non-diagnostic for ischemia due to baseline ST and T changes. Gated EF = 69%. Small sized, mild intensity, fixed apical anterior defect. Wall motion appears normal. These findings are consistent with artifact. Perfusion imaging was negative for ischemia or infarct. TTE 01/26/2018: LVEF 60-65%. Indeterminate diastolic function. RV is dilated with normal function. Severely dilated left atrium. Well seated mechanical mitral valve prosthesis with normal function. Mild-moderate tricuspid regurgitation. Mild pulmonary hypertension. A device lead was visualized in the right atrium and right ventricle. Anesthesia Exam Vital Signs/O2 Sat/Glucose, Most Recent Temp Pulse Resp BP Pulse Ox 98.0 F 77 18 112/69 93 02/12/18 11:29 02/12/18 11:29 02/12/18 11:29 02/12/18 11:29 02/12/18 11:29 Weight: 86 kg - HEENT Mallampati: III Teeth: Normal Oral Opening: Greater than 3 - DISPLAY DEPARTMENT MANAGER LOC: Oriented - Cardiac Rhythm: Regular - Pulmonary Breath Sounds: bilateral Clear Anesthesia Assess/Plan ASA Score: 4, E Modified [place] Scale for Level of Consciousness: Cooperative, oriented, and tranquil Anesthetic Plan: General Monitoring Plan: Standard Monitors Recovery Plan: PACU Anes Supervising Prov Stmt: Patient informed and consented. Risks, benefits, and alternatives discussed. Patient wishes to proceed.
[2018-02-12] MEDS ORDERED: *HR* FentaNYL (PF) 100 MCG/2 ML VIAL ONE (13:47)
[2018-02-12] MEDS ORDERED: *HR* Propofol 200 MG/20 ML VIAL IVP ONE (13:47)
[2018-02-12] MEDS ORDERED: *HR* PHENYLEPHRINE 1,000 MCG/10 ML SYRINGE IVP ONE (13:49)
[2018-02-12] MEDS ORDERED: Acetaminophen IV 1,000 MG/100 ML INFUS..BTL ONE (13:54)
[2018-02-12] MEDS ORDERED: Vancomycin 1,000 MG VIAL ONE (14:04)
[2018-02-12] MEDS ORDERED: Heparin 1,000 UNITS/500 mL 500 ML ONE (14:04)
[2018-02-12] MEDS ORDERED: Ondansetron 4 MG/2 ML VIAL ONE (14:43)
--- NOTE | 2018-02-12 15:11 | Operative Note ---
Date of procedure: 02/12/18 Pre-op diagnosis: Right femoral pseudoaneurysm Post-op diagnosis: same Procedure: Open repair of right femoral pseudoaneurysm Complications: None Anesthesia: GETA Surgeon: Mayito Garcia Was there an observation assistant present: No Supervisor Gas Meter Repair Other: Samantha Crockett Estimated blood loss (cc): 150 IV fluids (cc): 700 Specimen: None Condition: stable Disposition: PACU Procedure in Detail: Patient was notified about into the room. She was placed on the table in supine position. The right groin was sterilely prepped and draped. A 7 cm curvilinear incision was made within the right groin. The investing fascia was opened. The pseudoaneurysm cavity was identified. The cavity was opened. There was pulsatile bleeding at the base. This was manually controlled. With the use of sharp dissection the right common femoral artery was dissected both proximally and distally. Approximate 4000 units IV heparin was then given. The artery was then controlled. The arterial defect was then closed with single interrupted 5-0 Prolene suture. The wound was irrigated out with antibiotic impregnated solution. Meticulous hemostasis was achieved. A single 7 flat Jeffery-Salazar drain was left in place. This was brought out through separate skin incision and anchored with a single interrupted 3-0 nylon suture. Subcutaneous tissues were then closed using 2-0 Monocryl suture in 2 layers. Skin was then closed with a 4-0 Monocryl subcutaneous stitch. Patient started this procedure was transferred to the recovery room in stable condition. The initial procedure all sponge and needle count are correct 2.
[2018-02-12] MEDS ORDERED: *HR* Promethazine 25 MG/ML VIAL ONE (15:27)
[2018-02-12] MEDS: *HR* Promethazine 25 MG/ML VIAL IVP PRN ×2 (15:30→15:45)
[2018-02-12] MEDS ORDERED: *HR* OxyCODONE Immed Rel 5 MG TABLET PO PRN (15:33)
--- NOTE | 2018-02-12 15:38 | Anesthesia Evaluation Post Op ---
Date of Encounter: 02/12/18 Time of Encounter: 16:08 Notes: Patient's vital signs have been reviewed. Patient is stable postoperatively and has adequately recovered from anesthesia. Patient is determined to have stable airway patency and respiratory function including respiratory rate and oxygen saturation. Patient has a stable heart rate, blood pressure and adequate hydration. Patients mental status is acceptable. Patients temperature is appropriate. Pain and nausea are adequately controlled. - Discharge PostOp Status: Transfer Patient to floor
[2018-02-12] MEDS ORDERED: Ringers Solution, Lactated 1,000 ML ONE (15:50)
--- NOTE | 2018-02-12 16:02 | Internal Med Progress Note ---
Date of Encounter: 02/12/18 Time of Encounter: 15:56 - Assessment and plan (1) Pseudoaneurysm of right femoral artery Current Visit: Yes Status: Acute Assessment and plan: - Right femoral artery pseudoaneurysm due to recent PCI. Repeat CTA revealed increased size of aneurysm and IV contrast extravasation, indicating active bleeding. - Score surgery consult, urgent surgery scheduled today.. - Continue hold DPT and Eliquis due to active bleeding. - Continue monitoring right leg neural vascular function. (2) Coronary artery disease Current Visit: No Status: Acute Assessment and plan: - Recent PCI with stent placement, was placed on DAPT after procedure, complicated with right femoral pseudoaneurysm, repeat CTA revealed active bleeding of the aneurysm. - DAPT on hold due to active bleeding. Patient denies any chest pain. Continue other medications for CAD including Coreg, Statins, and lisinopril. Qualifiers: Coronary Disease-Associated Artery/Lesion type: [place] artery [place] vs. transplanted heart: [place] heart Associated angina: with unspecified angina Qualified Code(s): I25.119 - Atherosclerotic heart disease of [place] coronary artery with unspecified angina pectoris (3) A-fib Current Visit: No Status: Chronic Assessment and plan: - Rate controlled, continue hold Eliquis due to active bleeding. Qualifiers: Atrial fibrillation type: unspecified Qualified Code(s): I48.91 - Unspecified atrial fibrillation (4) HLD (hyperlipidemia) Current Visit: No Status: Chronic Assessment and plan: - Continue home medications. Qualifiers: Hyperlipidemia type: pure hypercholesterolemia Qualified Code(s): E78.00 - Pure hypercholesterolemia, unspecified; E78.0 - Pure hypercholesterolemia (5) HTN (hypertension) Current Visit: No Status: Chronic Assessment and plan: - Resume home medication, pain control, continue [place] BP, adjust dose of medication if needed. Qualifiers: Hypertension type: essential hypertension Qualified Code(s): I10 - Essential (primary) hypertension (6) CKD (chronic kidney disease) stage 3, GFR 30-59 ml/min Current Visit: No Status: Chronic Assessment and plan: - Cr 1.29, continue IV fluid, repeat BMP in a.m. (7) DVT prophylaxis Current Visit: Yes Status: Acute Assessment and plan: - Hold all anticoagulation. Continue to use SCDs. - Time Spent With Patient Total time spent is greater than 50% in coordination of care (as documented) at patient's floor/unit and/or counseling patient: Greater than 35 minutes - Subjective Interval history: Patient seen and examined in the room. Reported severe right groin pain requesting pain medicine. She has no chest pain, shortness breath, or palpitation. - Constitutional Vitals: Temp Pulse Resp BP Pulse Ox 98.3 F 86 14 154/78 100 02/12/18 15:50 02/12/18 15:50 02/12/18 15:50 02/12/18 15:50 02/12/18 15:50 General appearance: Present: A&O X 3 Exam: PHYSICAL EXAMINATION: GENERAL APPEARANCE: The patient is alert, oriented and in no acute distress. HEENT: Head is normocephalic. The sinuses are nontender. Pupils are equal and reactive. The nares are patent. Oropharynx clear without lesions. NECK: Supple without lymphadenopathy. HEART: Regular rate and rhythm. LUNGS: No crackles or wheezes are heard. ABDOMEN: Soft, nontender, nondistended with good bowel sounds heard. Inguinal area is normal. EXTREMITIES: right leg warm to touch, pulse detected by ultrasound. NEUROLOGICAL: Gross nonfocal. SKIN: Warm and dry without any rash. Internal Medicine: Result - Labs CBC & Chem 7: 02/12/18 03:30 02/12/18 03:30 Consult Discharge Plan - Plan Referrals: Candace Gomez CNP [Primary Care Provider] -
[2018-02-12] MEDS ORDERED: *HR* FentaNYL (PF) 100 MCG/2 ML VIAL IVP PRN (16:46)
--- NOTE | 2018-02-12 17:49 | Vascular/Endovas Progress Note ---
Date of Encounter: 02/12/18 Time of Encounter: 05:30 Discussion with patient/family: Patient is doing reasonably well. She is stable. She is in the ICU for continued observation. She will likely go to the floor tomorrow. Discussed with family. - Subjective Interval history: Patient seen postoperatively. Nurses are having trouble controlling a small amount of oozing around the drain site. It appears that there is a small skin bleeder at the drain site. A single 3-0 nylon suture was placed without problems. Vital Signs, Last 4 Hours Temp Pulse Resp BP Pulse Ox 02/12/18 16:49 85 14 159/85 93 02/12/18 16:00 81 16 146/82 100 02/12/18 15:50 98.3 F 86 14 154/78 100 02/12/18 15:40 86 16 162/88 100 02/12/18 15:30 85 16 174/81 100 02/12/18 15:20 99.5 F 88 16 178/96 95 - Physical Examination General: Present: No Apparent Distress HEENT: Present: Pupils equal Cardiac: Present: Reg Rate and Rhythm, Normal S1 and S2, No Murmur Lungs: Present: Normal Breath Sounds, No Wheeze, Rales, Rhonchi Neuro: Present: Alert and responsive Vascular: Present: Normal capillary refill, Pulse, normal, Surgical incisions ( Right groin incision is intact. There is no significant hematoma. There is some oozing from the right groin drain.) - VTE Documentation of Mechanical Device: Intermittent pneumatic compression device Results 02/12/18 03:30 02/12/18 03:30 Consult Discharge Plan - Plan Referrals: Candace Gomez OIL GAUGER [Primary Care Provider] -
[2018-02-12] MEDS: Ranolazine 500 MG TAB.ER.12H PO SCH (20:30)
[2018-02-12] MEDS: Apixaban 5 MG TABLET PO SCH (20:30)
[2018-02-12] MEDS: Gabapentin 300 MG CAPSULE PO SCH (20:30)
[2018-02-13] MEDS: Apixaban 5 MG TABLET PO SCH ×2 (08:29→20:35)
[2018-02-13] MEDS: Ranolazine 500 MG TAB.ER.12H PO SCH ×2 (08:29→20:35)
[2018-02-13] MEDS: Gabapentin 300 MG CAPSULE PO SCH ×3 (08:29→20:36)
[2018-02-13] MEDS ORDERED: Isosorbide MONOnitrate (24 HR) 60 MG TAB.ER.24H PO SCH (09:00)
[2018-02-13] MEDS ORDERED: Aspirin Enteric Coated 81 MG Tablet PO SCH (09:00)
[2018-02-13] MEDS ORDERED: Furosemide 20 MG TABLET PO SCH (09:00)
--- NOTE | 2018-02-13 13:02 | Internal Med Progress Note ---
Date of Encounter: 02/13/18 Time of Encounter: 12:58 - Assessment and plan (1) CAD (coronary artery disease) Current Visit: Yes Status: Acute Assessment and plan: Status post recent angioplasty with drug-eluting stent of LAD Qualifiers: Coronary Disease-Associated Artery/Lesion type: [place] artery [place] vs. transplanted heart: [place] heart Associated angina: without angina Qualified Code(s): I25.10 - Atherosclerotic heart disease of [place] coronary artery without angina pectoris (2) Paroxysmal atrial fibrillation Current Visit: No Status: Chronic (3) COPD (chronic obstructive pulmonary disease) Current Visit: No Status: Chronic Assessment and plan: Chronic no active wheezing at present Qualifiers: COPD type: unspecified COPD Qualified Code(s): J44.9 - Chronic obstructive pulmonary disease, unspecified (4) Hx of CABG Current Visit: No Status: Acute (5) Tobacco abuse Current Visit: No Status: Chronic Assessment and plan: Chronic (6) HLD (hyperlipidemia) Current Visit: No Status: Chronic Assessment and plan: Chronic continue current antilipid Qualifiers: Hyperlipidemia type: pure hypercholesterolemia Qualified Code(s): E78.00 - Pure hypercholesterolemia, unspecified; E78.0 - Pure hypercholesterolemia (7) HTN (hypertension) Current Visit: No Status: Chronic Assessment and plan: Chronic blood pressure well controlled Qualifiers: Hypertension type: essential hypertension Qualified Code(s): I10 - Essential (primary) hypertension (8) CKD (chronic kidney disease) stage 3, GFR 30-59 ml/min Current Visit: No Status: Chronic (9) Pseudoaneurysm of right femoral artery Current Visit: Yes Status: Acute Assessment and plan: Status post open repair of the pseudoaneurysm no complication - Time Spent With Patient Total time spent is greater than 50% in coordination of care (as documented) at patient's floor/unit and/or counseling patient: - Subjective Interval history: Patient with history of asthma, CK D, atrial fibrillation, cardiomyopathy, COPD , history of CABG, high cholesterol and hypertension patient had a recent PTCA of the LAD and then she came back with complication of pseudoaneurysm of femral arterey she was scheduled for follow-up of the pseudoaneurysm but she came back to ER with right sided abdominal pain ultrasound shows ruptured pseudoaneurysm with intramuscular hematoma patient underwent open repair of the pseudoaneurysm no complication hemodynamically stable hemoglobin is stable no chest pain hemostasis is achieved at the site patient is stable to be transferred to urgent regular flow - Constitutional Vitals: Temp Pulse Resp BP Pulse Ox 98.0 F 101 14 106/60 96 02/13/18 11:00 02/13/18 11:00 02/13/18 11:00 02/13/18 11:00 02/13/18 11:00 General appearance: Present: A&O X 3 - Head Head exam: Present: atraumatic, normocephalic - Eye Eye exam: Present: PERRL, conjuntiva pink, sclera anicteric Pupils: Present: PERRL - Neck Neck exam general surgery: Present: supple, trachea midline. Absent: lymphadenopathy - Respiratory Respiratory exam: Present: CTAB. Absent: accessory muscle use, rales, rhonchi, wheezes - Cardiovascular Cardiovascular exam: Present: RRR, +S1, +S2. Absent: diastolic murmur, gallop, rubs, systolic murmur - GI/Abdominal GI/Abdominal exam: Present: normal bowel sounds, soft, no peritoneal signs. Absent: distended, tenderness - Extremities Exam Extremities exam: Present: warm, radial pulses palpable and symmetrical. Absent : calf tenderness, cyanotic, pedal edema - Neurological Exam Neurological exam: Present: CN II-XII intact, oriented X3, no focal deficits. Absent: pronater drift, facial droop, speech deficit - Skin Skin exam: Present: dry, intact Internal Medicine: Result - Labs CBC & Chem 7: 02/12/18 03:30 02/12/18 03:30 - VTE Documentation of Mechanical Device: Intermittent pneumatic compression device Consult Discharge Plan - Plan Referrals: Candace Gomez CLINICAL RESEARCH MANAGER [Primary Care Provider] -
--- NOTE | 2018-02-13 15:40 | Vascular/[facility] Progress Note ---
Date of Encounter: 02/13/18 Time of Encounter: 15:38 - Assessment and plan (1) Pseudoaneurysm of right femoral artery Current Visit: Yes Status: Acute Status post repair right femoral pseudoaneurysm. Patient is stable. Patient may be transferred. Patient may increase physical activity. Remove Jeffery Salazar drain. Anticipate discharge to home tomorrow. - Subjective Interval history: The patient is postoperative day #1 following a right femoral pseudoaneurysm repair. Patient has no complaints. Patient had uneventful night. The patient has been hemodynamically stable. There is no significant drainage from the right groin Jeffery-Salazar drain. Vital Signs, Last 4 Hours Pulse Resp BP Pulse Ox 02/13/18 13:00 98 18 107/53 100 02/13/18 12:00 101 - Physical Examination General: Present: Conversant, No Apparent Distress Vascular: Present: Surgical incisions (Dressings are dry over the right groin. Minimal drainage and Jeffery-Salazar drain.). Absent: Cyanosis, Edema - VTE Documentation of Mechanical Device: Intermittent pneumatic compression device Results 02/12/18 03:30 02/12/18 03:30 Consult Discharge Plan - Plan Referrals: Candace Gomez, DIESEL DINKEY OPERATOR [Primary Care Provider] -
[2018-02-13] MEDS ORDERED: Nitroglycerin 0.4 MG TAB.SUBL SL PRN (19:57)
[2018-02-13] MEDS ORDERED: Acetaminophen 325 MG TABLET PO PRN (20:27)
[2018-02-13] MEDS: *HR* HYDROcodone/Acet 5/325 mg TABLET PO PRN (20:37)
[2018-02-14] MEDS: *HR* HYDROcodone/Acet 5/325 mg TABLET PO PRN (05:35)
[2018-02-14 05:52] VITALS: BP 104/62
--- NOTE | 2018-02-14 07:45 | Vascular/[facility] Progress Note ---
Date of Encounter: 02/14/18 Time of Encounter: 07:43 - Assessment and plan (1) Pseudoaneurysm of right femoral artery Current Visit: Yes Status: Acute Status post repair right femoral pseudoaneurysm. Patient is stable. Patient is to be ambulating in hallways. If patient is stable and tolerates ambulation she may be discharged to home this morning from the vascular surgery perspective. Follow-up with Dr. Ramirez in 3 weeks. - Subjective Interval history: The patient is postoperative day #2 following a right femoral pseudoaneurysm repair. Patient has no complaints. Patient had uneventful night. The patient has been hemodynamically stable. Vital Signs, Last 4 Hours Pulse Resp BP Pulse Ox 02/14/18 04:00 87 16 104/62 98 - Physical Examination General: Present: Conversant, No Apparent Distress Vascular: Present: Normal capillary refill, Color/Temperature (Right foot is warm and pink.), Surgical incisions (Right groin incision is clean and dry. There is no hematoma. The drain site is stable.). Absent: Cyanosis, Edema - VTE Documentation of Mechanical Device: Intermittent pneumatic compression device Results 02/12/18 03:30 02/12/18 03:30 Consult Discharge Plan - Plan Additional Instructions: Keep right groin incision dry for total of 5 days following surgery No lifting greater than 10 pounds No driving Referrals: Candace Gomez CNP [Primary Care Provider] - Lance Ramirez MD [Partnered Physician] - (3 weeks)
[2018-02-14] MEDS: Apixaban 5 MG TABLET PO SCH (08:30)
[2018-02-14] MEDS: Gabapentin 300 MG CAPSULE PO SCH (08:30)
[2018-02-14] MEDS: Ranolazine 500 MG TAB.ER.12H PO SCH (08:31)
[2018-02-14] MEDS ORDERED: Isosorbide MONOnitrate (24 HR) 60 MG TAB.ER.24H PO SCH (09:00)
--- NOTE | 2018-02-14 11:13 | Discharge Summary ---
Date of Encounter: 02/14/18 Time of Encounter: 11:11 - Discharge Diagnosis (1) CAD (coronary artery disease) Priority: Secondary Status: Acute Assessment and Plan: s/p recent pci of lad Qualifiers: Coronary Disease-Associated Artery/Lesion type: [place] artery [place] vs. transplanted heart: [place] heart Associated angina: without angina Qualified Code(s): I25.10 - Atherosclerotic heart disease of [place] coronary artery without angina pectoris (2) Paroxysmal atrial fibrillation Priority: Secondary Status: Chronic Assessment and Plan: remains in sinus rhythm (3) COPD (chronic obstructive pulmonary disease) Priority: Secondary Status: Chronic Assessment and Plan: no active wheezing Qualifiers: COPD type: unspecified COPD Qualified Code(s): J44.9 - Chronic obstructive pulmonary disease, unspecified (4) Hx of CABG Priority: Secondary Status: Acute (5) Tobacco abuse Priority: Secondary Status: Chronic (6) HLD (hyperlipidemia) Priority: Secondary Status: Chronic Qualifiers: Hyperlipidemia type: pure hypercholesterolemia Qualified Code(s): E78.00 - Pure hypercholesterolemia, unspecified; E78.0 - Pure hypercholesterolemia (7) HTN (hypertension) Priority: Secondary Status: Chronic Assessment and Plan: well controlled Qualifiers: Hypertension type: essential hypertension Qualified Code(s): I10 - Essential (primary) hypertension (8) CKD (chronic kidney disease) stage 3, GFR 30-59 ml/min Priority: Secondary Status: Chronic Assessment and Plan: stable (9) Pseudoaneurysm of right femoral artery Priority: Primary Status: Acute Assessment and Plan: s/p open repair Hospital course: Ms. Rivera is a 47 year old female - Time Spent with Patient Total time spent providing and/or coordinating discharge services: - Discharge Medications Home Medications: Furosemide [Lasix] 20 mg PO DAILY 09/20/16 [History] Nitroglycerin [Nitrostat] 0.4 mg SL Q5M PRN 09/20/16 [History] Albuterol Sulfate [Albuterol Inhaler] 2 puff IH Q4-6H PRN 01/11/17 [History] Apixaban [Eliquis] 5 mg PO BID 01/11/17 [History] Isosorbide MONOnitrate (24 HR) [Imdur] 60 mg PO DAILY 10/04/17 [History] Carvedilol [Coreg] 6.25 mg PO BID 01/26/18 [History] Gabapentin [Neurontin] 300 mg PO TID 01/26/18 [History] Ranolazine [Ranexa] 500 mg PO BID #60 tab.er.12h 01/30/18 [Rx] Atorvastatin Calcium [Lipitor] 20 mg PO HS 02/04/18 [History] Aspirin Enteric Coated [Aspirin EC] 81 mg PO DAILY #30 tablet.dr 02/09/18 [Rx] Clopidogrel [Plavix] 75 mg PO DAILY #30 tablet 02/09/18 [Rx] HYDROcodone/Acet 5/325 mg [[place] 5-325 mg] 1 tab PO Q6HR PRN 5 Days #14 tablet 02/09/18 [Rx] Lisinopril [Zestril] 5 mg PO DAILY #30 tablet 02/09/18 [Rx] Allergies/Adverse Reactions: 3 Allergy/AdvReac Type Severity Reaction Status Date / Time No Known Allergies Allergy Verified 02/04/18 13:16 Date of admission: 02/12/18 05:50 Primary care physician: Ralph Acosta Discharging clinician: Maged Chavez Anticipated date of discharge: 02/14/18 - Constitutional Vitals: Temp Pulse Resp BP Pulse Ox 98.1 F 91 16 104/62 98 02/14/18 08:00 02/14/18 08:41 02/14/18 04:00 02/14/18 04:00 02/14/18 04:00 General appearance: Present: A&O X 3 - Patient Status Disposition: Home, Self-Care Condition: Good Functional capacity at discharge: independent ambulation Overall status at discharge: patient is progressing back to baseline - Discharge Instructions Follow Up With: Candace Gomez CNP [Primary Care Provider] - Lance Ramirez MD [Partnered Physician] - (3 weeks) Additional Instructions: Keep right groin incision dry for total of 5 days following surgery No lifting greater than 10 pounds No driving - Diet and Activity Activity: increase activity as tolerated Diet: advance to your usual diet - VTE Documentation of Mechanical Device: Intermittent pneumatic compression device
== END 2018-02-14 11:44 | disposition home or self-care (01) | DRG 181 ==
LOC: 2ANU 03:13 → EMEROO 03:13 → 2ANU 06:41 → ICNU 15:38
PROVIDERS: ADMIT Internal Medicine; ATTEND Internal Medicine

== ENCOUNTER 2018-11-30 21:18 | Observation (INO) ==
--- NOTE | 2018-11-30 23:04 | Emergency Department Note ---
Disposition Clinical Impression: Right groin pain, Groin fluid collection Disposition: Admitted As Inpatient Condition: Fair Time of Disposition: 00:18 General Adult HPI - General Chief complaint: ED General Medical Stated complaint: groin pain post cath Time Seen by Provider: 11/30/18 22:10 Source: patient Mode of arrival: ambulatory Limitations: no limitations Nursing Notes Reviewed: Yes Vital Signs Reviewed: Yes - History of Present Illness HPI Narrative: 48 year old female with recent cardiac cath of the left groin 7 days ago. The patient noted to be experiencing right groin pain and ecchymosis of her midline abdomen roughly 2 days ago. The patient called on-call cardiology instructed to go to the emergency department immediately. The patient went to [place] emergency department. They performed a CT with IV contrast in noted a 2.4 x 8.5 serpiginous tubular fluid collection in the right groin. They are on sure but likely represent a vascular structure. The patient's lab work is fairly unremarkable and evaluation with exception elevated troponin which she will be expected 1 week after cardiac catheter. The patient case was discussed with on- call Dr. Frederick at [facility] cardiology who accepted the patient to our emergency department for evaluation. The patient still complaining of mild right groin pain. She denies any other complaints at this time. She is resting comfortably in the room stable vital signs. Pain Scale: 8 - Related Data Home Medications Medication Instructions Recorded Confirmed RX: Furosemide [Lasix] 20 mg PO DAILY 09/20/16 11/22/18 RX: Nitroglycerin [Nitrostat] 0.4 mg SL Q5M PRN 09/20/16 11/22/18 RX: Apixaban [Eliquis] 5 mg PO BID 01/11/17 11/22/18 RX: Isosorbide MONOnitrate (24 HR) 60 mg PO DAILY 10/04/17 11/22/18 [Imdur] RX: Carvedilol [Coreg] 6.25 mg PO BID 01/26/18 11/22/18 RX: Gabapentin [Neurontin] 300 mg PO TID 01/26/18 11/22/18 RX: Atorvastatin Calcium [Lipitor] 20 mg PO HS 02/04/18 11/22/18 RX: Acetaminophen [Extra Strength 1,000 mg PO BID PRN 11/22/18 11/22/18 Non-Aspirin] RX: Cyclobenzaprine [Flexeril] 10 mg PO TID PRN 11/22/18 11/22/18 RX: Ibuprofen [Ibu] 800 mg PO TID PRN 11/22/18 11/22/18 Previous Rx's Medication Instructions Recorded RX: Ranolazine [Ranexa] 500 mg PO BID #60 tab.er.12h 01/30/18 RX: HYDROcodone/Acet 5/325 mg 1 tab PO Q6HR PRN 5 Days #14 tablet 02/09/18 [[place] 5-325 mg] RX: Aspirin Enteric Coated 81 mg PO DAILY #30 tablet. 11/23/18 [Aspirin EC] RX: Clopidogrel [Plavix] 75 mg PO DAILY #30 tablet 11/23/18 Allergies Allergy/AdvReac Type Severity Reaction Status Date / Time tramadol [From Ultra] AdvReac Rash Verified 12/01/18 04:03 All systems ED: reviewed and negative except as stated. Constitutional: Denies: fever, chills, weakness ENT ED: Denies: dysphagia Cardiovascular: Denies: chest pain Respiratory: Denies: dyspnea Gastrointestinal: Denies: abdominal pain, nausea, vomiting Genitourinary: Denies: urgency, dysuria Musculoskeletal: Denies: back pain Integumentary: Reports: other (ecchymosis). Denies: rash Neurological: Denies: headache Past Medical History - Past Medical History Attestation: Yes The following information was validated with the patient. Source: patient, old records reviewed Medical history: Reports: asthma, atrial fibrillation, cardiomyopathy, COPD, coronary artery disease, hyperlipidemia, hypertension, syncope Surgical history: Reports: appendectomy, coronary bypass (CABG), heart valve replacement, pacemaker Psychiatric history: Reports: anxiety - Social History Smoking Status: Current every day smoker Smokeless Tobacco Status: No Alcohol use: Reports: none Drug use: Reports: none, marijuana Physical Exam - General Limitations: no limitations General appearance: alert, in no apparent distress - Head Head exam: atraumatic, normocephalic, normal inspection - Eye Eye exam: Present: normal appearance - ENT ENT exam: normal exam, normal oropharynx, mucous membranes moist - Neck Neck exam: Present: normal inspection, full ROM, trachea midline - Chest Chest inspection: Present: normal inspection, symmetric chest wall rise - Respiratory Respiratory exam: Present: normal lung sounds bilaterally - Cardiovascular Cardiovascular exam: Present: regular rate, normal rhythm, normal heart sounds - Abdominal Exam Abdominal exam: Present: soft, Non-Tender, other (ecchymosis in midline Abdomen and radiating into groin on the left.). Absent: tenderness, distention, guarding, rebound, rigidity - Extremities Exam Extremities exam: Present: normal inspection, full ROM. Absent: tenderness, pedal edema - Neurological Exam Neurological exam: Present: alert, oriented X3 - Skin Skin exam: Present: warm, dry, intact Course Vital Signs Temperature 97.4 F L 11/30/18 21:28 Pulse Rate 81 11/30/18 21:28 Respiratory Rate 16 11/30/18 21:28 Blood Pressure 145/66 11/30/18 21:28 O2 Sat by Pulse Oximetry 98 11/30/18 21:28 Temperature 97.4 F L 11/30/18 21:28 Pulse Rate 83 11/30/18 23:01 Respiratory Rate 16 11/30/18 23:01 Blood Pressure 122/76 11/30/18 23:01 O2 Sat by Pulse Oximetry 96 11/30/18 23:01 Oxygen Delivery Oxygen Delivery Room Air Medical Decision Making - MDM Narrative Medical decision making narrative: Patient's evaluation in the emergency department demonstrates negative pseudoaneurysm on bilateral duplex studies. A spoke with Dr. Ramirez on-call vascular surgery who did not have any further recommendations. Given the patient's rate of this tubular structure on CT scan with IV contrast outlying facility, we will admit the patient to the hospital for further workup and care. The patient was accepted by Dr. Crisostomo. He did request repeat labs here in the emergency department as well as blood cultures to determine if there is any signs of systemic infection. The patient will be admitted to the hospitalist at this time. Accepted by Dr. Crisostomo - Lab Data Result diagrams: 12/01/18 00:27 12/01/18 00:27 Attestation Statement - Attestation Attestation: Dr. Casarez note: Patient seen in conjunction with resident Dr. Luis Reyna. Please see his charting for complete documentation. I spent [id number] time with the patient and I agree with the patient's treatment and disposition. Imaging results from the outpatient facility reviewed. A CT scan was done at the outside facility, and a Doppler ultrasound was done at [place]. Findings were discussed with both the on-call vascular surgeon and the nuclear monitoring technician on-call. No intervention indicated in the ER. She will be admitted to hospitalist with appropriate consultants. She had a left heart catheterization done through the left femoral artery a week ago but is complaining of right groin swelling at the site where she had a heart catheterization about one year ago. Vital signs and blood counts are stable. Admitted in stable and improved condition
[2018-12-01 01:00] LABS: Basophils # 0.1 K/mcL (0.0-0.2); Basophils % 0.8 %; Eosinophils # 0.2 K/mcL (0.0-0.6); Eosinophils % 3.6 %; Hematocrit 35.5 % (35.3-44.9); Hemoglobin 11.5 g/dL (11.5-15.4); Immature Granulocytes % 0.2 % (0-4); Lymphocytes # 1.9 K/mcL (0.6-4.6); Mean Corpuscular HGB Conc 32.4 g/dL (31.6-35.5); Mean Corpuscular Volume 98.9 fL (83.0-100.0); Mean Platelet Volume 10.1 fL (9.4-12.4); Monocytes % 16.7 %; Neutrophils # 2.9 K/mcL (1.6-8.9); Platelet Count 263 K/mcL (140-400); Red Blood Count 3.59 M/mcL (3.82-4.97); Red Cell Distribution Width 14.4 % (11.5-14.5); Segmented Neutrophils % 47.7 %
[2018-12-01 01:09] LABS: INR 1.1; Prothrombin Time 12.8 Seconds (9.4-12.1)
[2018-12-01 01:11] LABS: Activated Partial Thrombo Time 31.7 Seconds (26.0-36.0)
[2018-12-01 01:12] LABS: BUN/Creatinine Ratio 17 (6-26); Blood Urea Nitrogen 16 mg/dL (6-20); Calcium 8.4 mg/dL (8.6-10.3); Carbon Dioxide 22 mEq/L (23-29); Chloride 108 mEq/L (98-107); Glucose 110 mg/dL (70-105); Osmolality,Calculated 284 (280-300); Potassium 4.2 mEq/L (3.5-5.1); Sodium 136 mEq/L (136-145); eGFR For Non-African Americans > 60 (> 60)
[2018-12-01 01:33] LABS: Troponin I 0.05 ng/mL (< 0.04)
[2018-12-01] MEDS ORDERED: Ondansetron ODT 4 MG TAB.RAPDIS SL PRN (01:40)
[2018-12-01] MEDS ORDERED: Naloxone 0.4 MG/ML INJ IVP PRN (01:40)
[2018-12-01] MEDS ORDERED: Nitroglycerin 0.4 MG TAB.SUBL SL PRN (01:47)
[2018-12-01] MEDS ORDERED: Acetaminophen 325 MG TABLET PO PRN (01:50)
--- NOTE | 2018-12-01 01:58 | Internal Med History&Physical ---
<LibrakeeganDennis N - Last Filed: 12/01/18 02:34> Date of Encounter: 12/01/18 Time of Encounter: 01:51 Internal Medicine - H&P: HPI Chief complaint: right groin pain and bruising History of present illness: Ms. Rivera is a 48 year old female who recently underwent LHC with BRUON X 1 on 11/22/2018. Patient complains of right groin pain and ecchymosis for one week. Sy mptoms gradually worsening, states pain and bruising are more profound over the past few days. She is on ASA, plavix, and eliquis. States the LHC was performed on left side. Patient had this complaint on day of discharge on 11/23/2018, she was evaluated with an ultrasound at that time and pseudoaneurysm was ruled out. Patient continued to have worsening symptoms throughout the week and called her counter sales person's office today and was directed to visit the emergency department. Patient visited the emergency department at [facility] where a CT scan was performed which was significant for a 2.4 x 8.5 serpiginious tubular fluid collection in the right groin. Patient was transferred to [facility] for further care and management. In the ED patient was hemodynamically stable and she was not anemic. on physical exam she was noted to have echymosis of the right groin and RLQ which was tender to palpation. Repeat dopplers were obtained which were again negative for psuedoaneurysms. Past Med Surg Social Fam HX - Past Medical History Medical history: asthma, atrial fibrillation, cardiomyopathy, COPD, coronary artery disease, hyperlipidemia, hypertension, syncope Additional medical history: rt rotator cuff tear Psychiatric history: anxiety - Past Surgical History Surgical History: appendectomy, coronary bypass (CABG), heart valve replacement, pacemaker Additional surgical history: MVR. CSECTIONS. heart cath/stent - Social History Smoking Status: Current every day smoker Smokeless Tobacco Status: No Alcohol use: none Drug use: none, marijuana - Family History Mother Family Member Ethnicity: Non- Living Status: Still Living Hx Family Cardiac Disorders: Yes (Open heart surgery, multiple MIs w/stents, HTN, HLD) Hx Family Respiratory Disorders: Yes Hx Family Cancer: No Hx Family GI Disorders: Yes Hx Family Endocrine Disorder: Yes (DM) Hx Family Neuromuscular Disorders: No Hx Family Neurologic Disorders: No Hx Family HEENT Disorders: No Hx Family Autoimmune Disorders: No Father Family Member Ethnicity: Non- Internal Medicine - H&P: Meds Furosemide [Lasix] 20 mg PO DAILY 09/20/16 [History] Nitroglycerin [Nitrostat] 0.4 mg SL Q5M PRN 09/20/16 [History] Apixaban [Eliquis] 5 mg PO BID 01/11/17 [History] Isosorbide MONOnitrate (24 HR) [Imdur] 60 mg PO DAILY 10/04/17 [History] Carvedilol [Coreg] 6.25 mg PO BID 01/26/18 [History] Gabapentin [Neurontin] 300 mg PO TID 01/26/18 [History] Ranolazine [Ranexa] 500 mg PO BID #60 tab.er.12h 01/30/18 [Rx] Atorvastatin Calcium [Lipitor] 20 mg PO HS 02/04/18 [History] HYDROcodone/Acet 5/325 mg [[place] 5-325 mg] 1 tab PO Q6HR PRN 5 Days #14 tablet 02/09/18 [Rx] Acetaminophen [Extra Strength Non-Aspirin] 1,000 mg PO BID PRN 11/22/18 [Hi story] Cyclobenzaprine [Flexeril] 10 mg PO TID PRN 11/22/18 [History] Ibuprofen [Ibu] 800 mg PO TID PRN 11/22/18 [History] Aspirin Enteric Coated [Aspirin EC] 81 mg PO DAILY #30 tablet. 11/23/18 [Rx] Clopidogrel [Plavix] 75 mg PO DAILY #30 tablet 11/23/18 [Rx] Allergy/AdvReac Type Severity Reaction Status Date / Time No Known Allergies Allergy Verified 02/04/18 13:16 All Systems PM: A 10-system review of systems was performed and is negative for pertinent findings except as documented above in the HPI. - Constitutional Constitutional: no fever(s) - EENT Eyes: no blurry vision Ears: no decreased hearing - Cardiovascular Cardiovascular ROS IM: no chest pain - Respiratory Respiratory: no dyspnea - Gastrointestinal Gastrointestinal: abdominal pain, no diarrhea, no hematochezia, no melena - Genitourinary Genitourinary: no dysuria - Musculoskeletal Musculoskeletal ROS IM: limited range of motion - Integumentary Integumentary IM: unusual bruising - Neurological Neurological ROS: no loss of vision - Psychiatric Psychiatric: no confusion - Hematologic/Lymphatic Hematologic/Lymphatic: easy bruising - Constitutional Vitals: Temp Pulse Resp BP Pulse Ox 97.4 F L 76 16 117/70 92 12/01/18 01:02 12/01/18 01:02 12/01/18 01:02 12/01/18 01:02 12/01/18 01:02 Exam: Constitutional: resting comfortably in bed, slightly drowsy as she recently woke, but no acute distress or confusion HEENT: pupils equal and round, EOM, no facial asymmetry or dysarthria, external ears and nares ptent NEck: no JVD, trachea midline Chest: nontendern to palpation, symmetrical chest wall rise Respiratory: clear to auscultation bilaterally Cardiovascular: RRR, no murmurs Abdomen: echymosis of the RLQ and right groin, significant tenderness to palpation with some guarding present Extremities: no cyanosis, edema, or clubbing Psych: appropriate mood and affect Neurological: no obvious focal neurological deficits Internal Med - H&P Results - Labs CBC & Chem 7: 12/01/18 00:27 12/01/18 00:27 Labs: Short CBC 12/01/18 Range/Units 00:27 WBC 6.1 (4.3-11.1) K/mcL Hgb 11.5 (11.5-15.4) g/dL Hct 35.5 (35.3-44.9) % Plt Count 263 (140-400) K/mcL Neutrophils # 2.9 (1.6-8.9) K/mcL BMP 12/01/18 00:27 Sodium 136 Potassium 4.2 Chloride 108 H Carbon Dioxide 22 L BUN 16 Creatinine 0.92 Glucose 110 H Calcium 8.4 L Cardiac Enzymes 12/01/18 Range/Units 00:27 Troponin I 0.05 H* (< 0.04) ng/mL - Assessment and plan (1) Right groin pain Current Visit: Yes Status: Acute Assessment and plan: With ecchymosis and tenderness in the RLQ and right groin region Doppler negative for pseudoaneurysm Patient states cath was performed by gaining access in the left femoral artery On review of laborer stores report (11/22/18) suspect failed femoral artery access on right with subsequent associated venous or small arterial bleed on DAPT and elquis CT scan from [place] revealed a 2.4 x 8.5 serpiginous tubular fluid collection -Will consult cardiology and vascular surgery -Will continue DAPT and eliquis as patient recently underwent PCI with BRUNO x 1 and is currently hemodynamically stable with hgb within normal range -Q6H H&H (2) CAD (coronary artery disease) Current Visit: No Status: Acute Assessment and plan: PCI with BRUNO x 1 on 11/22/2018 troponin elevated at [place], repeat at [facility] 0.05 Will continue to trend Qualifiers: Coronary Disease-Associated Artery/Lesion type: [place] artery [place] vs. transplanted heart: [place] heart Associated angina: without angina Qualified Code(s): I25.10 - Atherosclerotic heart disease of [place] coronary artery without angina pectoris (3) Elevated troponin I level Current Visit: No Status: Acute Assessment and plan: Troponin elevated at 0.05 in the setting of recent PCI and stent Will continue to trend (4) HTN (hypertension) Current Visit: No Status: Chronic Assessment and plan: continue home meds Qualifiers: Hypertension type: essential hypertension Qualified Code(s): I10 - Essen tial (primary) hypertension (5) HLD (hyperlipidemia) Current Visit: No Status: Chronic Assessment and plan: continue home statin Qualifiers: Hyperlipidemia type: pure hypercholesterolemia Qualified Code(s): E78.00 - Pure hypercholesterolemia, unspecified; E78.0 - Pure hypercholesterolemia (6) DVT prophylaxis Current Visit: No Status: Acute Assessment and plan: on DAPT and eliquis - Time Spent With Patient Total time spent is greater than 50% in coordination of care (as documented) at patient's floor/unit and/or counseling patient: <Nasim Crisostomo - Last Filed: 12/01/18 02:57> Date of Encounter: 12/01/18 Time of Encounter: 02:30 - Constitutional Constitutional: no chills, no fever(s) - Cardiovascular Cardiovascular ROS IM: no chest pain, no dyspnea, no dyspnea on exertion - Respiratory Respiratory: no cough, no chest congestion, no excessive phlegm production, no change in phlegm color - Gastrointestinal Gastrointestinal: abdominal pain (right groin/lower abdomen area/hematoma), no vomiting - Genitourinary Genitourinary: no dysuria, no flank pain, no hematuria - Integumentary Integumentary IM: unusual bruising, no rash, no jaundice - Neurological Neurological ROS: no disequilibrium, no dizziness, no focal weakness, no frequent falls - Psychiatric Psychiatric: no anxiety, no depression - Hematologic/Lymphatic Hematologic/Lymphatic: easy bruising - Constitutional Vitals: Temp Pulse Resp BP Pulse Ox 97.6 F 74 18 119/81 96 12/01/18 02:03 12/01/18 02:03 12/01/18 02:03 12/01/18 02:03 12/01/18 02:17 General appearance: Present: cooperative, A&O X 3, pleasant, no acute distress - Eye Eye exam: Present: PERRL. Absent: scleral icterus Pupils: Present: normal accommodation - ENT ENT exam: Present: mucous membranes dry, normal oropharynx - Neck Neck exam general surgery: Present: full ROM, supple. Absent: tenderness, nuchal rigidity, thyromegaly - Respiratory Respiratory exam: Present: CTAB. Absent: chest wall tenderness, rales, rhonchi, wheezes - Cardiovascular Cardiovascular exam: Present: distant heart sounds, RRR, +S1, +S2. Absent: diastolic murmur, systolic murmur - GI/Abdominal GI/Abdominal exam: Present: normal bowel sounds, soft, tenderness (right groin/lower abdomen area with surrounding ecchymosis and hematoma). Absent: hepatomegaly, mass, splenomegaly - Extremities Exam Extremities exam: Present: normal capillary refill, warm, radial pulses palpable and symmetrical. Absent: calf tenderness, joint swelling, pedal edema, tenderness - Back Exam Back exam: Absent: CVA tenderness (L), CVA tenderness (R) - Skin Skin exam: Present: dry, intact, warm Internal Med - H&P Results - Labs CBC & Chem 7: 12/01/18 00:27 12/01/18 00:27 Labs: Short CBC 12/01/18 Range/Units 00:27 WBC 6.1 (4.3-11.1) K/mcL Hgb 11.5 (11.5-15.4) g/dL Hct 35.5 (35.3-44.9) % Plt Count 263 (140-400) K/mcL Neutrophils # 2.9 (1.6-8.9) K/mcL BMP 12/01/18 00:27 Sodium 136 Potassium 4.2 Chloride 108 H Carbon Dioxide 22 L BUN 16 Creatinine 0.92 Glucose 110 H Calcium 8.4 L Cardiac Enzymes 12/01/18 Range/Units 00:27 Troponin I 0.05 H* (< 0.04) ng/mL - Time Spent With Patient Total time spent is greater than 50% in coordination of care (as documented) at patient's floor/unit and/or counseling patient: - Attending Attestation I discussed the patient case, [place], past medical history, review of systems, lab data, imaging data, and exam findings with Dr. Jimenez as well as with the ER staff. I then saw and examined patient independently as well. Patient did have a left heart catheterization roughly 1 week ago and had vascular access on her left side. We reviewed the catheterization report, and it is not clear whether there was a vascular access attempt in the right groin. She now has pain in her right groin as well as superficial hematoma and possible underlying deeper hematoma. ER staff did obtain arterial Doppler studies of both groin areas without evidence of pseudoaneurysm. Cardiology and vascular surgery were both contacted by ER staff and recommended admission to hospitalist service with appropriate consultation as necessary. The patient is not anemic. She is on dual anti-platelet therapy as well as Eliquis for her atrial fibrillation. However, she appears to be in normal sinus rhythm at the present time. She does have evidence of right lower abdominal hematoma and tenderness along the right groin. We will ask cardiology and vascular surgery to assess patient in the morning and help guide us regarding any possible need for further intervention. We will continue her antiplatelet therapy and Eliquis for now. She may need to be off of her anti-coagulation temporarily, however, if there is evidence of significant bleeding. Other than my comments above and noted exam findings, I agree with Dr. Jimenez's assessment and plan.
[2018-12-01] MEDS ORDERED: traMADol 50 MG TABLET PO PRN (03:48)
[2018-12-01] MEDS: *HR* HYDROcodone/Acet 5/325 mg TABLET PO PRN ×2 (04:15→10:07)
[2018-12-01 06:05] LABS: Hemoglobin 11.5 g/dL (11.5-15.4)
[2018-12-01 08:18] LABS: Hematocrit 36.6 % (35.3-44.9); Hemoglobin 12.1 g/dL (11.5-15.4)
--- NOTE | 2018-12-01 08:33 | Event Note ---
Date of Encounter: 12/01/18 Time of Encounter: 08:30 - Cardiology Event Note Patient with recent PCI with left femoral access. Patient reported right groin pain and presented to [place]. CT was performed with showed right groin fluid collection. [facility] 2018 with right groin access, subsequently developed right groin pseudoaneurysm and intervention was performed by vascular surgery. Vascular surgery consulted. Discussed and reviewed with , cardiology will sign off. Re-consult if needed. Patient follows with [facility].
[2018-12-01] MEDS ORDERED: Furosemide 20 MG TABLET PO SCH (09:00)
[2018-12-01] MEDS ORDERED: Aspirin Enteric Coated 81 MG Tablet PO SCH (09:00)
[2018-12-01] MEDS ORDERED: Isosorbide MONOnitrate (24 HR) 60 MG TAB.ER.24H PO SCH (09:00)
[2018-12-01] MEDS ORDERED: Apixaban 5 MG TABLET PO SCH (09:00)
[2018-12-01] MEDS ORDERED: Ranolazine 500 MG TAB.ER.12H PO SCH (09:00)
--- NOTE | 2018-12-01 10:37 | Internal Med Progress Note ---
Hospitalist Progress Note - Encounter Date of Encounter: 12/01/18 Time of Encounter: 09:14 - Subjective Interval History: Patient lying comfortably in bed upon examination. No complaints. States that his lower extremity and left arm swelling are stable compared to yesterday. Denies any chest pain, palpitations, shortness of breath, fevers, or chills. - Exam Vitals: Temp Pulse Resp BP Pulse Ox 97.6 F 88 18 158/79 94 12/01/18 08:04 12/01/18 08:04 12/01/18 08:04 12/01/18 08:04 12/01/18 08:04 Exam: Constitutional: resting comfortably in bed, slightly drowsy as she recently woke, but no acute distress or confusion HEENT: pupils equal and round, EOM, no facial asymmetry or dysarthria, external ears and nares ptent NEck: no JVD, trachea midline Chest: nontendern to palpation, symmetrical chest wall rise Respiratory: clear to auscultation bilaterally Cardiovascular: RRR, no murmurs Abdomen: echymosis of the RLQ and right groin, significant tenderness to palpation with some guarding present Extremities: no cyanosis, edema, or clubbing Psych: appropriate mood and affect Neurological: no obvious focal neurological deficits - Time Spent with Patient Total time spent is greater than 50% in coordination of care (as documented) at patient's floor/unit and/or counseling patient: Internal Medicine: Result - Labs CBC & Chem 7: 12/01/18 08:03 12/01/18 00:27 Labs: Short CBC 12/01/18 12/01/18 12/01/18 Range/Units 00:27 05:30 08:03 WBC 6.1 (4.3-11.1) K/mcL Hgb 11.5 11.5 12.1 (11.5-15.4) g/dL Hct 35.5 36.0 36.6 (35.3-44.9) % Plt Count 263 (140-400) K/mcL Neutrophils # 2.9 (1.6-8.9) K/mcL BMP 12/01/18 00:27 Sodium 136 Potassium 4.2 Chloride 108 H Carbon Dioxide 22 L BUN 16 Creatinine 0.92 Glucose 110 H Calcium 8.4 L Cardiac Enzymes 12/01/18 12/01/18 Range/Units 00:27 05:30 Troponin I 0.05 H* 0.04 H* (< 0.04) ng/mL - ABG Interpretation ABG results: PT/INR, D-dimer PT 12.8 Seconds (9.4-12.1) H 12/01/18 00:27 Consult Discharge Plan - Plan Referrals: Candace Gomez, [employer] [Primary Care Provider] -
[2018-12-01 11:33] VITALS: BP 121/64
--- NOTE | 2018-12-01 13:47 | Discharge Summary ---
<Kaleigh Hernandez M - Last Filed: 12/01/18 15:15> - NOTES TO OUTPATIENT PROVIDER Notes to Outpatient Provider: Follow up with Cardiology as scheduled, Cardiology will call the patient for followup in 1-2 weeks. Supportive care for right groin hematoma. No vascular surgery intervention or followup is necessary. Orders not resulted at time of discharge: Pending orders 12/01/18 00:27 Culture,Blood [BC] Stat 12/01/18 14:30 Hemoglobin and Hematocrit [HEME] Q6H 12/01/18 20:30 Hemoglobin and Hematocrit [HEME] Q6H Date of Encounter: 12/01/18 Time of Encounter: 08:50 - Discharge Diagnosis (1) Right groin pain Priority: Primary Status: Acute Assessment and Plan: due to 2.4 x 8.5 serpiginous tubular fluid collection on CT Likely hematoma due to catheterization access attempt in the right groin. Supportive care (2) Groin fluid collection Priority: Secondary Status: Acute Assessment and Plan: No further intervention. Doppler negative for aneurysm H/H stable (3) CAD (coronary artery disease) Priority: Secondary Status: Chronic Assessment and Plan: COntinue home meds (4) Elevated troponin I level Priority: Secondary Status: Chronic Assessment and Plan: Recent cardiac cath and stent plancement. No acute ischemic changes on ekg (5) HLD (hyperlipidemia) Priority: Secondary Status: Chronic Assessment and Plan: Continue home meds (6) HTN (hypertension) Priority: Secondary Status: Chronic Assessment and Plan: Continue home meds Hospital course: Ms. Rivera is a 48 year old female who recently underwent left heart catheter with BRUNO 1 on 11/22/2018. She has been on aspirin, Plavix and Eliquis. Since then, she complains of right groin pain and ecchymosis for one week. Patient was evaluated with an ultrasound on November 23 and pseudoaneurysm was ruled out. She presented at an outside facility where a CT with IV contrast was performed and showed 2.4 x 8.5 syrup tenderness tubular fluid collection in the right groin. She was transferred here for further care and management. In the ER, repeat Dopplers were obtained which were negative for pseudoaneurysm. Patient also had elevated troponin of 0.05 but trended down to 0.04 which is most likely due to her recent cardiac catheterization with stent placement. There is no acute ischemic changes on the EKG. She also did not have any chest pain or shortness of breath. Patient does have ecchymosis of the right groin and right lower quadrant with tenderness to palpation on physical examination. Cardiology and vascular surgery were consulted. Upon review of records and their recommendations, the catheter lab report from November 22 gained access in the left femoral artery however suspect failed femoral artery access on the right with subsequent associated venous or small arterial bleed and DAPT and Eliquis resulting in the tubular fluid collection that is likely a hematoma. Discussed with Vascular surgery as well. 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 No intervention is needed. No further imagin g. No elevated WBC or fevers to suggest infectious process. Patient will need followup with Cardiology as outpatient. The patient is medically stable for discharge home with follow-up with her primary care physician and cardiology. She will continue her current home medications. All questions have been answered and she is agreeable to plan of care. Discharge discussed with: patient - Time Spent with Patient Total time spent providing and/or coordinating discharge services: - Discharge Medications Prescriptions: Continue RX: Furosemide [Lasix] 20 mg PO DAILY RX: Nitroglycerin [Nitrostat] 0.4 mg SL Q5M PRN PRN Reason: Chest Pain RX: Apixaban [Eliquis] 5 mg PO BID RX: Isosorbide MONOnitrate (24 HR) [Imdur] 90 mg PO DAILY RX: Ranolazine [Ranexa] 500 mg PO BID #60 tab.er.12h RX: Atorvastatin Calcium [Lipitor] 20 mg PO DAILY RX: Ibuprofen [Ibu] 800 mg PO Q8H PRN PRN Reason: Pain RX: Cyclobenzaprine [Flexeril] 10 mg PO Q8H PRN PRN Reason: Muscle Spasm RX: Acetaminophen [Extra Strength Non-Aspirin] 1,000 mg PO BID PRN PRN Reason: Pain RX: Aspirin Enteric Coated [Aspirin EC] 81 mg PO DAILY #30 tablet. RX: Clopidogrel [Plavix] 75 mg PO DAILY #30 tablet No Action Albuterol Sulfate [Ventolin Hfa] 2 puff IH Q4-6H PRN PRN Reason: Shortness Of Breath Carvedilol 3.125 mg PO BID RX: Cilostazol [Pletal] 100 mg PO BID Home Medications: RX: Furosemide [Lasix] 20 mg PO DAILY 09/20/16 [History] RX: Nitroglycerin [Nitrostat] 0.4 mg SL Q5M PRN 09/20/16 [History] RX: Apixaban [Eliquis] 5 mg PO BID 01/11/17 [History] RX: Isosorbide MONOnitrate (24 HR) [Imdur] 90 mg PO DAILY 10/04/17 [History] RX: Ranolazine [Ranexa] 500 mg PO BID #60 tab.er.12h 01/30/18 [Rx] RX: Atorvastatin Calcium [Lipitor] 20 mg PO DAILY 02/04/18 [History] RX: Acetaminophen [Extra Strength Non-Aspirin] 1,000 mg PO BID PRN 11/22/18 [History] RX: Cyclobenzaprine [Flexeril] 10 mg PO Q8H PRN 11/22/18 [History] RX: Ibuprofen [Ibu] 800 mg PO Q8H PRN 11/22/18 [History] RX: Aspirin Enteric Coated [Aspirin EC] 81 mg PO DAILY #30 tablet. 11/23/18 [Rx] RX: Clopidogrel [Plavix] 75 mg PO DAILY #30 tablet 11/23/18 [Rx] Albuterol Sulfate [Ventolin Hfa] 2 puff IH Q4-6H PRN 12/01/18 [History] Carvedilol 3.125 mg PO BID 12/01/18 [History] RX: Cilostazol [Pletal] 100 mg PO BID 12/01/18 [History] Allergies/Adverse Reactions: Allergy/AdvReac Type Severity Reaction Status Date / Time tramadol [From Ultram] AdvReac HIVES, Verified 12/01/18 17:11 ITCHING Date of admission: 12/01/18 00:33 Primary care physician: Candace Gomez CNP Consults: 12/01/18 01:44 Consult to Cardiology [CONS] Routine Comment: Consulting Provider: Card[facility] [place] Reason for Consult: recent LHC and BRUNO X 1. Post cath echymosis and pain in groin. CT scan revealed serpiginous tubular fluid collection in groin. US negative for psuedoaneurysm. Call Completed: No 12/01/18 01:46 Consult to Vascular Surgery [CONS] Routine Consulting Provider: V[facility] [place] Reason for Consult: recent LHC and BRUNO X 1. Post cath echymosis and pain in groin. CT scan revealed serpiginous tubular fluid collection in groin. US negative for psuedoaneurysm. Call Completed: No Discharging clinician: Kaleigh Hernandez Anticipated date of discharge: 12/01/18 - Constitutional Vitals: Temp Pulse Resp BP Pulse Ox 96.9 F L 84 16 121/64 95 12/01/18 12:34 12/01/18 11:31 12/01/18 11:31 12/01/18 11:31 12/01/18 11:31 General appearance: Present: cooperative, A&O X 3, pleasant, no acute distress Exam: see below - Head Head exam: Present: atraumatic, normocephalic - Neck Neck exam general surgery: Present: supple, trachea midline. Absent: lymphadenopathy - Respiratory Respiratory exam: Present: CTAB. Absent: accessory muscle use, rales, rhonchi, wheezes - Cardiovascular Cardiovascular exam: Present: RRR, +S1, +S2. Absent: diastolic murmur, gallop, rubs, systolic murmur - GI/Abdominal GI/Abdominal exam: Present: normal bowel sounds, soft, no peritoneal signs. Absent: distended, tenderness - Extremities Exam Extremities exam: Present: normal capillary refill. Absent: calf tenderness Additional comments: healing ecchymosis of right groin and right lower quadrant with mild tenderness. - Neurological Exam Neurological exam: Present: CN II-XII intact, oriented X3, no focal deficits. Absent: pronater drift, facial droop, speech deficit - Psychiatric Psychiatric exam: Present: normal affect, normal mood - Skin Skin exam: Present: dry, intact - Patient Status Disposition: Home, Self-Care Condition: Good Functional capacity at discharge: independent ambulation Overall status at discharge: patient is progressing back to baseline - Discharge Instructions Instructions: Left Heart Catheterization (DC), Contusion in Adults (DC), Contusion in Adults (GEN) Follow Up With: Sanket Tracy MD [Partnered Physician] - (The Cardio office will contact you about a follow up.) Candace Gomez CNP [Primary Care Provider] - 12/04/18 2:00 pm Additional Instructions: Continue your current medications as prescribed. Follow up at your scheduled Cardiology appointment. Use ice for 10 minutes every hour on the right groin for the swelling. You can take Tylenol as needed every 4-6 hours for pain. Follow up with your primary care physician next week. - Diet and Activity Activity: increase activity as tolerated Diet: diabetic diet <Coretta Sigala - Last Filed: 12/01/18 20:44> Orders not resulted at time of discharge: Pending orders 12/01/18 00:27 Culture,Blood [BC] Stat Date of Encounter: 12/01/18 Hospital course: Ms. Rivera is a 48 year old female - Time Spent with Patient Total time spent providing and/or coordinating discharge services: Greater than 30 minutes Date of admission: 12/01/18 00:33 Primary care physician: Candace Gomez CNP Consults: 12/01/18 01:44 Consult to Cardiology [CONS] Routine Comment: Consulting Provider: Card[facility] [place] Reason for Consult: recent LHC and BRUNO X 1. Post cath echymosis and pain in groin. CT scan revealed serpiginous tubular fluid collection in groin. US negative for psuedoaneurysm. Call Completed: No 12/01/18 01:46 Consult to Vascular Surgery [CONS] Routine Consulting Provider: Vascular Surgery [place] Reason for Consult: recent LHC and BRUNO X 1. Post cath echymosis and pain in groin. CT scan revealed serpiginous tubular fluid collection in groin. US negative for psuedoaneurysm. Call Completed: No - Constitutional Vitals: Temp Pulse Resp BP Pulse Ox 96.9 F L 84 16 121/64 95 12/01/18 12:34 12/01/18 11:31 12/01/18 11:31 12/01/18 11:31 12/01/18 11:31 - Attending Attestation I examined this patient and my medical decision-making was reviewed with the Resident Physician. I agree with the documented discharge as described except to the extent set forth below. Admitted for right groin pain and found to have a hematoma/fluid on imaging. Vascular saw the patient and recommended conservative measures. Had a recent LHC but access point was on the left. Attempt to access on the right failed. Follow up with Dr. Ramirez who had worked on the patient before for a pseudoaneurysm post LHC. GEN: NAD CVS: RRR. S1, S2, No m/r/g RESP: CTAB ABD: Soft, NT, ND, +BS EXT: No edema. 2+ DP. No rashes NEURO: Nonfocal
[2018-12-01 14:15] LABS: Hematocrit 36.2 % (35.3-44.9); Hemoglobin 11.8 g/dL (11.5-15.4)
--- NOTE | 2018-12-01 15:14 | Vascular/Endovasc Consult Note ---
Date of Encounter: 12/01/18 Time of Encounter: 13:00 Assessment and Plan (1) CAD (coronary artery disease) Current Visit: No Status: Chronic Patient has known coronary artery disease. She is status post a recent cardiac catheterization. The right groin puncture was unsuccessful and the patient eventually had her catheterization performed via left groin puncture. Qualifiers: Coronary Disease-Associated Artery/Lesion type: [place] artery [place] vs. transplanted heart: [place] heart Associated angina: without angina Qualified Code(s): I25.10 - Atherosclerotic heart disease of [place] coronary artery without angina pectoris (2) Right groin pain Current Visit: Yes Status: Acute Right groin pain is due to subacute hematoma secondary to attempted access via right femoral artery. No pseudoaneurysm is identified. No sign of infection is present. (3) Groin fluid collection Current Visit: Yes Status: Acute As noted above the patient has a subacute hematoma of the right groin. Surgery is not indicated at this time. Patient may be discharged and treated symptomatically. Surgical intervention is not anticipated. - History of Present Illness Consult date: 12/01/18 Consult reason: Right groin pain and discoloration Chief complaint: Right groin pain History of present illness: Ms. Rivera is a 48 year old female who was seen in the emergency room at [facility] and had a CT scan performed and was transferred to the emergency room at [facility] last night. She was admitted overnight for observation. The patient states that she had undergone a cardiac catheterization on November 22. Approximately 2 days after the cardiac catheterization she began complaining of pain in the right groin with discoloration. She had contacted the cardiology office and he had directed her to seek further attention via the emergency room. I had performed a right femoral pseudoaneurysm repair for the patient approximately a year ago. On review of the records this patient had a right femoral artery access attempt which was unsuccessful during the cardiac catheterization earlier this month and the procedure was performed via a left femoral puncture. I have personally reviewed the CT scan images from the outside hospital as well as the duplex scan that was performed today while I was examining the patient. Of note the patient has not had any fevers or elevated white count. Past Med Surg Social Fam HX - Past Medical History Medical history: asthma, atrial fibrillation, cardiomyopathy, COPD, coronary artery disease, hyperlipidemia, hypertension, syncope Additional medical history: rt rotator cuff tear Psychiatric history: anxiety - Past Surgical History Surgical History: appendectomy, coronary bypass (CABG), heart valve replacement, vascular surgery (Right femoral pseudoaneurysm repair), pacemaker Additional surgical history: MVR. CSECTIONS. heart cath/stent - Social History Smoking Status: Current every day smoker Smokeless Tobacco Status: No Alcohol use: none Drug use: none, marijuana - Family History Mother Family Member Ethnicity: Non- Living Status: Still Living Hx Family Cardiac Disorders: Yes (Open heart surgery, multiple MIs w/stents, HTN, HLD) Hx Family Respiratory Disorders: Yes Hx Family Cancer: No Hx Family GI Disorders: Yes Hx Family Endocrine Disorder: Yes (DM) Hx Family Neuromuscular Disorders: No Hx Family Neurologic Disorders: No Hx Family HEENT Disorders: No Hx Family Autoimmune Disorders: No Father History Unknown: Yes Family Member Ethnicity: Non- Medications and Allergies Furosemide [Lasix] 20 mg PO DAILY 09/20/16 [History] Nitroglycerin [Nitrostat] 0.4 mg SL Q5M PRN 09/20/16 [History] Apixaban [Eliquis] 5 mg PO BID 01/11/17 [History] Isosorbide MONOnitrate (24 HR) [Imdur] 60 mg PO DAILY 10/04/17 [History] Carvedilol [Coreg] 6.25 mg PO BID 01/26/18 [History] Gabapentin [Neurontin] 300 mg PO TID 01/26/18 [History] Ranolazine [Ranexa] 500 mg PO BID #60 tab.er.12h 01/30/18 [Rx] Atorvastatin Calcium [Lipitor] 20 mg PO HS 02/04/18 [History] HYDROcodone/Acet 5/325 mg [[place] 5-325 mg] 1 tab PO Q6HR PRN 5 Days #14 tablet 02/09/18 [Rx] Acetaminophen [Extra Strength Non-Aspirin] 1,000 mg PO BID PRN 11/22/18 [History] Cyclobenzaprine [Flexeril] 10 mg PO TID PRN 11/22/18 [History] Ibuprofen [Ibu] 800 mg PO TID PRN 11/22/18 [History] Aspirin Enteric Coated [Aspirin EC] 81 mg PO DAILY #30 tablet. 11/23/18 [Rx] Clopidogrel [Plavix] 75 mg PO DAILY #30 tablet 11/23/18 [Rx] Allergy/AdvReac Type Severity Reaction Status Date / Time tramadol [From Ultram] AdvReac Rash Verified 12/01/18 04:03 All Systems Review: The remainder of the systems were reviewed and are negative Exam Vital Signs, Last 4 Hours Temp Pulse Resp BP Pulse Ox 12/01/18 12:34 96.9 F L 12/01/18 11:31 84 16 121/64 95 General: Present: Conversant, Well developed, Well nourished, Other (Obese) HEENT: Present: Atraumatic, Normocephaly, Trachea midline Neck: Absent: JVD Neuro: Present: Alert and responsive, No focal deficits noted, Cranial nerves grossly intact Abdomen: Present: Soft, Non-tender, Other (Obese). Absent: Masses Vascular: Present: Normal capillary refill, Pulse, normal, Color/Temperature (Color and temperature of feet is normal), Surgical incisions (Right groin incision), Other (Patient has ecchymosis on the superior and medial aspect of the right groin and lower abdomen. The right groin is tender to manipulation. I cannot identify a discrete mass but on the ultrasound exam that was performed while I was with the patient this area could be identified and is consistent with a subacute hematoma and the CT scan findings. There is no attachment of this mass to the arterial structures.). Absent: Bruit, Clubbing, Cyanosis, Edema Consult Discharge Plan - Plan Additional Instructions: Continue your current medications as prescribed. Follow up at your scheduled Cardiology appointment. Use ice for 10 minutes every hour on the right groin for the swelling. You can take Tylenol as needed every 4-6 hours for pain. Follow up with your primary care physician next week. Referrals: Candace Gomez CNP [Primary Care Provider] -
--- NOTE | 2018-12-01 17:41 | Electrocardiograph Report ---
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
== END 2018-12-01 17:55 | disposition home or self-care (01) ==
LOC: EMEROOARM 21:18 → 2NENU 21:18 → SUATTDRO 12-01 00:33 → 2NENU 12-01 01:30
PROVIDERS: ADMIT Pediatrics; ATTEND Internal Medicine

== ENCOUNTER 2020-03-23 16:25 | Observation (INO) ==
[2020-03-23] MEDS ORDERED: Nitroglycerin 0.4 MG TAB.SUBL SL PRN ×2 (16:44→23:24)
[2020-03-23 17:00] LABS: Basophils # 0.1 K/mcL (0.0-0.2); Basophils % 0.8 %; Eosinophils # 0.2 K/mcL (0.0-0.6); Eosinophils % 1.7 %; Hematocrit 47.3 % (35.3-44.9); Hemoglobin 15.3 g/dL (11.5-15.4); Immature Granulocytes % 0.2 % (0-4); Lymphocytes # 2.9 K/mcL (0.6-4.6); Lymphocytes % 32.2 %; Mean Corpuscular HGB Conc 32.3 g/dL (31.6-35.5); Mean Corpuscular Hemoglobin 32.1 pg (28.0-33.3); Mean Corpuscular Volume 99.2 fL (83.0-100.0); Mean Platelet Volume 11.1 fL (9.4-12.4); Monocytes # 0.7 K/mcL (0.0-1.3); Neutrophils # 5.1 K/mcL (1.6-8.9); Platelet Count 216 K/mcL (140-400); Red Blood Count 4.77 M/mcL (3.82-4.97); Segmented Neutrophils % 57.1 %; White Blood Count 8.9 K/mcL (4.3-11.1)
[2020-03-23 17:01] LABS: INR 1.1; Prothrombin Time 12.7 Seconds (9.4-12.1)
[2020-03-23 17:04] LABS: Activated Partial Thrombo Time 33.7 Seconds (26.0-36.0)
[2020-03-23 17:16] LABS: BUN/Creatinine Ratio 13 (6-26); Blood Urea Nitrogen 12 mg/dL (6-20); Calcium 9.5 mg/dL (8.6-10.3); Carbon Dioxide 21 mEq/L (23-29); Chloride 104 mEq/L (98-107); Glucose 163 mg/dL (70-105); Osmolality,Calculated 283 (280-300); Potassium 3.6 mEq/L (3.5-5.1); Sodium 135 mEq/L (136-145); eGFR For African Americans > 60 (> 60); eGFR For Non-African Americans > 60 (> 60)
[2020-03-23 17:25] LABS: Troponin I 0.13 ng/mL (< 0.04)
[2020-03-23] MEDS ORDERED: Aspirin 81 MG TAB.CHEW PO ONE ×2 (17:30→23:18)
[2020-03-23] MEDS ORDERED: *HR* OxyCODONE Immed Rel 5 MG TABLET PO ONE (21:10)
[2020-03-23] MEDS ORDERED: Naloxone 0.4 MG/ML INJ IVP PRN (23:18)
[2020-03-23] MEDS ORDERED: 0.9 % Sodium Chloride 1,000 ML IVC SCH (23:30)
[2020-03-23] MEDS: Apixaban 5 MG TABLET PO SCH (23:40)
[2020-03-24] MEDS ORDERED: Ampicillin/Sulbactam 3,000 MG in 0.9 % Sodium Chloride Mini Bag 100 ML IVPB ONE (00:08)
[2020-03-24 03:01] LABS: Basophils # 0.1 K/mcL (0.0-0.2); Basophils % 0.6 %; Eosinophils # 0.2 K/mcL (0.0-0.6); Eosinophils % 1.8 %; Hematocrit 46.9 % (35.3-44.9); Hemoglobin 15.2 g/dL (11.5-15.4); Immature Granulocytes % 0.3 % (0-4); Lymphocytes # 3.6 K/mcL (0.6-4.6); Lymphocytes % 34.7 %; Mean Corpuscular HGB Conc 32.4 g/dL (31.6-35.5); Mean Corpuscular Hemoglobin 32.1 pg (28.0-33.3); Mean Corpuscular Volume 98.9 fL (83.0-100.0); Mean Platelet Volume 11.3 fL (9.4-12.4); Monocytes # 0.7 K/mcL (0.0-1.3); Monocytes % 7.1 %; Neutrophils # 5.7 K/mcL (1.6-8.9); Platelet Count 216 K/mcL (140-400); Red Blood Count 4.74 M/mcL (3.82-4.97); Red Cell Distribution Width 13.9 % (11.5-14.5); Segmented Neutrophils % 55.5 %; White Blood Count 10.2 K/mcL (4.3-11.1)
[2020-03-24 03:02] LABS: INR 1.1; Prothrombin Time 12.6 Seconds (9.4-12.1)
[2020-03-24 03:25] LABS: Alanine Aminotransferase 13 Units/L (7-52); Albumin 3.8 g/dL (3.5-5.7); Albumin/Globulin Ratio 1.2 (1.1-2.2); Alkaline Phosphatase 92 Units/L (34-104); Aspartate Amino Transferase 19 Units/L (13-39); BUN/Creatinine Ratio 14 (6-26); Bilirubin,Total 0.5 mg/dL (0.3-1.0); Blood Urea Nitrogen 11 mg/dL (6-20); Calcium 9.1 mg/dL (8.6-10.3); Carbon Dioxide 22 mEq/L (23-29); Chloride 106 mEq/L (98-107); Chol/HDL Ratio 6.8 (0-4.9); Cholesterol 184 mg/dL (< 200); Globulin 3.2 g/dL (2.4-3.5); Glucose 89 mg/dL (70-105); HDL Cholesterol 27 mg/dL (40-59); LDL Cholesterol,Calculated 124 mg/dL (0-99); Magnesium 1.8 mg/dL (1.6-2.6); Osmolality,Calculated 287 (280-300); Phosphorous 3.8 mg/dL (2.7-4.5); Potassium 3.7 mEq/L (3.5-5.1); Sodium 139 mEq/L (136-145); Triglycerides 164 mg/dL (< 150); eGFR For African Americans > 60 (> 60); eGFR For Non-African Americans > 60 (> 60)
[2020-03-24 03:32] LABS: Thyroid Stimulating Hormone 4.273 mcIU/mL (0.340-5.600)
[2020-03-24] MEDS: Ampicillin/Sulbactam 3,000 MG in 0.9 % Sodium Chloride Mini Bag 100 ML IVPB SCH ×3 (06:49→17:19)
[2020-03-24 08:00] LABS: Estimated Average Glucose 146 mg/dl
[2020-03-24] MEDS ORDERED: carvediloL 6.25 MG TABLET PO SCH (08:00)
[2020-03-24] MEDS: Aspirin Enteric Coated 81 MG Tablet PO SCH (08:16)
[2020-03-24] MEDS: Apixaban 5 MG TABLET PO SCH (08:16)
[2020-03-24] MEDS ORDERED: Perflutren Lipid Microsphere 1.3 ML in 0.9 % Sodium Chloride 8.7 ML IVP ONE (09:23)
[2020-03-24] MEDS ORDERED: Dextrose Gel 15 GM/37.5 ML TUBE PO PRN ×2 (11:39)
[2020-03-24] MEDS ORDERED: D5% in Water 1,000 ML IVC PRN (11:39)
[2020-03-24] MEDS ORDERED: *HR* Dextrose 50 % in Water (Syg) 50 ML SYRINGE IVP PRN (11:39)
[2020-03-24 12:00] LABS: Bilirubin,Urine Negative (Negative); Blood,Urine Negative (Negative); Clarity,Urine Clear (Clear); Color,Urine Yellow (Yellow); Glucose,Urine (UA) Normal (Normal); Ketones,Urine Negative (Negative); Leukocyte Esterase,Urine Negative (Negative); Nitrite,Urine Negative (Negative); Protein,Urine Trace mg/dL (Neg-Trace); Specific Gravity,Urine 1.017 (1.010-1.025); Urobilinogen,Urine Normal (Normal)
[2020-03-24] MEDS: Furosemide 20 MG TABLET PO SCH (12:00)
[2020-03-24] MEDS: lisinopriL 5 MG TABLET PO SCH (12:00)
[2020-03-24] MEDS: Insulin LISPRO 300 UNITS/3 ML VIAL SQ SCH ×2 (12:09→22:57)
[2020-03-24] MEDS ORDERED: *HR* Heparin 5,000 UNIT/ML VIAL IVP PRN ×2 (17:04)
[2020-03-24] MEDS: carvediloL 6.25 MG TABLET PO SCH (17:18)
[2020-03-24] MEDS ORDERED: Heparin 25,000 UNIT/250 ML D5W 25,000 UNIT/250 ML IV.SOLN IVC SCH ×5 (18:15→20:00)
[2020-03-24] MEDS ORDERED: *HR* Heparin 5,000 UNIT/ML VIAL IVP ONE ×2 (20:00)
[2020-03-25] MEDS: Insulin LISPRO 300 UNITS/3 ML VIAL SQ SCH ×2 (00:02→05:12)
[2020-03-25] MEDS: Ampicillin/Sulbactam 3,000 MG in 0.9 % Sodium Chloride Mini Bag 100 ML IVPB SCH ×2 (00:16→05:14)
[2020-03-25] MEDS ORDERED: *HR* Heparin 5,000 UNIT/ML VIAL IVP PRN ×2 (02:00)
[2020-03-25 03:58] LABS: Basophils # 0.1 K/mcL (0.0-0.2); Basophils % 0.8 %; Eosinophils # 0.2 K/mcL (0.0-0.6); Eosinophils % 2.4 %; Hematocrit 48.2 % (35.3-44.9); Hemoglobin 16.2 g/dL (11.5-15.4); Immature Granulocytes % 0.2 % (0-4); Lymphocytes # 3.4 K/mcL (0.6-4.6); Lymphocytes % 34.9 %; Mean Corpuscular HGB Conc 33.6 g/dL (31.6-35.5); Mean Corpuscular Hemoglobin 32.9 pg (28.0-33.3); Monocytes # 0.7 K/mcL (0.0-1.3); Monocytes % 7.3 %; Neutrophils # 5.3 K/mcL (1.6-8.9); Platelet Count 200 K/mcL (140-400); Red Blood Count 4.92 M/mcL (3.82-4.97); Red Cell Distribution Width 13.9 % (11.5-14.5); Segmented Neutrophils % 54.4 %; White Blood Count 9.8 K/mcL (4.3-11.1)
[2020-03-25 04:15] LABS: BUN/Creatinine Ratio 16 (6-26); Blood Urea Nitrogen 14 mg/dL (6-20); Calcium 9.1 mg/dL (8.6-10.3); Carbon Dioxide 21 mEq/L (23-29); Chloride 105 mEq/L (98-107); Glucose 111 mg/dL (70-105); Magnesium 1.8 mg/dL (1.6-2.6); Osmolality,Calculated 283 (280-300); Phosphorous 3.6 mg/dL (2.7-4.5); Potassium 3.9 mEq/L (3.5-5.1); Sodium 136 mEq/L (136-145); eGFR For African Americans > 60 (> 60); eGFR For Non-African Americans > 60 (> 60)
[2020-03-25 05:15] VITALS: BP 143/92
[2020-03-25] MEDS: carvediloL 6.25 MG TABLET PO SCH (08:33)
[2020-03-25] MEDS: lisinopriL 5 MG TABLET PO SCH (08:33)
[2020-03-25] MEDS: Aspirin Enteric Coated 81 MG Tablet PO SCH (08:33)
[2020-03-25] MEDS: Furosemide 20 MG TABLET PO SCH (08:33)
[2020-03-25] MEDS ORDERED: Isosorbide MONOnitrate (24 HR) 60 MG TAB.ER.24H PO SCH (09:00)
[2020-03-26] MEDS ORDERED: lisinopriL 10 MG TABLET PO SCH (09:00)
== END 2020-03-25 10:16 | disposition left against medical advice (07) ==
LOC: EMEROOARM 16:25 → 3ANU 16:25 → SUATTDRO 18:41 → 3ANU 20:04
PROVIDERS: ADMIT Internal Medicine; ATTEND Internal Medicine

== ENCOUNTER 2021-03-12 22:01 | Observation (INO) ==
[2021-03-13] MEDS ORDERED: Naloxone 0.4 MG/ML INJ IVP PRN (00:24)
[2021-03-13 02:29] LABS: Basophils # 0.1 K/mcL (0.0-0.2); Basophils % 0.8 %; Eosinophils # 0.1 K/mcL (0.0-0.6); Eosinophils % 0.8 %; Hematocrit 40.9 % (35.3-44.9); Hemoglobin 13.6 g/dL (11.5-15.4); Immature Granulocytes % 0.2 % (0-4); Lymphocytes # 2.2 K/mcL (0.6-4.6); Lymphocytes % 24.5 %; Mean Corpuscular HGB Conc 33.3 g/dL (31.6-35.5); Mean Corpuscular Hemoglobin 32.7 pg (28.0-33.3); Mean Corpuscular Volume 98.3 fL (83.0-100.0); Mean Platelet Volume 10.8 fL (9.4-12.4); Monocytes # 0.7 K/mcL (0.0-1.3); Monocytes % 8.3 %; Neutrophils # 5.7 K/mcL (1.6-8.9); Platelet Count 176 K/mcL (140-400); Red Blood Count 4.16 M/mcL (3.82-4.97); Segmented Neutrophils % 65.4 %; White Blood Count 8.8 K/mcL (4.3-11.1)
[2021-03-13 02:39] LABS: INR 1.5; Prothrombin Time 16.9 Seconds (9.4-12.1)
[2021-03-13] MEDS ORDERED: *HR* Heparin 5,000 UNIT/ML VIAL IVP PRN ×2 (02:46)
[2021-03-13] MEDS ORDERED: *HR* Heparin 5,000 UNIT/ML VIAL IVP ONE (02:46)
[2021-03-13] MEDS ORDERED: Perflutren Lipid Microsphere 1.3 ML in 0.9 % Sodium Chloride 8.7 ML IVP PRN (02:47)
[2021-03-13] MEDS ORDERED: Heparin 25,000UNIT/250ML 1/2NS 25,000 UNIT/250 ML IV.SOLN IVC SCH ×2 (03:00)
[2021-03-13 03:07] LABS: Alanine Aminotransferase 10 Units/L (7-52); Albumin 3.6 g/dL (3.5-5.7); Albumin/Globulin Ratio 1.2 (1.1-2.2); Alkaline Phosphatase 88 Units/L (34-104); Aspartate Amino Transferase 17 Units/L (13-39); BUN/Creatinine Ratio 11 (6-26); Bilirubin,Total 0.9 mg/dL (0.3-1.0); Blood Urea Nitrogen 10 mg/dL (6-20); Calcium 8.7 mg/dL (8.6-10.3); Carbon Dioxide 22 mEq/L (23-29); Chloride 109 mEq/L (98-107); Chol/HDL Ratio 6.5 (0-4.9); Cholesterol 150 mg/dL (< 200); Globulin 3.1 g/dL (2.4-3.5); Glucose 100 mg/dL (70-105); HDL Cholesterol 23 mg/dL (40-59); LDL Cholesterol,Calculated 110 mg/dL (< 100); Magnesium 1.8 mg/dL (1.6-2.6); Osmolality,Calculated 283 (280-300); Potassium 3.7 mEq/L (3.5-5.1); Sodium 137 mEq/L (136-145); Total Protein 6.7 g/dL (6.4-8.9); Triglycerides 85 mg/dL (< 150); eGFR For African Americans > 60 (> 60); eGFR For Non-African Americans > 60 (> 60)
[2021-03-13 03:55] LABS: Heparin anti-factor XA UFH 1.13 IU/mL (0.30-0.70)
[2021-03-13] MEDS ORDERED: Ondansetron 4 MG/2 ML VIAL IVP PRN (07:52)
[2021-03-13] MEDS: Aspirin Enteric Coated 81 MG Tablet PO SCH (08:16)
[2021-03-13] MEDS: carvediloL 6.25 MG TABLET PO SCH ×2 (08:16→16:49)
[2021-03-13] MEDS ORDERED: Nitroglycerin 0.4 MG TAB.SUBL SL PRN (11:02)
[2021-03-13] MEDS ORDERED: carvediloL 6.25 MG TABLET PO SCH (11:15)
[2021-03-13] MEDS ORDERED: Ipratropium/Albuterol Neb 3 ML IH PRN (11:56)
[2021-03-13] MEDS: Furosemide 20 MG TABLET PO SCH (13:16)
[2021-03-13] MEDS: Azithromycin 250 MG TABLET PO SCH (13:16)
[2021-03-13] MEDS ORDERED: Acetaminophen 325 MG TABLET PO PRN (16:59)
[2021-03-13] MEDS ORDERED: Acetaminophen IV 500 MG/50 ML BAG IVPB ONE (21:37)
[2021-03-14 06:01] LABS: Hematocrit 44.7 % (35.3-44.9); Hemoglobin 14.4 g/dL (11.5-15.4); Mean Corpuscular HGB Conc 32.2 g/dL (31.6-35.5); Mean Corpuscular Hemoglobin 32.3 pg (28.0-33.3); Mean Corpuscular Volume 100.2 fL (83.0-100.0); Mean Platelet Volume 10.9 fL (9.4-12.4); Platelet Count 191 K/mcL (140-400); Red Blood Count 4.46 M/mcL (3.82-4.97); Red Cell Distribution Width 13.1 % (11.5-14.5); White Blood Count 7.5 K/mcL (4.3-11.1)
[2021-03-14 06:17] LABS: BUN/Creatinine Ratio 13 (6-26); Blood Urea Nitrogen 15 mg/dL (6-20); Calcium 9.3 mg/dL (8.6-10.3); Carbon Dioxide 25 mEq/L (23-29); Chloride 103 mEq/L (98-107); Glucose 106 mg/dL (70-105); Osmolality,Calculated 283 (280-300); Potassium 3.6 mEq/L (3.5-5.1); Sodium 136 mEq/L (136-145); eGFR For African Americans > 60 (> 60); eGFR For Non-African Americans 51 (> 60)
[2021-03-14 07:00] VITALS: BP 136/64
[2021-03-14] MEDS ORDERED: Isosorbide MONOnitrate (24 HR) 60 MG TAB.ER.24H PO SCH ×2 (09:00)
[2021-03-14] MEDS ORDERED: lisinopriL 5 MG TABLET PO SCH (09:00)
[2021-03-14] MEDS ORDERED: Apixaban 5 MG TABLET PO SCH (09:00)
[2021-03-14] MEDS: carvediloL 6.25 MG TABLET PO SCH (10:05)
[2021-03-14] MEDS: Aspirin Enteric Coated 81 MG Tablet PO SCH (10:06)
[2021-03-14] MEDS: Furosemide 20 MG TABLET PO SCH (10:06)
[2021-03-14] MEDS: Azithromycin 250 MG TABLET PO SCH (10:06)
== END 2021-03-14 11:04 | disposition home or self-care (01) ==
LOC: 2ANU
PROVIDERS: ADMIT Internal Medicine; ATTEND Internal Medicine